=== PATIENT | female | born 1955 | race Caucasian/White ===

== ENCOUNTER 2023-03-20 12:36 | Outpatient (OUT) | payer MEDICARE, BC, SELFPAY ==
[2023-03-20 13:43] LABS: Calcium 9.1 mg/dL (8.5-10.1); Phosphorus 4.3 mg/dL (2.6-4.7)
== END 2023-03-20 12:37 | disposition home or self-care (01) ==
LOC: LAB 12:36
PROVIDERS: Visit Provider Internal Medicine Rheumatology
DX: M81.0 Age-related osteoporosis without current pathological fracture (principal); Z79.899 Other long term (current) drug therapy
CPT/HCPCS: 36415; 82310; 84100

== ENCOUNTER 2023-11-14 11:05 | Outpatient (OUT) | payer MEDICARE, BC, SELFPAY ==
--- NOTE | 2023-11-14 | XR_ITS ---
The [address] [address] Patient Name: JOHN CAMPBELL MRN: [id number] date: 1955 Sex: F Assigned Patient Location: Current Patient Location: Accession/Order Number: [id number] Exam Date: 11/14/2023 11:10 Report Date: 11/15/2023 07:43 At the request of: SARTHAK GRIFFIN Procedure: XR foot LT min 3V PROCEDURE: XR foot LT min 3V COMPARISON: None. HISTORY: LEFT FOOT PAIN FINDINGS: BONES:No acute fracture or dislocation. Severe degenerative change first metatarsal-phalangeal joint with dtwz-nc-jego articulation and marked bony remodeling and marginal osteophyte formation. Mild enthesopathic spurring of the calcaneus at the Achilles and plantar insertions SOFT TISSUES:Negative. No visible soft tissue swelling. EFFUSION:None visible. OTHER: Negative. XR/XR foot LT min 3V IMPRESSION: Severe first metatarsal-phalangeal joint osteoarthritis Electronically authenticated by: APPLE RICHTER Date: 11/15/2023 07:43
== END 2023-11-14 11:06 | disposition home or self-care (01) ==
LOC: EC 11:06
PROVIDERS: Visit Provider Physician Assistant
DX: M79.672 Pain in left foot (principal); M19.072 Primary osteoarthritis, left ankle and foot
CPT/HCPCS: 73630

== ENCOUNTER 2024-06-04 14:51 | Outpatient (RCR) | payer MEDICARE, BC, SELFPAY | END 2024-06-26 08:18 | disposition home or self-care (01) | LOC: PT 14:51 | PROVIDERS: PCP Family Medicine; Visit Provider Family Medicine | DX: M54.16 Radiculopathy, lumbar region (principal) | CPT/HCPCS: 97110; 97112; 97162 ==

== ENCOUNTER 2024-12-21 08:50 | Outpatient (RCR) | payer MEDICARE, BC, SELFPAY | END 2024-12-29 08:58 | disposition home or self-care (01) | LOC: PT 08:50 | PROVIDERS: PCP Family Medicine; Visit Provider Family Medicine | DX: H81.13 Benign paroxysmal vertigo, bilateral (principal) | CPT/HCPCS: 95992; 97140; 97162 ==

== ENCOUNTER 2025-03-23 08:15 | Outpatient (OUT) | payer MEDICARE, BC, SELFPAY ==
--- OUTSIDE RECORDS SUMMARY | 2025-03-23 08:18 | XMS_ITS | Clinical Summary ---
Author Organization [facility] Address [address] [place] [address] Care Team Providers Care Uniformer Name Role Phone Lynn Luther MD Primary Care Provider [phone] Jacky Saleh DO Unavailable [phone] Allergies Active AllergyReactionsCriticalityNoted JywoCypkpcajLaeqoyAmlyTkn20/04/2023 TrsaexPybphtu21/25/2023Povidone PrglyyInwwmkh18/25/2023ovidone-IodineHives 05/11/20186748OkrrulfutnbiIbxmhey80/25/5591ClovNmtgy43/09/2018 Medications MedicationSigDispense QuantityRefillsLast FilledStart DateEnd DateStatus Lecithin 1200 MG capsule Take 1 capsule by mouth 1 (one) time each day at the same time.Active atorvastatin (Lipitor) 10 MG tablet Take 10 mg by mouth in the morning.Active cholecalciferol (Vitamin D-3) 125 MCG (5000 UT) capsule Take 5,000 Units by mouth in the morning.Active denosumab (Prolia) 60 MG/ML solution prefilled syringe Inject 60 mg under the skin 1 (one) time.Active Premarin 0.625 MG/GM cream INSERT 1/2 GRAM VAGINALLY TWICE A WEEK03/15/2022ctive OneTouch Ultra test strip USE TO TEST ONCE DAILY E11.65009/14/2022ctive Lancets (OneTouch Delica Plus Nrhznk04H) misc USE WITH ONE TOUCH LANCET DEVICE DAILY09/18/2022ctive Ascorbic Acid (Vitamin C) 500 MG capsule as directed Nbqhwx2111/14/2023ctive Calcium Citrate-Vitamin D 315-5 MG-MCG tablet 1 (one) time each day at the same time11/14/2023ctive celecoxib (CeleBREX) 200 MG capsule 1 capsule with food Orally prn for 30 days11/14/2023ctive Multiple Vitamin (Multi Vitamin) tablet 1 (one) time each day at the same time11/14/2023ctive omega-3 (Fish Oil) 1000 MG capsule 1 capsule every 8 (eight) hours11/14/2023ctive Active Problems ProblemNoted DateDiagnosed OafgHsisrgyfsic36/29/2024ontracture, left ankle 11/30/2023iabetes mellitus type II, cvjywajqqp24/29/2024OE (dyspnea on exertion)11/30/20235921Fgsjsp79/29/2024Epicondylitis, onbbkem7411/30/2023Epigastric pain11/30/20236198Nymxmezau01/29/5871Gvjznri20/29/2024 Overview (11/30/2023): foot Otitis media11/30/2023rimary localized osteoarthrosis of ankle and foot 11/30/20236719Durucscp74/29/2024Sinus jkuuzvzpnby66/29/2024Type 2 diabetes mellitus with smkgtnjgywyqd88/29/1756Mmgvasxtqlaq19/29/2024ge related osteoporosis 11/25/2022trophy of wggwkn5011/25/2022Fibrocystic breast mfjgoms8211/25/2022 Multiple thyroid trvrhla1311/25/2022Urge incontinence of urine11/25/2022 Resolved Problems ProblemNoted DateDiagnosed DateResolved DateNontoxic single thyroid nodule ostmenopausal gnvxatfi02 Encounters DateTypeDepartmentCare QdwhQqwrvllocsx18/09/2025Results Follow-Up [facility] [address] [place] [address] Tiarra Cook, DEXA bone densityfrom Last 3 Months Family History Medical HistoryRelationNameCommentsBreast cancerFather's Loiitsk5CrnhyvcxSeux StatusCommentsFather's Opzgeio2Rzyja Social History Tobacco UseTypesPacks/DayYears UsedDateSmoking Tobacco: NeverSmokeless Tobacco: Never Tobacco Cessation:Counseling Given: Not Answered Alcohol UseStandard Drinks/WeekCommentsNever0 (1 standard drink = 0.6 oz pure alcohol)caffeine intake : chocolateCommentsUnknownSex and Gender InformationValueDate RecordedSex Assigned at IkrtjKqdvee04/19/2023 12:16 PM EDT Legal JsiYhwviw36/15/2023 7:19 PM EDTGender NlqemebqMgzuhg39/19/2023 12:16 PM EDTSexual OrientationChoose not to nkoeoubc20/19/2023 12:16 PM EDT Last Filed Vital Signs Vital SignReadingTime TakenCommentsBlood Brsukoyu072/6404/08/2024 9:08 AM EST Pulse--Temperature--Respiratory Rate--Oxygen Saturation--Inhaled Oxygen Concentration--Thpjnc57.5 kg (140 lb)04/08/2024 9:08 AM CSCJcghrc833.8 cm (5' 4.5 )12/03/2023 8:31 AM EDTBody Mass Index23.6607 8:31 AM EDT Plan of Treatment DateTypeDepartmentCare Team (Latest Contact Info)Cgdryejvnmg99/20/2025 9:45 AM ESTOffice Visit [facility] [address] [place] [phone] Tiarra Cook DO [address] [place] [address] Health MaintenanceDue DateLast DoneCommentsCT Exyoexbntekm1955Colonoscopy 5Colorectal Cancer Dyiiwjcsc1955FIT-DNA1955FIT1955 FOBT04/24/19554804Ukomfgyacsqzo1955Pneumococcal Vaccine: 65+ Years (1 of 1 - PCV)2005Influenza Vaccine (#1)510/01/2024, 03/08/2023, 03/21/2022, Additional history udfexxJpzdbqwzm29/27/337438, 01/24/2023, 03/15/2022, Additional history exists Procedures Procedure NamePriorityDate/TimeAssociated DiagnosisCommentsDEXA BONE DENSITY Oznzafs0002/08/2025 1:12 PM EDT Screening for osteoporosis Postmenopausal status, age-related BI MAMMOGRAM SCREENING TOMOSYNTHESIS RLKHIFBRKClbyiuk71/27/2025 10:04 AM EDT Encounter for screening mammogram for breast cancer from Last 3 Months Results * DEXA bone density (02/08/2025 1:12 PM EDT)Anatomical RegionLateralityModality BodyRadiographic Imaging Narrative Authorizing ProviderResult TypeResult StatusTiarra Cook DOI DXA PROCEDURESFinal Result * Bilateral screening mammogram with tomosynthesis (01/27/2025 10:04 AM EDT) Anatomical RegionLateralityModalityBreastBilateralMammographySpecimen (Source) Anatomical Location / LateralityCollection Method / VolumeCollection Time Received Time01/27/2025 10:04 AM EDT Impressions 01/27/2025 10:07 AM EDT NO MAMMOGRAPHIC EVIDENCE OF MALIGNANCY. ? ROUTINE FOLLOW-UP IS RECOMMENDED IN ONE YEAR. ? RESULT CODE: 1 ? Negative ? DENSITY CODE: 2 (approximately 25-50% glandular) There are scattered areas of fibroglandular density. ? FOLLOW UP: 1YR ? The false-negative rate of mammography is approximately 10-percent. ? Management of a palpable abnormality must be based on clinical grounds. ? Patient was entered into a reminder system with a target due date for the next mammogram. ? Impression dictated by: Liam Osorio Jr., D.O. ??01/27/2025 10:05 AM ? Dictation Location: [facility] ? Dictated By: ?Liam Osorio Jr, DO ? 01/27/25 1004 ? Signed By: <Electronically signed by Liam Osorio Jr, DO in OV> ?01/27/25 1005 Narrative 01/27/2025 10:07 AM T [facility] ?[address] ?[place] [address] ?? [phone] ? Mammography Report ? Signed ? Patient: GladisLoraine A ?MR#: [id number] ?? 6 ? : 1955 ?Acct:[id number] ? Age/Sex: 69 / F ?Adm Date: // ? Loc: [place] ?Room: ?Type: REG CLI ?? Attending Dr: Tiarra Cook DO ? Ordering Provider: Tiarra Cook, DO ? Date of Service: // ? Procedure(s): MM screening mammo BI w/CAD ?? Accession Number(s): ([id number]) MM/MM screening mammo BI w/CAD: screening ? Copies to: Tiarra Cook, DO ?? Lynn Luther MD ? CLINICAL DATA: ??Screening for malignancy. ? SCREENING MAMMOGRAM - FULL FIELD DIGITAL WITH TOMOSYNTHESIS AND CAD ? COMPARISON:Mammograms dating back to 2021 ? Tomosynthesis craniocaudal and mediolateral oblique views of both breasts were obtained using low- dose digital technique. ?? This examination was reviewed with the aid of CAD. ? FINDINGS: ? The breast tissue is composed of scattered fibroglandular densities. ??There are no dominant masses, typically malignant calcifications or architectural distortion. ??There has been no significant interval change. ? MM/MM screening mammo BI w/CAD ?? Procedure Note Liam Osorio Jr., DO - 01/27/2025 [facility] [place] [address] Mammography Report Signed Patient: Loraine Griffith AMR#: [id number] 6 : 5Acct:[id number] Age/Sex: 69 / FAdm Date: 01/27/25 Loc: [place] Room:Type: [facility] Attending Dr: Tiarra Cook DO Ordering Provider: Tiarra Cook DO Date of Service: 01/27/25 Procedure(s): MM screening mammo BI w/CAD Accession Number(s): ([id number]) MM/MM screening mammo BI w/CAD:screening Copies to: DO Lynn Loja MD CLINICAL DATA: Screening for malignancy. SCREENING MAMMOGRAM - FULL FIELD DIGITAL WITH TOMOSYNTHESIS AND CAD COMPARISON:Mammograms dating back to 2021 Tomosynthesis craniocaudal and mediolateral oblique views of both breastswere obtained using low- dose digital technique. This examination was reviewed with the aid ofCAD. FINDINGS: The breast tissue is composed of scattered fibroglandular densities.There are no dominant masses, typically malignant calcifications or architectural distortion. There hasbeen no significant interval change. MM/MM screening mammo BI w/CAD IMPRESSION: NO MAMMOGRAPHIC EVIDENCE OF MALIGNANCY. ROUTINE FOLLOW-UP IS RECOMMENDED IN ONE YEAR. RESULT CODE: 1 Negative DENSITY CODE: 2 (approximately 25-50% glandular) There are scattered areasof fibroglandular density. FOLLOW UP: 1YR The false-negative rate of mammography is approximately 10-percent. Management of a palpable abnormality must be based on clinical grounds. Patient was entered into a reminder system with a target due date for thenext mammogram. Impression dictated by: Liam Osorio Jr., D.OHyacinth 01/27/2025 10:05 AM Dictation Location: [facility] Dictated By: Liam Osorio Jr, DO 01/27/25 1004 Signed By: <Electronically signed by Liam Osorio Jr, DO inOV> 01/27/25 1005 Authorizing ProviderResult TypeResult StatusTiarra Cook DOI BI PROCEDURESFinal Result from Last 3 Months Insurance * Guarantor: Loraine Griffith AAccount TypeRelation to PatientDate of BirthPhone Billing AddressPersonal/FmpouvBlrl1955 [address] [address] Care Teams Team MemberRelationshipSpecialtyStart DateEnd Lynn Luther MD PCP - GeneralFamily Medicine12/03/23 Jacky Saleh DO [address] [place] [address] Otolaryngology12/03/23
--- OUTSIDE RECORDS SUMMARY | 2025-03-23 08:18 | XMS_ITS | Patient Health Record ---
Author Organization [facility] [place] Address [address] [place] [address] Care Team Providers Care Production Welding Supervisor Name Role Phone None, Unknown or Primary Care Provider Unavailab le Allergies Allergen (clinical drug ingredient) Drug/Non Drug Allergy documented on EMR Reaction Allergy Type Onset Date Status povidone-iodine Betadine Unknown Drug Allergy ActiveniacinNiacinUnknownDrug AllergyActiveproparacaineProparacaineUnknownDrug AllergyActive Reason For Referral No Information Medications Medication SIG (Take, Route, Frequency, Duration) Notes Start Date End Date Status Vitamin C 500 MG as directed Orally 11/14/2023ctiveVitamin D 50 MCG (1999 UT)1 tablet Orally Once a day11/14/2023 ActiveCalcium Citrate-Vitamin D 315-5 MG-MCG1 tablet Orally Once a day11/14/2023 ActiveCelecoxib 200 MG1 capsule with food Orally prn; Duration: 30 days 11/14/2023Not-TakingFish Oil 1000 MG1 capsule Orally Three times a day11/14/2023 ActiveMultivitamin -1 tablet Orally Once a day11/14/2023ctiveAtorvastatin Calcium 10 MG1 tablet Orally Once a day11/14/2023ctive Social History Tobacco Use: Social History Observation Description Date Details (start date - stop date) Never Smoker NA - NA Tobacco Control (Standard) Question Answer Notes Tobacco use: Nonsmoker Problems Problem Type SNOMED Code ICD Code Onset Dates Problem Status W/U Status Risk Notes Problem Contracture of joint of left ankle (disorder) (177585862170442) Contracture, left ankle (M24.572) ActiveconfirmedProblemLocalized, primary osteoarthritis of the ankle and/or foot (625481893)Arthritis of ankle, right, degenerative (M19.071)Activeconfirmed ProblemLocalized, primary osteoarthritis of the ankle and/or foot (263725023) Arthritis of foot, left, degenerative (M19.072)Activeconfirmed Plan Of Treatment No Information Insurance Providers Payer Name Payer Address Payer Phone Subscriber Number Group Number Insured Name Patient Relationship to Insured Coverage Start Date Coverage End Date [place] [address] [place] [address] [id number] Tasha Griffithelf - patient is the insuredANTHEM MEDICARE SUPPLEMENTPO [address] [place] [id number], [employer] - patient is the insured Medical (General) History Medical History History ICD Code Plantar fascia syndrome M72.2 hypercholesterolemia Arthritis of foot, left, cvluxixirfgyL19.072Arthritis of ankle, right, bhdzxocwtffrN43.071left medial epicondylitisneuroma right footdiabetesasthma osteoporosisSurgical History Surgery Date(Month/Year) breast biopsy 2008 tonsillectomy and adenoidectomy
--- OUTSIDE RECORDS SUMMARY | 2025-03-23 08:18 | XMS_ITS | Clinical Summary ---
Author Organization [facility] Address [address] [place] [address] Phone Care Team Providers Care Service Or Work Dispatcher Name Role Phone Evelyn Cannon MD Primary Care Provider Social History Tobacco UseTypesPacks/DayYears UsedDateSmoking Tobacco: Never Assessed CommentsUnknownSex and Gender InformationValueDate RecordedSex Assigned at Not on fileLegal SnqPfpqyj07/25/2022 3:04 PM ESTGender IdentityNot on fileSexual OrientationNot on file Last Filed Vital Signs Vital SignReadingTime TakenCommentsBlood Vdpwgusi913/7801 3:05 PM EST Zimys4714 3:04 PM ESTTemperature--Respiratory Rate--Oxygen Saturation-- Inhaled Oxygen Concentration--Mejmuh07 kg (139 lb)06/06/2022 3:04 PM ESTHeight 163.8 cm (5' 4.5 )06/06/2022 3:04 PM ESTBody Mass Index23.49006/06/2022 3:04 PM EST Plan of Treatment Health MaintenanceDue DateLast DoneCommentsCT Sspgekuwgqvu1955Colonoscopy 5Colorectal Cancer Hppcjqynh1955FIT-DNA (Cologuard)1955FIT 1955Lipid Panel04/24/19556780Snpqkskmcrhbt1955early Adult Physical 1955MMR Vaccines (1 of 1 - Standard series)1956Hepatitis C Screening 1973DTaP/Tdap/Td Vaccines (1 - Tdap)04/24/19778606Vvdtwzxyb12/22/1995 Pneumococcal Vaccine (1 of 1 - PCV)2005Zoster Vaccines (1 of 2)2005 Bone Density Scan2020Influenza Vaccine (#1)5COVID-19 Vaccine (1 - 2024- season)2025RSV High Risk: (Elderly (60+) or Population) (1 - 1-dose 75+ series)2030HIB VaccinesAged OutNo longer eligible based on patient's age to complete this topicHPV VaccinesAged OutNo longer eligible based on patient's age to complete this topicHepatitis A VaccinesAged OutNo longer eligible based on patient's age to complete this topicHepatitis B VaccinesAged OutNo longer eligible based on patient's age to complete this topicIPV Vaccines Aged OutNo longer eligible based on patient's age to complete this topic Meningococcal VaccineAged OutNo longer eligible based on patient's age to complete this topicRotavirus VaccinesAged OutNo longer eligible based on patient's age to complete this topic Care Teams Team MemberRelationshipSpecialtyStart DateEnd Date Evelyn Cannon MD [address] [place] [address] PCP - General06/06/22
--- OUTSIDE RECORDS SUMMARY | 2025-03-23 08:20 | XMS_ITS | CCD ---
Author Organization [facility] Care Team Providers Care Vice President Industrial Relations Name Role Phone Natalie Kinneya Unavailable MD Ruth Cannon Primary Care Provider [phone] Self, Referral Attending Provider Unavailable DO Tiarra Cook Referring Provider PABLO HUBBARD Admitting Unavailable PABLO HUBBARD Attending Unavailable DAVIS, DR RUTH Mesa Primary Care Unavailable DAVID, DR JOHNY Stokes Consulting Unavailable PABLO HUBBARD Consulting Unavailable DAVIS, DR RUTH Mesa Admitting Unavailable DAVIS, DR RUTH Mesa Attending Unavailable DAVIS, DR RUTH Mesa Primary Care Unavailable DAVIS, DR RUTH Mesa Consulting Unavailable MD Ruth Cannon Primary Care Provider MD Kendell German Attending Provider Mapus, JAVASCRIPT DEVELOPER Tondra K Attending Provider [phone] MD Ruth Cannon Attending Provider Ruth Cannon Unavailable Unavailable Unavailable MD Ruth Cannon Primary Care Provider [phone] MD Kendell German Attending Provider [place], JAVASCRIPT DEVELOPER Tondra K Referring Provider [phone] Iraj Edmondson Primary Care Physician [phone] MD Ruth Cannon Primary Care Provider DO Tiarra Cook Attending Provider Map, JAVASCRIPT DEVELOPER Tondra K Attending Provider MD Dmitry German Referring Provider Lynn Luther Unavailable MD Lynn Luther Primary Care Provider Obermeyer, ASSOCIATE CIVIL ENGINEER-C Miracle Wellington Attending Provider DANITA Kinney Referring Provider MD Lynn Luther Primary Care Provider Self, Referral Attending Provider Unavailable DO Tiarra Cook Referring Provider Obermeyer, ASSOCIATE CIVIL ENGINEER-C Miracle Wellington Attending Provider JACKY SALEH Attending Unavailable RUTH CANNON Referring Unavailable TIARRA COOK Attending Unavailable Lynn Luther MD Primary Care Provider [phone] Jacky Saleh DO Unavailable Lynn Luther MD Primary Care Provider Self, Referral Attending Provider Unavailable Tiarra Cook DO Referring Provider Obermeyer ASSOCIATE CIVIL ENGINEER-CMiracle Attending Provider Lynn Luther MD Primary Care Provider Lynn Luther MD Attending Provider Dario Moore DO Referring Provider Lynn Luther MD Primary Care Provider Obermeyer ASSOCIATE CIVIL ENGINEER-C, Miracle Wellington Other Provider MapAriel singh APRN Attending Provider [phone] Wendie Craig DO Attending Provider Lynn Luther MD Attending Provider [phone] Lynn Luther MD Primary Care Provider Nan Rodriguez APRN Attending Provider Wendie Craig DO Other Provider [phone] Selin Patel Attending Provider Unavailab Lynn Anderson MD Attending Provider Leland Boss Attending Unavailable Lynn Luther MD Primary Care Provider [place]us JAVASCRIPT DEVELOPER, Tondra K Attending Provider Lynn Luther MD Primary Care Provider Wendie Craig DO Attending Provider Lynn Luther MD Primary Care Provider Lynn Luther MD Attending Provider [place] JAVASCRIPT DEVELOPERAriel Londono Attending Provider RinTiarra shea DO Attending Provider [phone] Lynn Luther E Primary Care Unavailable Obermeyer, Miracle L Admitting Unavailable Obermeyer, Miracle L Attending Unavailable Luther, Lynn E Primary Care Unavailable Luther, Lynn E Attending Unavailable Luther, Lynn E Admitting Unavailable Luther, Lynn E Attending Unavailable Luther, Lynn E Admitting Unavailable Dario Moore Referring Unavailable Luther, Lynn E Primary Care Unavailable Mapus, Tondra K Admitting Unavailable [place], Tondra K Attending Unavailable Luther, Lynn E Primary Care Unavailable Obermeyer, Miracle L Consulting Unavailable Luther, Lynn E Attending Unavailable Luther, Lynn E Admitting Unavailable Luther, Lynn E Primary Care Unavailable Luther, Lynn E Attending Unavailable Luther, Lynn E Admitting Unavailable Luther, Lynn E Primary Care Unavailable Mapus, Tondra K Attending Unavailable Luther, Lynn E Primary Care Unavailable Mapus, Tondra K Admitting Unavailable RinTiarra shea Attending Unavailable Luther, Lynn E Primary Care Unavailable RinTiarra shea Admitting Unavailable Ly Wendie L Admitting Unavailable LyWendie Attending Unavailable Luther, Lynn E Primary Care Unavailable Allergies Allergy ClassificationReported Allergen(s)Allergy TypeDate of OnsetReaction(s) Facility (20 sources)IodineDrug Wmckzie93-61-6242innhQgiliixfiSelect [facility] (20 sources)Niacin; Translations: [Niacin TABS]Drug Eoogkxx87-37-5443 Hypertensive disorder, systemic arterial (disorder)[facility] (20 sources)Povidone-IodineDrug Lwynhve61-02-7035lvskHnteifqqdSelect Medical Specialty Hospital [facility] [place] (17 sources)propacaine eye dropPropensity to adverse mxrwnowdv65-15-0228hrpyif turns [facility] (20 sources)Povidone-Iodine; Translations: [Povidone-Iodine]Drug Allergy 94-99-9674Tuxnbrtf of skin (disorder), [facility]ivesMer[facility] (12 sources)ProcaineDrug Wbjeuvp41-76-8812Ezz EyeMercy Health Clerm[facility] Hospital (20 sources)soapPropensity to adverse vbssuivjl96-82-6904FubmwVolxckrsr [facility] (1 source)Povidone-Iodine; Translations: [Betadine OINT]Drug AllergyRain[facility] 250 DO Work Phone: (2 sources)Povidone-Iodine; Translations: [Betadine]Drug AllergyOhio[facility] (6 sources)proparacaine; Translations: [Proparacaine HCl SOLN]Drug Allergy 54-82-4566Xkc eye (finding), [facility] (3 sources)NiacinDrug Xuuiygm35-87-1506QsqjyovGRJL Healthcare (3 sources)Povidone-IodineDrug Crnutzo48-44-4536QkgnuvmWHBD Healthcare (12 sources)proparacaineDrug Anoaxxb32-20-4208fua eyesMercy Health Cl[facility] Hospital (1 source)proparacaine; Translations: [proparacaine ophthalmic]Drug Allergy [facility] Medications Current Medications MedicationDrug Class(es)DatesSig (Normalized)Sig (Original)amoxicillin 500 mg oral capsule (1 source)Penicillin-class AntibacterialStart: 65-12-2697musl 1 capsule by mouth every twelve hoursamoxicillin 500 mg Cap 500 mg = 1 cap(s), Oral, q12hr, # 20 cap(s), Refills(s) 0, Pharmacy: [facility]/pharmacy #[id number], 162, cm, 01/09/23 14:37:00 EDT, Height/Length Dosing, 62.5, kg, 01/09/23 14:37:00 EDT, Weight Dosing Start Date: 01/09/23 Status: Orderedascorbic acid 500 mg oral capsule (20 sources)Vitamin CStart: 03-71-9376Tajexmrl Acid (Vitamin C) 500 MG capsule as directed Orally 11/14/2023 ActiveStart: 24-53-0743mfxm 1 tablet by mouth once dailyAscorbic Acid (Vitamin C) (Vitamin C) 500 mg Tablet Active 500 MG PO Daily May 11, 2018 1:00am Complies with drug therapycalcium citrate 1500 mg / cholecalciferol 200 unt oral tablet (20 sources)Vitamin DStart: 45-44-1016Hetpgsg Citrate-Vitamin D 315-5 MG-MCG tablet 1 (one) time each day at the same time 11/14/2023 ActiveStart: 05-11-2018 take 1 tablet by mouth twice dailyCalcium Citrate-Vitamin D3 (Citracal + D Maximum) 315-250 mg-unit Tablet Active 1 TAB PO Twice daily May 11, 2018 1:00am Complies with drug therapycelecoxib 200 mg oral capsule (3 sources)Nonsteroidal Anti-inflammatory DrugStart: 27-99-4955qjaf 1 capsule by mouth at mealtime as neededcelecoxib (CeleBREX) 200 MG capsule 1 capsule with food Orally prn for 30 days 11/14/2023 Activecholecalciferol 0.025 mg oral capsule (20 sources)Vitamin DStart: 69-73-3078rhfe 1 capsule by mouth once daily Cholecalciferol (Vitamin D3) (Vitamin D3) 25 mcg (1,000 unit) capsule Active 2000 UNIT PO Daily 2023 9:29am Complies with drug therapyStart: 10-17-2023 End: 26-48-5253cnpe 1 tablet by mouth once dailycholecalciferol (vitamin D3) (Super Daily D3) Discontinued 1 TAB PO Daily October 16, 2023 11:00pm October 17, 2023 8:29amStart: 10-17-2023 End: 72-20-1813foiy 1 tablet by mouth once dailycholecalciferol (vitamin D3) (Super Daily D3) Discontinued 1 TAB PO Daily October 17, 2023 12:00am October 17, 2023 9:29amStart: 05-11-2018 End: 45-27-3847fuhb 1325-0745 [IU] by mouth once dailyCholecalciferol (Vitamin D3) (Vitamin D3) 1,000 unit Capsule Discontinued 1000 - 2000 UNIT PO Daily May 11, 2018 1:00am October 17, 2023 9:30amtake 1 capsule by mouth in the morningcholecalciferol (Vitamin D-3) 125 MCG (5000 UT) capsule Take 5,000 Units by mouth in the morning. Activetake 1 tablet by mouth twice dailyVitamin D3 50 MCG (2000 UT) Oral Tablet 1 tablet twice a day Quantity: 0 Refills: 0 Ordered: 06-Jun-2022 DO ActiveCitracal Plus (10 sources)take 1 tablet by mouth twice dailyCitracal Plus 1 Tablet Orally bid ActiveCoQ-10 100 MG (3 sources)take 1 capsule by mouth once dailyCoQ-10 100 MG 1 capsule with a meal Orally Once a day Active1 ml denosumab 60 mg/ml prefilled syringe (20 sources)RANK Ligand InhibitorStart: 34-42-6606Bskwzhjpx (Prolia) 60 mg/mL syringe Active 60 MG SUBCUT EVERY 6 MONTHS October 17, 2023 12:00am Complies with drug therapyinject 60 mg by subcutaneous injection oncedenosumab (Prolia) 60 MG/ML solution prefilled syringe Inject 60 mg under the skin 1 (one) time. Act iveProlia 60 MG/ML as directed Subcutaneous q 6 months Activedocosahexaenoic acid 120 mg / eicosapentaenoic acid 180 mg oral capsule (4 sources)Start: 33-25-0601khjv 1 capsule by mouth every eight hoursomega-3 (Fish Oil) 1000 MG capsule 1 capsule every 8 (eight) hours 11/14/2023 ActiveFish Oil 1000 MG Oral Capsule 1 TABLET TWICE ADAY Quantity: 180 Refills: 3 Ordered: 06-Jun-2022 DO Activeestrogens, conjugated (prison) 0.625 mg/ml vaginal cream (3 sources)EstrogenStart: 61-82-0751Mgibepvq 0.625 MG/GM cream INSERT 1/2 GRAM VAGINALLY TWICE A WEEK 03/15/2022 ActiveFish Oils (10 sources)Fish Oil 1000mg QD ActiveFlax Seed Oil 1000 MG (10 sources)Flax Seed Oil 1000 MG Orally RhcaqeHvhv-Gdynv-Se8-Oeb-Khc-Nwuz-St (Glucosamine Chondroitin Plus) 351-603-55-54 mg Capsule (20 sources)Start: 11-50-7035xlus 1 tablet by mouth once dailyStart: 05-12-2018 take 1 tablet by mouth once uoaoeSmve-Ibufm-Rp4-Hpa-Wlg-Kqcg-St (Glucosamine Chondroitin Plus) 047-767-40-54 mg Capsule Active 1 TABPO Daily May 12, 2018 1:00am Complies with drug therapyStart: 69-08-5680ivsk 1 tablet by mouth once bgztmYpdj-Gjceg-Lu5-Ogp-Qmw-Mval-St (Glucosamine Chondroitin Plus) 607-393-93-54 mg Capsule Active 1 TABPO Daily May 12, 2018 12:00amStart: 90-90-1166kcnj 1 tablet by mouth once gxmbvVvzn-Mqtjj-Li1-Upr-Skg-Ohmk-St (Glucosamine Chondroitin Plus) 600-921-76-54 mg Capsule Active 1 TABPO Daily May 12, 2018 1:00amGlucosamine Chondroitin Complx (10 sources)Glucosamine Chondroitin Complx Orally Activelecithin 1200 mg oral capsule (20 sources)Start: 05-12-2018 End: 20-30-8925jvun 1 capsule by mouth once dailyLecithin 1,200 mg capsule Active 1200 MG PO Daily October 17, 2023 9:29am Complies with drug therapylinseed oil 1000 mg oral capsule (18 sources)Start: 36-20-6039qiav 1 capsule by mouth once dailyFlaxseed Oil 1,000 mg capsule Active 1000 MG PO Daily October 17, 2023 12:00am administer with a mealComplies with drug therapyFlax Seed Oil 1000 MG Oral Capsule TAKE DIRECTED. Quantity: 0 Refills: 0 Ordered: 06-Jun-2022 DO ActiveMultiple Vitamin (Multi Vitamin) tablet (3 sources)Start: 72-87-0354Zuhkashh Vitamin (Multi Vitamin) tablet 1 (one) time each day at the same time 11/14/2023 ActiveMultivitamin preparation (19 sources)Start: 33-17-6447tszm 1 tablet by mouth once dailyMultivitamin Active 1 TAB PO Daily May 11, 2018 12:00amStart: 28-32-3516abtj 1 tablet by mouth once dailyMultivitamin Active 1 TAB PO Daily May 11, 2018 1:00am Multivitamin Orally ActiveMultivitamin Tablet (15 sources)Start: 49-20-8368kaen 1 tablet by mouth once dailyStart: 05-11-2018 take 1 tablet by mouth once dailyMultivitamin Tablet Active 1 TAB PO Daily May 11, 2018 1:00am Complies with drug therapyStart: 97-37-8925eyof 1 tablet by mouth once dailyMultivitamin Tablet Active 1 TAB PO Daily May 11, 2018 1:00amStart: 52-23-7774mzwq 1 tablet by mouth once dailyMultivitamin Tablet Active 1 TAB PO Daily May 11, 2018 12:00amOmega 5-Lld-Aou-Fish Oil (Fish Oil) 1,000 mg (120 mg-180 mg) Capsule (20 sources)Start: 97-63-1979mrfp 1 capsule by mouth once dailyStart: 05-11-2018 take 1 capsule by mouth once dailyOmega 6-Foj-Yzl-Fish Oil (Fish Oil) 1,000 mg (120 mg-180 mg) Capsule Active 1000 MG PO Daily May 11, 2018 1:00am Complies with drug therapyStart: 82-95-8048qvnz 1 capsule by mouth once daily [place] 8-Zgc-Pzb-Fish Oil (Fish Oil) 1,000 mg (120 mg-180 mg) Capsule Active 1000 MG PO Daily May 11, 2018 12:00amStart: 57-69-2018vbhw 1 capsule by mouth once dailyOmega 1-Dkg-Jjh-Fish Oil (Fish Oil) 1,000 mg (120 mg-180 mg) Capsule Active 1000 MG PO Daily May 11, 2018 1:00amOne Touch Ultra Mini Glucometer 1 meter (8 sources)Start: 74-92-0558Rhl Touch Ultra Mini Glucometer 1 meter Use to test blood sugar E11,9 as directed Jun, ActiveStart: 95-71-5967znzmiut lecithin 1200 mg oral capsule (4 sources)take 1 capsule by mouth once dailyLecithin 1200 MG capsule Take 1 capsule by mouth 1 (one) time each day at the same time. ActiveSuper D3 Complex (10 sources)take 1000 mg by mouth once dailySuper D3 Complex 1000mg Orally daily Activeubidecarenone 200 mg oral capsule (20 sources)Start: 72-79-1907Ddpucbow Q10 (Co Q-10) 200 mg Capsule Active 100 MG PO Daily May 11, 2018 1:00am Complies with drug therapytake 1 capsule by mouth every twenty-four hoursCoQ-10 100 MG 1 capsule with a meal Orally Once a day ActivevalACYclovir 1000 mg oral tablet (1 source)Herpesvirus Nucleoside Analog DNA Polymerase Inhibitor, Herpes Simplex Virus Nucleoside Analog DNA Polymerase Inhibitor, Herpes Zoster Virus Nucleoside Analog DNA Polymerase InhibitorStart: 12-27-2024 End: 99-68-3952pwjy 1 tablet by mouth every eight hoursvalacyclovir 1 g Tab 1 gm = 1 tab(s), Oral, q8hr, X 7 day(s), # 21 tab(s), Refills(s) 0, Pharmacy: [facility]/pharmacy #[id number], 163, cm, 12/27/24 13:23:00 EDT, Height/Length Dosing, 66, kg, 12/27/24 13:23:00 EDT, Weight Dosing Start Date: 12/27/24 Stop Date: 01/03/25 Status: Ordered Quantity: 21.0 Unit: tab(s)Repeat number: 1 Indications: Zoster without complications;Vitamin B Complex (20 sources)Start: 53-21-1410segg 1 tablet by mouth once dailyStart: 10-17-2023 take 1 tablet by mouth once dailyvitamin B complex Active 1 TAB PO Daily October 17, 2023 12:00am Complies with drug therapyStart: 85-94-8670bmym 1 tablet by mouth once dailyvitamin B complex Active 1 TAB PO Daily October 16, 2023 11:00pm Start: 43-69-3323zbnm 1 tablet by mouth once dailyvitamin B complex Active 1 TAB PO Daily October 17, 2023 12:00amVitamin B Complex Orally Activevitamin b12 2.5 mg sublingual tablet (20 sources)Vitamin H15Vyzve: 20-97-3069Kckpljgrtaniup (Vitamin B-12) (Vitamin B-12) 2,500 mcg Tablet, Sublingual Active 1000 MG SUBLINGUALDaily May 12, 2018 1:00am Complies with drug therapyVitamin C 500 MG (10 sources)Vitamin C 500 MG Orally Active Completed/Discontinued Medications MedicationDrug Class(es)DatesSig (Normalized)Sig (Original)atorvastatin 10 mg oral tablet (20 sources)HMG-CoA Reductase InhibitorStart: 10-17-2023 End: 92-09-3292vkkr 1 tablet by mouth five times weeklyAtorvastatin 10 mg tablet Discontinued 10 MG PO 5 TIMES PER WEEK October 17, 2023 9:28am April 23, 2024 10:52amStart: 07-25-2023 End: 33-20-6676emgz 1 tablet by mouth once dailyAtorvastatin 10 mg tablet Discontinued 0 .ROUTE .COMPLEX July 25, 2023 8:38am October 17, 2023 9:30am TAKE 1 TABLET BY MOUTH EVERY DAYStart: 01-09-2023 End: 39-43-0854qyhu 1 tablet by mouth once dailyAtorvastatin 10 mg tablet Discontinued 10 MG PO Daily April 23, 2024 10:53am October 29715683:55am Start: 05-11-2018 End: 51-02-6279yker 1 tablet by mouth three times weeklyAtorvastatin (Lipitor) 10 mg Tablet Discontinued 10 MG PO 3 Times a week May 11, 2018 1:00am F ebruary 2023 8:38amtake 1 tablet by mouth every six hoursAtorvastatin Calcium 10 mg 1 tablet Orally qid for 90 days Activetake 1 tablet by mouth four times weeklyAtorvastatin Calcium 10 mg 1 tablet Orally 4 TIMES A WEEK Active Calcium Citrate (1 source)Citracal TABS 1 tablet twice a day Quantity: 0 Refills: 0 Ordered: 06-Jun-2022 DO ActiveCo Q10 TABS (1 source)Co Q10 TABS TAKE DIRECTED. Quantity: 0 Refills: 0 Ordered: 06-Jun-2022 DO ActiveGlucosamine Chondroitin Triple TABS (1 source)Glucosamine Chondroitin Triple TABS TAKE 1 TABLET DAILY DIRECTED. Quantity: 0 Refills: 0 Ordered: 06-Jun-2022 DO ActiveMultiple Vitamins TABS (1 source)Multiple Vitamins TABS TAKE 1 TABLET DAILY. Quantity: 0 Refills: 0 Ordered: 06-Jun-2022 DO Activeomeprazole 40 mg delayed release oral capsule (20 sources)Proton Pump InhibitorStart: 09-28-2024 End: 25-63-6515rxqr 1 capsule by mouth once dailyOmeprazole 40 mg capsule,delayed release(DR/EC) Discontinued 40 MG PO Daily September 28, 2024 12:00am January 20, 2025 9:37amStart: 05-19-2018 End: 20-46-5218jftj 1 capsule by mouth once dailyOmeprazole 20 mg capsule,delayed release(DR/EC) Discontinued 20 MG PO Daily May 19, 2018 1:00am October 17, 2023 9:30amStart: 05-13-2018 End: 03-76-9214gniq 1 tablet by mouth once dailyOmeprazole 20 mg Tablet,Delayed Release (Dr/Ec) Discontinued 20 MG PO Daily May 13, 2018 1:00am October 17, 2023 9:30amsAXagliptin 5 mg oral tablet (20 sources)Dipeptidyl Peptidase 4 InhibitorStart: 05-11-2018 End: 93-84-0914ednv 1 tablet by mouth once dailySaxagliptin (Onglyza) 5 mg Tablet Discontinued 5 MG PO Daily May 11, 2018 1:00am October 17, 2023 9:30amtake 1 tablet by mouth once dailyOnglyza 5mg 5mg 1 Tablet po daily Not-Takingtake 1 tablet by mouth once dailyOnglyza 5mg 5mg 1 Tablet po daily Active Problems Active Problems Problem ClassificationProblemDateDocumented DateEpisodic/ChronicAbdominal pain (20 sources)Epigastric pain; Translations: [Epigastric pain]Onset: 11-30-2023 97-83-0293MhwsqzqtXmimdrgd foot deformities (20 sources)Bunion; Translations: [Bunion of left foot]Episodic Administrative/social admission (20 sources)Dietary management surveillance; Translations: [Dietary counseling and surveillance]Onset: 10-11-2021 Resolved: 37-53-2134JopzyaqrGufpwxxi reactions (5 sources)Eczema; Translations: [Dermatitis, unspecified]Onset: 11-30-2023 00-08-9277DexwefroIcqesuv dysrhythmias (16 sources)Multiple premature ventricular complexes; Translations: [Ventricular premature depolarization]Onset: 430728-79-3932EamocrgBygkmgs dysrhythmias (11 sources)Palpitations; Translations: [Tachycardia, unspecified]Onset: 02-19-5140VqydkfvdOlwwjmmlwn associated with dizziness or vertigo (16 sources)Dizziness and giddiness; Translations: [Dizziness]Onset: 05-12-2022 69-96-0850CahwbdydDummgwqsbe and other anemia (15 sources)Anemia; Translations: [Anemia, unspecified]37-06-0083Kffhhnpr Deficiency and other anemia (3 sources)Anemia, unspecified; Translations: [Anemia, unspecified]10-22-2024 EpisodicDiabetes mellitus with complications (20 sources)Hyperglycemia due to type 2 diabetes mellitus; Translations: [Type 2 diabetes mellitus with hyperglycemia]Onset: 10-11-2021 Resolved: 38-52-5036OnfpcfqVdsortsb mellitus without complication (20 sources)Type 2 diabetes mellitus; Translations: [Type 2 diabetes mellitus without complications]Onset: 06-05-2021 Resolved: 93-54-6094LyryfimSsrzrprh of mouth; excluding dental (18 sources)Glossopyrosis ; Translations: [Glossodynia]15-21-9453Atmtiqae Disorders of lipid metabolism (20 sources)Hyperlipidemia; Translations: [Hyperlipidemia, unspecified]Onset: 10-11-2021 Resolved: 19-54-0602CeiszfuRjmbkyvwre disorders (20 sources)Gastroesophageal reflux disease; Translations: [Gastro-esophageal reflux disease without esophagitis]06-00-9226NjspqdwNsxpokaws hypertension (14 sources)Essential hypertension; Translations: [Essential (primary) hypertension]Onset: 10-11-2021 Resolved: 78-99-7262XxzbogyTgwvoonjw and duodenitis (10 sources)Atrophic gastritis; Translations: [Unspecified chronic gastritis without bleeding]ChronicGastritis and duodenitis (5 sources)Gastritis; Translations: [Gastritis, unspecified, without bleeding] Onset: 055802-33-7924XmajyreuRcewwjbwyciou symptoms and ill-defined conditions (3 sources)Urge incontinence of urine; Translations: [Urge incontinence]Onset: 955796-44-2538ZqbmbedImihqazbnk disorders (10 sources)Menopausal flushing; Translations: [Menopausal and female climacteric states]Onset: 11-25-2022 Resolved: 94-61-5396NlaitbsFoqajjbnedng breast conditions (3 sources)Fibrocystic disease of breast; Translations: [Diffuse cystic mastopathy of unspecified breast]Onset: 441256-81-0808FoztfqnMvbayrptfzi chest pain (17 sources)Chest pain; Translations: [Chest pain, unspecified]Onset: 06-05-2024 74-82-8498CrizcnluDylbwcighpg deficiencies (15 sources)Vitamin D deficiency; Translations: [Vitamin D deficiency, unspecified]Onset: 08-09-2021 Resolved: 55-22-8272LkiqewxRtxixmqdexyxnr (3 sources)Localized, primary osteoarthritis of the ankle and/or foot; Translations: [Primary osteoarthritis, unspecified ankle and foot]Onset: 554283-65-3184DdohboyVrchyaqdcjhp (8 sources)Osteoporosis; Translations: [Senile osteoporosis]Onset: 11-25-2022 47-82-6492VbhtfwyKupyi acquired deformities (3 sources)Contracture of joint of left ankle; Translations: [Contracture, left ankle]Onset: 951721-37-6809QlgaasgFyjnq aftercare (10 sources)Long-term current use of insulin; Translations: [nursing home (current) use of insulin]EpisodicOther and unspecified benign neoplasm (5 sources)Neuroma; Translations: [Benign neoplasm of peripheral nerves and autonomic nervous system, unspecified]Onset: 111337-00-9044NpekmpdvXlvinuy on above:footOther circulatory disease (13 sources)Elevated blood-pressure reading without diagnosis of hypertension; Translations: [Elevated blood-pressure reading, without diagnosis of hypertension]89-04-8281FzqrqudnYjihg connective tissue disease (5 sources)Lateral epicondylitis; Translations: [Lateral epicondylitis, unspecified elbow]Onset: 497578-90-0508XlxrbtudBrwbf lower respiratory disease (20 sources)Dyspnea on exertion; Translations: [Shortness of breath]Onset: 150033-73-6590NappxtcyFnkpi non-traumatic joint disorders (5 sources)Arthropathy; Translations: [Arthropathy, unspecified]Onset: 594614-60-6707IcoawgoLneix screening for suspected conditions (not mental disorders or infectious disease) (9 sources)Electrocardiogram abnormal; Translations: [Nonspecific abnormal electrocardiogram [ECG] [EKG]]Onset: 471450-98-4342QnbtyrsqRlrzf upper respiratory infections (10 sources)Sinusitis; Translations: [Chronic sinusitis, unspecified]Chronic Otitis media and related conditions (20 sources)Otitis media; Translations: [Otitis media, unspecified, right ear] Onset: 05-89-7964GkuzaotmFrisrbib codes; unclassified (4 sources)Body mass index (BMI) 22.0-22.9, adultOnset: 10-11-2021 Resolved: 03-04-5816UnagxoexXqtelchd codes; unclassified (20 sources)Body mass index 20-24 - normal; Translations: [Body Mass Index between 19-24, adult]81-27-8893DnwyoaltGqggekzk codes; unclassified (2 sources)Postmenopausal state; Translations: [Asymptomatic menopausal state] 88-32-4586VmwwrmlqTncgflqc codes; unclassified (3 sources)Body mass index (BMI) 24.0-24.9, adult; Translations: [Body Mass Index between 19-24, adult]91-44-4055EmpwitzlPqiniiye codes; unclassified (1 source)Asymptomatic menopausal state; Translations: [Asymptomatic menopausal state]Onset: 52-55-5434BteeipxvAuprtoredww; intervertebral disc disorders; other back problems (20 sources)Sciatica; Translations: [Sciatica, unspecified side]Onset: 477964-06-8293KqdtuhvtAqplofx disorders (6 sources)Multinodular goiter; Translations: [Nontoxic multinodular goiter] Onset: 11-25-2022 Resolved: 305175-43-2196DxwtbhvBokuu infection (9 sources)Zoster without complications; Translations: [Herpes zoster]Onset: 10-65-6754Jnpvwjqb Past or Other Problems Problem ClassificationProblemDateDocumented DateEpisodic/ChronicNutritional deficiencies (4 sources)Deficiency of other specified B group vitamins; Translations: [Deficiency of other specified B group vitamins]Onset: 33-64-1815IwyxmkeqFrivp connective tissue disease (4 sources)Pain in right foot; Translations: [PAIN IN RIGHT FOOT]Onset: 67-98-9834IbqhzfddGbfbt connective tissue disease (1 source)Pain in left foot; Translations: [PAIN IN LEFT FOOT]Onset: 10-02-2021 EpisodicOther lower respiratory disease (2 sources)Other forms of dyspnea; Translations: [Other respiratory abnormalities]Onset: [id number] (1 source)Never smoked tobacco; Translations: [Never a smoker] Results Test NameValueInterpretationReference RangeFacilityMM screening mammo BI w/CADon 01-58-4520LP screening mammo BI w/CADMER[facility] [address] [place] [address] Mammography Report Signed Patient: Loraine Griffith MR#: [id number] 6 : 1955 Acct:[id number] Age/Sex: 69 / F Adm Date: 01/27/25 Loc: [place] Room: Type: [facility] Attending Dr: Tiarra Cook DO Ordering Provider: Tiarra Cook DO Date of Service: 01/27/25 Procedure(s): MM screening mammo BI w/CAD Accession Number(s): ([id number]) MM/MM screening mammo BI w/CAD: screening Copies to: DO Lynn Loja MD CLINICAL DATA: Screening for malignancy. SCREENING MAMMOGRAM - FULL FIELD DIGITAL WITH TOMOSYNTHESIS AND CAD COMPARISON:Mammograms dating back to 2021 Tomosynthesis craniocaudal and mediolateral oblique views of both breasts were obtained using low- dose digital technique. This examination was reviewed with the aid of CAD. FINDINGS: The breast tissue is composed of scattered fibroglandular densities. There are no dominant masses, typically malignant calcifications or architectural distortion. There has been no significant interval change. MM/MM screening mammo BI w/CAD IMPRESSION: NO MAMMOGRAPHIC EVIDENCE OF MALIGNANCY. ROUTINE FOLLOW-UP IS RECOMMENDED IN ONE YEAR. RESULT CODE: 1 Negative DENSITY CODE: 2 (approximately 25-50% glandular) There are scattered areas of fibroglandular density. FOLLOW UP: 1YR The false-negative rate of mammography is approximately 10-percent. Management of a palpable abnormality must be based on clinical grounds. Patient was entered into a reminder system with a target due date for the next mammogram. Impression dictated by: Liam Osorio Jr., D.O. 01/27/2025 10:05 AM Dictation Location: DW01 Dictated By: Liam Osorio Jr, DO 01/27/25 1004 Signed By: 01/27/[address] [place] [address] Physician [facility] HospitalMammography reportOrdered By: Liam Osorio on 20-98-4956Sjczsvwpsw imaging [facility] [address] [place] [address] Mammography Report Signed Patient: Loraine Griffith MR#: [id number] : 1955 Acct:[id number] Age/Sex: 69 / F Adm Date: 5 Loc: [place] Room: Type: [facility] Attending Dr: Tiarra Cook DO Ordering Provider: Tiarra Cook DO Date of Service: 01/27/25 Procedure(s): MM screening mammo BI w/CAD Accession Number(s): ([id number]) MM/MM screening mammo BI w/CAD: screening Copies to: DO Lynn Loja MD~ CLINICAL DATA: Screening for malignancy. SCREENING MAMMOGRAM - FULL FIELD DIGITAL WITH TOMOSYNTHESIS AND CAD COMPARISON:Mammograms dating back to 2021 Tomosynthesis craniocaudal and mediolateral oblique views of both breasts were obtained using low-dose digital technique. This examination was reviewed with the aid of CAD. FINDINGS: The breast tissue is composed of scattered fibroglandular densities. There are no dominant masses, typically malignant calcifications or architectural distortion. There has been no significant interval change. MM/MM screening mammo BI w/CAD IMPRESSION: NO MAMMOGRAPHIC EVIDENCE OF MALIGNANCY. ROUTINE FOLLOW-UP IS RECOMMENDED IN ONE YEAR. RESULT CODE: 1 Negative DENSITY CODE: 2 (approximately 25-50% glandular) There are scattered areas of fibroglandular density. FOLLOW UP: 1YR The false-negative rate of mammography is approximately 10-percent. Management of a palpable abnormality must be based on clinical grounds. Patient was entered into a reminder system with a target due date for the next mammogram. Impression dictated by: Liam Osorio Jr., D.OHyacinth 01/27/2025 10:05 AM Dictation Location: [facility] Dictated By: Liam Osorio Jr, DO 01/27/25 1004 Signed By: 01/27/25 1005 [facility] HospitalFructosamineon 87-23-1500Hgdcltsvidsy560 umol/L Normal0-285[facility] Physician GroupComment on above:Result Comment: Published reference interval for apparently healthy subjects between age 20 and 60 is 205 - 285 umol/L and in a poorly controlled diabetic population is 228 - 563 umol/L with a mean of 396 umol/L. Performed at: [facility] [address] [place], [place] [id number] Quilting Machine Helper: Simon Copeland PhD, Phone: [phone] PERFORMED BY: [facility] [place] [address] PATHOLOGIST ISOTOPE TECHNOLOGIST TERRY FERRER M.D.Performed By: #### FRUC #### [facility] ,Fructosamine [Moles/volume] in Serum or PlasmaOrdered By: Ariel Kinney on 98-57-0401Ukbejwhvirkm [Moles/Vol]224 umol/L0-285[facility] HospitalComment on above:Published reference interval for apparently healthysubjects between age 20 and 60 is 205 - 285 umol/L and in apoorly controlled diabetic population is 228 - 563 umol/Lwith a mean of 396 umol/L.Performed at: [facility] [address] [id number] Director: Simon Copeland PhD, Phone: [phone] Medicine Office/Clinic Noteon 24-43-5176Sipdya Medicine Office/Clinic NoteFami Medicine Office/Clinic Note Chief Complaint shingles HPI Staff 69 year old female complaints of possibly shingles. right side of back. itching Onset: noticed it yesterday around 3-4 pm History of Present Illness I have reviewed and verified the staff HPI to be accurate for this encounter. Portions of this record have been created with voice recognition software. Occasional wrong-word or???gurpx-u-oifi??? substitutions may have occurred due to the inherent limitations of voice recognition software. 69 yo female presents today with cc of rash. Pt is concerned for shingles. Patient states she noticed this rash yesterday on the right side of her back states that it is itchy she states she notices around 3 to 4 PM after getting out of the shower. 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 Is concern for shingles with the way it looks. States she just noticed this yesterday did not have any sensitivity and no burning itching or sensitivity to the skin and prior. She states that yesterday after getting of the shower she was drying off her back and thought that something felt a little bit itchy. Patient states that she then went to scratch her back and felt something like a bump. States she had her take a look at it and at that time it only appeared to be 2 small bumps. States that they went to dinner with friends last evening and when she got home she looked at it again and was concerned for shingles as they had 2 small spots of areas on redness that appeared to be small bumps that are raised. She states they are itchy not painful states she had been working out in the garden but denies any other rashes or lesions no new changes in soaps lotions or detergents. No recent medication changes. She has no other concerns at this time. States she did have the shingles vaccine in 2022. Review of Systems PHQ Score Initial Depression Screen Score: 0 SCORE ROS negative unless otherwise stated in HPI. Physical Exam Vitals & Measurements T: 36.8 ???C(Oral) HR: 95(Peripheral) BP: 130/84 SpO2: 97% HT: 64 in HT: 163 cm WT: 145.505 lb WT: 66 kg BMI: 24.84 General:Well developed, well nourished, in no acute distress pleasant elderly female, no acute distress Eyes:not assessed Ears:not assessed Nose:not addressed Mouth:not assessed Neck:not assessed Lungs:Lung sounds are clear bilaterally. No wheezing, rhonchi, or crackles on exam. Cardio:S1, S2, regular rhythm. No murmurs, gallops, or rubs. Abdomen:not assessed Musculoskeletal:not assessed Extremity:not assessed Neurologic:not assessed Skin: At the patient's right mid back just underneath the bra line there is 2 small areas 1 which appears to be a cluster of 3 small erythematous bumps and just to the left or adjacent to that is another area 2 small raised erythematous bumps. Patient states this is itching and it is not painful not super sensitive these do not appear to be blistering or vesicular at this time. No hives or urticarial type rash no rash which spreads around to the abdomen at this time. Possibly early shingles versus a contact. Mental Status:Alert and oriented x3. Normal mood and affect Assessment/Plan I spoke with patient in regards to her concern she has 2 small areas on the right mid back region which are erythematous raised bump like lesions these do not appear to be blistering or vesicular however discussed that it could possibly be early shingles however she is not having the typical pain burning she does have itching. I discussed that we can treat her and cover her for shingles with Valtrex 1 g 3 times daily x 7 days duration with close follow-up with PCP to further evaluate the rash. Patient is understanding and agreement will monitor very closely if the rash spreads she would let us know or come back for reevaluation. Patient agrees and understands plan. 1. Shingles (B02.9: Zoster without complications) See above. Exam is consistent with shingles. Discussed viral nature and typical duration. Will treat with antiviral- valcyclovir. Finish course. Discussed keep blisters covered/avoid very young or unvaccinated individuals as fluid from blisters can cause chicken pox in that population. May use PRN tylenol/ibuprofen, otc topicals with lidocaine or similar (such as aloe with lidocaine) for pain. Follow up with PCP if not improving over next 7-10 days or if continuing nerve pain after rash resolves. Patient verbalized understanding of tx plan. Ordered: valacyclovir, 1 gm = 1 tab(s), Oral, q8hr, X 7 day(s), # 21 tab(s), Refills(s) 0, Pharmacy: [facility]/pharmacy #[id number], 163, cm, 12/27/24 13:23:00 EDT, Height/Length Dosing, 66, kg, 12/27/24 13:23:00 EDT, Weight Dosing Follow-up With When Contact Information Delvis GOODMAN, Iraj Ashby, [facility], [facility] [address] [place] [address]- Additional Instructions: Patient Education Shingles, Tuia-vh-Nqrj Problem List/Past Medical History Ongoing Arthropathy Diabetes mellitus type II, controlled COREY (dyspnea on (more content not included)...[facility] Comment on above:Result Comment: Electronically Signed By: Gera MERCADO, Leland M.\.br\Date and Time Signed: 12/27/2512:45 EDTX-ray reportOrdered By: Kingsley Coker on 68-13-4248Gnjmw reportFIRSALEM REGIONAL [facility] Main [address] [address] XRay Report Signed Patient: Loraine Griffith MR#: [id number] : 1955 Acct:[id number] Age/Sex: 69 / F ADM Date: 5 Loc: XDS Room: Type: REG CLI Attending Dr: Lynn Luther MD Copies to: Lynn Luther MD~ Ordering Provider: Lynn Luther MD Date of Service: 12/03/24 XR/XR cervical spine 5V*: VERTIGO 5 views of thecervical spine HISTORY: Chronic back pain COMPARISON: 12/16/2019 POSTOPERATIVE CHANGES: None BONY ALIGNMENT: Straightening HYPERMOBILITY::No bending imaging. LISTHESIS:None FRACTURE: None DISC DEGENERATION: Mild multilevel disc space narrowing. FACETS: Multilevel facet degeneration mild progression compared to prior FORAMEN: Mild C5-6 and C6-7 bilateral bony neural foraminal narrowing DENS: Intact CRANIOCERVICAL JUNCTION: Unremarkable SOFT TISSUES: Unremarkable XR/XR cervical spine 5V* IMPRESSION: Mild to moderate degenerative change with mild progression. Impression dictated by: Kingsley Coker M.D. 12/03/2024 4:34 PM Dictation Location: [place] [address] Transcribed By: [facility] 12/03/24 1634 Dictated By: Kingsley Coker DO 12/03/24 1633 Signed By: 12/03/24 1634 [facility] HospitalXR cervical spine 5V*on 42-93-9222GE cervical spine 5V*[facility] Main [address] [address] XRay Report Signed Patient: Loraine Griffith MR#: [id number] 6 : 1955 Acct:[id number] Age/Sex: 69 / F ADM Date: 12/03/24 [facility]: Type[facility] CLI Attending Dr: Lynn Luther MD Copies to: Lynn Luther MD Ordering Provider: Lynn Luther MD Date of Service: 12/03/24 XR/XR cervical spine 5V*: VERTIGO 5 views of thecervical spine HISTORY: Chronic back pain COMPARISON: 12/16/2019 POSTOPERATIVE CHANGES: None BONY ALIGNMENT: Straightening HYPERMOBILITY::No bending imaging. LISTHESIS:None FRACTURE: None DISC DEGENERATION: Mild multilevel disc space narrowing. FACETS: Multilevel facet degeneration mild progression compared to prior FORAMEN: Mild C5-6 and C6-7 bilateral bony neural foraminal narrowing DENS: Intact CRANIOCERVICAL JUNCTION: Unremarkable SOFT TISSUES: Unremarkable XR/XR cervical spine 5V* IMPRESSION: Mild to moderate degenerative change with mild progression. Impression dictated by: Kingsley Coker M.D. 12/03/2024 4:34 PM Dictation Location: [facility] SYSTEMFl[facility] Transcribed By: [facility] 12/03/24 1634 Dictated By: Kingsley Coker DO 12/03/24 1633 Signed By: 12/03/24 1634NoFirst[facility] Phys[facility] NnhblTzF3o HPLC (Bld) [Mass fraction] on 16-35-2853DqY4z (Bld) [Mass fraction]5.4 %[facility] HospitalNo Panel Informationon 94-22-0521Icmdntr Bwcegqw453SslmvnjfyMercy Health Clermont HospitalFerritin [Mass/volume] in Serum or PlasmaOrdered By: Lynn Luther on 34-79-8203Umyewtnn [Mass/Vol]Ferritin [Mass/volume] in Serum or Xarrpw18.0-306.8 [facility] HospitalFerritin [Mass/Vol]80.0 ng/oWHnzdtg37.0-306.8 [facility] HospitalComment on above:Order Comment: NONFASTING.JKW Performed By: #### DALE, FOL, FE #### [facility] [address] [place] [address] #### ZINC,PL #### [facility] ,Folateon 98-98-7692Texagc>49.6Normal>5.9[facility] Physician [facility]S HospitalComment on above:Order Comment: FASTING.JKWResult Comment: Folate reference range: >5.9 ng/ml The WHO technical consultation on folate and vitamin b12 deficiencies has determined that folate concentrations less than 4 ng/ml are considered deficient. PERFORMED BY: [place] [address] PATHOLOGIST ISOTOPE TECHNOLOGIST JOHN DAMIAN M.D.Performed By: #### JASMINA, MG #### [address] StreetFolate [Mass/volume] in Serum or PlasmaOrdered By: Lynn Luther on 84-69-4419Qbrmrs [Mass/Vol]Folate [Mass/volume] in Serum or Plasma>5.9 [facility] HospitalComment on above:Folate reference range: >5.9 ng/mlThe WHO technical consultation on folate and vitamin f16ijfnkyenlqex has determined that folate concentrations lessthan 4 ng/ml are considered deficient. Folate [Mass/Vol]ng/mL>5.9[facility] HospitalComment on above: Folate reference range: >5.9 ng/mlThe WHO technical consultation on folate and vitamin w21ugyrpwssjfpu has determined that folate concentrations lessthan 4 ng/ml are considered deficient.Iron [Mass/volume] in Serum or PlasmaOrdered By: Lynn Luther on 30-82-8616Abcc [Mass/Vol]Iron [Mass/volume] in Serum or Plasma 50-212Mer[facility] HospitalIron [Mass/Vol]104 ug/dCYncpwp38-817 [facility] HospitalComment on above:Order Comment: NONFASTING.JKW Performed By: #### DALE, FOL, FE #### [facility] [address] [place] [address] #### ZINC,PL #### [facility] ,Plasma zinc measurementOrdered By: Lynn Luther on 06-49-1456Vzxd [Mass/Vol] Plasma zinc cugypldllqx74-345MvvyjulajMercy Health Clermont HospitalComment on above: This test was developed and its performance characteristicsdetermined by [facility]. It has not been cleared orapproved by the Food and Drug Administration. Detection Limit = 5Performed at: - [address] [place], [place] [id number] Director: Minh Garnica MD, Phone: [phone] [Mass/Vol]82 ug/hV83-744TuqcrojhzMercy Health Clermont HospitalComment on above:This test was developed and its performance characteristicsdetermined by [employer]. It has not been cleared orapproved by the Food and Drug Administration. Detection Limit = 5Performed at: [address] [id number] Director: Minh Garnica MD, Phone: [phone], Plasmaon 65-16-0288Vbny, Fnxojb41 ug/yUGumpvg92-484Wcw [facility] Physician GroupComment on above:Order Comment: FASTING.JKWResult Comment: This test was developed and its performance characteristics determined by [employer]. It has not been cleared or approved by the Food and Drug Administration. Detection Limit = 5 Performed at: [address] [id number] Quilting Machine Helper: Minh Garnica MD, Phone: [phone] PERFORMED BY: [place] [address] PATHOLOGIST ISOTOPE TECHNOLOGIST TERRY FERRER M.D.Performed By: #### MG JASMINA #### [place] [address] USACapillary blood glucose measurement by glucometer (mass/volume)Ordered By: Wendie Craig on 46-98-2521Akiklii [Mass/Vol]92 mg/dL [facility]rium Medical CenterComment on above:Random Glucose Reference Range is dependent on time and content of last meal. Glucose of more than 200 mg/dL in a nonstressed, ambulatory subject supports the diagnosis of Diabetes Mellitus.Result Comment: Random Glucose Reference Range is dependent on time and content of last meal. Glucose of more than 200 mg/dL in a nonstressed, ambulatory subject supports the diagnosis of Diabetes Mellitus.Performed By: #### JASMINA, MG #### [facility] [address] [place] [address] USAGlucose Glucometer (BldC) [Mass/Vol]Ordered By: Wendie Craig on 72-74-7125Rspdspv [Mass/Vol]Capillary blood glucose measurement by glucometer (mass/volume)[facility] HospitalComment on above:Random Glucose Reference Range is dependent on time and content of last meal. Glucose of more than 200 mg/dL in a nonstressed, ambulatory subject supports the diagnosis of Diabetes Mellitus.Glucose Poct Glucometerson 02-74-6922Icgsktv3 Glu2: Cleaned [facility] Physician GroupComment on above:Result Comment: PERFORMED BY: [place] [address] PATHOLOGIST ISOTOPE TECHNOLOGIST JOHN DAMIAN M.D.Performed By: #### PHOS, MG #### [facility] [address] [place] [address] USANo Panel InformationOrdered By: Wendie Craig on 09-28-2024 Miscellaneous Pathology TestSee [facility] SouthComment on above:See report. Scanned copy available in EMR.Bedside Glucose CommentGlu2: cleaned [facility] Health CenterPathology Request for Lab Corpon 03-89-3457Drmuxyurf Request for Lab CorpGood [facility]aritan [facility] Physician Group Comment on above:Order Comment: FASTING.JKWResult Comment: See report. Scanned copy available in EMR. PERFORMED BY: [place] [address] PATHOLOGIST ISOTOPE TECHNOLOGIST JOHN DAMIAN M.D.Performed By: #### CMP #### [facility] [address] [place], [place] [address] USAAlanine aminotransferase [Enzymatic activity/volume] in Serum or PlasmaOrdered By: Ariel Kinney on 83-87-1077ZGA [Catalytic activity/Vol]Alanine aminotransferase [Enzymatic activity/volume] in Serum or PlasmaMercy Health Clermont HospitalALT [Catalytic activity/Vol]22 U/L NormalMercy Health Clermont HospitalComment on above:Order Comment: FASTING.JKWPerformed By: #### CMP #### [facility] [address] [place], [place] [address] USAAlbumin [Mass/volume] in Serum or Plasma by Bromocresol green (BCG) dye binding methoOrdered By: Nataliea Sravanus on 14-65-3120Raavyzd BCG dye [Mass/Vol]Albumin [Mass/volume] in Serum or Plasma by Bromocresol green (BCG) dye binding metho3.5-5.7FOhioHealth Mansfield HospitalAlbumin BCG dye [Mass/Vol]4.8 g/dL3.5-5.7FOhioHealth Mansfield HospitalAlkaline phosphatase [Enzymatic activity/volume] in Serum or PlasmaOrdered By: Tondra Sravanus on 53-38-5526BRE [Catalytic activity/Vol]Alkaline phosphatase [Enzymatic activity/volume] in Serum or Qxbsei02-204YwdekelbcMercy Health Clermont HospitalALP [Catalytic activity/Vol]64 U/CSouztp46-432Tvnviizyq[address] Comment on above:Order Comment: FASTING.JKWResult Comment: PERFORMED BY: [place] [address] PATHOLOGIST ISOTOPE TECHNOLOGIST JOHN DAMIAN M.D.Performed By: #### CMP #### [facility] [address] [place] [address] USAAspartate aminotransferase [Enzymatic activity/volume] in Serum or PlasmaOrdered By: Ariel Kinney on 93-05-9593EJZ [Catalytic activity/Vol]Aspartate aminotransferase [Enzymatic activity/volume] in Serum or Pxiyfi24-20Fjckdbyiz[address] [place], [place] [address]AST [Catalytic activity/Vol]23 U/L Crysct01-13Meownagnx[address] [place], [place] [address]Comment on above:Order Comment: FASTING.JKWPerformed By: #### CMP #### [facility] [address] [place] [address] USABasophils Auto (Bld) [#/Vol]Ordered By: Ariel Hinsonus on 40-16-7442Ijxsrhiib (Bld) [#/Vol]Automated basophil count0.0-0.2FOhioHealth Mansfield HospitalBasophils [#/volume] in Blood by Automated countOrdered By: Tondra Mapus on 56-89-5803Lfwjgpshg (Bld) [#/Vol]0.1 10*3/uLNormal0.0-0.2 [facility] HospitalComment on above:Result Comment: PERFORMED BY: [place] [address] PATHOLOGIST ISOTOPE TECHNOLOGIST JOHN DAMIAN M.D.Performed By: #### JASMINA MG #### [place] [address] USABasophils/100 WBC Auto (Bld)Ordered By: Tondra Mapus on 99-43-1704Lhftcogre/100 WBC (Bld)Automated basophil %.[facility] HospitalBasophils/100 leukocytes in Blood by Automated countOrdered By: Tondra Mapus on 07-88-3625Wsfnbnkiy/100 WBC (Bld)1.1 %Normal.[facility] HospitalComment on above:Performed By: #### JASMINA MG #### [place] [address] USABilirubin.total [Mass/volume] in Serum or PlasmaOrdered By: Tondra Mapus on 65-68-4357Ouioiapeo [Mass/Vol]Bilirubin.total [Mass/volume] in Serum or Plasma0.3-1.0[facility] HospitalBilirubin [Mass/Vol] 0.5 mg/dLNormal0.3-1.0[facility] HospitalComment on above:Order Comment: FASTING.JKWPerformed By: #### CMP #### [place] [address] USACalcium [Mass/volume] in Serum or PlasmaOrdered By: Tondra Mapus on 39-10-7764Bxopbxa [Mass/Vol]Calcium [Mass/volume] in Serum or Plasma 8.6-10.3FOhioHealth Mansfield HospitalCalcium [Mass/Vol]9.8 mg/dLNormal 8.6-10.3FOhioHealth Mansfield HospitalComment on above:Order Comment: FASTING.JKWPerformed By: #### CMP #### [place] [address] USACarbon dioxide, total [Moles/volume] in Serum or Plasma Ordered By: Tondra Mapus on 76-81-8711JP8 [Moles/Vol]Carbon dioxide, total [Moles/volume] in Serum or Sdxjgz59.0-31.0[facility] HospitalCO2 [Moles/Vol]30.7 mmol/CCfamtk83.0-31.0[facility] HospitalComment on above:Order Comment: FASTING.JKWPerformed By: #### CMP #### [facility] [address] [place] [address] USAChloride [Moles/volume] in Serum or PlasmaOrdered By: Tondra Mapus on 33-10-4309Ztzzgqcs [Moles/Vol]Chloride [Moles/volume] in Serum or Znvitm07-658NjkhthoygMercy Health Clermont HospitalChloride [Moles/Vol]100 mmol/L Icxbhj08-701Pmwuocxzy48 Ramsey StreetComment on above:Order Comment: FASTING.JKWPerformed By: #### CMP #### [facility] [address] [place] [address] USACholesterol [Mass/volume] in Serum or PlasmaOrdered By: Tondra Mapus on 42-00-4074Ttitvqjtiyx [Mass/Vol]Cholesterol [Mass/volume] in Serum or Chhfxy981-688GytljolowMercy Health Clermont HospitalComment on above:Chol less than 200 mg/dl low riskChol 201-239 mg/dl borderline riskChol 240 mg/dl and greater high riskCholesterol [Mass/Vol]195 mg/qESfovbx543-059UrcrdnnrqMercy Health Clermont HospitalComment on above:Chol less than 200 mg/dl low riskChol 201-239 mg/dl borderline riskChol 240 mg/dl and greater high riskOrder Comment: FASTING.JKWResult Comment: Chol less than 200 mg/dl low risk Chol 201-239 mg/dl borderline risk Chol 240 mg/dl and greater high riskPerformed By: #### PHOS, MG #### [facility] [address] [place] [address] USACholesterol in HDL [Mass/volume] in Serum or PlasmaOrdered By: Tondra Mapus on 95-57-0687Lhmpimpiwhz in HDL [Mass/Vol]Serum or plasma high density lipoprotein (HDL) cholesterol aaqizqsyvfx79-36FznnefnfkMercy Health Clermont HospitalComment on above:HDL CHOL ATP-III CLASSIFICATION Cardiovascular RiskHDL > or equal to 60 mg/dL LOWHDL < 40 mg/dL HIGHCholesterol in HDL [Mass/Vol]69 mg/sVLwjcya81-20MjllcbkppMercy Health Clermont HospitalComment on above: HDL CHOL ATP-III CLASSIFICATION Cardiovascular RiskHDL > or equal to 60 mg/dL LOWHDL < 40 mg/dL HIGHOrder Comment: FASTING.JKWResult Comment: HDL CHOL ATP-III CLASSIFICATION Cardiovascular Risk HDL > or equal to 60 mg/dL LOW HDL < 40 mg/dL HIGHPerformed By: #### PHOS, MG #### [facility] [address] [place] [address] USACholesterol in LDL Calc [Mass/Vol]Ordered By: Ariel Kinney on 61-51-6196Betnrjspzok in LDL [Mass/Vol]Cholesterol in LDL [Mass/volume] in Serum or Plasma by calculationCamden Clark Medical Center0-[facility] Clermont HospitalComment on above:LDL ATP III CLASSIFICATIONLDL less than 100 mg/dL OptimalLDL 100-129 mg/dL Near or above gzcmhenNDB035-859 mg/dL Borderline highLDL 160-189 mg/dL HighLDL greater than 189 mg/dL Very highCholesterol in LDL [Mass/Vol]104 mg/dL High0-100Mer[facility] Clermont HospitalComment on above:LDL ATP III CLASSIFICATIONLDL less than 100 mg/dL OptimalLDL 100-129 mg/dL Near or above aipdsslUHA081-372 mg/dL Borderline highLDL 160-189 mg/dL HighLDL greater than 189 mg/dL Very highCholesterol in VLDL Calc [Mass/Vol]Ordered By: Ariel Kinney on 94-13-6246Lpgdzxdpvxx in VLDL [Mass/Vol]Cholesterol in VLDL [Mass/volume] in Serum or Plasma by calculationMercy Health Clermont HospitalCholesterol in VLDL [Mass/Vol]22 mg/dLMercy Health Clermont HospitalComplete Blood Count Auto Diffon 13-24-1687Mfcv Corpuscular HGB Conc33.8 g/mIJbfyhz08.0-35.0[facility] Hospital Physician GroupComment on above:Performed By: #### PHOS, MG #### [facility] [address] [place] [address] USANRBC%0.1 /100{WBC}Normal0-0.5[facility] Comment on above:Performed By: #### JASMINA, MG #### [place] [address] USAComprehensive Metabolic Panelon 89-44-2734Hjplmgn [Mass/Vol]4.8 g/dLNormal3.5-5.7The [facility] Hospital Physician GroupComment on above: Order Comment: FASTING.JKWPerformed By: #### CMP #### [place] [address] USAGFR/1.73 sq M.predicted MDRD (S/P/Bld) [Vol rate/Area] mL/min/{1.73_m2}NormalThe Psychiatric Hospital Physician GroupComment on above:Order Comment: FASTING.JKWPerformed By: #### CMP #### [place] [address] USACreatinine [Mass/volume] in Serum or PlasmaOrdered By: Tondra Mapus on 94-69-3083Ryvmqpxlqx [Mass/Vol]Creatinine [Mass/volume] in Serum or Plasma0.60-1.20[facility]erm[facility] HospitalCreatinine [Mass/Vol]0.76 mg/dLNormal0.60-1.20[facility]erm[facility] HospitalComment on above:Order Comment: FASTING.JKWPerformed By: #### CMP #### [place] [address] USACreatinine [Mass/volume] in UrineOrdered By: Tondra Mapus on 73-52-6122Tpsjsntufe (U) [Mass/Vol]Creatinine [Mass/volume] in UrineMercy Health Clermont HospitalComment on above:No reference range established Creatinine (U) [Mass/Vol]98.00 mg/dLMercy Health Clermont HospitalComment on above:No reference range establishedEosinophils Auto (Bld) [#/Vol]Ordered By: Tondra Mapus on 12-66-5745Loxtjqaygey (Bld) [#/Vol]Automated eosinophil count 0.0-0.45[facility] Clermont HospitalEosinophils [#/volume] in Blood by Automated countOrdered By: Tondra Mapus on 39-18-4238Xhuckqkzacb (Bld) [#/Vol] 0.3 10*3/uLNormal0.0-0.45[facility] Clermont HospitalComment on above: Performed By: #### PHOS, MG #### [facility] [address] [place] [address] USAEosinophils/100 WBC Auto (Bld)Ordered By: Tondra Mapus on 89-51-8909Pnqsiaujfyt/100 WBC (Bld)Automated eosinophil %.[facility] Clerm[facility] HospitalEosinophils/100 leukocytes in Blood by Automated countOrdered By: Tondra Mapus on 79-64-1696Mhsfegksluy/100 WBC (Bld)4.4 %Normal.[facility] Clermont HospitalComment on above:Performed By: #### PHOS, MG #### [facility] [address] [place] [id number] USAErythrocyte distribution width Auto (RBC) [Ratio]Ordered By: Tondra Mapus on 61-94-9909Odbeopnmfsj distribution width (RBC) [Ratio] Erythrocyte distribution width [Ratio] by Automated count11.9-15.3FOhioHealth Mansfield HospitalErythrocyte distribution width [Ratio] by Automated count Ordered By: Tondra Mapus on 31-67-2551Shymjlahjko distribution width (RBC) [Ratio]13.6 %Zdslpo24.9-15.3FOhioHealth Mansfield HospitalComment on above: Performed By: #### PHOS, MG #### [facility] [address] [place], [place] [id number] USAErythrocytes [#/volume] in Blood by Automated countOrdered By: Tondra Mapus on 62-78-9148RYO (Bld) [#/Vol]4.68 10*6/uLNormal3.60-5.00 [facility]ermont HospitalComment on above:Performed By: #### PHOS, MG #### [facility] [address] [place], [place] [id number] USAGlobulin Calc (S) [Mass/Vol]Ordered By: Ariel Kinney on 30-03-9205Adomxmcd (S) [Mass/Vol]Serum globulin measurement by calculation (mass/volume)[facility] HospitalGlucose [Mass/volume] in Serum or PlasmaOrdered By: Ariel Kinney on 38-00-4022Rldzuyp [Mass/Vol]Glucose [Mass/volume] in Serum or Hnghkw64-716BdbwbyfniMercy Health Clermont HospitalComment on above:ADA recommended reference rangeRandom Glucose Reference Range is dependent on time and content of last meal. Glucose of more than 200 mg/dL in a nonstressed, ambulatory subject supports the diagnosisof Diabetes Mellitus. Glucose [Mass/Vol]90 mg/yBAoxtcv53-149LfsxljaajMercy Health Clermont HospitalComment on above:ADA recommended reference rangeRandom Glucose Reference Range is dependent on time and content of last meal. Glucose of more than 200 mg/dL in a nonstressed, ambulatory subject supports the diagnosisof Diabetes Mellitus.Order Comment: FASTING.JKWResult Comment: Random Glucose Reference Range is dependent on time and content of last meal. Glucose of more than 200 mg/dL in a nonstressed, ambulatory subject supports the diagnosis of Diabetes Mellitus. ADA recommended reference rangePerformed By: #### CMP #### [facility] [address] [place] [address] USAHematocrit Auto (Bld) [Volume fraction]Ordered By: Ariel Kinney on 72-30-8458Vlthytzhbe (Bld) [Volume fraction]Hematocrit [Volume Fraction] of Blood by Automated count34.0-46.4FOhioHealth Mansfield Hospital Hematocrit [Volume Fraction] of Blood by Automated countOrdered By: Ariel Kinney on 44-64-4005Qucjhthyye (Bld) [Volume fraction]42.8 %Xtbndv36.0-46.4FOhioHealth Mansfield HospitalComment on above:Performed By: #### PHOS, MG #### [facility] [address] [place] [address] USAHemoglobin [Mass/volume] in BloodOrdered By: Ariel Kinney on 24-70-2028Xalyradflq (Bld) [Mass/Vol]Hemoglobin [Mass/volume] in Blood 11.8-15.4FOhioHealth Mansfield HospitalHemoglobin (Bld) [Mass/Vol]14.4 g/dL Hbbylz62.8-15.4FOhioHealth Mansfield HospitalComment on above:Performed By: #### PHOS, MG #### [facility] [address] [place] [address] USALeukocytes [#/volume] corrected for nucleated erythrocytes in Blood by Automated counOrdered By: Tondra Mapus on 81-22-3739IPJ corrected for nucl RBC Auto (Bld) [#/Vol]Leukocytes [#/volume] corrected for nucleated erythrocytes in Blood by Automated coun3.8-11.6FOhioHealth Mansfield Hospital WBC corrected for nucl RBC Auto (Bld) [#/Vol]6.0 10*3/uL3.8-11.6FOhioHealth Mansfield HospitalLeukocytes [#/volume] in Blood by Automated countOrdered By: Tondra Mapus on 39-44-7748GIG (Bld) [#/Vol]6.0 10*3/uLNormal3.8-11.6 [facility]erm[facility] HospitalComment on above:Performed By: #### PHOS, MG #### [facility] [address] [place] [id number] USALipid Panelon 41-30-8317WYL Cholesterol,Alluglywnh512 mg/dLHigh0-100The [facility] Hospital Physician GroupComment on above:Order Comment: FASTING.JKWResult Comment: LDL ATP III CLASSIFICATION LDL less than 100 mg/dL Optimal LDL 100-129 mg/dL Near or above optimal LDL 130-159 mg/dL Borderline high LDL 160-189 mg/dL High LDL greater than 189 mg/dL Very highPerformed By: #### PHOS, MG #### [facility] [address] [place] [id number] USATriglyceride w/Irjgoe283 mg/dLNormal0-149The [facility] Hospital Physician GroupComment on above:Order Comment: FASTING.JKWResult Comment: TRIG ATP III CLASSIFICATION TRIG less than 150 mg/dL Normal TRIG 150-199 mg/dL Borderline high TRIG 200-500 mg/dL High TRIG greater than 500 mg/dL Very high Standard traceable to the [place] for Disease Conrtrol and Prevention (CDC) test method.Performed By: #### PHOS, MG #### [facility] [address] [place] [id number] USAVLDL JWSBTIMQXAQ31 mg/dLNoFirstHealth Moore Regional Hospital - Hoke Physician GroupComment on above:Order Comment: FASTING.JKWPerformed By: #### PHOS, MG #### [facility] [address] [place] [id number] USALymphocytes Auto (Bld) [#/Vol]Ordered By: Tondra Mapus on 28-12-4921Udgnduoplib (Bld) [#/Vol]Lymphocytes [#/volume] in Blood by Automated count1.00-4.8Mer[facility] Clermont HospitalLymphocytes [#/volume] in Blood by Automated countOrdered By: Tondra Mapus on 45-72-3171Scpfkfdwdhp (Bld) [#/Vol] 1.8 10*3/uLNormal1.00-4.8[facility]erm[facility] HospitalComment on above: Performed By: #### PHOS, MG #### [facility] [address] [place] [id number] USALymphocytes/100 WBC Auto (Bld)Ordered By: Tondra Mapus on 35-01-5739Qcadmyhsnhd/100 WBC (Bld)Lymphocytes/100 leukocytes in Blood by Automated count.[facility] Clermont HospitalLymphocytes/100 leukocytes in Blood by Automated countOrdered By: Tondra Mapus on 44-02-0529Osnvlbwfihl/100 WBC (Bld)30.3 %Normal.[facility]erm[facility] HospitalComment on above: Performed By: #### PHOS, MG #### [facility] [address] [place] [id number] [facility] Auto (RBC) [Entitic mass]Ordered By: Tondra Mapus on 78-58-6428ZVE (RBC) [Entitic mass]MCH [Entitic mass] by Automated count24.7-34.3 [facility] [Entitic mass] by Automated countOrdered By: Tondra Mapus on 70-62-2509TAO (RBC) [Entitic mass]30.8 ncSgjraq50.7-34.3 [facility] HospitalComment on above:Performed By: #### PHOAgustina MG #### [facility] [address] [place] [id number] [facility] CITYHC Auto (RBC) [Mass/Vol]Ordered By: Tondra Mapus on 95-09-5539SXSZ (RBC) [Mass/Vol]MCHC [Mass/volume] by Automated count32.0-35.[address] [facility] CenterHC (RBC) [Mass/Vol]33.8 g/dL32.0-35.[address] [facility] Medical CenterV Auto (RBC) [Entitic vol]Ordered By: Tondra Mapus on 12-48-8977OSD (RBC) [Entitic vol]MCV [Entitic volume] by Automated vevjj73-575RzynxyrfwMercy Health St. Rita's Medical CenterV [Entitic volume] by Automated countOrdered By: Migueldra Mapus on 96-75-1926GLT (RBC) [Entitic vol]91.3 fLNormal 80-100Mer[facility] Clermont HospitalComment on above:Performed By: #### PHOAgustina, MG #### [place] [address] USAMagnesium [Mass/volume] in Serum or PlasmaOrdered By: Miracle Marie on 82-47-5336Kvbyjamnx [Mass/Vol]Magnesium [Mass/volume] in Serum or Plasma1.9-2.7FOhioHealth Mansfield HospitalMagnesium [Mass/Vol]2.1 mg/dL Normal1.9-2.7FOhioHealth Mansfield HospitalComment on above:Order Comment: FASTING.JKWResult Comment: PERFORMED BY: [place] [address] PATHOLOGIST ISOTOPE TECHNOLOGIST JOHN DAMIAN M.D.Performed By: #### PHOAgustina, MG #### [place] [address] USAMicroAlb Creat Ratio,Uon 16-62-4136Eqnhqlgilj, Urine (Random)98.00 mg/dLNoFirstHealth Moore Regional Hospital - Hoke Physician GroupComment on above:Result Comment: No reference range establishedPerformed By: #### PHOAgustina MG #### [place] [address] USAMicroalbumin/Creatinine Ratio13.3 mg/gNormal0.0-30.0The [facility] Hospital Physician GroupComment on above:Result Comment: 30-300 mg/g indicates an increased risk for diabetic nephropathy. Greater than 300 mg/g is consistent with clinical nephropathy. (Am. J. Kidney Disease 1995, 25:107) PERFORMED BY: [place] [address] PATHOLOGIST ISOTOPE TECHNOLOGIST JOHN DAMIAN M.D.Performed By: #### PHOAgustina MG #### [place] [address] USAMicroalbumin [Mass/volume] in UrineOrdered By: Tondra Mapus on 94-18-7319Xbnhphj DL <= 20 mg/L (U) [Mass/Vol]Microalbumin [Mass/volume] in Urine0.0-1.8Mer[facility] Clermont HospitalAlbumin DL <= 20 mg/L (U) [Mass/Vol]1.3 mg/dLNormal0.0-1.8[facility] Comment on above:Performed By: #### PHOS, MG #### [place] [address] USAMonocytes Auto (Bld) [#/Vol]Ordered By: Tondra Mapus on 02-61-1132Busedveke (Bld) [#/Vol]Automated blood monocyte count0.0-0.8Mer[facility] Clermont HospitalMonocytes [#/volume] in Blood by Automated countOrdered By: Tondra Mapus on 76-04-7743Idlnndtwt (Bld) [#/Vol]0.5 10*3/uLNormal0.0-0.8 [facility] HospitalComment on above:Performed By: #### PHOS, MG #### [place] [address] USAMonocytes/100 WBC Auto (Bld)Ordered By: Tondra Mapus on 18-41-0038Ynaszkdxm/100 WBC (Bld)Automated monocyte %.[facility] Clerm[facility] HospitalMonocytes/100 leukocytes in Blood by Automated countOrdered By: Tondra Mapus on 95-71-7442Uenbaghwj/100 WBC (Bld)9.0 %Normal.[facility]erm[facility] HospitalComment on above:Performed By: #### PHOS, MG #### [facility] [address] [place] [address] USANeutrophils Auto (Bld) [#/Vol]Ordered By: Tondra Mapus on 29-36-9811Setowtsrszs (Bld) [#/Vol]Neutrophils [#/volume] in Blood by Automated count1.8-7.7FOhioHealth Mansfield HospitalNeutrophils [#/volume] in Blood by Automated countOrdered By: Tondra Mapus on 05-91-0508Yoofbtxphhd (Bld) [#/Vol] 3.3 10*3/uLNormal1.8-7.7FOhioHealth Mansfield HospitalComment on above: Performed By: #### PHOS, MG #### [facility] [address] [place] [address] USANeutrophils/100 WBC Auto (Bld)Ordered By: Tondra Mapus on 98-23-5353Elkunvxwtip/100 WBC (Bld)Automated neutrophil %.[facility] HospitalNeutrophils/100 leukocytes in Blood by Automated countOrdered By: Tondra Mapus on 50-96-4659Daucuqirivb/100 WBC (Bld)55.2 %Normal.[facility] Clerm[facility] HospitalComment on above:Performed By: #### PHOS, MG #### [facility] [address] [place] [id number] USANo Panel InformationOrdered By: Tondra Mapus on 09-22-2024 Estimated GFR (CKD-EPI)> 60.0 mL/MinMercy Health Clermont HospitalPharmacy Creatinine Clearance (ChemN/[facility] Memorial HospitalNucleated erythrocytes [Presence] in Blood by Automated countOrdered By: Tondra Mapus on 33-14-0796Lcpztonpl RBC Auto Ql (Bld)Nucleated erythrocytes [Presence] in Blood by Automated count0-0.5FOhioHealth Mansfield HospitalNucleated RBC Auto Ql (Bld)0.1 /100{WBC}0-0.5FOhioHealth Mansfield HospitalPhosphate [Mass/volume] in Serum or PlasmaOrdered By: Miracle Marie on 16-56-1427Yosftudnt [Mass/Vol] Phosphate [Mass/volume] in Serum or Plasma2.5-4.5FOhioHealth Mansfield HospitalPhosphate [Mass/Vol]3.9 mg/dLNormal2.5-4.5FOhioHealth Mansfield HospitalComment on above:Order Comment: FASTING.JKWPerformed By: #### JASMINA MG #### [facility] [address] [place] [address] USAPlatelet mean volume Auto (Bld) [Entitic vol]Ordered By: Tondra Mapus on 38-34-9804Nieavenh mean volume (Bld) [Entitic vol]Platelet mean volume [Entitic volume] in Blood by Automated count6.3-10.7FOhioHealth Mansfield HospitalPlatelet mean volume [Entitic volume] in Blood by Automated count Ordered By: Tondra Mapus on 96-21-9189Oahcxlpy mean volume (Bld) [Entitic vol] 8.0 fLNormal6.3-10.7FOhioHealth Mansfield HospitalComment on above:Performed By: #### JASMINA MG #### [facility] [address] [place] [address] USAPlatelets Auto (Bld) [#/Vol]Ordered By: Tondra Mapus on 23-30-5532Jxbugrknq (Bld) [#/Vol]Platelets [#/volume] in Blood by Automated vibwf066-044MexmjmfhmMercy Health Clermont HospitalPlatelets [#/volume] in Blood by Automated countOrdered By: Tondra Mapus on 12-24-7847Rxvoxiooj (Bld) [#/Vol]293 10*3/tCDpsdgn749-623TshabdanhMercy Health Clermont HospitalComment on above:Performed By: #### PHOAgustina, MG #### [facility] [address] [place] [address] USAPotassium [Moles/volume] in Serum or PlasmaOrdered By: Ariel Kinney on 65-49-2878Grmjikknx [Moles/Vol]Potassium [Moles/volume] in Serum or Plasma3.5-5.1FOhioHealth Mansfield HospitalPotassium [Moles/Vol]3.8 mmol/LNormal3.5-5.1FOhioHealth Mansfield HospitalComment on above:Order Comment: FASTING.JKWPerformed By: #### CMP #### [facility] [address] [place] [address] USAProtein [Mass/volume] in Serum or PlasmaOrdered By: Ariel Kinney on 88-03-8077Mpfybqu [Mass/Vol]Protein [Mass/volume] in Serum or Plasma 6.4-8.9[facility] Clermont HospitalProtein [Mass/Vol]7.7 g/dLNormal6.4-8.9 [facility]erm[facility] HospitalComment on above:Order Comment: FASTING.JKW Performed By: #### CMP #### [facility] [address] [place] [phone] USARBC Auto (Bld) [#/Vol]Ordered By: Ariel Kinney on 85-81-8829RIW (Bld) [#/Vol]Erythrocytes [#/volume] in Blood by Automated count 3.60-5.00Lutheran Hospitalerum globulin measurement by calculation (mass/volume)Ordered By: Ariel Kinney on 25-40-3196Csrikiiu (S) [Mass/Vol]2.9 g/dLNormalMercy Health Clermont HospitalComment on above:Order Comment: FASTING.JKWPerformed By: #### CMP #### [facility] [address] [place] [address] USASerum or plasma albumin/globulin mass ratioOrdered By: Ariel Kinney on 22-83-7502Fwtiirw/Globulin [Mass ratio]Serum or plasma albumin/globulin mass ratioMercy Health Clermont HospitalAlbumin/Globulin [Mass ratio]1.7 {ratio}NormalMercy Health Clermont HospitalComment on above: Order Comment: FASTING.JKWPerformed By: #### CMP #### [facility] [address] [place] [address] USASerum or plasma anion gap determinationOrdered By: Ariel Kinney on 21-71-0013Xgwvj gap [Moles/Vol]Serum or plasma anion gap determination 6.0-15.0[facility] Clermont HospitalAnion gap [Moles/Vol]11.1 mmol/LNormal 6.0-15.0[facility]erm[facility] HospitalComment on above:Order Comment: FASTING.JKWPerformed By: #### CMP #### [facility] [address] [place] [id number] USASerum or plasma total cholesterol/high density lipoprotein (HDL) cholesterol mass ratOrdered By: Tondra Kinney on 09-22-2024 Cholesterol.total/Cholesterol in HDL [Mass ratio]Serum or plasma total cholesterol/high density lipoprotein (HDL) cholesterol mass rat<5.0[facility] Clerm[facility] HospitalCholesterol.total/Cholesterol in HDL [Mass ratio]2.8 {ratio}Normal<5.0[facility] Clermont HospitalComment on above:Order Comment: FASTING.JKWPerformed By: #### PHOS, MG #### [facility] [address] [place] [address] USASodium [Moles/volume] in Serum or PlasmaOrdered By: Nataliea Gregoria on 83-42-1385Nzqiio [Moles/Vol]Sodium [Moles/volume] in Serum or Plasma 136-145Lutheran Hospitalodium [Moles/Vol]138 mmol/LNormal 136-145Mer[facility] Clermont HospitalComment on above:Order Comment: FASTING.JKWPerformed By: #### CMP #### [facility] [address] [place] [id number] USAThyroid Stim Hormone w/Rflxon 92-81-0653Bzctihx Stim Hormone w/Rflx2.04 u[iU]/mLNormal0.45-5.33[facility] Hospital Physician GroupComment on above:Order Comment: FASTING.JKWResult Comment: PERFORMED BY: [place] [address] PATHOLOGIST ISOTOPE TECHNOLOGIST JOHN DAMIAN M.D.Performed By: #### PHOS, MG #### [facility] [address] [place] [address] USAThyrotropin [Units/volume] in Serum or PlasmaOrdered By: Nataliea Gregoria on 91-52-8054KSZ QnThyrotropin [Units/volume] in Serum or Plasma 0.45-5.33[facility] Clermont HospitalTSH Qn2.04 m[IU]/L0.45-5.33[facility] Clermont HospitalTriglyceride [Mass/volume] in Serum or PlasmaOrdered By: Tondra Map on 60-02-3899Tigcdebjdxmj [Mass/Vol]Triglyceride [Mass/volume] in Serum or Plasma0Mer[facility] Clermont HospitalComment on above:TRIG ATP III CLASSIFICATIONTRIG less than 150 mg/dL NormalTRIG 150-199 mg/dL Borderline highTRIG 200-500 mg/dL High TRIG greater than 500 mg/dL Very highStandard traceable to the Center for Disease Conrtrol and Prevention (CDC) test method. Triglyceride [Mass/Vol]111 mg/dL0Mer[facility] Clermont HospitalComment on above:TRIG ATP III CLASSIFICATIONTRIG less than 150 mg/dL NormalTRIG 150-199 mg/dL Borderline highTRIG 200-500 mg/dL High TRIG greater than 500 mg/dL Very highStandard traceable to the Center for Disease Conrtrol and Prevention (CDC) test method.Urea nitrogen [Mass/volume] in Serum or PlasmaOrdered By: Ariel Kinney on 51-07-3323Gezs nitrogen [Mass/Vol]Urea nitrogen [Mass/volume] in Serum or Plasma12-25Mer[facility] Clermont HospitalUrea nitrogen [Mass/Vol]18 mg/dL Normal12-25Mer[facility] Clermont HospitalComment on above:Order Comment: FASTING.JKWPerformed By: #### CMP #### [facility] [address] [place] [phone] USAUrine microalbumin/creatinine mass ratioOrdered By: Migueldra Gregoria on 95-73-5584Xsweqgs/Creatinine DL <= 20 mg/L (U) [Mass ratio]Urine microalbumin/creatinine mass ratio0.0-30.0[facility] Comment on above:30-300 mg/g indicates an increased risk for diabetic nephropathy. Greater than 300 mg/g is consistent with clinical nephropathy. (Am. J. Kidney Disease 1995, 25:107)Albumin/Creatinine DL <= 20 mg/L (U) [Mass ratio] 13.3 mg/g0.0-30.0[facility]ermont HospitalComment on above:30-300 mg/g indicates an increased risk for diabetic nephropathy. Greater than 300 mg/g is consistent with clinical nephropathy. (Am. J. Kidney Disease 1995, 25:107) Vitamin B12 ser/plasOrdered By: Ariel Kinney on 20-17-0234Hhkziehsl (Vitamin B12) [Mass/Vol]Vitamin B12 ser/fgrt015-302Uvb[address] [place] [address] Cobalamin (Vitamin B12) [Mass/Vol]655 pg/tVKqaspe939-804Wpktpbxwd[address] [place], [place] [address]Comment on above:Order Comment: FASTING.JKWPerformed By: #### PHOS, MG #### [facility] [address] [place] [address] USAVitamin D 25 Hydroxy Totalon 78-37-3385Qvptqpc D 25 Hydroxy Total66.2 ng/lMDaqyuy17-342Hwi [facility] Hospital Physician GroupComment on above:Result Comment: VITAMIN D STATUS 25(OH)VITAMIN D RANGE (ng/mL) Deficient <20 Insufficient 20 to <30 Sufficient 30 to 100 Reference: Oh MF,Leyda NC, James YUNG, et al. Evaluation,treatment, and prevention of vitamin D deficiency; an Endocrine Society clinical practice guideline. JCEM. 2010; 96(7):1911-30. PERFORMED BY: [facility] [address] [place] [address] PATHOLOGIST ISOTOPE TECHNOLOGIST JOHN DAMIAN M.D.Performed By: #### CMP #### [facility] [address] [place] [address] USAVitamin D+Metabolites [Mass/volume] in Serum or Plasma Ordered By: Ariel Kinney on 35-47-1633Nzxvtpc D+Metabolites [Mass/Vol]Vitamin D+Metabolites [Mass/volume] in Serum or Iszpji69-819AbgvvvrwaMercy Health Clermont HospitalComment on above:VITAMIN D STATUS 25(OH)VITAMIN D RANGE (ng/mL) Deficient <20 Insufficient 20 to <76Lsszkhgkqb31 to 100Reference: Leyda Sánchez, James YUNG, et al. Evaluation,treatment, and prevention of vitamin D deficiency; an Endocrine Society clinical practice guideline. JCEM. 2010; 96 (7):1911-.Vitamin D+Metabolites [Mass/Vol]66.2 ng/rZ33-569KsgrkhiwyMercy Health Clermont HospitalComment on above:VITAMIN D STATUS 25(OH)VITAMIN D RANGE (ng/mL) Deficient <20 Insufficient 20 to <74Wynimvvtgy16 to 100Reference: Leyda Sánchez, James YUNG, et al. Evaluation,treatment, and prevention of vitamin D deficiency; an Endocrine Society clinical practice guideline. JCEM. 2010; 96(7):1911-.WBC Auto (Bld) [#/Vol]Ordered By: Ariel Kinney on 69-73-3081UKE (Bld) [#/Vol]Leukocytes [#/volume] in Blood by Automated count 3.8-11.[address] [place], [place] [address]NM juan perf SPECT rest stron 06-05-2024 NM juan perf SPECT rest [facility] [place] [address] Nuclear Medicine Report Signed Patient: Loraine Griffith MR#: [id number] 6 : 1955 Acct:[id number] Age/Sex: 69 / F ADM Date: 06/05/24 Loc: [place] Room: Type: [facility] Attending Dr: Lynn Luther MD Copies to: MD Lynn De La Paz MD Ordering Provider: Lynn Luther MD Date of Service: 06/05/24 NM/LA juan perf SPECT rest str: R06.09, I49.3, R07.9 NUCLEAR MYOCARDIAL PERFUSION DATE OF PROCEDURE: 06/05/2024 PROCEDURE: The patient received a stress dose of Lexiscan and was then injected with 18.6 millicuries of Technetium 99M Sestamibi. For rest images the patient was injected with 6.6 millicuries of Technetium 99M Sestamibi. FINDINGS: The raw cine images were reviewed. The post stress and rest perfusion images were reviewed as well as the computer quantification.? There was uniform uptake of the radiotracer with no perfusion defects identified.? On the gated portion of the study, there was uniform thickening with an overall ejection fraction calculated at 61%.? TID score was within normal limits. CONCLUSION: 1. Gated spect Sestamibi study is within normal limits. 2. Left ventricular function was preserved. Impression dictated by: Rachael Perrin M.D.06/05/2024 5:38 PM Dictation Location: [place] [address] Transcribed By: [facility] 06/05/24 173 Dictated By: Rachael Perrin MD 06/05/24 173 Signed By: 06/05/24 1738[facility] Physician GroupNo Panel InformationOrdered By: Rachael Perrin on 25-53-0563EEXPCKNXYSELECT [facility] [place] [address] Cardiac Stress Test Signed Patient: Loraine Griffith MR#: [id number] : 1955 Date of Service:0 06/05/24 Age/Sex: 69 / F ADM Date: 5 Loc: [place] Room: Type: [facility] Attending Dr: Lynn Luther MD Copies to: MD Lynn De La Paz MD~ INDICATION FOR STUDY/DIAGNOSIS: Dyspnea PROCEDURE: After informed consent was obtained, the patient exercised 7 minutes and 4 seconds on a Alban protocol to their maximum tolerated exercise capacity. The peak heart rate achieved was 168 bpm which was 105% of the age predicted maximum. The test was stopped due to dyspnea. The patient did not develop chest pain during or following the exercise test. The peak blood pressure was 160/70 mmHg. The estimated peak oxygen consumption was 8.6 METs. The overall assessment of the patient's functional capacity is normal. The baseline ECG revealed normal sinus rhythm. During exercise and recovery there were no ST-T changes suggestive of ischemia. There were no dysrhythmias noted during the test. Mckeon Treadmill Score was +7. CONCLUSION: 1. Negative ECG exercise stress test. 2. No chest pain. 3. Hemodynamic response was appropriate. 4. No dysrhythmias. 5. Functional capacity was normal. 6. Mckeon Treadmill Score was +7. 7. Myocardial perfusion imaging report to follow under separate cover. Transcribed By: karson 06/05/241704 Dictated By: Rachael Perrin MD 06/05/241704 Signed By: 06/05/241706 [facility] Work Phone: XR lumbar spine 2-3V*on 79-09-4589VM lumbar spine 2-3V*[facility] [place] [address] [place] [address] XRay Report Signed Patient: Loraine Griffith MR#: [id number] : 1955 Acct:[id number] Age/Sex: 69 / F ADM Date: 05/20/24 [facility]: Type: [facility] Attending Dr: Lynn Luther MD Copies to: Lynn Luther MD Ordering Provider: Lynn Luther MD Date of Service: 05/20/24 XR/XR lumbar spine 2-3V*: M54.16 - Radiculopathy, lumbar region LUMBAR SPINE - 2 views CLINICAL HISTORY: Left medial thigh pain. COMPARISON: None FINDINGS: Vertebral body heights appear maintained. No significant disc height loss is noted. Scattered endplate and facet joint degenerative changes. SI joints demonstrate degenerative change. XR/XR lumbar spine 2-3V* IMPRESSION: ENDPLATE AND FACET JOINT DEGENERATIVE CHANGES WITHOUT SIGNIFICANT DISC HEIGHT LOSS. Impression dictated by: Liam Osorio Jr., D.O.05/20/2024 3:09 PM Dictation Location: [place] [address] Transcribed By: [facility] 05/20/24 1509 Dictated By: Liam Osorio Jr, DO 05/20/24 1508 Signed By: 05/20/24 1509NoFirstHealth [facility] BaxivGxR0y HPLC (Bld) [Mass fraction] on 55-19-5897BbN3h (Bld) [Mass fraction]Hemoglobin A1c/Hemoglobin.total in Blood by [facility] OhioNo Panel Informationon 16-68-3021Trqhfnv Ildllpi41ObulxeteuMercy Health Clermont HospitalCalcium [Mass/volume] in Serum or PlasmaOrdered By: Dmitry Monserrat on 47-76-4407Uvfaivx [Mass/Vol]9.4 mg/dLNormal 8.6-10.3FOhioHealth Mansfield HospitalComment on above:Performed By: #### CMP #### [facility] [address] [place] [address] USACalcium [Mass/Vol]Calcium [Mass/volume] in Serum or Plasma 8.6-10.3FOhioHealth Mansfield HospitalCreatinineon 13-69-4035OSI/1.73 sq M.predicted MDRD (S/P/Bld) [Vol rate/Area]mL/min/{1.73_m2}NormalThe Psychiatric Hospital Physician GroupComment on above:Performed By: #### PHOS, MG #### [facility] [address] [place] [address] USACreatinine [Mass/volume] in Serum or PlasmaOrdered By: Dmitry German on 31-52-5642Fqhekpmyfr [Mass/Vol]0.76 mg/dLNormal0.60-1.20 [facility]ermont HospitalComment on above:Performed By: #### PHOS, MG #### [facility] [address] [place] [address] USACreatinine [Mass/Vol]Creatinine [Mass/volume] in Serum or Plasma0.60-1.20[facility] HospitalMagnesium [Mass/volume] in Serum or PlasmaOrdered By: Dmitry German on 15-57-3505Uihtmyenm [Mass/Vol]2.1 mg/dL Normal1.9-2.7FOhioHealth Mansfield HospitalComment on above:Result Comment: PERFORMED BY: [place] [address] PATHOLOGIST ISOTOPE TECHNOLOGIST JR FLORES M.D.Performed By: #### CMP #### [facility] [address] [place], [place] [id number] USAMagnesium [Mass/Vol]Magnesium [Mass/volume] in Serum or Plasma1.9-2.7FOhioHealth Mansfield HospitalNo Panel InformationOrdered By: Dmitry German on 45-14-2155Coxmkzfqv GFR (CKD-EPI)> 60.0 mL/MinMercy Health Clermont HospitalPharmacy Creatinine Clearance (ChemN/AFOhioHealth Mansfield HospitalPhosphate [Mass/volume] in Serum or PlasmaOrdered By: Dmitry German on 78-84-1946Fhazmxqjh [Mass/Vol]3.7 mg/dLNormal2.5-4.5FOhioHealth Mansfield HospitalComment on above:Performed By: #### CMP #### [facility] [address] [place] [address] USAPhosphate [Mass/Vol]Phosphate [Mass/volume] in Serum or Plasma2.5-4.5FOhioHealth Mansfield HospitalUrea nitrogen [Mass/volume] in Serum or PlasmaOrdered By: Dmitry German on 59-32-8104Nffe nitrogen [Mass/Vol] 16 mg/dLNormal12-25Mer[facility] Clermont HospitalComment on above:Performed By: #### PHOS, MG #### [facility] [address] [place] [id number] USAUrea nitrogen [Mass/Vol]Urea nitrogen [Mass/volume] in Serum or Plasma12-25Mer[facility]ermont HospitalAlanine aminotransferase [Enzymatic activity/volume] in Serum or PlasmaOrdered By: Ariel Kinney on 37-47-4332VEM [Catalytic activity/Vol]24 U/L7-[facility] HospitalAlbumin [Mass/volume] in Serum or Plasma by Bromocresol green (BCG) dye binding methoOrdered By: Ariel Kinney on 24-89-1649Duyhoew BCG dye [Mass/Vol]4.6 g/dL3.5-5.7FOhioHealth Mansfield HospitalAlkaline phosphatase [Enzymatic activity/volume] in Serum or PlasmaOrdered By: Tondra Sravanus on 97-62-6799VVY [Catalytic activity/Vol]55 U/D58-205VethgypjqMercy Health Clermont HospitalAspartate aminotransferase [Enzymatic activity/volume] in Serum or PlasmaOrdered By: Tondra Mapus on 78-87-2831RGE [Catalytic activity/Vol]25 U/R89-46HupcfdsgjMercy Health Clermont HospitalBasophils Auto (Bld) [#/Vol]Ordered By: Ariel Kinney on 11-86-1834Skjnuylak (Bld) [#/Vol]0.0 10*3/uL0.0-0.2FOhioHealth Mansfield HospitalBasophils/100 WBC Auto (Bld)Ordered By: Ariel Kinney on 09-23-2023 Basophils/100 WBC (Bld)0.8 %.[facility] HospitalBilirubin.total [Mass/volume] in Serum or PlasmaOrdered By: Ariel Kinney on 83-63-5212Cugcoclwr [Mass/Vol]0.4 mg/dL0.3-1.0Mer[facility] HospitalCalcium [Mass/volume] in Serum or PlasmaOrdered By: Ariel Kinney on 15-20-4858Behygac [Mass/Vol]9.6 mg/dL8.6-10.3FOhioHealth Mansfield HospitalCarbon dioxide, total [Moles/volume] in Serum or PlasmaOrdered By: Ariel Kinney on 24-58-0514BK7 [Moles/Vol]28.4 mmol/L21.0-31.0Mer[facility] HospitalChloride [Moles/volume] in Serum or PlasmaOrdered By: Ariel Kinney on 32-96-2643Emrjstjj [Moles/Vol]103 mmol/H35-429BjuutwdqiMercy Health Clermont HospitalCholesterol [Mass/volume] in Serum or PlasmaOrdered By: Ariel Kinney on 09-23-2023 Cholesterol [Mass/Vol]185 mg/mS958-913JpadakmahMercy Health Clermont HospitalComment on above:Chol less than 200 mg/dl low riskChol 201-239 mg/dl borderline riskChol 240 mg/dl and greater high riskCholesterol in LDL Calc [Mass/Vol]Ordered By: Ariel Kinney on 13-62-2242Cjldltuxlps in LDL [Mass/Vol]96 mg/dL0-100Mer[facility] Clermont HospitalComment on above:LDL ATP III CLASSIFICATIONLDL less than 100 mg/dL OptimalLDL 100-129 mg/dL Near or above jthrzeqQNR003-814 mg/dL Borderline highLDL 160-189 mg/dL HighLDL greater than 189 mg/dL Very high Cholesterol in VLDL Calc [Mass/Vol]Ordered By: Ariel Kinney on 09-23-2023 Cholesterol in VLDL [Mass/Vol]18 mg/dLMercy Health Clermont Hospital Creatinine [Mass/volume] in Serum or PlasmaOrdered By: Ariel Kinney on 84-53-9945Gbqbcnwrrv [Mass/Vol]0.75 mg/dL0.60-1.20[facility] HospitalCreatinine [Mass/volume] in UrineOrdered By: Ariel Kinney on 09-23-2023 Creatinine (U) [Mass/Vol]86.0 mg/dLMercy Health Clermont HospitalComment on above:No reference range establishedEosinophils Auto (Bld) [#/Vol]Ordered By: Ariel Kinney on 12-17-7472Lzazfwcgdhy (Bld) [#/Vol]0.2 10*3/uL0.0-0.45Mer[facility]ont HospitalEosinophils/100 WBC Auto (Bld)Ordered By: Ariel Kinney on 17-87-1388Duuvanhuyxu/100 WBC (Bld)3.4 %.[facility] Erythrocyte distribution width Auto (RBC) [Ratio]Ordered By: Ariel Kinney on 28-81-7180Gpaggbuyruh distribution width (RBC) [Ratio]13.4 %11.9-15.3FOhioHealth Mansfield HospitalGlobulin Calc (S) [Mass/Vol]Ordered By: Ariel Kinney on 91-37-8201Uthdlxik (S) [Mass/Vol]2.6 g/dLMercy Health Clermont Hospital Glucose [Mass/volume] in Serum or PlasmaOrdered By: Ariel Kinney on 09-23-2023 Glucose [Mass/Vol]85 mg/kU86-649TsznlniliMercy Health Clermont HospitalComment on above:ADA recommended reference rangeRandom Glucose Reference Range is dependent on time and content of last meal. Glucose of more than 200 mg/dL in a nonstressed, ambulatory subject supports the diagnosisof Diabetes Mellitus. Hematocrit Auto (Bld) [Volume fraction]Ordered By: Ariel Kinney on 09-23-2023 Hematocrit (Bld) [Volume fraction]41.7 %34.0-46.4FOhioHealth Mansfield HospitalHemoglobin [Mass/volume] in BloodOrdered By: Ariel Kinney on 09-23-2023 Hemoglobin (Bld) [Mass/Vol]13.9 g/dL11.8-15.4FOhioHealth Mansfield Hospital Leukocytes [#/volume] corrected for nucleated erythrocytes in Blood by Automated counOrdered By: Ariel Kinney on 56-95-6767MMF corrected for nucl RBC Auto (Bld) [#/Vol]5.6 10*3/uL3.8-11.6FOhioHealth Mansfield HospitalLymphocytes Auto (Bld) [#/Vol]Ordered By: Ariel Hinsonus on 34-01-6123Ujnxnptrzxr (Bld) [#/Vol]2.4 10*3/uL1.00-4.8[facility] HospitalLymphocytes/100 WBC Auto (Bld) Ordered By: Ariel Hinsonus on 70-82-3978Xzvjlrbaefi/100 WBC (Bld)42.7 %.[facility] HospitalMCH Auto (RBC) [Entitic mass]Ordered By: Ariel Kinney on 58-70-3317AUT (RBC) [Entitic mass]30.5 pg24.7-34.3FOhioHealth Mansfield HospitalMCHC Auto (RBC) [Mass/Vol]Ordered By: Ariel Hinsonus on 95-94-1030SOSI (RBC) [Mass/Vol]33.4 g/dL32.0-35.0Mer[facility] HospitalMCV Auto (RBC) [Entitic vol]Ordered By: Nataliea Gregoria on 38-14-8362KPH (RBC) [Entitic vol]91.2 oB35-025LxdfslggtMercy Health Clermont HospitalMicroalbumin [Mass/volume] in Urine Ordered By: Ariel Kinney on 12-17-1561Kgznrqh DL <= 20 mg/L (U) [Mass/Vol]mg/dL 0.0-1.8[facility] HospitalMonocytes Auto (Bld) [#/Vol]Ordered By: Migueldra Sravanus on 85-36-5292Olsotdzir (Bld) [#/Vol]0.4 10*3/uL0.0-0.8[facility] HospitalMonocytes/100 WBC Auto (Bld)Ordered By: Tona Mapus on 19-41-2273Pwelixsoj/100 WBC (Bld)7.5 %.[facility] Neutrophils Auto (Bld) [#/Vol]Ordered By: Tondra Mapus on 48-42-6237Tlddcpizhzi (Bld) [#/Vol]2.5 10*3/uL1.8-7.7FOhioHealth Mansfield HospitalNeutrophils/100 WBC Auto (Bld)Ordered By: Tondra Mapus on 14-60-1233Csvaxlnakzk/100 WBC (Bld) 45.6 %.[facility] HospitalNo Panel InformationOrdered By: Ariel Kinney on 24-18-3182Lqpcdufhi GFR (CKD-EPI)> 60.0 mL/MinMercy Health Clermont HospitalPharmacy Creatinine Clearance (ChemN/[facility]ome[facility] Memorial HospitalNucleated erythrocytes [Presence] in Blood by Automated countOrdered By: Ariel Kinney on 45-22-5805Knredmfqo RBC Auto Ql (Bld)0.2 /100{WBC}0-0.5FOhioHealth Mansfield HospitalPlatelet mean volume Auto (Bld) [Entitic vol]Ordered By: Tona Mapus on 07-36-8736Nxddcpov mean volume (Bld) [Entitic vol]8.1 fL6.3-10.7 [facility] HospitalPlatelets Auto (Bld) [#/Vol]Ordered By: Tondra Mapus on 96-34-5507Vfeufovbx (Bld) [#/Vol]269 10*3/jY565-060DildklnurMercy Health Clermont HospitalPotassium [Moles/volume] in Serum or PlasmaOrdered By: Tondra Mapus on 50-94-0378Nfttrlywu [Moles/Vol]4.1 mmol/L3.5-5.1FOhioHealth Mansfield HospitalProtein [Mass/volume] in Serum or PlasmaOrdered By: Tondra Mapus on 44-50-8031Inlaqja [Mass/Vol]7.2 g/dL6.4-8.9[facility] RBC Auto (Bld) [#/Vol]Ordered By: Tondra Mapus on 65-08-3351WDQ (Bld) [#/Vol] 4.58 10*6/uL3.60-5.00Lutheran Hospitalerum or plasma albumin/globulin mass ratioOrdered By: Ariel Kinney on 09-23-2023 Albumin/Globulin [Mass ratio]1.8 {ratio}Lutheran Hospitalerum or plasma anion gap determinationOrdered By: Ariel Kinney on 30-70-9239Nnqgt gap [Moles/Vol]12.7 mmol/L6.0-15.0Lutheran Hospitalerum or plasma high density lipoprotein (HDL) cholesterol measurementOrdered By: Ariel Kinney on 69-12-0445Jigowjhvbwq in HDL [Mass/Vol]71 mg/sA86-09XlepkykyaMercy Health Clermont HospitalComment on above:HDL CHOL ATP-III CLASSIFICATION Cardiovascular RiskHDL > or equal to 60 mg/dL LOWHDL < 40 mg/dL HIGHSerum or plasma total cholesterol/high density lipoprotein (HDL) cholesterol mass ratOrdered By: Ariel Kinney on 40-95-5344Uhweceozogb.total/Cholesterol in HDL [Mass ratio]2.6 {ratio}<5.0Lutheran Hospitalodium [Moles/volume] in Serum or PlasmaOrdered By: Ariel Kinney on 68-51-3430Pnwzfk [Moles/Vol]140 mmol/U857-652 [facility] HospitalThyrotropin [Units/volume] in Serum or Plasma Ordered By: Ariel Kinney on 38-47-9456SQR Qn2.69 m[IU]/L0.45-5.33[facility] HospitalTriglyceride [Mass/volume] in Serum or PlasmaOrdered By: Ariel Kinney on 08-60-7676Chzjshnpmtle [Mass/Vol]90 mg/dL0-149Mer[facility] HospitalComment on above:TRIG ATP III CLASSIFICATIONTRIG less than 150 mg/dL NormalTRIG 150-199 mg/dL Borderline highTRIG 200-500 mg/dL High TRIG greater than 500 mg/dL Very highStandard traceable to the Center for Disease Co nrtrol and Prevention (CDC) test method.Urea nitrogen [Mass/volume] in Serum or PlasmaOrdered By: Ariel Kinney on 74-66-1424Xmdz nitrogen [Mass/Vol]23 mg/dL7-25 [facility] HospitalUrine microalbumin/creatinine mass ratioOrdered By: Ariel Kinney on 65-72-1405Jrxevrn/Creatinine DL <= 20 mg/L (U) [Mass ratio] TNUniversity Hospitals Geauga Medical CenterComment on above:Test not performedVitamin B12 ser/plasOrdered By: Ariel Kinney on 97-42-4735Erldnoefg (Vitamin B12) [Mass/Vol]549 pg/uY268-772TbygilfubMercy Health Clermont HospitalVitamin D+Metabolites [Mass/volume] in Serum or PlasmaOrdered By: Ariel Kinney on 47-86-5562Ihsiwcg D+Metabolites [Mass/Vol]72.1 ng/xR63-166SugzybsbmMercy Health Clermont HospitalComment on above:VITAMIN D STATUS 25(OH)VITAMIN D RANGE (ng/mL) Deficient <20 Insufficient 20 to <80Ovyvmrjsnu08 to 100Reference: Oh MF,Leyda SALTER, James YUNG, et al. Evaluation,treatment, and prevention of vitamin D deficiency; an Endocrine Society clinical practice guideline. JCEM. 2010; 96 (7):1911-30.WBC Auto (Bld) [#/Vol]Ordered By: Ariel Kinney on 79-48-5162IEO (Bld) [#/Vol]5.6 10*3/uL3.8-11.6FOhioHealth Mansfield HospitalA1C HEMOGLOBIN on 78-83-3254JkG4o (Bld) [Mass fraction]5.4 %[employer] Other Glucose - FINGER STICKon 90-55-6556Ftbzfjl [Mass/Vol] 82 mg/dLNortIS Decisions Other HbA1c (Bld) [Mass fraction]on 31-64-0290C0S HEMOGLOBIN [employer] Other Calcium [Mass/volume] in Serum or PlasmaOrdered By: Dmitry German on 85-81-6315Lzzecpe [Mass/Vol]8.8 mg/dL8.6-10.3FOhioHealth Mansfield HospitalCholesterol [Mass/volume] in Serum or PlasmaOrdered By: Ariel Kinney on 59-98-4509Jwaxkvgupaa [Mass/Vol]178 mg/vT592-402UrshseutsMercy Health Clermont HospitalComment on above:Chol less than 200 mg/dl low riskChol 201-239 mg/dl borderline riskChol 240 mg/dl and greater high riskCholesterol in LDL Calc [Mass/Vol]Ordered By: Ariel Kinney on 27-83-6070Jekbfkeaukv in LDL [Mass/Vol]89 mg/dL0-100[facility] HospitalComment on above:LDL ATP III CLASSIFICATIONLDL less than 100 mg/dL OptimalLDL 100-129 mg/dL Near or above vdbdiaqZCX491-056 mg/dL Borderline highLDL 160-189 mg/dL HighLDL greater than 189 mg/dL Very highCholesterol in VLDL Calc [Mass/Vol]Ordered By: Ariel Kinney on 75-21-6664Annrphhwuar in VLDL [Mass/Vol]29 mg/dLMercy Health Clermont HospitalCreatinine [Mass/volume] in Serum or PlasmaOrdered By: Dmitry German on 00-09-4392Csgpouyifx [Mass/Vol]0.69 mg/dL0.60-1.20[facility] HospitalMagnesium [Mass/volume] in Serum or PlasmaOrdered By: Dmitry German on 90-09-9439Wsblmathw [Mass/Vol]2.0 mg/dL1.9-2.7FOhioHealth Mansfield HospitalNo Panel InformationOrdered By: Dmitry German on 03-18-2023 Estimated GFR (CKD-EPI)> 60.0 mL/MinMercy Health Clermont HospitalPharmacy Creatinine Clearance (ChemN/AFOhioHealth Mansfield HospitalPhosphate [Mass/volume] in Serum or PlasmaOrdered By: Dmitry German on 03-18-2023 Phosphate [Mass/Vol]2.9 mg/dL3.7-7.2FSelect Medical Specialty Hospital - Youngstownerum or plasma high density lipoprotein (HDL) cholesterol measurementOrdered By: Ariel Kinney on 68-07-3438Rdndkauqgjr in HDL [Mass/Vol]60 mg/rD51-51IssefmkgiMercy Health Clermont HospitalComment on above:HDL CHOL ATP-III CLASSIFICATION Cardiovascular RiskHDL > or equal to 60 mg/dL LOWHDL < 40 mg/dL HIGHSerum or plasma total cholesterol/high density lipoprotein (HDL) cholesterol mass ratOrdered By: Ariel Kinney on 98-35-8688Hubeacttzfm.total/Cholesterol in HDL [Mass ratio]3.0 {ratio}<5.0Mer[facility] HospitalTriglyceride [Mass/volume] in Serum or PlasmaOrdered By: Ariel Kinney on 74-83-8226Ogebexvzsulq [Mass/Vol]145 mg/dL 0-149[facility] HospitalComment on above:TRIG ATP III CLASSIFICATIONTRIG less than 150 mg/dL NormalTRIG 150-199 mg/dL Borderline highTRIG 200-500 mg/dL High TRIG greater than 500 mg/dL Very highStandard traceable to the Center for Disease Conrtrol and Prevention (CDC) test method. Urea nitrogen [Mass/volume] in Serum or PlasmaOrdered By: Dmitry German on 68-03-4841Mfna nitrogen [Mass/Vol]11 mg/dL12-25[facility] A1C HEMOGLOBINon 88-88-2338GaL0l (Bld) [Mass fraction]5.3 %REGISTRAT-MAPI [facility] Other Glucose - FINGER STICKon 55-95-3253Iwsuxyo [Mass/Vol] 102 mg/dLNoBeats Music [facility] Other HbA1c (Bld) [Mass fraction]on 72-38-2494E2P HEMOGLOBIN [employer] Other Alanine aminotransferase [Enzymatic activity/volume] in Serum or PlasmaOrdered By: Ariel Kinney on 21-37-5701TNY [Catalytic activity/Vol]19 U/L7-52[facility] HospitalAlbumin [Mass/volume] in Serum or Plasma by Bromocresol green (BCG) dye binding methoOrdered By: Ariel Kinney on 52-01-7987Dzmmxrl BCG dye [Mass/Vol]4.3 g/dL3.5-5.7FOhioHealth Mansfield HospitalAlkaline phosphatase [Enzymatic activity/volume] in Serum or PlasmaOrdered By: Ariel Kinney on 53-68-1206YOS [Catalytic activity/Vol]56 U/L 34-104Mer[facility] Clermont HospitalAspartate aminotransferase [Enzymatic activity/volume] in Serum or PlasmaOrdered By: Tondra Mapus on 27-18-3806TAJ [Catalytic activity/Vol]22 U/A49-00GbhewprqqMercy Health Clermont HospitalBasophils Auto (Bld) [#/Vol]Ordered By: Tondra Mapus on 41-36-4181Xlyodrits (Bld) [#/Vol] 0.0 10*3/uL0.0-0.2FOhioHealth Mansfield HospitalBasophils/100 WBC Auto (Bld) Ordered By: Tondra Mapus on 21-98-8968Aeuaiytaj/100 WBC (Bld)0.8 %.[facility] HospitalBilirubin.total [Mass/volume] in Serum or PlasmaOrdered By: Nataliea Mapus on 36-91-4214Usugggmjj [Mass/Vol]0.6 mg/dL0.3-1.0[facility] HospitalCalcium [Mass/volume] in Serum or PlasmaOrdered By: Tondra Mapus on 65-65-9558Mrkvzof [Mass/Vol]9.4 mg/dL8.6-10.3FOhioHealth Mansfield HospitalCarbon dioxide, total [Moles/volume] in Serum or PlasmaOrdered By: Tondra Mapus on 80-24-8699OZ2 [Moles/Vol]29.6 mmol/L21.0-31.0[facility] HospitalChloride [Moles/volume] in Serum or PlasmaOrdered By: Tondra Mapus on 08-56-0188Chckwigf [Moles/Vol]103 mmol/W45-464GziehioswMercy Health Clermont HospitalCholesterol [Mass/volume] in Serum or PlasmaOrdered By: Tondra Mapus on 10-04-7329Czondmtyeaa [Mass/Vol]215 mg/hP612-376JayhfvqxvMercy Health Clermont HospitalComment on above:Chol less than 200 mg/dl low riskChol 201-239 mg/dl borderline riskChol 240 mg/dl and greater high riskCholesterol in LDL Calc [Mass/Vol]Ordered By: Tondra Mapus on 43-77-5704Xyjduzzcgxh in LDL [Mass/Vol] 122 mg/dL0-100Mer[facility]ermont HospitalComment on above:LDL ATP III CLASSIFICATIONLDL less than 100 mg/dL OptimalLDL 100-129 mg/dL Near or above qhrvlhnZXM523-111 mg/dL Borderline highLDL 160-189 mg/dL HighLDL greater than 189 mg/dL Very highCholesterol in VLDL Calc [Mass/Vol]Ordered By: Ariel Kinney on 76-28-1529Scqkjofivbe in VLDL [Mass/Vol]18 mg/dLMercy Health Clermont HospitalCreatinine [Mass/volume] in Serum or PlasmaOrdered By: Ariel Kinney on 22-50-8850Euvmgxjlzy [Mass/Vol]0.78 mg/dL0.60-1.20[facility] HospitalCreatinine [Mass/volume] in UrineOrdered By: Ariel Kinney on 09-11-2022 Creatinine (U) [Mass/Vol]96.0 mg/dLMercy Health Clermont HospitalComment on above:No reference range establishedEosinophils Auto (Bld) [#/Vol]Ordered By: Ariel Kinney on 36-69-8948Zucznqfuggw (Bld) [#/Vol]0.2 10*3/uL0.0-0.45Mer[facility] HospitalEosinophils/100 WBC Auto (Bld)Ordered By: Ariel Kinney on 73-23-5211Mipyllcazie/100 WBC (Bld)4.5 %.[facility] Erythrocyte distribution width Auto (RBC) [Ratio]Ordered By: Ariel Kinney on 25-95-5387Rnmcjvjgele distribution width (RBC) [Ratio]13.6 %11.9-15.3FOhioHealth Mansfield HospitalGlobulin Calc (S) [Mass/Vol]Ordered By: Ariel Kinney on 96-92-1849Onktmfga (S) [Mass/Vol]2.8 g/dLMercy Health Clermont Hospital Glucose [Mass/volume] in Serum or PlasmaOrdered By: Ariel Kinney on 09-11-2022 Glucose [Mass/Vol]86 mg/gO74-053AsmpfwfkzMercy Health Clermont HospitalComment on above:ADA recommended reference rangeRandom Glucose Reference Range is dependent on time and content of last meal. Glucose of more than 200 mg/dL in a nonstressed, ambulatory subject supports the diagnosisof Diabetes Mellitus. Hematocrit Auto (Bld) [Volume fraction]Ordered By: Ariel Kinney on 09-11-2022 Hematocrit (Bld) [Volume fraction]40.6 %34.0-46.4FOhioHealth Mansfield HospitalHemoglobin [Mass/volume] in BloodOrdered By: Ariel Kinney on 09-11-2022 Hemoglobin (Bld) [Mass/Vol]13.5 g/dL11.8-15.4FOhioHealth Mansfield Hospital Leukocytes [#/volume] corrected for nucleated erythrocytes in Blood by Automated counOrdered By: Ariel Kinney on 00-86-3453GGB corrected for nucl RBC Auto (Bld) [#/Vol]5.5 10*3/uL3.8-11.6FOhioHealth Mansfield HospitalLymphocytes Auto (Bld) [#/Vol]Ordered By: Ariel Kinney on 62-08-1663Ynghrqaeukd (Bld) [#/Vol]1.8 10*3/uL1.00-4.8Mer[facility] Clermont HospitalLymphocytes/100 WBC Auto (Bld) Ordered By: Ariel Kinney on 31-18-4288Lauvnxnjgqb/100 WBC (Bld)32.7 %.[facility] Auto (RBC) [Entitic mass]Ordered By: Ariel Kinney on 51-77-1804AJL (RBC) [Entitic mass]30.1 pg24.7-34.3FOhioHealth Mansfield HospitalMCHC Auto (RBC) [Mass/Vol]Ordered By: Ariel Kinney on 09-47-2558NDQB (RBC) [Mass/Vol]33.2 g/dL32.0-35.0Mer[facility] HospitalMCV Auto (RBC) [Entitic vol]Ordered By: Ariel Kinney on 19-96-3992MHU (RBC) [Entitic vol]90.9 qX85-528UxahjdbffMercy Health Clermont HospitalMagnesium [Mass/volume] in Serum or PlasmaOrdered By: Dmitry German on 03-00-6981Lbhxxjmny [Mass/Vol]2.0 mg/dL 1.9-2.7FOhioHealth Mansfield HospitalMicroalbumin [Mass/volume] in Urine Ordered By: Ariel Kinney on 52-23-1276Dieokyr DL <= 20 mg/L (U) [Mass/Vol]0.9 mg/dL0.0-1.8[facility] HospitalMonocytes Auto (Bld) [#/Vol]Ordered By: Ariel Kinney on [id number] (Bld) [#/Vol]0.5 10*3/uL0.0-0.8 [facility] HospitalMonocytes/100 WBC Auto (Bld)Ordered By: Ariel Kinney on 78-15-5448Sdioohduo/100 WBC (Bld)10.0 %.[facility] HospitalNeutrophils Auto (Bld) [#/Vol]Ordered By: Ariel Kinney on 09-11-2022 Neutrophils (Bld) [#/Vol]2.8 10*3/uL1.8-7.7FOhioHealth Mansfield Hospital Neutrophils/100 WBC Auto (Bld)Ordered By: Ariel Kinney on 09-11-2022 Neutrophils/100 WBC (Bld)52.0 %.[facility] [facility] HospitalNo Panel InformationOrdered By: Ariel Kinney on 52-93-9233Bahenkvlc GFR (CKD-EPI)> 60.0 mL/MinMercy Health Clermont HospitalPharmacy Creatinine Clearance (ChemN/A [facility] HospitalNucleated erythrocytes [Presence] in Blood by Automated countOrdered By: Ariel Kinney on 88-47-0216Rhfmzucpt RBC Auto Ql (Bld) 0.2 /100{WBC}0-0.5FOhioHealth Mansfield HospitalPhosphate [Mass/volume] in Serum or PlasmaOrdered By: Dmitry German on 58-49-5350Wecnzrmnn [Mass/Vol]4.1 mg/dL3.7-7.2FOhioHealth Mansfield HospitalPlatelet mean volume Auto (Bld) [Entitic vol]Ordered By: Ariel Kinney on 30-87-1235Shfihler mean volume (Bld) [Entitic vol]7.3 fL6.3-10.7FOhioHealth Mansfield HospitalPlatelets Auto (Bld) [#/Vol]Ordered By: Ariel Kinney on 93-61-6823Mszaiavxe (Bld) [#/Vol]252 10*3/uL 150-450[facility] HospitalPotassium [Moles/volume] in Serum or PlasmaOrdered By: Ariel Kinney on 49-52-6081Aqigpjbka [Moles/Vol]4.0 mmol/L 3.5-5.1FOhioHealth Mansfield HospitalProtein [Mass/volume] in Serum or Plasma Ordered By: Ariel Kinney on 16-53-4190Ylbzzng [Mass/Vol]7.1 g/dL6.4-8.9[facility] HospitalRBC Auto (Bld) [#/Vol]Ordered By: Ariel Kinney on 00-42-9802XMF (Bld) [#/Vol]4.47 10*6/uL3.60-5.00[facility] Hospitalerum or plasma albumin/globulin mass ratioOrdered By: Ariel Kinney on 89-21-5824Sdjpfwc/Globulin [Mass ratio]1.5 {ratio}[facility]uther[facility] Hospitalerum or plasma anion gap determinationOrdered By: Ariel Kinney on 46-25-2367Ilfcj gap [Moles/Vol]11.4 mmol/L6.0-15.0Lutheran Hospitalerum or plasma high density lipoprotein (HDL) cholesterol measurement Ordered By: Ariel Kinney on 11-20-9660Aomypsojvvg in HDL [Mass/Vol]74 mg/dL35-85 [facility] HospitalComment on above:HDL CHOL ATP-III CLASSIFICATION Cardiovascular RiskHDL > or equal to 60 mg/dL LOWHDL < 40 mg/dL HIGHSerum or plasma total cholesterol/high density lipoprotein (HDL) cholesterol mass ratOrdered By: Ariel Kinney on 49-25-9763Unqmtpojapp.total/Cholesterol in HDL [Mass ratio]2.9 {ratio}<5.0[facility] Hospitalodium [Moles/volume] in Serum or PlasmaOrdered By: Ariel Kinney on 44-73-9128Ksnjtd [Moles/Vol]140 mmol/M613-754PrpnsiesqMercy Health Clermont HospitalThyrotropin [Units/volume] in Serum or PlasmaOrdered By: Ariel Kinney on 25-48-7153ZCM Qn 2.05 m[IU]/L0.45-5.33[facility] HospitalTriglyceride [Mass/volume] in Serum or PlasmaOrdered By: Ariel Kinney on 43-98-1777Mvohxcjlshhe [Mass/Vol] 94 mg/dL0-149[facility] HospitalComment on above:TRIG ATP III CLASSIFICATIONTRIG less than 150 mg/dL NormalTRIG 150-199 mg/dL Borderline highTRIG 200-500 mg/dL High TRIG greater than 500 mg/dL Very highStandard traceable to the Center for Disease Conrtrol and Prevention (CDC) test method. Urea nitrogen [Mass/volume] in Serum or PlasmaOrdered By: Ariel Kinney on 27-30-7696Cxye nitrogen [Mass/Vol]17 mg/dL7-25[facility] Urine microalbumin/creatinine mass ratioOrdered By: Ariel Kinney on 09-11-2022 Albumin/Creatinine DL <= 20 mg/L (U) [Mass ratio]9.0 mg/g0.0-30.0[facility] HospitalComment on above:30-300 mg/g indicates an increased risk for diabetic nephropathy. Greater than 300 mg/g is consistent with clinical nephropathy. (Am. J. Kidney Disease 1995, 25:107)Vitamin B12 ser/plasOrdered By: Ariel Kinney on 17-75-1352Qjkgcssgb (Vitamin B12) [Mass/Vol]562 pg/pQ724-703 [facility] HospitalVitamin D+Metabolites [Mass/volume] in Serum or PlasmaOrdered By: Ariel Kinney on 89-50-1156Kedcmhc D+Metabolites [Mass/Vol] 58.0 ng/dH64-572GdydisexrMercy Health Clermont HospitalComment on above:VITAMIN D STATUS 25(OH)VITAMIN D RANGE (ng/mL) Deficient <20 Insufficient 20 to <07Zirwrrgbgm69 to 100Reference: Oh MF,Leyda NC, James YUNG, et al. Evaluation,treatment, and prevention of vitamin D deficiency; an Endocrine Society clinical practice guideline. JCEM. 2010; 96(7):1911-30.WBC Auto (Bld) [#/Vol]Ordered By: Ariel Kinney on 20-95-7305YGS (Bld) [#/Vol]5.5 10*3/uL 3.8-11.6FOhioHealth Mansfield HospitalTobacco Screening.on 42-18-3637Ewuwg depression screening assessmentNoMP-[facility] [employer] 250 DO Work Phone: Fall risk assessmenta) No falls within the last year MP-[facility] [employer] 250 DO Work Phone: Tobacco use status CPHSb) NoMP-[facility] [employer] 250 DO Work Phone: A1C HEMOGLOBINon 23-00-3189LvS5j (Bld) [Mass fraction] 5.3 %[employer] Other Glucose - FINGER STICKon 29-44-6817Ihrvzjs [Mass/Vol] 102 mg/dLNortIS [employer]isions Other HbA1c (Bld) [Mass fraction]on 74-24-5321D4S HEMOGLOBIN [employer] Other Creatinine and Glomerular filtration rate.predicted panel (S/P/Bld)Ordered By: Dmitry German on 46-89-1102Vyblszfadh [Mass/Vol]0.65 mg/dL0.44-1.03[facility] HospitalEstimated glomerular filtration rate (GFR) non- AmericanOrdered By: Dmitry German on 24-66-5407PJZ/1.73 sq M.predicted among non-blacks MDRD (S/P/Bld) [Vol rate/Area]> 60 mL/Min [facility] HospitalLaboratory - Chemistry and Chemistry - challengeOrdered By: Dmitry German on 27-82-9995Dvsxjbdpg [Mass/Vol]2.1 mg/dL 1.6-2.6FOhioHealth Mansfield HospitalNo Panel InformationOrdered By: Dmitry German on 87-40-8877Bvyrnoxam GFR ()> 60 mL/MinMercy Health Clermont HospitalComment on above:GFR estimated reference range: According to KDOQI guidelines, <60 ml/min/1.73m2 is sufficient todiagnose a patient with chronic kidney disease.Pharmacy Creatinine Clearance (ChemN/[facility] HospitalPhosphate [Mass/volume] in Serum or PlasmaOrdered By: Dmitry German on 13-81-8523Gnmdcawxt [Mass/Vol]3.9 mg/dL2.5-4.6FSelect Medical Specialty Hospital - Youngstownerum or plasma calcium measurement (mass/volume)Ordered By: Dmitry German on 35-07-9152Ikhgbms [Mass/Vol]9.7 mg/dL8.2-10.2FSelect Medical Specialty Hospital - Youngstownerum or plasma urea nitrogen measurement (mass/volume) Ordered By: Dmitry German on 38-71-8485Gmas nitrogen [Mass/Vol]13 mg/dL9-23 [facility] HospitalA1C HEMOGLOBINon 24-38-1483TlS7x (Bld) [Mass fraction]5.6 %REGISTRAT-MAPI [facility] [employer] Other Glucose - FINGER STICKon 13-46-9943Mprfwqo [Mass/Vol] 86 mg/dLNort [facility] Other HbA1c (Bld) [Mass fraction]on 40-21-1228F4R HEMOGLOBIN REGISTRAT-MAPI [facility] [employer] Other XR FOOT SHAVONNE MIN 3 VIEWSon 73-38-2754JA FOOT SHAVONNE MIN 3 VIEWSEXAMINATION: XR FOOT SHAVONNE MIN 3 VIEWS HISTORY: Pain in both feet ; chronic right heel pain, chronic left lung and COMPARISON: XR foot right 09/06/2020 FINDINGS: RIGHT FINDINGS: BONES: Marked degenerative changes of the first metatarsophalangeal joint. Small calcaneal plantar spur. SOFT TISSUES: No visible soft tissue swelling. OTHER: Negative. LEFT FINDINGS: BONES: Marked degenerative changes of the first metatarsophalangeal joint. Small calcaneal plantar spur. SOFT TISSUES: No visible soft tissue swelling. OTHER: Negative. IMPRESSION: RIGHT CONCLUSION: Marked degenerative changes of the first metatarsophalangeal joint favoring osteoarthritis. LEFT CONCLUSION: Marked degenerative changes of the first metatarsophalangeal joint favoring osteoarthritis. Electronically authenticated by: JOHNY HERNANDEZ Date: 2021-09-28 15:43[facility] Vital Signs Date TimeVital SignValuePerforming OpvhfvwvwUmvjrwqt31-78-1854 08:58-0400Body .56 cmLynn Luther MD Work Phone: 1(356)[address]09-04-2025 08:58-0400 Body mass index (BMI) [Ratio]24.5 kg/m3VsyfdgLynn Luther MD Work Phone: 1(543)[address] [place], [place] 1400509-04-2025 08:58-0400 Body pcvfwy60.7 kgLynn Luther MD Work Phone: 1(546)[address] [place], [place] 1400509-04-2025 08:58-0400 Diastolic blood mxiwcgps88 mm[Hg]Lynn Luther MD Work Phone: 1(590)[address] [place], [place] 1400509-04-2025 08:58-0400 Heart rate68 /Aparna Luther MD Work Phone: 1(928)[address] [place], [place] 1400509-04-2025 08:58-0400 Respiratory rate18 /Aparna Luther MD Work Phone: 1(795)[address] [place], [place] 1400509-04-2025 08:58-0400 SaO2% (BldA) [Mass fraction]96 %Lynn Luther MD Work Phone: 1(900)[address] [place], [place] 1400509-04-2025 08:58-0400 Systolic blood ommdfufh713 mm[Hg]Lynn Luther MD Work Phone: 1(748)[address] [place], [place] 1400508-20-2025 09:36-0400 Body .56 cmLynn Luther MD Work Phone: 1(004)[address] [place], [place] 1400508-20-2025 09:36-0400 Body mass index (BMI) [Ratio]24.5 kg/o6HniuhsLynn Luther MD Work Phone: 1(149)[address] [place], [place] 1400508-20-2025 09:36-0400 Body gguzod84.86 kgLynn Luther MD Work Phone: 1(497)[address]07-29-2025 14:45-0400 Body sfcgcy701.56 cmLynn Luther MD Work Phone: 1(528)[address]07-29-2025 14:45-0400 Body mass index (BMI) [Ratio]25.4 kg/q6XomvcsLynn Luther MD Work Phone: 1(282)[address]07-29-2025 14:45-0400 Body wjvhep33.13 kgLynn Luther MD Work Phone: 1(487)[address]07-29-2025 14:45-0400 Diastolic blood lizndvzk79 mm[Hg]Lynn Luther MD Work Phone: 1(944)[address]07-29-2025 14:45-0400 Heart rate82 /minLynn Luther MD Work Phone: 1(337)[address]07-29-2025 14:45-0400 Systolic blood mm[Hg]Lynn Luther MD Work Phone: 1(608)[address]07-02-2025 10:00-0400 Body .56 cmLynn Luther MD Work Phone: 1(407)[address]07-02-2025 10:00-0400 Body mass index (BMI) [Ratio]24.9 kg/j5VnricpLynn Luther MD Work Phone: 1(839)502-[address] [place], [place] 9612907-02-2025 10:00-0400 Body .82 kgLynn Luther MD Work Phone: 1(436)[address]07-02-2025 10:00-0400 Diastolic blood lqfvohhg03 mm[Hg]Lynn Luther MD Work Phone: 1(012)[address]07-02-2025 10:00-0400 Heart rate85 /Aparna Luther MD Work Phone: 1(933)244-14[facility]07-02-2025 10:00-0400 SaO2% (BldA) [Mass fraction]96 %Lynn Luther MD Work Phone: 1(419)[address]07-02-2025 10:00-0400 Systolic blood xtkzvjuj714 mm[Hg]Lynn Luther MD Work Phone: 1(069)[address]05-29-2025 09:06-0400 Body oqlhtg574.56 cmLynn Luther MD Work Phone: 1(084)[address] [place], [place] 1400505-29-2025 09:06-0400 Body mass index (BMI) [Ratio]24.8 kg/h0VjpsnhLynn Luther MD Work Phone: 1(072)74579 [address]05-29-2025 09:06-0400 Body fuiqyq96.7 kgLynn Luther MD Work Phone: 1(189)[address] [place], [place] 1400505-29-2025 09:06-0400 Diastolic blood tsnwbiiu38 mm[Hg]Lynn Luther MD Work Phone: 1(660)[address] [place], [place] 1400505-29-2025 09:06-0400 Heart rate75 /Aparna Luther MD Work Phone: 1(187)[address] [place], [place] 1400505-29-2025 09:06-0400 Respiratory rate18 /Aparna Luther MD Work Phone: 1(207)[address] [place], [place] 1400505-29-2025 09:06-0400 SaO2% (BldA) [Mass fraction]98 %Lynn Luther MD Work Phone: 1(310)[address] [place], [place] 1400505-29-2025 09:06-0400 Systolic blood xrbjyrmp499 mm[Hg]Lynn Luther MD Work Phone: 1(884)[address] [place], [place] 1400505-22-2025 08:58-0400 Body hmsnav017.56 cmLynn Luther MD Work Phone: 1(828)[address] [place], [place] 1400505-22-2025 08:58-0400 Body mass index (BMI) [Ratio]24.7 kg/b6JkvmleLynn Luther MD Work Phone: 1(044)[address] [place], [place] 1400505-22-2025 08:58-0400 Body easdih76.48 kgLynn Luther MD Work Phone: 1(575)341-[address] [place], [place] 9612905-22-2025 08:58-0400 Diastolic blood nvahviqp43 mm[Hg]Lynn Luther MD Work Phone: 1(964)[address]05-22-2025 08:58-0400 Heart rate84 /Aparna Luther MD Work Phone: 1(451)[address] [place], [place] 1400505-22-2025 08:58-0400 Systolic blood acfvayop174 mm[Hg]Lynn Luther MD Work Phone: 1(049)[address]04-28-2025 09:45-0400 Diastolic blood tmovimxv89 mm[Hg]Lynn Luther MD Work Phone: 1(216)[address]04-28-2025 09:45-0400 Heart rate85 /Aparna Luther MD Work Phone: 1(376)[address] [place], [place] 1400504-28-2025 09:45-0400 Respiratory rate16 /Aparna Luther MD Work Phone: 1(699)[address] [place], [place] 1400504-28-2025 09:45-0400 SaO2% (BldA) [Mass fraction]99 %Lynn Luther MD Work Phone: 1(560)[address] [place], [place] 1400504-28-2025 09:45-0400 Systolic blood dkmnnuxk155 mm[Hg]Lynn Luther MD Work Phone: 1(094)[address] [place], [place] 1400504-28-2025 08:14-0400 Body .56 cmLynn Luther MD Work Phone: 1(004)[address] [place], [place] 1400504-28-2025 08:14-0400 Body xbahgq96.77 kgLynn Luther MD Work Phone: 1(856)[address] [place], [place] 1400504-15-2025 13:03-0400 Body mvkebv598.56 cmMercy Health [facility] Hospital04-15-2025 13:03-0400Body mass index (BMI) [Ratio]24.9 kg/h2FuvhsovbjMercy Health Clermont Hospital04-15-2025 13:03-0400Body nhwrdeqpmxs62.9 [degF][facility]04-15-2025 13:03-0400Body .94 kgMercy Health [facility] Hospital04-15-2025 13:03-0400Diastolic blood aacbwtwp42 mm[Hg][facility] 09-15-2024 13:03-0400Heart rate88 /minMercy Health Cl[facility] Hospital 09-15-2024 13:03-6106AtR1% (BldA) [Mass fraction]96 %[facility]04-15-2025 13:03-0400Systolic blood yqirixrc402 mm[Hg][facility]12-05-2024 08:22-0500Body vofpiu586.56 cmLynn Luther MD Work Phone: 1(651)[address]12-05-2024 08:22-0500 Body mass index (BMI) [Ratio]24 kg/g4WjyawxLynn Luther MD Work Phone: 1(047)739-[address] [place], [place] 9612912-05-2024 08:22-0500 Body vdriyt54.5 kgLynn Luther MD Work Phone: 1(230)[address]12-05-2024 08:22-0500 Diastolic blood mm[Hg]Lynn Luther MD Work Phone: 1(252)[address]12-05-2024 08:22-0500 Heart rate70 /Aparna Luther MD Work Phone: 1(646)986-[address] [place], [place] 9612912-05-2024 08:22-0500 Systolic blood uofaolae202 mm[Hg]Lynn Luther MD Work Phone: 1(911)306-[address] [place], [place] 9612911-21-2024 09:17-0500 Body ncwcyt412.56 cmLynn Luther MD Work Phone: 1(021)[address]11-21-2024 09:17-0500 Body mass index (BMI) [Ratio]24 kg/l1QlwursLynn Luther MD Work Phone: 1([phone]11-21-2024 09:17-0500 Body ymcuhg10.67 kgLynn Luther MD Work Phone: [facility]11-21-2024 09:17-0500 Diastolic blood hvzqlsuj21 mm[Hg]Lynn Luther MD Work Phone: [facility]11-21-2024 09:17-0500 Heart rate73 /Aparna Luther MD Work Phone: [phone]([phone]11-21-2024 09:17-0500 Respiratory rate18 /Aparna Lutehr MD Work Phone: [facility]11-21-2024 09:17-0500 SaO2% (BldA) [Mass fraction]98 %Lynn Luther MD Work Phone: [facility]11-21-2024 09:17-0500 Systolic blood mm[Hg]Lynn Luther MD Work Phone: [phone]11-06-2024 09:08-0500 Body mass index (BMI) [Ratio]23.66 kg/d9Ieeeszau Rinkes DO Work Phone: [facility]Thzinmujuz14-59-7371 09:08-0500Body uzcuks12.5 kg Tiarra Rinkes DO Work Phone: [facility] LouisClwyhfikzb91-50-0731 09:08-0500Diastolic blood eoutbbtz46 mm[Hg]Tiarra Rinkes DO Work Phone: [facility] LouisIubvvhddyi20-90-6250 09:08-0500Systolic blood mm[Hg]Tiarra Rinkes DO Work Phone: [facility] LouisMshnzmemmc05-93-4662 09:00-0500Body xwhyvm732.56 cmLynn Luther Other [facility]12-04-2023 09:00-0500 Body mass index (BMI) [Ratio]23.51 kg/j6DsrqyvLynn Luther Other [place] [facility] Other 972601-90-8478 09:00-0500Body wmpekd59.14 kgLynn Luther Other [facility]12-04-2023 09:00-0500 Diastolic blood shbytpfk50 mm[Hg]Lynn Luther Other [facility]12-04-2023 09:00-0500 Systolic blood hulamihu638 mm[Hg]Lynn Luther Other [facility]11-09-2023 09:15-0500 Body .56 cmTondra Mapus Other [employer] Other 11-09-2023 09:15-0500Body mass index (BMI) [Ratio] 23.38 kg/b1Uslccn [employer] Other [employer] Other 11-09-2023 09:15-0500Body yoglpu72.78 kgTondra Mapus Other [employer] Other 11-09-2023 09:15-0500Diastolic blood yneakfcm32 mm[Hg] Tondra Mapus Other [employer] Other 11-09-2023 09:15-0500Respiratory rate18 /minTondra Mapus Other [employer] Other 11-09-2023 09:15-0399UkD5% (BldA) [Mass fraction]98 % Tondra Mapus Other [employer] Other 11-09-2023 09:15-0500Systolic blood lacgyxfh262 mm[Hg] Tondra Mapus Other [employer] Other 08-09-2023 14:33-0400Blood Pressure LocationAleksandar Spasic [phone]-YdnadOhiohealth [facility] Oyhr25-52-5637 14:33-0400Body oezjimjgmac22.52 [degF]Geovanni Spasic [phone]-YsjiyOhiohealth Nelsonville [facility] Center [facility]ven[facility] Vajc09-97-7053 14:33-0400Diastolic blood tfchafjw71 mm[Hg]Geovanni Spasic [phone]-VtnziOhiohealth Nelsonville [facility] Ekpj63-99-7446 14:33-0400Heart rate76 /minAlewarrenr Spasic [phone]-SjzttOhiohealth Nelsonville [facility] Center [facility] Yuii05-15-6526 14:33-7072FuT4% (BldA) [Mass fraction]97 %Geovanni SpasiHelixbind [phone]-SombvOhiohealth Nelsonville [facility] Center [facility]venient Vzud30-22-8081 14:33-0400Systolic blood ktulciro543 mm[Hg]Geovanni SpasiHelixbind [phone]-HgcvfOhiohealth Nelsonville [facility] Center [facility] Lpvc78-96-1043 10:15-0400Body wbgukr381.56 cmTondra Sravanus Other [facility] Other 05-10-2023 10:15-0400Body mass index (BMI) [Ratio] 22.95 kg/w0Xxnsbe Sravanus Other [employer] Other 05-10-2023 10:15-0400Body wajrgn23.65 kgTondra Mapus Other [employer] Other 05-10-2023 10:15-0400Diastolic blood prfrlegu72 mm[Hg] Tondra Mapus Other [employer] Other 05-10-2023 10:15-0400Respiratory rate18 /minTondra Mapus Other [place] [facility] Other 05-10-2023 10:15-6392VaE6% (BldA) [Mass fraction]98 % Ariel Kinney Other [facility] Other 05-10-2023 10:15-0400Systolic blood twhybkgs883 mm[Hg] Ariel Kinney Other [facility] Other 01-04-2023 15:05-0500Diastolic blood csltzerr31 mm[Hg] Ruth Moshe Cannon Work Phone: 1(100) [phone]-Qtskw [place] [employer] DO Work Phone: 1(174) 502-155001-04-2023 15:05-0500Systolic blood mm[Hg] Ruth Mesa Davis Work Phone: 1(874) [phone]-Zomsf [place] [employer] DO Work Phone: 1(710)[phone]-9007 15:04-0500Body ituvtf723.83 cmKim Moshe Cannon Work Phone: 1(256) [phone]-Uymgp [place] [employer] 250 DO Work Phone: 1(776) 586-943601-04-2023 15:04-0500Body mass index (BMI) [Ratio] 23.49 kg/m2Ruth Cannon Work Phone: 1(929) [phone]-Powlh [place] [employer] 250 DO Work Phone: 1(496) 368-716701-04-2023 15:04-0500Body surface area Derived from formula1.69 m2Kirhonda Cannon Work Phone: 1(297) [phone]-Pfpiw [place] [employer] 250 DO Work Phone: 1(592) 268-361101-04-2023 15:04-0500Body akyuvw25.05 kgKim Moshe Cannon Work Phone: 1(873) [phone]-Kejgn [place] [employer] 250 DO Work Phone: 1(829) [phone] 15:04-0500Diastolic blood xfnjbiah47 mm[Hg] Ruth Mesa Cannon Work Phone: [phone]-Dczjx [place] [facility] 250 DO Work Phone: 1(228) 278-649701-04-2023 15:04-0500Heart rate76 /minKirhonda Huight Work Phone: [phone]-Wkwvv [place] [facility] 250 DO Work Phone: 1(863) 839-726301-04-2023 15:04-0500Systolic blood xfacyrxb666 mm[Hg] Ruth Cannon Work Phone: [phone]-Hvuvp [place] [facility] 250 DO Work Phone: 1(694) 276-629512-15-2022 14:07-537396 1Kjerry Huight Work Phone: [phone]-Kievh [place] [facility] 250 DO Work Phone: Comment on above:[id number] 08:45-0500Body jipqet508.56 cmTondra Gregoria Other [employer] Other 11-09-2022 08:45-0500Body mass index (BMI) [Ratio] 22.66 kg/a2Jkxmfa Sravanus Other [employer] Other 11-09-2022 08:45-0500Body rohqzx90.88 kgTondra Mapus Other [employer] Other 11-09-2022 08:45-0500Diastolic blood lmacziky35 mm[Hg] Tondra Sravanus Other [employer] Other 11-09-2022 08:45-0500Respiratory rate16 /minTondra Mapus Other [employer] Other 11-09-2022 08:45-9521PqT0% (BldA) [Mass fraction]99 % Tondra Mapus Other [employer] Other 11-09-2022 08:45-0500Systolic blood yimtxbhe243 mm[Hg] Tondra Mapus Other [employer] Other 05-11-2022 08:45-0400Body sspsna497.56 cmTondra Mapus Other [employer] Other 05-11-2022 08:45-0400Body mass index (BMI) [Ratio] 22.48 kg/t1Gxuqro [employer] Other [employer] Other 05-11-2022 08:45-0400Body .42 kgTondra Mapus Other [employer] Other 05-11-2022 08:45-0400Diastolic blood ksvzfwek63 mm[Hg] Tondra Mapus Other [employer] Other 05-11-2022 08:45-0400Respiratory rate16 /minTondra Mapus Other [employer] Other 05-11-2022 08:45-2634MaF6% (BldA) [Mass fraction]100 % Tondra Mapus Other [employer] Other 05-11-2022 08:45-0400Systolic blood kbohhxjr102 mm[Hg] Tondra Mapus Other [employer] Other 01-03-2019 14:00-0500Body tolqkq821.56 cmMD Ruth Cannon Work Phone: [facility]01-03-2019 13:00-0500 Body .12 kgMD Ruth Cannon Work Phone: [facility] Encounters Encounter DateEncounter TypeCare ProviderFacilityStart: 02-04-2025 End: 07-84-4257enwegcstayHrqyqw E Braun MD Work Phone: [facility] Work Phone: Start: 02-04-2025 End: 14-02-6335Jezoofh encounter procedureAriel Kinney [employer] ARCHITECT-C-[facility] Work Phone: Start: 01-27-2025 End: 88-93-1971Zmrtcet encounter procedureTiarra Cook [facility] Work Phone: Start: 01-27-2025 End: 46-59-4893lhqxumidurNwxebi E Braun MD Work Phone: [facility] Work Phone: Start: 01-20-2025 End: 45-09-6916mbtcjxkrqbZpyeuq E Braun MD Work Phone: [facility] Work Phone: Start: 01-20-2025 End: 91-13-5348Oelhdqk encounter procedureCatherine Eliz [facility] Work Phone: Start: 01-05-2025 End: 13-39-7149Nittcnp encounter procedureAriel LORAP-C-[facility] Work Phone: Start: 01-05-2025 End: 45-36-2584axznpywkrgPkyqig E Braun MD Work Phone: [facility] Work Phone: Start: 12-29-2024 End: 40-45-4825uehoocekwtFlpajr E Braun MD Work Phone: [facility] Work Phone: Start: 12-29-2024 End: 89-18-8355Qffmtvm encounter procedureLynn Luther MD-[facility] Work Phone: Start: 12-27-2024 End: 75-92-0339eteihtsihhIwbgk M. DempseyFacility:CC [place]walkStart: 12-27-2024 End: 26-91-4100Awgcsbb encounter procedureLeland Boss [phone]-PcyrsOhiohealth [facility] Start: 12-03-2024 End: 31-34-6205Geornok encounter procedureLynn Luther MD-[facility] CtrStart: 12-03-2024 End: 02-93-0014hjmcospkxdZfbkpy E Braun MD Work Phone: [facility] Work Phone: Start: 12-02-2024 End: 69-03-2993imekfbfaqoCkpxos E Braun MD Work Phone: [facility] Work Phone: Start: 12-02-2024 End: [id number] encounter procedureLynn Luther MD-[facility] Work Phone: Start: 10-29-2024 End: [id number] E Braun MD Work Phone: [facility] Work Phone: Start: 10-29-2024 End: [id number] encounter procedureLynn Luther MD Work Phone: [facility] Work Phone: Start: 10-22-2024 End: [id number] encounter procedureLynn Luther MD Work Phone: [facility]: 10-22-2024 End: [id number] E Braun MD Work Phone: [facility] Work Phone: Start: 10-22-2024 End: [id number] E Braun MD Work Phone: [facility] Work Phone: Start: 10-22-2024 End: 78-52-1071Lsolhzp encounter procedureLynn Luther MD Work Phone: [facility] Work Phone: Start: [id number]-patient / Non-visitLynn Luther MD Work Phone: [facility] Work Phone: Start: [id number]-patient / Non-visitLynn Luther MD Work Phone: [facility] Work Phone: Start: 09-28-2024 End: [id number] to same day surgery centerLynn Luther MD Work Phone: [facility] Work Phone: Start: 09-28-2024 End: 53-93-1363lhjtckenswCxwwyb E Braun MD Work Phone: [facility] Work Phone: Start: 09-22-2024 End: 87-44-0795Myvaidk encounter procedureLynn Luther MD Work Phone: [facility]: 09-22-2024 End: 10-06-9286idwbuapfphSevlly E Braun MD Work Phone: [facility] Work Phone: Start: 09-15-2024 End: 38-58-4375tdxndnrqdfTkslqkidzWhite Hospital Work Phone: Start: 09-15-2024 End: 01-65-1129Iuzxxjb encounter procedurePsychiatric Hospital Phys[facility] Work Phone: Start: 08-12-7547Fha-patient / Non-visitLynn Luther MD Work Phone: [facility] Work Phone: Start: 06-05-2024 End: 34-23-0747Yeasndg encounter procedureLynn Luther MD Work Phone: [facility] Work Phone: Start: 06-05-2024 End: 04-49-1112lwcytotjvwRxktzt E Braun MD Work Phone: [facility] Work Phone: Start: 05-20-2024 End: 38-87-7845Nhtzcmt encounter procedureLynn Luther MD Work Phone: [facility] CtrStart: 05-20-2024 End: 90-72-6131lkkgppwyiiSnswtf E BraunFacility:[facility] Hospitaltart: 05-07-2024 End: 81-17-4999Vghkxdb encounter procedureLynn Luther MD Work Phone: [facility] Work Phone: Start: 29-84-7507Zhv-patient / Non-visitLynn Luther MD Work Phone: [facility] Work Phone: Start: 04-23-2024 End: 41-53-2667kohiibklpoGrbzmq E Braun MD Work Phone: [facility] Work Phone: Start: 04-23-2024 End: 32-96-3019Rhgeuao encounter procedureLynn Luther MD Work Phone: [facility] Work Phone: Start: 04-08-2024 End: 89-67-9655Tkufxu flowsheetKathleen E Rinkes DO Work Phone: [facility] OBStart: 04-08-2024 End: 27-17-1954Cccgqv flowsheetKathleen E Rinkes DO Work Phone: [facility] OBStart: 04-08-2024 End: 92-99-7389Gqrkrd outpatient visit 25 minutesKathleen E Rinkes DO Work Phone: [facility] OBComment on above:Vaginal atrophy; Encounter for screening mammogram for breast cancer; Screening for osteoporosis; Postmenopausal status, age-related; Screening for malignant neoplasm of cervixStart: 04-08-2024 End: 41-32-4405bjuerjqbqpRLPUSQUU E RINKESNot AvailableStart: 03-19-2024 End: 94-29-8496Oizdsjq encounter procedureMD Lynn Luther Work Phone: [facility]-Lab [address] Work Phone: Start: 03-19-2024 End: 77-24-0747ofzbfwmuqpFB Marcia E Braun Work Phone: [facility] Work Phone: Start: 01-27-2024 End: 05-66-9966cyztrpmidxNX Marcia E Braun Work Phone: [facility] Work Phone: Start: 01-27-2024 End: 59-84-7339Mlhltwe encounter procedureMD Lynn Luther Work Phone: [facility] Work Phone: Start: 12-03-2023 End: 74-44-8025iotrrqurjgUPKLCCPC W MURCEKNot AvailableStart: 09-23-2023 End: 84-10-6153izbaacabppUI Marcia E Braun Work Phone: [facility] Work Phone: Start: 09-23-2023 End: 33-76-2843Jzqdsrf encounter procedure Lynn Ashkan Work Phone: [facility] [place] Work Phone: Start: 05-06-2023 End: 16-59-0493ozqhgrsyigAhetuy Ashkan Other [facility] Other Start: 34-12-7321Zytfxyo encounter procedureLynn Aly [facility] ClinicStart: 05-06-2023 End: 52-28-3321Jplcoui encounter procedurePsychiatric Hospital Physician Group-[facility] Work Phone: Start: 04-11-2023(DM) DiabetesTondra MapusPsychiatric Hospital Coordinated Care ClinicStart: 04-11-2023 End: 76-32-4596krvdnbejgiVefcxx Mapus Other [facility] Other Start: 03-18-2023 End: 67-04-0967wjjfvuohixSP Kim E Knight Work Phone: [facility] Work Phone: Start: 03-18-2023 End: 05-22-9806Tsgfsvn encounter procedureMD Ruth Cannon Work Phone: [facility] [place] Work Phone: Start: 01-24-2023 End: 48-16-7776zbwexptbtlSB Kim E Knight Work Phone: [facility] Work Phone: Start: 01-24-2023 End: 15-05-3384Ogiawby encounter procedureMD Ruth Cannon Work Phone: [facility] Work Phone: Start: 01-09-2023 End: 44-11-9578Gksjjwg encounter procedureAlevadim Paul [phone]-MldnvOhio[facility] Start: 10-10-2022(DM) DiabetesTondra MapusPsychiatric Hospital Coordinated Care ClinicStart: 10-10-2022 End: 36-08-3350nwkpejzrycSyzkdz Mapus Other [place] [facility] Other Start: 84-06-3945Kfdclrqtt encounterTondra MapusFPG EndocrinologyStart: 09-11-2022 End: 54-13-1724xnsyixuvngAE Kim E Knight Work Phone: [place] [facility] Other Start: 09-11-2022 End: 72-10-0535Evcyqax encounter procedureMD Ruth Cannon Work Phone: [facility] [place] Work Phone: Start: 16-11-0605Gnjory consultation new/estab patient [address] Work Phone: [phone]-Dpmqg [facility] [facility] DO Work Phone: Start: 05-17-2022 End: 05-44-1734lxiprxkktiDA Kim E Knight Work Phone: [facility] Work Phone: Start: 05-17-2022 End: 42-29-7512Sfkeoje encounter procedureMD Ruth Cannon Work Phone: [facility]-Electrodiagnostics Start: 17-72-9883tjtlctrpmsKyudmseu:9090Start: 05-08-2022 End: 46-22-9550mnebhltbxpZF RUTH CANNONFacility:A1Xrdar: 04-11-2022(DM) DiabetesTondra MapusFirelands Coordinated Care ClinicStart: 04-11-2022 End: 33-06-6987lbytyyquaxNjicpl Map[facility] Other [employer] Other Start: 26-64-5036Cxilkgvdtm RecurringMD Ruth Cannon Work Phone: [facility] Start: 03-02-2022 End: 51-69-1384Ziuahie encounter procedureMD Ruth Cannon Work Phone: [facility] CampusStart: 01-22-2022 End: 85-96-4956Dpxssbo encounter procedureMD Ruth Cannon Work Phone: [facility] Start: 10-11-2021(DM) DiabetesTondra MapusFirelands Coordinated Care Clinic Start: 10-11-2021 End: 44-13-6754bthtlmihqjTupemk Mapus Other [employer] Other Start: 09-28-2021 End: 74-24-3451aycfgffwdlNTBIT D City Hospitalcility:X8Hxplv: 08-10-2021 End: 01-92-0435lqqgaqhaavWhwlhv Map[facility] Other [employer] [employer] Other Start: 67-56-8788Piruiupsx encounterTondra MapusFPG EndocrinologyStart: 08-09-2021 End: 80-69-2936ofuqwozghbQexnvy Map[employer] Other [employer] Other Start: 96-98-0480Vroeakzjc encounterTondra Mapus [facility] ClinicStart: 06-05-2021 End: 77-49-1175drbvvhmwkmRvujyk Mapus Other [employer] Other Start: 54-45-0603Jxeigepkq encounterBullhead Community Hospitaldra Kin[facility] ClinicStart: 04-17-2021 End: 29-50-7199tweymfpzqeYuhlow Mapus Other [facility] Other Start: 48-84-6272Bhzjttzau encounterFayette County Memorial HospitalCardiovascular stress test abnormalKim Moshe Cannon Work Phone: [phone]-Pdhdc [facility] DO Work Phone: Procedures DateProcedureProcedure DetailPerforming ClinicianStart: 64-99-5300Axjr energy X- ray absorptiometryLynn Luther MD Work Phone: Start: 73-80-9951Bqcryydep mammography of bilateral breastsMcem Luther MD Work Phone: Start: 07-06-5267N-ray of cervical spineLynn Luther MD Work Phone: Start: 42-38-3802NodymvwsumwtamfdkwkfhqnipeLqwqkb Braun MD Work Phone: Start: 63-79-7586Obtkuobpddmk myocardial perfusion stress studyLynn Luther MD Work Phone: Start: 84-19-1492K-ray of lumbar spine, two or three viewsLynn Luther MD Work Phone: Start: 44-24-5646Lhlltmlwf mammography of bilateral breastsMD Lynn Ashkan Work Phone: Start: 51-01-6667Whxc energy X-ray absorptiometry Ruth Cannon Work Phone: Start: 01-24-2023 End: 84-84-5140Cpesnwcie mammography of bilateral breastsMD Ruth Cannon Work Phone: Start: 03-26-1810TDU of headMD Ruth Cannon Work Phone: Start: 61-16-9581Bwzbbtoey mammography of bilateral breastsMD Ruth Cannon Work Phone: Start: 90-97-9868Pmwgr colonoscopyKim E Cannon Work Phone: BiopsyAleksandar Spasic Comment on above:left breastBiopsy of breastKim E Cannon Work Phone: ColonoscopyAleksandar Spasic Comment on above:2015Cyst (disorder)Geovanni Spasic Comment on above:renal 2020Esophagogastroduodenoscopy and closure of duodenal fistulaAleksandar Spasic Excision of lesion of skinKim E Davis Work Phone: Tonsillectomy and adenoidectomyKim E Cannon Work Phone: Tonsillectomy and adenoidectomyAleksandar Spasic Tooth extractionAleksandar Spasic Plan of Treatment DateCare ActivityDetailAuthorStart: 59-42-4132GwxhdtoxzMercy Health [facility] Start: 17-61-5085LbetljymlLutheran Hospitaltart: 04-08-2024 End: 22-74-9883Bzaszic encounter jebdbjxmb15/06/2024 9:30 AM EST Office Visit [facility] OB [address] [place] [id number] Tiarra Cook E, DO [address] [place] [address] Vaginal atrophy; Encounter for screening mammogram for breast cancer; Screening for osteoporosis; Postmenopausal status, age-relatedNOMS SWS OBComment on above:Vaginal atrophy; Encounter for screening mammogram for breast cancer; Screening for osteoporosis; Postmenopausal status, age-relatedStart: 33-46-1639Lqjkeyaae vaccination Influenza Vaccine (#1)[facility] HealthcareStart: 87-46-5553Vsitrypxz for malignant neoplasm of breastMammogramNOMS HealthcareStart: 04-90-1252Qwlvtgxxlwci Vaccine: 65+ Years (1 of 1 - PCV)Pneumococcal Vaccine: 65+ Years (1 of 1 - PCV)[facility] HealthcareStart: 13-09-2421Yzsbclddg for malignant neoplasm of colonNOMS HealthcareComprehensive metabolic 2000 panel - Serum or PlasmaMercy Health Clermont HospitalDBT Breast - bilateral screeningBilateral screening mammogram with tomosynthesis Imaging Routine Encounter for screening mammogram for breast cancer Ordered: 04/08/2024[facility] HealthcareComment on above:Ordered: 04/08/2024XA Skeletal system Views for bone densityDEXA bone density Imaging Routine Screening for osteoporosis Postmenopausal status, age-related Ordered: 04/08/2024[facility] HealthcareComment on above:Ordered: 04/08/2024atient Education [facility] Work Phone: SENDOUT TEST MISCELLANEOUS LABC[facility]PSENDOUT TEST MISCELLANEOUS [facility] Lab Routine Screening for malignant neoplasm of cervix Ordered: 04/08/2024[facility] Work Phone: comment on above:Ordered: 04/08/2024XR Cervical spine 5 [facility] HospitalZinc [Mass/volume] in Serum or Plasma [facility] Immunizations Immunization DateImmunizationNotesCare NnlcmmxrZbctwajh26-05-8074ajgenbcsj virus vaccine, unspecified formulationKathleen Rinkes DO Work Phone: [phone]-OphtvOhiohealth [facility] Epjz05-31-9962 influenza virus vaccine, unspecified formulationJamie Gera 120-9455Zpcflb-KyepnOhiohealth [facility] Scbi23-13-4240 zoster vaccine recombinantAleksandar Spasic [phone]-LnmfwOhiohealth [facility] Tdze56-44-0640 zoster vaccine recombinantAleksandar Spasic [phone]-IlvfrOhiohealth [facility] Pcqa23-69-7571 Pfizer COVID-19 Vac Bivalent 30 MCG/0.3ML Intramuscular SuspensionKim E Cannon Work Phone: [phone]-SemivOhiohealth [facility] Wjve29-97-1773 influenza virus vaccine, unspecified formulationAleksandar Spasic 322-2397Wjkgea-GvmynOhiohealth [facility]ville [facility] Sggn96-27-4865 influenza, seasonal, injectableKim E Cannon Work Phone: [phone]-RofgdSt. John'S Hospital 250 DO Work Phone: Comment on above:Series:10-89-7505Knvwluu High-Dose Quadrivalent 0.7 ML Intramuscular Suspension Prefilled SyringeKim E Cannon Work Phone: [phone]-ZiorxRainy Lake Medical Center 250 DO Work Phone: [phone] virus vaccine, unspecified formulationAleksandar Spasic 250-3159Pecobl-CexcmOhiohealth [facility]ville [facility] Fmdy59-75-3568 Comirnaty 30 MCG/0.3ML Intramuscular SuspensionKim E Cannon Work Phone: [phone]-KmpaySt. John'S Hospital 251 DO Work Phone: [phone]-DiU-4 mRNA (xejiaskgqqn-dbix-liingmo) vaccineAleksandar Spasic 351-5267Ooywjj-BobtlOhiohealth [facility] Dslv90-02-4206 Pfizer-BioNTech COVID-19 Vacc 30 MCG/0.3ML Intramuscular SuspensionKim E Cannon Work Phone: [phone]-MygubOhiohealth Nelsonville Health Center Convenient CareComment on above:Result Comment: 2023-01-09: HSL9438-12-7004Cdctvud High-Dose Quadrivalent 0.7 ML Intramuscular Suspension Prefilled SyringeKim E Cannon Work Phone: [phone]-NsuteSt. John'S Hospital 250 DO Work Phone: [phone]v virus vaccine, unspecified formulationAleksandar Spasic 483-1271Vgoqrp-IttixOhiohealth [facility] Csvj20-45-6225 COVID-19 Vaccine Pfizer - Documentation Purposes OnlyAriel Kinney Other [phone]-MbhfmOhiohealth Nelsonville [facility] Ljne40-65-6911 SARS-CoV-2 (COVID-19) mRNA BNT-162b2 Rachel Paul [phone]-DobguOhiohealth Nelsonville [facility] Center [facility] Care Payers DatePayer CategoryPayerPolicy [id number] Medical CenterBC [id number] 2020Medicare [id number] Medical Center [id number] [id number] [id number] [id number] [id number] [id number] [id number] 2.840.1.415285.3.57[id number] [id number] 2..840.1.646200.3.57[id number] [id number] Health Insurance [id number]-zzlGzja Pay [id number]-QKNQ [id number] Social History DateTypeDetailFacilityUnknown if ever smokedNomissouri rehabilitation center [facility] Other Start: 38-30-1933Xcd [facility]: 05-16-2018 End: 87-91-9313Qppeqcv smoking status NHISNever smoked tobacco (finding) [facility]: 82-19-9653Rgi Assigned At [facility]: 94-68-0337Zqnwtblc alcohol occasionally Consumes alcohol occasionally-[place] [address] DO Work Phone: Comment on above:chocolate daily . decaf tea occasional;Tobacco smoking statusNeOhioHealth Sout[facility] Medical Center [facility]ven[facility] CareStart: 38-59-0627Qaovjqj use and exposureSmokeless tobacco non-userNOMS HealthcareStart: 12-03-2023 End: 42-54-4982Mewohceeb beverage intakeLifetime non-drinker (finding)[facility] HealthcareStart: 09-96-1443Lewrefe Commentcaffeine intake : chocolateNOMS HealthcareStart: 42-29-5010Mascub identityIdentifies as female gender (finding) [facility] HealthcareStart: 93-16-3064Qprkye orientationChoose not to discloseNOMS HealthcareStart: 06-18-2019 End: 03-29-1421FdhHeweic (finding)[facility] Medical Equipment Procedure CodeEquipment CodeEquipment Original TextEquipment IdentifierDates Start: 39-49-9346Ytjxa Sugar Diagnostic (Onetouch Ultra Test) stripStart: 73-73-9482Itqku Sugar Diagnostic (Onetouch Ultra Test) stripStart: 07-25-2023 Lancets (Onetouch Delica Plus Lancet) 33 gauge miscStart: 41-44-9554Srtob Sugar Diagnostic (Onetouch Ultra Test) stripStart: 64-30-7151Ebzanmi (Onetouch Delica Plus Lancet) 33 gauge miscStart: 21-89-2173Infko Sugar Diagnostic (Onetouch Ultra Test) stripStart: 23-42-5175Qeobbzy (Onetouch Delica Plus Lancet) 33 gauge miscStart: 72-36-6135Wcnas Sugar Diagnostic (Onetouch Ultra Test) stripStart: 91-51-6501Nrxwmwb (Onetouch Delica Plus Lancet) 33 gauge miscStart: 10-17-2023 Blood Sugar Diagnostic (Onetouch Ultra Test) stripStart: 85-26-4477Skyuadu (Onetouch Delica Plus Lancet) 33 gauge miscStart: 15-13-9528Qqfxe Sugar Diagnostic (Onetouch Ultra Test) stripStart: 14-46-5304Juwdmjx (Onetouch Delica Plus Lancet) 33 gauge miscStart: 48-57-5851Xmrdn Sugar Diagnostic (Onetouch Ultra Test) stripStart: 50-32-1525Zdtrgyo (Onetouch Delica Plus Lancet) 33 gauge miscStart: 95-48-3046Ybrsu Sugar Diagnostic (Onetouch Ultra Test) stripStart: 54-05-6999Lwpbeab (Onetouch Delica Plus Lancet) 33 gauge miscStart: 10-17-2023 Blood Sugar Diagnostic (Onetouch Ultra Test) stripStart: 39-83-1501Ecmgmge (Onetouch Delica Plus Lancet) 33 gauge miscStart: 94-15-4208Rpakf Sugar Diagnostic (Onetouch Ultra Test) stripStart: 07-25-2023 End: 62-85-2382Foevg Sugar Diagnostic (Onetouch Ultra Test) stripStart: 10-29-2024 End: 85-14-2671Xmazabz (Onetouch Delica Plus Lancet) 33 gauge miscStart: 10-17-2023 End: 08-04-9197Eaycrch (Onetouch Delica Plus Lancet) 33 gauge miscStart: 10-29-2024 End: 56-82-5663Kctro Sugar Diagnostic (True Metrix Glucose Test Strip) strip Start: 40-96-8579Zqgietp (Trueplus Lancets) 28 gauge miscStart: 80-50-2002Cnzqs Sugar Diagnostic (Onetouch Ultra Test) stripStart: 07-25-2023 End: 64-78-7976Jomse Sugar Diagnostic (Onetouch Ultra Test) stripStart: 10-29-2024 End: 68-61-8461Fdhwmva (Onetouch Delica Plus Lancet) 33 gauge miscStart: 10-17-2023 End: 52-52-9094Qbxyjtz (Onetouch Delica Plus Lancet) 33 gauge miscStart: 10-29-2024 End: 20-93-4465Gurxn Sugar Diagnostic (True Metrix Glucose Test Strip) strip Start: 71-53-6712Qhizhha (Trueplus Lancets) 28 gauge miscStart: 84-92-8096Odhza Sugar Diagnostic (Onetouch Ultra Test) stripStart: 07-25-2023 End: 89-59-5617Gfnll Sugar Diagnostic (Onetouch Ultra Test) stripStart: 10-29-2024 End: 68-61-5256Pokzrpp (Onetouch Delica Plus Lancet) 33 gauge miscStart: 10-17-2023 End: 32-63-2799Qzytcbo (Onetouch Delica Plus Lancet) 33 gauge miscStart: 10-29-2024 End: 80-03-7983Bbuic Sugar Diagnostic (True Metrix Glucose Test Strip) strip Start: 91-63-7207Kvjdhki (Trueplus Lancets) 28 gauge miscStart: 96-71-9941Fpmka Sugar Diagnostic (Onetouch Ultra Test) stripStart: 07-25-2023 End: 56-06-2059Nyeox Sugar Diagnostic (Onetouch Ultra Test) stripStart: 10-29-2024 End: 53-34-1446Gkslano (Onetouch Delica Plus Lancet) 33 gauge miscStart: 10-17-2023 End: 95-53-9221Xgatxph (Onetouch Delica Plus Lancet) 33 gauge miscStart: 10-29-2024 End: 83-58-8475Ogynent (Trueplus Lancets) 28 gauge miscStart: 10-29-2024 End: 90-33-3839Aoefn Sugar Diagnostic (True Metrix Glucose Test Strip) strip Start: 84-11-5308Vbajuiq (Trueplus Lancets) 28 gauge miscStart: 89-89-6151Xioqx Sugar Diagnostic (Onetouch Ultra Test) stripStart: 07-25-2023 End: 25-12-2746Etlly Sugar Diagnostic (Onetouch Ultra Test) stripStart: 10-29-2024 End: 24-52-4796Ydzacyn (Onetouch Delica Plus Lancet) 33 gauge miscStart: 10-17-2023 End: 32-42-3308Scsfzqe (Onetouch Delica Plus Lancet) 33 gauge miscStart: 10-29-2024 End: 47-28-7158Imgbcpc (Trueplus Lancets) 28 gauge miscStart: 10-29-2024 End: 68-79-3107Ddmex Sugar Diagnostic (True Metrix Glucose Test Strip) strip Start: 46-23-2427Bqzrnhs (Trueplus Lancets) 28 gauge miscStart: 25-96-4267Zzwve Sugar Diagnostic (Onetouch Ultra Test) stripStart: 07-25-2023 End: 95-19-6374Wlzef Sugar Diagnostic (Onetouch Ultra Test) stripStart: 10-29-2024 End: 29-88-1661Pgjpgsw (Onetouch Delica Plus Lancet) 33 gauge miscStart: 10-17-2023 End: 23-44-7515Foeuhuv (Onetouch Delica Plus Lancet) 33 gauge miscStart: 10-29-2024 End: 81-23-2342Vrxvdeo (Trueplus Lancets) 28 gauge miscStart: 10-29-2024 End: 65-05-7906Cqogb Sugar Diagnostic (True Metrix Glucose Test Strip) strip Start: 91-47-5242Nldcvxp (Trueplus Lancets) 28 gauge miscStart: 87-54-2035Yvkbh Sugar Diagnostic (Onetouch Ultra Test) stripStart: 07-25-2023 End: 12-95-1826Thrgz Sugar Diagnostic (Onetouch Ultra Test) stripStart: 10-29-2024 End: 03-69-0616Nleepre (Onetouch Delica Plus Lancet) 33 gauge miscStart: 10-17-2023 End: 97-86-2474Rmshjvi (Onetouch Delica Plus Lancet) 33 gauge miscStart: 10-29-2024 End: 93-85-8099Eyxhbbc (Trueplus Lancets) 28 gauge miscStart: 10-29-2024 End: 44-50-4480Zkoxy Sugar Diagnostic (True Metrix Glucose Test Strip) strip Start: 10-61-7952Uwsrtfh (Trueplus Lancets) 28 gauge miscStart: 46-11-3032Zxuty Sugar Diagnostic (Onetouch Ultra Test) stripStart: 07-25-2023 End: 60-18-0889Uxuie Sugar Diagnostic (Onetouch Ultra Test) stripStart: 10-29-2024 End: 20-09-1399Rkthblv (Onetouch Delica Plus Lancet) 33 gauge miscStart: 10-17-2023 End: 66-46-6546Wdnetim (Onetouch Delica Plus Lancet) 33 gauge miscStart: 10-29-2024 End: 89-47-4647Bgquawd (Trueplus Lancets) 28 gauge miscStart: 10-29-2024 End: 12-10-2024 Goals DatePatient GoalDesired Activity/State Functional Status YjojQqmuvohaxvPqdvrzUmukcmsw70-34-3934Trgjfxohhp StatusN/AFisher-[facility] Clinical Notes 06-05-2021 to 12-27-2024 Note Date & XvamRzzfZudeubcq31-31-6285 Hospital Discharge instructions Patient Education 12/27/2024 13:45:00 Shingles, Mbre-qe-Yczp Shingles Shingles is an infection. It gives you a painful skin rash and blisters that have fluid in them. Shingles is caused by the same germ (virus) that causes chickenpox. Shingles only happens in people who: Have had chickenpox. Have been given a shot (vaccine) to protect against chickenpox. Shingles is rare in this group. What are the causes? This condition is caused by varicella-zoster virus. This is the same germ that causes chickenpox. After a person is exposed to the germ, the germ stays in the body but is not active (dormant). Shingles develops if the germ becomes active again (is reactivated). This can happen many years after the first exposure to the germ. It is not known what causes this germ to become active again. What increases the risk? People who have had chickenpox or received the chickenpox shot are at risk for shingles. This infection is more common in people who: Are older than 60 years of age. Have a weakened disease-fighting system (immune system), such as people with: ?HIV (human immunodeficiency virus). ?AIDS (acquired immunodeficiency syndrome). ?Cancer. Are taking medicines that weaken the immune system, such as organ transplant medicines. Have a lot of stress. What are the signs or symptoms? The first symptoms of shingles may be itching, tingling, or pain in an area on your skin. A rash will show on your skin a few days or weeks later. This is what usually happens: The rash is likely to be on one side of your body. The rash usually has a shape like a belt or a band. Over time, the rash turns into fluid-filled blisters. The blisters will break open and change into scabs. The scabs usually dry up in about 2 3 weeks. You may also have: A fever. Chills. A headache. A feeling like you may vomit (nausea). How is this treated? The rash may last for several weeks. There is not a specific cure for this condition. Your doctor may prescribe medicines. Medicines may: Help with pain. Help you get better sooner. Help to prevent long-term problems. Help with itching (antihistamines). If the area involved is on your face, you may need to see a specialist. This may be an eye doctor or an ear, nose, and throat (ENT) doctor. Follow these instructions at home: Medicines Take iiiq-ebn-fnsqser and prescription medicines only as told by your doctor. Put on an anti-itch cream or numbing cream where you have a rash, blisters, or scabs. Do this as told by your doctor. Helping with itching and discomfort Put cold, wet cloths (cold compresses) on the area of the rash or blisters as told by your doctor. Cool baths can help you feel better. Try adding baking soda or dry oatmeal to the water to lessen itching. Do not bathe in hot water. Use calamine lotion as told by your doctor. Blister and rash care Keep your rash covered with a loose bandage (dressing). Wear loose clothing that does not rub on your rash. Wash your hands with soap and water for at least 20 seconds before and after you change your bandage. If you cannot use soap and water, use hand dog barber. Change your bandage as told by your doctor. Keep your rash and blisters clean. To do this, wash the area with mild soap and cool water as told by your doctor. Check your rash every day for signs of infection. Check for: ?More redness, swelling, or pain. ?Fluid or blood. ?Warmth. ?Pus or a bad smell. Do not scratch your rash. Do not pick at your blisters. To help you to not scratch: ?Keep your fingernails clean and cut short. ?Wear gloves or mittens when you sleep, if scratching is a problem. General instructions Rest as told by your doctor. Wash your hands often with soap and water for at least 20 seconds. If you cannot use soap and water, use hand dog barber. Doing this lowers your chance of getting a skin infection. Your infection can cause chickenpox in people who have never had chickenpox or never got a chickenpox vaccine shot. If you have blisters that did not change into scabs yet, try not to touch other people or be around other people, especially: ?Babies. ? women. ?Children who have areas of red, itchy, or rough skin (eczema). ?Older people who have organ transplants. ?People who have a long-term (chronic) illness, like cancer or AIDS. Keep all follow-up visits. How is this prevented? A vaccine shot is the best way to prevent shingles and protect against shingles problems. If you have not had a vaccine shot, talk with your doctor about getting it. Where to find more information Centers for Disease Control and Prevention: www.cdc.gov Contact a doctor if: Your pain does not get better with medicine. Your pain does not get better after the rash heals. You have any of these signs of infection around the rash: ?More redness, swelling, or pain. ?Fluid or blood. ?Warmth. ?Pus or a bad smell. You have a fever. Get help right away if: The rash is on your face or nose. You have pain in your face or pain by your eye. You lose feeling on one side of your face. You have trouble seeing. You have ear pain, or you have ringing in your ear. You have a loss of taste. Your condition gets worse. Summary Shingles gives you a painful skin rash and blisters that have fluid in them. Shingles is caused by the same germ (virus) that causes chickenpox. Keep your rash covered with a loose bandage. Wear loose clothing that does not rub on your rash. If you have blisters that did not change into scabs yet, try not to touch other people or be aroundpeople. This information is not intended to replace advice given to you by your health care provider. Make sure you discuss any questions you have with your health care provider. Document Revised: 05/15/2021 Document Reviewed: 05/15/2021 [email or web address] Patient Education 2023 [employer]. Follow Up Care 12/27/2024 10:44:27 With:Delvis GOODMAN, Iraj Ashby [facility] Address: [address] [place] [place] [address]- When: Unknown [facility] 07-27-2025 NotePatient Education Infectious Disease Shingles Shingles is an infection. It gives you a painful skin rash and blisters that have fluid in them. Shingles is caused by the same germ (virus) that causes chickenpox. Shingles only happens in people who: ??? Have had chickenpox. ??? Have been given a shot (vaccine) to protect against chickenpox. Shingles is rare in this group. What are the causes? This condition is caused by varicella-zoster virus. This is the same germ that causes chickenpox. After a person is exposed to the germ, the germ stays in the body but is not active (dormant). Shingles develops if the germ becomes active again (is reactivated). This can happen many years after the first exposure to the germ. It is not known what causes this germ to become active again. What increases the risk? People who have had chickenpox or received the chickenpox shot are at risk for shingles. This infection is more common in people who: ??? Are older than 60 years of age. ??? Have a weakened disease-fighting system (immune system), such as people with: ? HIV (human immunodeficiency virus). ? AIDS (acquired immunodeficiency syndrome). ? Cancer. ??? Are taking medicines that weaken the immune system, such as organ transplant medicines. ??? Have a lot of stress. What are the signs or symptoms? The first symptoms of shingles may be itching, tingling, or pain in an area on your skin. A rash will show on your skin a few days or weeks later. This is what usually happens: ??? The rash is likely to be on one side of your body. ??? The rash usually has a shape like a belt or a band. Over time, the rash turns into fluid-filledblisters. ??? The blisters will break open and change into scabs. ??? The scabs usually dry up in about 2?3 weeks. You may also have: ??? A fever. ??? Chills. ??? A headache. ??? A feeling like you may vomit (nausea). How is this treated? The rash may last for several weeks. There is not a specific cure for this condition. Your doctor may prescribe medicines. Medicines may: ??? Help with pain. ??? Help you get better sooner. ??? Help to prevent long-term problems. ??? Help with itching (antihistamines). If the area involved is on your face, you may need to see a specialist. This may be an eye doctor or an ear, nose, and throat (ENT) doctor. Follow these instructions at home: Medicines ??? Take tdla-jyv-mrocbco and prescription medicines only as told by your doctor. ??? Put on an anti-itch cream or numbing cream where you have a rash, blisters, or scabs. Do this as told by your doctor. Helping with itching and discomfort ??? Put cold, wet cloths (cold compresses) on the area of the rash or blisters as told by your doctor. ??? Cool baths can help you feel better. Try adding baking soda or dry oatmeal to the water to lessen itching. Do not bathe in hot water. ??? Use calamine lotion as told by your doctor. Blister and rash care ??? Keep your rash covered with a loose bandage (dressing). ??? Wear loose clothing that does not rub on your rash. ??? Wash your hands with soap and water for at least 20 seconds before and after you change your bandage. If you cannot use soap and water, use hand dog barber. ??? Change your bandage as told by your doctor. ??? Keep your rash and blisters clean. To do this, wash the area with mild soap and cool water as told by your doctor. ??? Check your rash every day for signs of infection. Check for: ? More redness, swelling, or pain. ? Fluid or blood. ? Warmth. ? Pus or a bad smell. ??? Do not scratch your rash. Do not pick at your blisters. To help you to not scratch: ? Keep your fingernails clean and cut short. ? Wear gloves or mittens when you sleep, if scratching is a problem. General instructions ??? Rest as told by your doctor. ??? Wash your hands often with soap and water for at least 20 seconds. If you cannot use soap and water, use hand dog barber. Doing this lowers your chance of getting a skin infection. ??? Your infection can cause chickenpox in people who have never had chickenpox or never got a chickenpox vaccine shot. If you have blisters that did not change into scabs yet, try not to touch otherpeople or be around other people, especially: ? Babies. ? women. ? Children who have areas of red, itchy, or rough skin (eczema). ? Older people who have organ transplants. ? People who have a long-term (chronic) illness, like cancer or AIDS. ??? Keep all follow-up visits. How is this prevented? A vaccine shot is the best way to prevent shingles and protect against shingles problems. If you have not had a vaccine shot, talk with your doctor about getting it. Where to find more information ??? Centers for Disease Control and Prevention: www.cdc.gov Contact a doctor if: ??? Your pain does not get better with medicine. ??? Your pain does not (more content not included)...[facility] 12-02-2024 Evaluation note* Diagnosis Onset Date Resolution Status Admit Date Cervical radiculopathy acuteJuly 2024 9:56amVertigoacuteJuly 2024 9:56amHerpes zosteracute December 29, 2024 2:32pmGERD (gastroesophageal reflux disease)acuteAugust 2024 9:30am [facility] Work Phone: 1(143) 793-617007-02-2025 Evaluation note* Diagnosis Onset Date Resolution Status Admit Date Cervical radiculopathy acuteJuly 2024 9:56amVertigoacuteJuly 2024 9:56amHerpes zosteracute December 29, 2024 2:32pmGERD (gastroesophageal reflux disease)acuteAugust 2024 9:30amBlood pressure elevated without history of HTNacuteSeptember 2024 8:49amBMI 24.0-24.9, adultacuteSeptember 2024 8:49amDietary counseling and surveillanceacuteSeptember 2024 8:49amHyperlipidemia LDL goal <100 acuteSeptember 2024 8:49amType 2 diabetes mellitusacuteSeptember 2024 8:49am [facility] Work Phone: 1(326) 733-993105-22-2025 Evaluation note* Diagnosis Onset Date Resolution Status Admit Date Anemia acuteMay 2024 8:56amGERD (gastroesophageal reflux disease)acuteMay 2024 8:56amBurning tongue syndromeinactiveMay 2024 8:56amBlood pressure elevated without history of HTNacuteMay 2024 8:50amBMI 24.0-24.9, adult acuteMay 2024 8:50amDietary counseling and surveillanceacutey 2024 8:50amHyperlipidemia LDL goal <100acutey 2024 8:50amType 2 diabetes mellitusacuteMay 2024 8:50amCervical radiculopathyacuteJuly 2024 9:56amVertigoacuteJuly 2024 9:56am [facility] Work Phone: 1(277) 539-161905-22-2025 Evaluation note* Diagnosis Onset Date Resolution Status Admit Date Anemia acuteMay 2024 8:56amGERD (gastroesophageal reflux disease)acuteMay 2024 8:56amBurning tongue syndromeinactivey 2024 8:56amBlood pressure elevated without history of HTNacuteMay 2024 8:50amBMI 24.0-24.9, adult acuteMay 2024 8:50amDietary counseling and surveillanceacutey 2024 8:50amHyperlipidemia LDL goal <100acutey 2024 8:50amType 2 diabetes mellitusacuteMay 2024 8:50amCervical radiculopathyacuteJuly 2024 9:56amVertigoacuteJuly 2024 9:56amHerpes zosteracuteJuly 2024 2:32pm [facility] Work Phone: 1(933) 788-483104-28-[address] [address] Colonoscopy Procedure Report Signed Patient: Loraine Griffith MR#: [id number] : 1955 Acct:[id number] Age/Sex: 69 / F Adm Date: 5 Loc: Room: Type: [facility] Attending Dr: Wendie Craig DO Copies to: DO Lynn Xiong MD~ Colonoscopy Date/Provider 09/28/2024 Wendie Craig DO Narrative Procedure: Colonoscopy Indication: Screening for colon cancer last colonoscopy 10 years ago Pre-operative diagnosis: Screening for colon cancer. Post-operative diagnosis:small internal hemorrhoids, otherwise normal colon and TI Sedation: propofol per anesthesia dept O2 oximetry, hemodynamic monitoring was performed pre, during, and post procedure. Patient was identified, H&P completed, patient was given full explanation of the procedure as well as associatedrisks and written consent wasobtained prior to procedure. Patient expressed complete understanding of the procedure as well as alternatives to the procedure and to anesthesia and agreed to proceed with the procedure as indicated. Patient was immediately reassessed prior to IV sedation. Under IV sedation, patient was placed in the left lateral decubitus position. Digital rectal exam was performed and normal. Colonoscope was inserted and passed proximally to the cecum, which was identified by the ileocecal valve, appendiceal orifice and cecal floor. The terminal ileum was intubatedand examined. Colonoscope was slowly withdrawn with the findings as below. Rothsay bowel prep score was good. Findings: Terminal ileum: Normal Cecum: Normal. Ascending colon: Normal. Hepatic flexure: Normal. Transverse colon: Normal. Splenic flexure: Normal. Descending colon: Normal. Sigmoid colon: Normal. Rectum: Normal. Retroflexed views: Rectum did show small internal hemorrhoids. Biopsy taken: None Complications: None EBL: None Recommendations: -Repeat colonoscopy in 7-10 yrs -Fiber rich diet -Follow up with PCP Following a period of recovery, patient was seen and given full explanation of the procedure. Patient tolerated the procedure well and will be discharged in satisfactory, stable condition. Wendie Craig DO Documented By: Wendie Craig DO 09/28/24 0849 Signed By: 09/28/24 0914 [facility]04-28-2025 [place] [address] EGD Procedure Note Signed Patient: Loraine Griffith MR#: [id number] : 1955 Acct:[id number] Age/Sex: 69 / F Adm Date: 5 Loc: Room: Type: [facility] Attending Dr: Wendie Craig DO Copies to: DO Lynn Xiong MD~ Esophagogastroduodenoscopy Date/Provider Date: 09/28/2024 Wendie Craig DO Narrative Narrative: Procedure: EGD with biopsy Indication: Epigastric pain, GERD Pre-operative diagnosis: Epigastric pain, GERD Post-operative diagnosis: LA grade B esophagitis at the GE junction, small hiatal hernia, duodenitis, otherwise normal EGD Sedation: propofol per anesthesia dept O2 oximetry, hemodynamic monitoring was performed pre, during, and post procedure. Patient was identified, H&P completed, patient was given full explanation of the procedure as well as associatedrisks and written consent wasobtained prior to procedure. Patient expressed complete understanding of the procedure as well as alternatives to the procedure and to anesthesia and agreed to proceed with the procedure as indicated. Patient was immediately reassessed prior to IV sedation. Following IV sedation, patient was placed in the left lateral decubitus position. Bite block was inserted. Endoscope was passed through the mouth, into the esophagus. Endoscope was advanced into the stomach through the pyloricchannel and into the 2nd portion of duodenum by direct visualization. Endoscopewas withdrawn into the stomach and retroflexion was performed. The endoscope was straightened,the stomach was decompressed. Endoscope was withdrawn into the esophagus then completely removed with the findings as below. Findings: DUODENUM: There was moderate duodenitis in the bulb characterized by erythema and erosions. The descending portion appeared normal. Biopsies were obtained from the small bowel for histology and to rule out Celiac disease. STOMACH: Retroflexed views revealed a small hiatal hernia. The stomach was otherwise normal. Biopsies were obtained from the gastric antrum and body for histology and to rule out H. Pylori. ESOPHAGUS: GE junction (upper margin of gastric folds) was at 36 cm from incisors. There was LA grade B esophagitis at the GE junction status post biopsies obtained with standard forceps and sent to pathology. The esophagus was otherwise normal. Biopsy taken: Yes Complications: None EBL: Minimal Recommendations: -Follow up pathology -Resume normal diet -Lifestyle modifications for GERD -Started on PPI 40 mg daily x 3 months -Follow up in the office in 3 to 4-month -Repeat EGD as needed only -Follow up with PCP Following a period of recovery, patient was seen and given full explanation of the procedure. Patient tolerated the procedure well and will be discharged in satisfactory, stable condition. Wendie Craig DO Documented By: Wendie Craig DO 09/28/24 0848 Signed By: 09/28/24 0902 [facility]04-28-2025 [place] [address] Gastroenterology H&P Signed Patient: Loraine Griffith MR#: [id number] : 1955 Acct:[id number] Age/Sex: 69 / F Adm Date: 5 Loc: Room: Type: [facility] Attending Dr: Wendie Craig DO Copies to: DO Lynn Xiong MD~ Date of Service: 09/28/2024 HISTORY & PHYSICAL: Patient's history with special attention to the cardiovascular, pulmonary systems and the current problem was reviewed with the patient immediately prior to the procedure. Present medications and doses reviewed in the EMR. Allergies and pertinent laboratory tests were also re viewedat this time in the EMR. The physical examination, as below, was then performed. Indication, assessment and HPI: 69-year-old female who presents for EGD and colonoscopy for epigastric pain, GERD, screening for colon cancer. Last colonoscopy 10 years. Last EGD in 2018 with gastritis. Patient takes PPI as needed only. Denies significant NSAIDs. Family history of GI malignancy? No PHYSICAL EXAMINATION General appearance: cooperative, NAD Skin: No jaundice, no rash or lesions Head: NCAT Eyes: Anicteric Neck: Supple Lungs: Normal respiratory effort, no use of accessory muscles Abdomen: Soft, nondistended Neuro: No focal deficits, Ox3. REVIEW OF SYSTEMS Constitutional: Denies malaise, fevers Cardiovascular: Denies chest pain, palpitations Respiratory: Denies shortness of breath, wheezing Gastrointestinal: As per HPI Genitourinary: Denies dysuria, polyuria Musculoskeletal: Denies joint swelling, joint stiffness Neurological: Denies confusion, numbness, tingling Endocrine: Denies fatigue Written informed consent obtained from the patient. Risks (including but not limited to perforation, infection, bloating, bleeding, need for emergent surgeryand loss of life), benefits and alternatives explained and questions answered. The patient verbalized understanding. Based on history patient is an appropriate candidate for the procedure. Wendie Craig DO Present medication and doses reviewed in the EMR Documented By: Wendie Craig DO 09/28/24 0847 Signed By: 09/28/24 0848 [facility]04-15-2025 Evaluation note* Diagnosis Onset Date Resolution Status Admit Date Eustachian tube dysfunction acuteApril 2024 1:01pm [facility] Work Phone: 1(780) 587-615204-15-2025 Evaluation note* Diagnosis Onset Date Resolution Status Admit Date Eustachian tube dysfunction acuteApril 2024 1:01pmAnemiaacuteMay 2024 8:56amBurning tongue syndromeacuteMay 2024 8:56amGERD (gastroesophageal reflux disease)acuteMay 2024 8:56am [facility] Work Phone: 1(454) 191-793504-15-2025 Evaluation note* Diagnosis Onset Date Resolution Status Admit Date Eustachian tube dysfunction acuteApril 2024 1:01pmAnemiaacuteMay 2024 8:56amGERD (gastroesophageal reflux disease)acuteMay 2024 8:56amBurning tongue syndromeinactiveMay 2024 8:56amBMI 24.0-24.9, adultacuteMay 2024 8:50amDietary counseling and surveillanceacuteMay 2024 8:50am Hyperlipidemia LDL goal <100acuteMay 2024 8:50amType 2 diabetes mellitus acuteMay 2024 8:50am [facility] Work Phone: 1([phone]) 182-189104-15-2025 Evaluation note* Diagnosis Onset Date Resolution Status Admit Date Eustachian tube dysfunction acuteApril 2024 1:01pmAnemiaacuteMay 2024 8:56amGERD (gastroesophageal reflux disease)acuteMay 2024 8:56amBurning tongue syndromeinactiveMay 22nd, 2025 8:56amBlood pressure elevated without history of HTNacutey 2024 8:50amBMI 24.0-24.9, adultacuteMay 2024 8:50am Dietary counseling and surveillanceacuteOctober 29, 2024 8:50amHyperlipidemia LDL goal <100acutey 2024 8:50amType 2 diabetes mellitusacuteMay 2024 8:50amCervical radiculopathyacuteJuly 2024 9:56amVertigoacuteJuly 2024 9:56am [facility] Work Phone: 1([phone]) 241-628101-03-2025 Nuclear medicine Diagnostic study note [facility] [place] [address] [place] [address] Nuclear Medicine Report Signed Patient: Loraine Griffith MR#: [id number] : 1955 Acct:[id number] Age/Sex: 69 / F ADM Date: 5 Loc: [place] Room: Type: [facility] Attending Dr: Lynn Luther MD Copies to: MD Lynn De La Paz MD~ Ordering Provider: Lynn Luther MD Date of Service: 06/05/24 LA/LA juan perf SPECT rest & str: R06.09, I49.3, R07.9 NUCLEAR MYOCARDIAL PERFUSION DATE OF PROCEDURE: 06/05/2024 PROCEDURE: The patient received a stress dose of Lexiscan and was then injected with 18.6 millicuries of Technetium 99M Sestamibi. For rest images the patient was injected with 6.6 millicuries of Technetium 99M Sestamibi. FINDINGS: The raw cine images were reviewed. The post stress and rest perfusion images were reviewed as well as the computer quantification.? There was uniform uptake of the radiotracer with no perfusion defects identified.? On the gated portion of the study, there was uniform thickening with an overall ejection fraction calculated at 61%.? TID score was within normal limits. CONCLUSION: 1. Gated spect Sestamibi study is within normal limits. 2. Left ventricular function was preserved. Impression dictated by: Rachael Perrin M.D.06/05/2024 5:38 PM Dictation Location: [id number] Transcribed By: PETROS 06/05/241737 Dictated By: Rachael Perrin MD 06/05/241735 Signed By: 06/05/241737 [facility] Work Phone: 1(262) 853-147811-21-2024 Evaluation note* Diagnosis Onset Date Resolution Status Admit Date BMI 24.0-24.9, adult acuteApril 23, 2024 8:39amDietary counseling and surveillanceacuteApril 23, 2024 8:39amHyperlipidemia LDL goal <100acuteApril 23, 2024 8:39amType 2 diabetes mellitusacuteApril 23, 2024 8:39amDyspnea on exertionacute May 07, 2024 8:14amLeft-sided chest painacuteMay 07, 2024 8:14am Lumbar radicular painacuteDe2023 8:14amMedicare annual wellness visit, subsequentacuteMay 07, 2024 8:14amPVCs (premature ventricular contractions)acuteDe2023 8:14am [facility] Work Phone: 1([phone]) 673-828512-04-2023 Evaluation note* Encounter Date Diagnosis Assessment Notes Treatment Notes Treatment Clinical Notes May, Medicare annual wellness visit, subsequent (ICD-10 - Z00.00) Personalized health advice was given to the beneficiary including a written plan for screenings discussed and provided. Advanced care planning reviewed and/or information given as requested May,Hot flashes, menopausal (ICD-10 - N95.1)Suggested OTC Baseline as she was not interested in insomnia rx or supplements. She is also not interested in HRT. May,Type 2 diabetes mellitus with hyperglycemia, without long-term current use of insulin (ICD-10 - E11.65)Reviewed notes from Ariel Kinney - she is a regular patient at that [facility]. [employer] Other 11-09-2023 Evaluation note* Encounter Date Diagnosis Assessment Notes Treatment Notes Treatment Clinical Notes Apr, Type 2 diabetes cesar itus with hyperglycemia, without long-term current use of insulin (ICD-10 - E11.65) Diabetes (type 2) material was published 1. Controlled, a Type 2 diabetes with A1c of 5.4% 2. Blood glucose levels stable. Reviewed target glucose fasting am/meal to meal with target 80/130;2 hours after meal 140-180. Pt verbalizes understanding. 3. Patient is alert, oriented and receptive to making changes or counseling. Notes: Seen for an assessment of current glucose pattern, changes in treatment plan, with this timespent in counseling and coordination of care related to diabetes, risks, and benefits of treatment,medications, and side effects. TOPICS REVIEWED: 1. Time was spent reviewing: a. Basic concepts of diabetes, progressive beta cell , concepts of basal/bolus/corrective insulin requirements. b. Nutrition: Concepts of healthy diet, encouraged to decrease saturated fat in diet and increase non-starchy vegetables and fruits in diet. BMI: Pt. needs to select one small change to decrease caloric intake or increase physical activity to help decrease weight. c. Correct treatment of hypoglycemia, carry a glucose source at all times on your person, in vehicles, and at bedside. Can use glucose tablets/4, four ounces of pop or juice equal to 15 G of carbohydrate. Blood glucose should be 100 mg/dl or higher when driving. d. ADA glucose goals for age and medical complexity reviewed e. Patient questions addressed 2. Activity/exercise: Encouraged to start any form of physical activity. Start low level and increase slowly to a minimal goal of 150 minutes/week. Limit activity to what is allowed by other issues such as cardiac, pulmonary or orthopedic restrictions. 3. Standards of care: Reminded to have an annual dilated eye exam, A1C every 3-6 months, urine testing for microalbumin once/year, check feet daily and report any cuts or sores that do not appear to be healing. 4. Meter: Plan to check blood glucose: Please check blood glucose levels 1 time/day. Back to back meals reveal effectiveness of bolus dosing. 5. [facility] Contact office if any issues or concerns with patterns of hypoglycemia, hyperglycemia, or diabetes medication issues. 6. Prescriptions: [facility] - None at this time. 7. Prescriptions will not be filled unless you are compliant with follow up appointments or have a follow up appointment scheduled as ordered by your provider. Refills should be requested at the timeof your visit. Apr,Hyperlipidemia, unspecified hyperlipidemia type (ICD-10 - E78.5)High cholesterol material was published 03/2023 ldl 89 at target Apr,Hypertension, unspecified type (ICD-10 - I10)Managing high blood pressure material was published Apr,ietary counseling and surveillance (ICD-10 - Z71.3)Maintaining a healthful weight material was published see above Apr,MI 22.0-22.9, adult (ICD-10 - Z68.22) see above Apr,Vitamin D deficiency (ICD-10 - E55.9) 09/23 vit d 58 at target Apr,Vitamin B 12 deficiency (ICD-10 - E53.8) 09/23 vit b 12 562 at target [employer] Other 08-09-2023 Hospital Discharge instructions Patient Education 01/09/2023 15:01:29 Otitis Media, Adult Otitis Media, Adult Otitis media occurs when there is inflammation and fluid in the middle ear with signs and symptoms of an acute infection. The middle ear is a part of the ear that contains bones for hearing as well as air that helps send sounds to the brain. When infected fluid builds up in this space, it causes pressure and can lead to an ear infection. The eustachian tube connects the middle ear to the back of the nose (nasopharynx) and normally allows air into the middle ear. If the eustachian tube becomes blocked, fluid can build up and become infected. What are the causes? This condition is caused by a blockage in the eustachian tube. This can be caused by mucus or by swelling of the tube. Problems that can cause a blockage include: A cold or other upper respiratory infection. Allergies. An irritant, such as tobacco smoke. Enlarged adenoids. The adenoids are areas of soft tissue located high in the back of the throat, behind the nose and the roof of the mouth. They are part of the body's defense system (immune system). A mass in the nasopharynx. Damage to the ear caused by pressure changes (barotrauma). What increases the risk? You are more likely to develop this condition if you: Smoke or are exposed to tobacco smoke. Have an opening in the roof of your mouth (cleft palate). Have gastroesophageal reflux. Have an immune system disorder. What are the signs or symptoms? Symptoms of this condition include: Ear pain. Fever. Decreased hearing. Tiredness (lethargy). Fluid leaking from the ear, if the eardrum is ruptured or has burst. Ringing in the ear. How is this diagnosed? This condition is diagnosed with a physical exam. During the exam, your health care provider will use an instrument called an otoscope to look in your ear and check for redness, swelling, and fluid. He or she will also ask about your symptoms. Your health care provider may also order tests, such as: A pneumatic otoscopy. This is a test to check the movement of the eardrum. It is done by squeezing a small amount of air into the ear. A tympanogram. This is a test that shows how well the eardrum moves in response to air pressure in the ear canal. It provides a graph for your health care provider to review. How is this treated? This condition can go away on its own within 3 5 days. But if the condition is caused by a bacterial infection and does not go away on its own, or if it keeps coming back, your health care provider may: Prescribe antibiotic medicine to treat the infection. Prescribe or recommend medicines to control pain. Follow these instructions at home: Take uelw-kqh-dkvfmiw and prescription medicines only as told by your health care provider. If you were prescribed an antibiotic medicine, take it as told by your health care provider. Do notstop taking the antibiotic even if you start to feel better. Keep all follow-up visits. This is important. Contact a health care provider if: You have bleeding from your nose. There is a lump on your neck. You are not feeling better in 5 days. You feel worse instead of better. Get help right away if: You have severe pain that is not controlled with medicine. You have swelling, redness, or pain around your ear. You have stiffness in your neck. A part of your face is not moving (paralyzed). The bone behind your ear (mastoid bone) is tender when you touch it. You develop a severe headache. Summary Otitis media is redness, soreness, and swelling of the middle ear, usually resulting in pain and decreased hearing. This condition can go away on its own within 3 5 days. If the problem does not go away in 3 5 days, your health care provider may give you medicines to treat the infection. If you were prescribed an antibiotic medicine, take it as told by your health care provider. Follow all instructions that were given to you by your health care provider. This information is not intended to replace advice given to you by your health care provider. Make sure you discuss any questions you have with your health care provider. Document Revised: 08/28/2021 Document Reviewed: 08/28/2021 [email or web address] Patient Education 2022 [employer]. 01/09/2023 14:53:09 Otitis Media, Adult Otitis Media, Adult Otitis media occurs when there is inflammation and fluid in the middle ear with signs and symptoms of an acute infection. The middle ear is a part of the ear that contains bones for hearing as well as air that helps send sounds to the brain. When infected fluid builds up in this space, it causes pressure and can lead to an ear infection. The eustachian tube connects the middle ear to the back of the nose (nasopharynx) and normally allows air into the middle ear. If the eustachian tube becomes blocked, fluid can build up and become infected. What are the causes? This condition is caused by a blockage in the eustachian tube. This can be caused by mucus or by swelling of the tube. Problems that can cause a blockage include: A cold or other upper respiratory infection. Allergies. An irritant, such as tobacco smoke. Enlarged adenoids. The adenoids are areas of soft tissue located high in the back of the throat, behind the nose and the roof of the mouth. They are part of the body's defense system (immune system). A mass in the nasopharynx. Damage to the ear caused by pressure changes (barotrauma). What increases the risk? You are more likely to develop this condition if you: Smoke or are exposed to tobacco smoke. Have an opening in the roof of your mouth (cleft palate). Have gastroesophageal reflux. Have an immune system disorder. What are the signs or symptoms? Symptoms of this condition include: Ear pain. Fever. Decreased hearing. Tiredness (lethargy). Fluid leaking from the ear, if the eardrum is ruptured or has burst. Ringing in the ear. How is this diagnosed? This condition is diagnosed with a physical exam. During the exam, your health care provider will use an instrument called an otoscope to look in your ear and check for redness, swelling, and fluid. He or she will also ask about your symptoms. Your health care provider may also order tests, such as: A pneumatic otoscopy. This is a test to check the movement of the eardrum. It is done by squeezing a small amount of air into the ear. A tympanogram. This is a test that shows how well the eardrum moves in response to air pressure in the ear canal. It provides a graph for your health care provider to review. How is this treated? This condition can go away on its own within 3 5 days. But if the condition is caused by a bacterial infection and does not go away on its own, or if it keeps coming back, your health care provider may: Prescribe antibiotic medicine to treat the infection. Prescribe or recommend medicines to control pain. Follow these instructions at home: Take knno-sfi-fdpwbrx and prescription medicines only as told by your health care provider. If you were prescribed an antibiotic medicine, take it as told by your health care provider. Do notstop taking the antibiotic even if you start to feel better. Keep all follow-up visits. This is important. Contact a health care provider if: You have bleeding from your nose. There is a lump on your neck. You are not feeling better in 5 days. You feel worse instead of better. Get help right away if: You have severe pain that is not controlled with medicine. You have swelling, redness, or pain around your ear. You have stiffness in your neck. A part of your face is not moving (paralyzed). The bone behind your ear (mastoid bone) is tender when you touch it. You develop a severe headache. Summary Otitis media is redness, soreness, and swelling of the middle ear, usually resulting in pain and decreased hearing. This condition can go away on its own within 3 5 days. If the problem does not go away in 3 5 days, your health care provider may give you medicines to treat the infection. If you were prescribed an antibiotic medicine, take it as told by your health care provider. Follow all instructions that were given to you by your health care provider. This information is not intended to replace advice given to you by your health care provider. Make sure you discuss any questions you have with your health care provider. Document Revised: 08/28/2021 Document Reviewed: 08/28/2021 [email or web address] Patient Education 2022 [employer]. Follow Up Care 01/09/2023 14:17:17 With:Delvis GOODMAN, Iraj Ashby, [facility], [facility] Address:Unknown When: Unknown [facility] 05-10-2023 Evaluation note* Encounter Date Diagnosis Assessment Notes Treatment Notes Treatment Clinical Notes October, Type 2 diabetes cesar itus with hyperglycemia, without long-term current use of insulin (ICD-10 - E11.65) Diabetes (type 2) material was published 1. Controlled, a Type 2 diabetes with A1c of 5.3% 2. Blood glucose levels stable. Discussed with pt if she would like to trial stopping onglyze wouldrecommend testing glucose fasting am/meal to meal with target 80/130; 2 hours after meal 140-180. Pt verbalizes understanding. Declined wearing sample cgm had worn before with skin irritation. 3. Patient is alert, oriented and receptive to making changes or counseling. Notes: Seen for an assessment of current glucose pattern, changes in treatment plan, with this timespent in counseling and coordination of care related to diabetes, risks, and benefits of treatment,medications, and side effects. TOPICS REVIEWED: 1. Time was spent reviewing: a. Basic concepts of diabetes, progressive beta cell , concepts of basal/bolus/corrective insulin requirements. b. Nutrition: Concepts of healthy diet, encouraged to decrease saturated fat in diet and increase non-starchy vegetables and fruits in diet. BMI: Pt. needs to select one small change to decrease caloric intake or increase physical activity to help decrease weight. c. Correct treatment of hypoglycemia, carry a glucose source at all times on your person, in vehicles, and at bedside. Can use glucose tablets/4, four ounces of pop or juice equal to 15 G of carbohydrate. Blood glucose should be 100 mg/dl or higher when driving. d. ADA glucose goals for age and medical complexity reviewed e. Patient questions addressed 2. Activity/exercise: Encouraged to start any form of physical activity. Start low level and increase slowly to a minimal goal of 150 minutes/week. Limit activity to what is allowed by other issues such as cardiac, pulmonary or orthopedic restrictions. 3. Standards of care: Reminded to have an annual dilated eye exam, A1C every 3-6 months, urine testing for microalbumin once/year, check feet daily and report any cuts or sores that do not appear to be healing. 4. Meter: Plan to check blood glucose: Please check blood glucose levels 1 time/day. Back to back meals reveal effectiveness of bolus dosing. 5. [facility]. Contact office if any issues or concerns with patterns of hypoglycemia, hyperglycemia, or diabetes medication issues. 6. Prescriptions: [facility]: None at this time. 7. Prescriptions will not be filled unless you are compliant with follow up appointments or have a follow up appointment scheduled as ordered by your provider. Refills should be requested at the timeof your visit. October,Hyperlipidemia, unspecified hyperlipidemia type (ICD-10 - E78.5)High cholesterol material was published 09/2022 ldl 122 on statin recommend increasing to 5 times/weeek; recheck labs October,Hypertension, unspecified type (ICD-10 - I10)Managing high blood pressure material was published October,ietary counseling and surveillance (ICD-10 - Z71.3)Maintaining a healthful weight material was published see above October,MI 22.0-22.9, adult (ICD-10 - Z68.22) see above October,Vitamin D deficiency (ICD-10 - E55.9) 09/23 vit d 58 at target October,Vitamin B 12 deficiency (ICD-10 - E53.8) 09/23 vit b 12 562 at target [employer] Other 11-09-2022 Evaluation note* Encounter Date Diagnosis Assessment Notes Treatment Notes Treatment Clinical Notes Apr, Type 2 diabetes cesar itus with hyperglycemia, without long-term current use of insulin (ICD-10 - E11.65) Diabetes (type 2) material was published 1. Controlled, a Type 2 diabetes with A1c of 5.3% 2. Blood glucose levels stable. No changes. 3. Patient is alert, oriented and receptive to making changes or counseling. Notes: Seen for an assessment of current glucose pattern, changes in treatment plan, with this timespent in counseling and coordination of care related to diabetes, risks, and benefits of treatment,medications, and side effects. TOPICS REVIEWED: 1. Time was spent reviewing: a. Basic concepts of diabetes, progressive beta cell , concepts of basal/bolus/corrective insulin requirements. b. Nutrition: Concepts of healthy diet, encouraged to decrease saturated fat in diet and increase non-starchy vegetables and fruits in diet. BMI: Pt. needs to select one small change to decrease caloric intake or increase physical activity to help decrease weight. c. Correct treatment of hypoglycemia, carry a glucose source at all times on your person, in vehicles, and at bedside. Can use glucose tablets/4, four ounces of pop or juice equal to 15 G of carbohydrate. Blood glucose should be 100 mg/dl or higher when driving. d. ADA glucose goals for age and medical complexity reviewed e. Patient questions addressed 2. Activity/exercise: Encouraged to start any form of physical activity. Start low level and increase slowly to a minimal goal of 150 minutes/week. Limit activity to what is allowed by other issues such as cardiac, pulmonary or orthopedic restrictions. 3. Standards of care: Reminded to have an annual dilated eye exam, A1C every 3 months, urine testing for microalbumin once/year, check feet daily and report any cuts or sores that do not appear to behealing. 4. Meter: Plan to check blood glucose: Please check blood glucose levels 1 time/day. Back to back meals reveal effectiveness of bolus dosing. 5. [facility]. Contact office if any issues or concerns with patterns of hypoglycemia, hyperglycemia, or diabetes medication issues. 6. Prescriptions: Will call when needed. 7. Prescriptions will not be filled unless you are compliant with follow up appointments or have a follow up appointment scheduled as ordered by your provider. Refills should be requested at the timeof your visit. Apr,Hyperlipidemia, unspecified hyperlipidemia type (ICD-10 - E78.5)High cholesterol material was published 08/2021 ldl 110 on statin recommend increasing to 4 times/weeek Apr,Hypertension, unspecified type (ICD-10 - I10)Managing high blood pressure material was published Apr,ietary counseling and surveillance (ICD-10 - Z71.3)Maintaining a healthful weight material was published see above Apr,MI 22.0-22.9, adult (ICD-10 - Z68.22) see above Apr,Vitamin D deficiency (ICD-10 - E55.9) Apr,Vitamin B 12 deficiency (ICD-10 - E53.8) [facility] Other 05-11-2022 Evaluation note* Encounter Date Diagnosis Assessment Notes Treatment Notes Treatment Clinical Notes October, Type 2 diabetes cesar itus with hyperglycemia, without long-term current use of insulin (ICD-10 - E11.65) Diabetes (type 2) material was published 1. Controlled, a Type 2 diabetes with A1c of 5.6% 2. Blood glucose levels isolated incident of hypoglcycemia; however rechecked glucose right away and was 101. Pt with c/o night sweats has not checked glucose, reocmmend checking glucose if glucose <80 will recommend reducing onglyza from 5mg to 2.5mg once daily, she is to call and notify officeof above. If glucose wnl will recommend she f/u with pcp for further evaluation. She verbalizes understanding. 3. Patient is alert, oriented and receptive to making changes or counseling. Notes: Seen for an assessment of current glucose pattern, changes in treatment plan, with this timespent in counseling and coordination of care related to diabetes, risks, and benefits of treatment,medications, and side effects. TOPICS REVIEWED: 1. Time was spent reviewing: a. Basic concepts of diabetes, progressive beta cell , concepts of basal/bolus/corrective insulin requirements. b. Nutrition: Concepts of healthy diet, encouraged to decrease saturated fat in diet and increase non-starchy vegetables and fruits in diet. BMI: Pt. needs to select one small change to decrease caloric intake or increase physical activity to help decrease weight. c. Correct treatment of hypoglycemia, carry a glucose source at all times on your person, in vehicles, and at bedside. Can use glucose tablets/4, four ounces of pop or juice equal to 15 G of carbohydrate. Blood glucose should be 100 mg/dl or higher when driving. d. ADA glucose goals for age and medical complexity reviewed e. Patient questions addressed 2. Activity/exercise: Encouraged to start any form of physical activity. Start low level and increase slowly to a minimal goal of 150 minutes/week. Limit activity to what is allowed by other issues such as cardiac, pulmonary or orthopedic restrictions. 3. Standards of care: Reminded to have an annual dilated eye exam, A1C every 3 months, urine testing for microalbumin once/year, check feet daily and report any cuts or sores that do not appear to behealing. 4. Meter: Plan to check blood glucose: Please check blood glucose levels 1 time/day. Back to back meals reveal effectiveness of bolus dosing. 5. [facility] Contact office if any issues or concerns with patterns of hypoglycemia, hyperglycemia, or diabetes medication issues. 6. Prescriptions: Will call when needed. October,Hyperlipidemia, unspecified hyperlipidemia type (ICD-10 - E78.5)High cholesterol material was published 08/2021 ldl 110 on statin only tolerates 3 times/weeek October,Hypertension, unspecified type (ICD-10 - I10)Managing high blood pressure material was published October,ietary counseling and surveillance (ICD-10 - Z71.3)Maintaining a healthful weight material was published see above October,MI 22.0-22.9, adult (ICD-10 - Z68.22) see above [employer] Other 03-09-2022 Evaluation note* Encounter Date Diagnosis Assessment Notes Treatment Notes Treatment Clinical Notes Aug, Vitamin D deficiency (ICD-10 - E 55.9) [employer] Other 01-03-2022 Evaluation note* Encounter Date Diagnosis Assessment Notes Treatment Notes Treatment Clinical Notes Jun, Type 2 diabetes mellitus, contro lled (ICD-10 - E11.9) [employer] Other [place] complaint Narrative - Reported* 67-year-old female seen in cardiovascular consultation at the request primary care physician for shortness of breath with exertion, episodes of sinus tachycardia and dizziness. Stress imaging, echocardiography and Holter monitor are reviewed. * Patient is otherwise very active, has underlying mild diabetes mellitus under good control, he has no prior history of cardiovascular disease, interventions, stroke, thromboembolic or bleeding disorder. * Stress perfusion imaging dating back from 2019 and currently are both normal, echocardiogram is without valvular abnormalities other than mild mitral insufficiency and normal left ventricular function, Holter monitoring reviewed reveals episodes of sinus tachycardia with PACs but no arrhythmia. * Patient describes having recent laboratory work-up and describes normal electrolytes and normal thyroid function as well. She denies anemia or infection. * Today's ECG is completely normal without evidence of tachycardia * Impression/recommendations: Occasional sinus tachycardia, no need to institute therapy at this juncture, no evidence of arrhythmia or ischemia. Recommend conservative management for the time being. [facility] [address] DO Work Phone: Evaluation + Plan note No data available for this section [facility] Evaluation noteNo InformationN[facility] Other Evaluation noteNo assessment information available [facility] Work Phone: Evaluation note* Diagnosis Vaginal atrophy Postmenopausal atrophic vaginitis Encounter for screening mammogram for breast cancer Screening for osteoporosis Special screening for osteoporosis Postmenopausal status, age-related Screening for malignant neoplasm of cervix Screening for malignant neoplasm of the cervix documented in this encounter [facility] Diagnosis Onset Date Resolution Status Admit Date BMI 24.0-24.9, adult acuteNovember 2023 8:39amDietary counseling and surveillanceacuteNov2023 8:39amHyperlipidemia LDL goal <100acuteNov2023 8:39amType 2 diabetes mellitusacuteCritical [facility] Hospital2023 8:39am [facility] Work Phone: History and physical note Author Wendie Craig [facility] HospitalNote Date/TimeApril 2024 8:[place] [address] Gastroenterology H&P Signed Patient: Loraine Griffith MR#: [id number] : 1955 Acct:[id number] Age/Sex: 69 / F Adm Date: 5 Loc: Room: Type: [facility] Attending Dr: Wendie Craig DO Copies to: DO Lynn Xiong MD~ Date of Service: 09/28/2024 HISTORY & PHYSICAL: Patient's history with special attention to the cardiovascular, pulmonary systems and the current problem was reviewed with the patient immediately prior to the procedure. Present medications and doses reviewed in the EMR. Allergies and pertinent laboratory tests were also re viewedat this time in the EMR. The physical examination, as below, was then performed. Indication, assessment and HPI: 69-year-old female who presents for EGD and colonoscopy for epigastric pain, GERD, screening for colon cancer. Last colonoscopy 10 years. Last EGD in 2018 with gastritis. Patient takes PPI as needed only. Denies significant NSAIDs. Family history of GI malignancy? No PHYSICAL EXAMINATION General appearance: cooperative, NAD Skin: No jaundice, no rash or lesions Head: NCAT Eyes: Anicteric Neck: Supple Lungs: Normal respiratory effort, no use of accessory muscles Abdomen: Soft, nondistended Neuro: No focal deficits, Ox3. REVIEW OF SYSTEMS Constitutional: Denies malaise, fevers Cardiovascular: Denies chest pain, palpitations Respiratory: Denies shortness of breath, wheezing Gastrointestinal: As per HPI Genitourinary: Denies dysuria, polyuria Musculoskeletal: Denies joint swelling, joint stiffness Neurological: Denies confusion, numbness, tingling Endocrine: Denies fatigue Written informed consent obtained from the patient. Risks (including but not limited to perforation, infection, bloating, bleeding, need for emergent surgeryand loss of life), benefits and alternatives explained and questions answered. The patient verbalized understanding. Based on history patient is an appropriate candidate for the procedure. Wendie Craig DO Present medication and doses reviewed in the EMR Documented By: Wendie Craig DO 09/28/24 0847 Signed By: <Electronically signed by Wendie Craig DO> 09/28/24 0848 [facility] Work Phone: History general Narrative - ReportedNoH[facility] Other History general Narrative - Reported* Type Description Date Medical History osteoporosis Medical Historyseborrheic keratosisMedical HistoryDM IISurgical HistoryT & A Surgical HistorylLEFT BREAST BIOPSYSurgical Historywisdom teethSurgical History skin lesionsSurgical HistoryTOOTH [id number] HistoryCOLONOSCOPY [id number] HistorySEE ABOVE SURGERY [facility] Other History general Narrative - Reported* Type Description Date Medical History osteoporosis Medical Historyseborrheic keratosisMedical HistoryPre diabetesMedical History OsteoarthritisSurgical HistoryT & ASurgical HistorylLEFT BREAST BIOPSYSurgical Historywisdom teethSurgical Historyskin lesionsSurgical HistoryTOOTH IMPLANT Surgical [id number] HistoryBasal cell removal, foreheadHospitalization HistorySEE ABOVE SURGERY [employer] Other History of Present illness Narrative* Tiarra Cook DO - 04/08/2024 9:30 AM EST Images from the original note were not included. Tiarra Cook D.O. Obstetrics and Gynecology Patient: Loraine Griffith : 1955 (68 y.o.) Yearly Wellness Exam Date: 04/08/2024 Reason for Visit - Chief Complaint Patient presents with Gynecologic Exam Pt would like to discuss mammogram results and Possibly having MRI. Denies vaginal bleeding/spotting. Visit Vitals Wt 140 lb BMI 23.66 kg/m Smoking Status Never BSA 1.7 m Allergies Allergen Reactions Niacin Unknown Povidone Iodine Unknown Povidone-Iodine Hives Proparacaine Unknown Soap Hives Iodine Rash History of Present Illness, Associated Treatments and Results - OB History Para Term AB Living 2 2 2 0 0 2 SAB IAB Ectopic Multiple Live Births 0 0 0 0 0 # Outcome Date GA Lbr Marshal/2nd Weight Sex Type Anes PTL Lv 2 Term 1 Term Obstetric Comments Pap smear 03/15/22 wnl, Mammogram 01/24/23 wnl, DEXA 01/24/23 osteopenia Review of Systems - General: Chills denies. Allergy/Immunology: Rash Denies. ENT: Denies Difficulty swallowing. Endocrine: Denies Cold intolerance denies. Heat intolerance denied. Respiratory: Denies Chest pain denies. Shortness of breath denies. Breast: Denies Bloody nipple discharge denies. Breast lump denies. Cardiovascular: Denies Chest pain. Gastrointestinal: Abdominal pain denies. Blood in stool denies. Hematology: Easy bruising denies. Prolonged bleeding denies. Women Only: Breast lump denies. Vaginal bleeding between periods is denied. Vaginal discharge/itching denied. Genitourinary: Blood in urine denies. Painful urination denies. Incontinence denies. Skin: Hair changes. Neurologic: Seizures denied. Stroke denies. Psychiatric: Anxiety denies. Depressed mood denies. Medication Documentation Review Audit Reviewed by Hyacinth Kearns MA (Iv Therapy Nurse) on 04/08/24 at 0910 Medication Order Taking? Sig Documenting Provider Last Dose Status Ascorbic Acid (Vitamin C) 500 MG capsule [id number] as directed Orally Jacky Saleh DO Active atorvastatin (Lipitor) 10 MG tablet [id number] Take 10 mg by mouth in the morning. Slade ProviderMD Active Calcium Citrate-Vitamin D 315-5 MG-MCG tablet [id number] 1 (one) time each day at the same time Jacky Saleh DO Active celecoxib (CeleBREX) 200 MG capsule [id number] 1 capsule with food Orally prn for 30 days Jacky Saleh DO Active cholecalciferol (Vitamin D-3) 125 MCG (5000 UT) capsule [id number] Take 5,000 Units by mouth in the morning. Historical ProviderMD Active denosumab (Prolia) 60 MG/ML solution prefilled syringe [id number] Inject 60 mg under the skin 1 (one)time. Historical ProviderMD Active Lancets ([employer]Touch Delica Plus Kiafdk21H) misc [id number] USE WITH ONE TOUCH LANCET DEVICE DAILY Historical ProviderMD Active Lecithin 1200 MG capsule [id number] Take 1 capsule by mouth 1 (one) time each day at the same time. Historical ProviderMD Active Multiple Vitamin (Multi Vitamin) tablet [id number] 1 (one) time each day at the same time Jacky Saleh DO Active omega-3 (Fish Oil) 1000 MG capsule [id number] 1 capsule every 8 (eight) hours Jacky Saleh DO Active OneTouch Ultra test strip [id number] USE TO TEST ONCE DAILY E11.65 Historical ProviderMD Active Premarin 0.625 MG/GM cream [id number] INSERT 1/2 GRAM VAGINALLY TWICE A WEEK Historical ProviderMD Active Past Medical History: Diagnosis Date Age related osteoporosis (CMS/HCC) Diabetes (CMS/HCC) H/O left breast biopsy 2007 Hx of tonsillectomy Past Surgical History: Procedure Laterality Date COLONOSCOPY Family History Problem Relation Name Age of Onset Breast cancer Father's Sister x2 Physical Exam - General appearance, mentation, extraocular movements, facial strength and movement, hearing, upper and lower extremity strength and tone, sensation to gross testing, coordination, and gait are normalor at baseline unless noted below. General Examination: GENERAL APPEARANCE: alert oriented well developed, well nourished. HEAD: normocephalic atraumatic. EYES: sclera anicteric. EARS: no obvious hearing deficit. SKIN: warm and dry. HEART: regular rate and rhythm. LUNGS: clear to auscultation bilaterally. CHEST: axillary nodes grossly normal. BREASTS: no masses palpable bilaterally, normal nipples bilaterally. ABDOMEN: soft, nontender, nondistended, no masses palpable. BACK: no costovertebral angle tenderness, no obvious scoliosis/kyphosis. FEMALE GENITOURINARY: atrophic vaginal mucosa, cervix absent of lesions, nontender, flush with vaginal wall, uterus AV, mobile, ovaries nonpalpable and nontender. EXTREMITIES: no edema. NEUROLOGIC: alert and oriented. PSYCH: cooperative with exam. Diagnoses and all orders for this visit: Vaginal atrophy Encounter for screening mammogram for breast cancer - Bilateral screening mammogram with tomosynthesis Screening for osteoporosis - DEXA bone density Postmenopausal status, age-related - DEXA bone density Screening for malignant neoplasm of cervix - SENDOUT TEST MISCELLANEOUS [facility] Pap, pelvic and breast exam completed. Findings of today's exam discussed with the patient. Continue MSBE. Ca/Vit D recommendations reviewed with the patient. The patient is to contact the office with any changes to her gynecological condition. The patient is to return in 1 year or as needed Discussed mammogram results with patient. Normal with grade 2 density. No known family genetic mutation for breast cancer. 2 aunts on paternal side with breast cancer- diagnosed later in life. If patient desires breast MRI, she is to call for order. ICD-10-CM 1. Vaginal atrophy N95.2 2. Encounter for screening mammogram for breast cancer Z12.31 3. Screening for osteoporosis Z13.820 4. Postmenopausal status, age-related Z78.0 5. Screening for malignant neoplasm of cervix Z12.4 documented in this encounterNONE HealthcareProgress note No data available for this section [facility] Reason for referral (narrative)No reason for referral information availableC[facility] Work Phone: Chief Complaint and Reason for Visit Chief Complaint Screening Chief Complaint Osteoprosis E11.65 vertigo dizziness tachycardia palpitations sob Chief Complaint /E11.65 Chief Complaint screening z78.0 Chief Complaint screening z78.0 e11.65 osteo Chief Complaint Wellness Chief Complaint E11.65 E55.9 E78.5 E 53.8 Chief Complaint Screening m81.0 z79.899 Chief Complaint Admit Date Screening January 27, 2024 8: 23am m81.0 z79.899 March 19, 2024 1 1:05am 6 month / meter April 23, 2024 8:39am Reason for Visit Admit Date BMI 24.0-24.9, adult April 23, 2024 8:39am Dietary counseling and surveillance [facility]2023 8:39am Hyperlipidemia LDL goal <100 April 232023 8:39am Type 2 diabetes mellitus April 23, 2024 8:39am Chief Complaint Admit Date m81.0 z79.899 March 19, 2024 1 1:05am 6 month / meter April 23, 2024 8:39am CC Adult Risk Stratification May 8:36am MEDICARE WELLNESS May 07, 2024 8 :14am M54.16 May 20, 2024 9:36am R06.09 I49.3 R07.9 June 05, 2024 9: 03am R06.09 I49.3 R07.9 June 05, 2024 5: 05pm Reason for Visit Admit Date BMI 24.0-24.9, adult April 23, 2024 8:39am Dietary counseling and surveillance [facility]2023 8:39am Hyperlipidemia LDL goal <100 April 232023 8:39am Type 2 diabetes mellitus April 23, 2024 8:39am Dyspnea on exertion May 07, 2024 8 :14am Left-sided chest pain May 07, 2024 8:14am Lumbar radicular pain May 07, 2024 8:14am Medicare annual wellness visit, subseque nt May 07, 2024 8:14am PVCs (premature ventricular contractions ) May 07, 2024 8:14am Chief Complaint Admit Date R Ear Infection September 15, 2024 1:0 1pm Chief Complaint Admit Date R Ear Infection September 15, 2024 1:0 1pm e78.5 e11.9 e53.8 e55.9, M81.0, Z79.899, E55.9 September 22, 2024 7:12am Reason for Visit Admit Date Eustachian tube dysfunction September 15, 2024 1:01pm Chief Complaint Admit Date R Ear Infection September 15, 2024 1:0 1pm e78.5 e11.9 e53.8 e55.9, M81.0, Z79.899, E55.9 September 22, 2024 7:12am Screening, epigastric pain September 28 8:29am Screening, epigastric pain September 28 8:48am Chief Complaint Admit Date R Ear Infection September 15, 2024 1:0 1pm e78.5 e11.9 e53.8 e55.9, M81.0, Z79.899, E55.9 September 22, 2024 7:12am Screening, epigastric pain September 28 8:29am Screening, epigastric pain September 28 8:48am Amb Documentation October 02, 2024 10:18a m Burning Tongue October 22, 2024 8:56a m Reason for Visit Admit Date Eustachian tube dysfunction September 15, 2024 1:01pm Anemia October 22, 2024 8:56a m Burning tongue syndrome October 22, 2024 8 :56am GERD (gastroesophageal reflux disease) M ay 2024 8:56am Chief Complaint Admit Date R Ear Infection September 15, 2024 1:0 1pm e78.5 e11.9 e53.8 e55.9, M81.0, Z79.899, E55.9 September 22, 2024 7:12am Screening, epigastric pain September 28 8:29am Screening, epigastric pain September 28 8:48am Amb Documentation October 02, 2024 10:18a m Burning Tongue October 22, 2024 8:56a m K14.6, K21.9, D64.9 October 22, 2024 10:21 am Chief Complaint Admit Date R Ear Infection September 15, 2024 1:0 1pm e78.5 e11.9 e53.8 e55.9, M81.0, Z79.899, E55.9 September 22, 2024 7:12am Screening, epigastric pain September 28 8:29am Screening, epigastric pain September 28 8:48am Amb Documentation October 02, 2024 10:18a m Burning Tongue October 22, 2024 8:56a m K14.6, K21.9, D64.9 October 22, 2024 10:21 am 6 month-METER October 29, 2024 8:50a m Reason for Visit Admit Date Eustachian tube dysfunction September 15, 2024 1:01pm Anemia October 22, 2024 8:56a m GERD (gastroesophageal reflux disease) M ay 2024 8:56am Burning tongue syndrome October 22, 2024 8 :56am BMI 24.0-24.9, adult October 29, 2024 8:50 am Dietary counseling and surveillance October 29, 2024 8:50am Hyperlipidemia LDL goal <100 October 29 8:50am Type 2 diabetes mellitus October 29, 2024 8:50am Chief Complaint Admit Date R Ear Infection September 15, 2024 1:0 1pm e78.5 e11.9 e53.8 e55.9, M81.0, Z79.899, E55.9 September 22, 2024 7:12am Screening, epigastric pain September 28 8:29am Screening, epigastric pain September 28 8:48am Amb Documentation October 02, 2024 10:18a m Burning Tongue October 22, 2024 8:56a m K14.6, K21.9, D64.9 October 22, 2024 10:21 am 6 month-METER October 29, 2024 8:50a m dizzy spells December 02, 2024 9:56a m Reason for Visit Admit Date Eustachian tube dysfunction September 15, 2024 1:01pm Anemia October 22, 2024 8:56a m GERD (gastroesophageal reflux disease) M ay 2024 8:56am Burning tongue syndrome October 22, 2024 8 :56am Blood pressure elevated without history of HTN October 29, 2024 8:50am BMI 24.0-24.9, adult October 29, 2024 8:50 am Dietary counseling and surveillance October 29, 2024 8:50am Hyperlipidemia LDL goal <100 October 29 8:50am Type 2 diabetes mellitus October 29, 2024 8:50am Cervical radiculopathy December 02, 2024 9: 56am Vertigo December 02, 2024 9:56a m Chief Complaint Admit Date R Ear Infection September 15, 2024 1:0 1pm e78.5 e11.9 e53.8 e55.9, M81.0, Z79.899, E55.9 September 22, 2024 7:12am Screening, epigastric pain September 28 8:29am Screening, epigastric pain September 28 8:48am Amb Documentation October 02, 2024 10:18a m Burning Tongue October 22, 2024 8:56a m K14.6, K21.9, D64.9 October 22, 2024 10:21 am 6 month-METER October 29, 2024 8:50a m dizzy spells December 02, 2024 9:56a m R42, M54.12 December 03, 2024 1:32p m Chief Complaint Admit Date Amb Documentation October 02, 2024 10:18a m Burning Tongue October 22, 2024 8:56a m K14.6, K21.9, D64.9 October 22, 2024 10:21 am 6 month-METER October 29, 2024 8:50a m dizzy spells December 02, 2024 9:56a m R42, M54.12 December 03, 2024 1:32p m possible shingles December 29, 2024 2:32 pm Reason for Visit Admit Date Anemia October 22, 2024 8:56a m GERD (gastroesophageal reflux disease) M ay 2024 8:56am Burning tongue syndrome October 22, 2024 8 :56am Blood pressure elevated without history of HTN October 29, 2024 8:50am BMI 24.0-24.9, adult October 29, 2024 8:50 am Dietary counseling and surveillance October 29, 2024 8:50am Hyperlipidemia LDL goal <100 October 29, 2 025 8:50am Type 2 diabetes mellitus October 29, 2024 8:50am Cervical radiculopathy December 02, 2024 9: 56am Vertigo December 02, 2024 9:56a m Chief Complaint Admit Date Burning Tongue October 22, 2024 8:56a m K14.6, K21.9, D64.9 October 22, 2024 10:21 am 6 month-METER October 29, 2024 8:50a m dizzy spells December 02, 2024 9:56a m R42, M54.12 December 03, 2024 1:32p m possible shingles December 29, 2024 2:32 pm E11.9 January 05, 2025 5:4 4am Reason for Visit Admit Date Anemia October 22, 2024 8:56a m GERD (gastroesophageal reflux disease) M ay 2024 8:56am Burning tongue syndrome October 22, 2024 8 :56am Blood pressure elevated without history of HTN October 29, 2024 8:50am BMI 24.0-24.9, adult October 29, 2024 8:50 am Dietary counseling and surveillance October 29, 2024 8:50am Hyperlipidemia LDL goal <100 October 29, 2 025 8:50am Type 2 diabetes mellitus October 29, 2024 8:50am Cervical radiculopathy December 02, 2024 9: 56am Vertigo December 02, 2024 9:56a m Herpes zoster December 29, 2024 2:32 pm Chief Complaint Admit Date Burning Tongue October 22, 2024 8:56a m K14.6, K21.9, D64.9 October 22, 2024 10:21 am 6 month-METER October 29, 2024 8:50a m dizzy spells December 02, 2024 9:56a m R42, M54.12 December 03, 2024 1:32p m possible shingles December 29, 2024 2:32 pm E11.9 January 05, 2025 5:4 4am 3-4 month follow up January 20, 2025 9: 30am Chief Complaint Admit Date dizzy spells December 02, 2024 9:56a m R42, M54.12 December 03, 2024 1:32p m possible shingles December 29, 2024 2:32 pm E11.9 January 05, 2025 5:4 4am 3-4 month follow up January 20, 2025 9: 30am Z12.31 Z13.820 Z78.0 January 27, 2025 8 :07am Reason for Visit Admit Date Cervical radiculopathy December 02, 2024 9: 56am Vertigo December 02, 2024 9:56a m Herpes zoster December 29, 2024 2:32 pm GERD (gastroesophageal reflux disease) A ugust 2024 9:30am Chief Complaint Admit Date dizzy spells December 02, 2024 9:56a m R42, M54.12 December 03, 2024 1:32p m possible shingles December 29, 2024 2:32 pm E11.9 January 05, 2025 5:4 4am 3-4 month follow up January 20, 2025 9: 30am Z12.31 Z13.820 Z78.0 January 27, 2025 8 :07am 3 month/ meter February 04, 2025 8:49am Reason for Visit Admit Date Cervical radiculopathy December 02, 2024 9: 56am Vertigo December 02, 2024 9:56a m Herpes zoster December 29, 2024 2:32 pm GERD (gastroesophageal reflux disease) A ugust 2024 9:30am Blood pressure elevated without history of HTN February 04, 2025 8:49am BMI 24.0-24.9, adult February 04, 2025 8:49am Dietary counseling and surveillance Feb 8:49am Hyperlipidemia LDL goal <100 February 042024 8:49am Type 2 diabetes mellitus February 04, 2025 8:49am Advance Directives Advance Directive Response Recorded Date/ Time Advance Directives Yes February 1:22pm Advance Directive Response Recorded Date/ Time Advance Directives Yes February 12:22pm Summary Purpose Family History Unknown Family Member Name Dates Details Family history of myocardial infarction: Mother, Father(V17.3, Z82.49) Status:ActiveFamily history of hyperlipidemia: Brother(V18.19, Z83.438) Status:ActiveHypertension, benign: Brother Status:ActiveEctasia of artery: Father Status:Active Relationship Condition Age at Onset Recorded Date/T romaine family member Diabetes mellitus Unknown brotherMalignant neoplasmUnknownDiabetes mellitusUnknownHeart diseaseUnknown daughterStatus post appendectomyUnknownfatherDeceasedUnknownHypertensionUnknown grandparentDiabetes mellitusUnknownDeceasedUnknownNot SpecifiedHypertension Unknown Relationship Condition Age at Onset Recorded Date/T romaine aunt Diabetes mellitus Unknown brotherMalignant neoplasmUnknownDiabetes mellitusUnknownHeart diseaseUnknown daughterStatus post appendectomyUnknownfatherDeceasedUnknownHypertensionUnknown grandparentDiabetes mellitusUnknownDeceasedUnknownmotherHypertensionUnknown Relationship Condition Age at Onset Recorded Date/T romaine aunt Diabetes mellitus Unknown brotherDiabetes mellitusUnknownHeart diseaseUnknownMalignant neoplasmUnknown daughterStatus post appendectomyUnknownfatherHeart diseaseUnknownDeceasedUnknown HypertensionUnknowngrandparentDiabetes mellitusUnknownmotherHeart diseaseUnknown Additional Source Comments REASON FOR VISIT (unrecogniz ed section and content) ReasonCommentsGynecologic ExamPt would like to discuss mammogram results and Possibly having MRI. Denies vaginal bleeding/spotting. Care Teams (unrecognized sec tion and content) Team Status: Active Member Role Status Dates Lynn Luther MD Primary Care Provider Active Team Status: Inactive Member Role Status Dates Lynn Luther MD Primary Care Provider Active Start: October 22, 2024 End: October 22, 2024Lynn Luther MDAttending ProviderActiveStart: October 22, 2024 End: October 22, 2024 Team Status: Inactive Member Role Status Dates Lynn Luther MD Primary Care Provider Active Start: October 29, 2024 End: October 29, 2024Willian Lomas ProviderActiveStart: October 29, 2024 End: October 29, 2024 Team Status: Inactive Member Role Status Dates Lynn Luther MD Primary Care Provider Active Start: December 02, 2024 End: December 02, 2024Lynn Luther , MDAttending ProviderActiveStart: December 02, 2024 End: December 02, 2024 Team Status: Inactive Member Role Status Dates Lynn Luther MD Primary Care Provider Active Start: December 03, 2024 End: December 03, 2024Lynn Luther , MDAttending ProviderActiveStart: December 03, 2024 End: December 03, 2024 Team Status: Inactive Member Role Status Dates Lynn Luther MD Primary Care Provider Active Start: December 29, 2024 End: December 29, 2024Lynn Luther MDAttending ProviderActiveStart: December 29, 2024 End: December 29, 2024 Team Status: Inactive Member Role Status Dates Lynn Luther MD Primary Care Provider Active Start: January 05, 2025 End: January 05, 2025Tondra K Mapus , APRNAttending ProviderActiveStart: January 05, 2025 End: January 05, 2025 Team Status: Active Member Role Status Dates Lynn Luther MD Primary Care Provider Active Start: October 02, 2024 Selin Mckinley , RMAAttending ProviderActiveStart: October 02, 2024 Team Status: Active Member Role Status Dates Ruth Cannon MD Primary Care Provider Active Team Status: Inactive Member Role Status Lyndsay Cannon MD Primary Care Provider Active Simone Irving ProviderActiveTondra K Mapus , APRNReferring Provider Active Team Status: Inactive Member Role Status Dates Ruth Cannon MD Primary Care Provider Active Referral SelfAttending ProviderActiveKatsheryl Cook , OTTOeferring Provider Active Team Status: Active Member Role Status Dates Ruth Cannon MD Primary Care Provider Active Hudson Azevedo APRN ASSOCIATE CIVIL ENGINEER-CActiveTondra K Mapus , APRNAttending ProviderActive Team Status: Inactive Member Role Status Lyndsay Cannon MD Primary Care Provider, Attending Pro vider Active Team Status: Inactive Member Role Status Lyndsay Cannon MD Primary Care Provider Active Kendell German MDAttending ProviderActive Team Status: Inactive Member Role Status Lyndsay Cannon MD Primary Care Provider Active Tiarra Cook DOAttending ProviderActive Team Status: Inactive Member Role Status Dates Ruth Cannno MD Primary Care Provider Active Tondra Nicole Kinney , APRNAttending ProviderActiveMatthalle German , MDReferring ProviderActive Team Status: Inactive Member Role Status Dates Lynn Luther MD Attending Provider Active St art: May 06, 2023 End: May 06, 2023 Team Status: Inactive Member Role Status Dates Lynn Luther MD Primary Care Provider Active Start: September 23, 2023 End: September 23, 2023Jovitaly Marie ASSOCIATE CIVIL ENGINEER-CAttending ProviderActiveStart: September 23, 2023 End: September 23, 2023Tondra Nicole Kinney , APRNReferring ProviderActiveStart: September 23, 2023 End: September 23, 2023 Team Status: Inactive Member Role Status Dates Lynn Luther MD Primary Care Provider Active Start: January 27, 2024 End: January 26eferral SelfAttending ProviderActiveStart: January 27, 2024 End: January 27, 2024Kathlcintia Cook , DOReferring ProviderActiveStart: January 27, 2024 End: January 27, 2024 Team Status: Inactive Member Role Status Dates Lynn Luther MD Primary Care Provider Active Start: March 19, 2024 End: March 19, 2024Jovitaly Marie ASSOCIATE CIVIL ENGINEER-CAttending ProviderActiveStart: March 19, 2024 End: March 19, 2024Team MemberRelationshipSpecialtyStart DateEnd Date Lynn Luther MD [address] [place] [address] PCP - GeneralFamily Medicine12/03/23 Jacky Saleh DO [address] [place] [address] Otolaryngology12/03/23Team MemberRelationshipSpecialtyStart DateEnd Date Lynn Luther MD [address] [place] [id number] PCP - GeneralFaazly Medicine12/03/23 Jacky Saleh, [address] [place] [address] Otolaryngology12/03/23 Team Status: Inactive Member Role Status Dates Lynn Luther MD Primary Care Provider Active Start: April 23, 2024 End: April 23, 2024Willian Lomas ProviderActiveStart: April 23, 2024 End: April 23, 2024 Team Status: Active Member Role Status Dates Lynn Luther MD Primary Care Provide r, Attending Provider Active Start: May 05, 2024 Team Status: Inactive Member Role Status Dates Lynn Luther MD Primary Care Provide r, Attending Provider Active Start: May 07, 2024 End: May 07, 2024 Team Status: Inactive Member Role Status Dates Lynn Luther MD Primary Care Provide r, Attending Provider Active Start: May 20, 2024 End: May 20, 2024 Team Status: Inactive Member Role Status Dates Lynn Luther MD Primary Care Provide r, Attending Provider Active Start: June 05, 2024 End: June 05, 2024W nAna Payan ProviderActiveStart: June 05, 2024 End: June 05, 2024 Team Status: Active Member Role Status Dates Lynn Luther MD Primary Care Provide r, Other Provider Active Start: June 05, 2024 W Anna Payan ProviderActiveStart: June 05, 2024 Simone De La Paz ProviderActiveStart: June 05, 2024 Team Status: Inactive Member Role Status Dates Lynn Luther MD Primary Care Provider Active Start: September 15, 2024 End: September 15, 2024Nan Rodriguez APRN NP-CAttentiara ProviderActive Start: September 15, 2024 End: September 15, 2024 Team Status: Inactive Member Role Status Dates Lynn Luther MD Primary Care Provider Active Start: September 22, 2024 End: September 22, 2024Orestes Arellano ProviderActiveStart: September 22, 2024 End: September 22, 2024Tondra K Mapus , APRNAttending ProviderActiveStart: September 22, 2024 End: September 22, 2024 Team Status: Inactive Member Role Status Dates Lynn Luther MD Primary Care Provider Active Start: September 28, 2024 End: September 28atherine L Ly , DOAttending ProviderActiveStart: September 28, 2024 End: September 28, 2024 Team Status: Active Member Role Status Dates Lynn Luther MD Primary Care Provider Active Start: September 28, 2024 Wendie L Ly , DOAttending Provider, Other ProviderActiveStart: September 28, 2024 Team Status: Inactive Member Role Status Dates Lynn Luther MD Primary Care Provide r, Attending Provider Active Start: October 22, 2024 End: October 22, 2024 Team Status: Active Member Role Status Dates Lynn Luther MD Primary Care Provider Active Start: September 28, 2024 Wendie L Ly , DOAttending ProviderActiveStart: September 28, 2024 Wendie L Ly , DOOther ProviderActiveStart: September 28, 2024 Team Status: Inactive Member Role Status Dates Lynn Luther MD Primary Care Provider Active Start: January 20, 2025 End: January 20atherine L Ly , DOAttending ProviderActiveStart: January 20, 2025 End: January 20, 2025 Team Status: Inactive Member Role Status Dates Lynn Luther MD Primary Care Provider Active Start: January 27, 2025 End: January 27, 2025Kathlcintia Rinkes , DOAttending ProviderActiveStart: January 27, 2025 End: January 27, 2025 Team Status: Inactive Member Role Status Dates Lynn Luther MD Primary Care Provider Active Start: February 04, 2025 End: February 04, 2025Tondra K Mapus , APRNAttending ProviderActiveStart: February 04, 2025 End: February 04, 2025 Goals (unrecognized section and content) Goals may be documented in a n alternate section INFORMATION SOURCE (unrecogn ized section and content) DATE CREATED AUTHOR 05/12/2022 [facility] DATE CREATED AUTHOR AUTHOR'S ORGANIZ ATION 05/25/2022 [facility] DATE CREATED AUTHOR AUTHOR'S ORGANIZ ATION 04/09/2024 [facility] [place] DATE CREATED AUTHOR AUTHOR'S ORGANIZ ATION 12/28/2024 [facility] DATE CREATED AUTHOR AUTHOR'S ORGANIZ ATION 01/29/2025 [facility] FOR RECORDS PERTAINING TO PATIENTS WHO ARE OR HAVE BEEN ENROLLED IN A CHEMICAL DEPENDENCY/SUBSTANCEABUSE PROGRAM, SOME INFORMATION MAY BE OMITTED. This clinical summary was aggregated from multiple sources. Caution should be exercised in using it in the provision of clinical care. This summary normalizes information from multiple sources, and as a consequence, information in this document may materially change the coding, format and clinical context of patient data. In addition, data may be omitted in some cases. CLINICAL DECISIONS SHOULD BE BASED ON THE PRIMARY CLINICAL RECORDS. [employer] provides no warranty or guarantee of the accuracy or completeness of information in this document.
[2025-03-23 10:13] LABS: Blood Urea Nitrogen 18.0 mg/dL (7.0-18.0); Calcium 9.1 mg/dL (8.5-10.1); Estimated GFR (African America >60 (>=60 mL/min/1.73m^2); Estimated GFR (Non-African Ame >60 (>=60 mL/min/1.73m^2); Magnesium 2.1 mg/dL (1.8-2.4)
== END 2025-03-23 08:16 | disposition home or self-care (01) ==
PROVIDERS: PCP Family Medicine; Visit Provider Registered Nurse
DX: M81.0 Age-related osteoporosis without current pathological fracture (principal); Z79.899 Other long term (current) drug therapy
CPT/HCPCS: 36415; 82310; 82565; 83735; 84100; 84520

== ENCOUNTER 2025-03-26 11:00 | Outpatient (OUT) | payer MEDICARE, BC, SELFPAY ==
--- OUTSIDE RECORDS SUMMARY | 2025-03-26 11:05 | XMS_ITS | Clinical Summary ---
Author Organization [facility] Address [address] [place] [address] Care Team Providers Care Embroidery Machine Operator Name Role Phone Lynn Luther MD Primary Care Provider [phone] Jacky Saleh DO Unavailable [phone] Allergies Active AllergyReactionsCriticalityNoted LqygUdtgajrlGdyetqQjmaCeo80/04/2023 JvrwdxYlzvgep37/25/2023Povidone YmqtswFfdozuj65/25/2023ovidone-IodineHives 05/11/20185660VacblribevzoKzfqrnx25/25/6186IfelGgjgw37/09/2018 Medications MedicationSigDispense QuantityRefillsLast FilledStart DateEnd DateStatus Lecithin [...] ONCE DAILY E11.65009/14/2022ctive Lancets (OneTouch Delica Plus Mfmhek64Z) misc USE WITH ONE TOUCH LANCET DEVICE DAILY09/18/2022ctive Ascorbic Acid (Vitamin C) 500 MG capsule as directed Rvfivw5811/14/2023ctive Calcium Citrate-Vitamin D 315-5 MG-MCG tablet 1 (one) time each day at the same time11/14/2023ctive celecoxib (CeleBREX) 200 MG capsule 1 capsule with food Orally prn for 30 days11/14/2023ctive Multiple Vitamin (Multi Vitamin) tablet 1 (one) time each day at the same time11/14/2023ctive omega-3 (Fish Oil) 1000 MG capsule 1 capsule every 8 (eight) hours11/14/2023ctive Active Problems ProblemNoted DateDiagnosed GsssTnxixpmholm09/29/2024ontracture, left ankle 11/30/2023iabetes mellitus type II, kecwzcptip05/29/2024OE (dyspnea on exertion)11/30/20236338Uywvas26/29/2024Epicondylitis, xnnpqha8211/30/2023Epigastric pain11/30/20233792Sdfswakom71/29/1412Lseuacc40/29/2024 Overview (11/30/2023): foot Otitis media11/30/2023rimary localized osteoarthrosis of ankle and foot 11/30/20237713Ulcoebwl56/29/2024Sinus firjsmxmoyv15/29/2024Type 2 diabetes mellitus with pwqasfeqeoswf16/29/1656Yvcnkjckzaqb10/29/2024ge related osteoporosis 11/25/2022trophy of rcmukv3511/25/2022Fibrocystic breast fclaewc3311/25/2022 Multiple thyroid vvxnyqf2111/25/2022Urge incontinence of urine11/25/2022 Resolved Problems ProblemNoted DateDiagnosed DateResolved DateNontoxic single thyroid nodule ostmenopausal nysmpoee77 Encounters DateTypeDepartmentCare MyryTwpclkfuonq51/09/2025Results Follow-Up [facility] [address] [place] [address] Tiarra Cook, DEXA bone densityfrom Last 3 Months Family History Medical HistoryRelationNameCommentsBreast cancerFather's Vlbwnlm8WmbzqrgiFcrv StatusCommentsFather's Qlboaqi1Dgwbm Social History Tobacco UseTypesPacks/DayYears UsedDateSmoking Tobacco: NeverSmokeless Tobacco: Never Tobacco Cessation:Counseling Given: Not Answered Alcohol UseStandard Drinks/WeekCommentsNever0 (1 standard drink = 0.6 oz pure alcohol)caffeine intake : chocolateCommentsUnknownSex and Gender InformationValueDate RecordedSex Assigned at WrgzwEdgeht14/19/2023 12:16 PM EDT Legal FliVjuiic17/15/2023 7:19 PM EDTGender FwmjvhizOirdio60/19/2023 12:16 PM EDTSexual OrientationChoose not to vimoihih72/19/2023 12:16 PM EDT Last Filed Vital Signs Vital SignReadingTime TakenCommentsBlood Stbqgext908/6404/08/2024 9:08 AM EST Pulse--Temperature--Respiratory Rate--Oxygen Saturation--Inhaled Oxygen Concentration--Xnlwyi09.5 kg (140 lb)04/08/2024 9:08 AM QDGWibixe410.8 cm (5' 4.5 )12/03/2023 8:31 AM EDTBody Mass Index23.6607 8:31 AM EDT Plan of Treatment DateTypeDepartmentCare Team (Latest Contact Info)Veprsgamrko79/20/2025 9:45 AM ESTOffice Visit [facility] [address] [place] [phone] Tiarra Cook DO [address] [place] [address] Health MaintenanceDue DateLast DoneCommentsCT Xdfargyvjdwl1955Colonoscopy 5Colorectal Cancer Vzgndcmoz1955FIT-DNA1955FIT1955 FOBT1955Wohwrrldgeyia1955Pneumococcal Vaccine: 65+ Years (1 of 1 - PCV)2005Influenza Vaccine (#1)510/01/2024, 03/08/2023, 03/21/2022, Additional history mkqvghZqpruthmx24/27/948500, 01/24/2023, 03/15/2022, Additional history exists Procedures Procedure NamePriorityDate/TimeAssociated DiagnosisCommentsDEXA BONE DENSITY Sihmydw3702/08/2025 1:12 PM EDT Screening for osteoporosis Postmenopausal status, age-related BI MAMMOGRAM SCREENING TOMOSYNTHESIS NYMWEHCDHFshfxco52/27/2025 10:04 AM EDT Encounter for screening mammogram [...] D.O. ??01/27/2025 10:05 AM ? Dictation Location: [facility] ? Dictated By: ?Liam Osorio Jr, DO ? 01/27/25 1004 ? Signed By: <Electronically signed by Laim Osorio Jr, DO in [place]> ?01/27/25 1005 Narrative 01/27/2025 10:07 AM T [facility] ?[address] ?[place] [address] ?? [phone] ? Mammography Report ? Signed ? Patient: GladisLoraine A ?MR#: [id number] ?? 6 ? : 1955 ?Acct:[id number] ? Age/Sex: 69 / F ?Adm Date: // ? Loc: [place] ?Room: ?Type: REG CLI ?? Attending Dr: Tiarra Cook DO ? Ordering Provider: Tiarra Cook, DO ? Date of Service: // ? Procedure(s): MM screening mammo BI w/CAD ?? Accession Number(s): ([id number]) MM/MM screening mammo BI w/CAD: screening ? [...] Note Liam Osorio Jr., DO - 01/27/2025 [facility] [place] [address] Mammography Report Signed Patient: Loraine Griffith AMR#: [id number] 6 : 5Acct:[id number] Age/Sex: 69 / FAdm Date: 01/27/25 Loc: [place] Room:Type: [facility] Attending Dr: Tiarra Cook DO Ordering Provider: Tiarra Cook DO Date of Service: 01/27/25 Procedure(s): MM screening mammo BI w/CAD Accession Number(s): ([id number]) MM/MM screening mammo BI w/CAD:screening Copies to: [...] Jr., D.OHyacinth 01/27/2025 10:05 AM Dictation Location: [facility] Dictated By: Liam Osorio Jr, DO 01/27/25 1004 Signed By: <Electronically signed by Liam Osorio Jr, DO inOV> 01/27/25 1005 Authorizing ProviderResult TypeResult StatusTiarra Cook DOI BI PROCEDURESFinal Result from Last 3 Months Insurance * Guarantor: Loraine Griffith AAccount TypeRelation to PatientDate of BirthPhone Billing AddressPersonal/LqrnxqKndu1955 [address] [address] Care Teams Team MemberRelationshipSpecialtyStart DateEnd Lynn Luther MD PCP - GeneralFamily Medicine12/03/23 Jacky Saleh DO [address] [place] [address] Otolaryngology12/03/23
--- OUTSIDE RECORDS SUMMARY | 2025-03-26 11:05 | XMS_ITS | Clinical Summary ---
Author Organization [facility] Address [address] [place] [address] Phone Care Team Providers Care Auto Damage Adjuster Name Role Phone Evelyn Cannon MD Primary Care Provider [phone] Social History Tobacco UseTypesPacks/DayYears UsedDateSmoking Tobacco: Never Assessed CommentsUnknownSex and Gender InformationValueDate RecordedSex Assigned at Not on fileLegal RahScygll68/25/2022 3:04 PM ESTGender IdentityNot on fileSexual OrientationNot on file Last Filed Vital Signs Vital SignReadingTime TakenCommentsBlood Xpakwgym820/7801 3:05 PM EST Sfnyp8504 3:04 PM ESTTemperature--Respiratory Rate--Oxygen Saturation-- Inhaled Oxygen Concentration--Nkhqow41 kg (139 lb)06/06/2022 3:04 PM ESTHeight 163.8 cm (5' 4.5 )06/06/2022 3:04 PM ESTBody Mass Index23.49006/06/2022 3:04 PM EST Plan of Treatment Health MaintenanceDue DateLast DoneCommentsCT Eetwfqduahxk1955Colonoscopy 5Colorectal Cancer Rvtetnjmj1955FIT-DNA (Cologuard)1955FIT 1955Lipid Panel04/24/19550346Zdfrtslzlqmby1955early Adult Physical 1955MMR Vaccines (1 of 1 - Standard series)1956Hepatitis C Screening 1973DTaP/Tdap/Td Vaccines (1 - Tdap)04/24/19770699Hsjvjzcps99/22/1995 Pneumococcal Vaccine (1 of 1 - PCV)2005Zoster [...] Cannon MD [address] [place] [address] PCP - General06/06/22
--- OUTSIDE RECORDS SUMMARY | 2025-03-26 11:07 | XMS_ITS | CCD ---
Author Organization [facility] CliniSymn Care Team Providers Care Department [employer] Name Role Phone Natalie Kinneya Unavailable MD Ruth Cannon Primary Care Provider [phone] Self, Referral Attending Provider Unavailable DO Tiarra [...] Provider MD Kendell German Attending Provider [place], SENIOR RESERVOIR ENGINEER Tondra K Attending Provider MD Ruth Cannon Attending Provider Ruth Cannon Unavailable Unavailable Unavailable MD Ruth Cannon Primary Care Provider MD Kendell German Attending Provider [place], SENIOR RESERVOIR ENGINEER Tondra K Referring Provider Iraj Edmondson Primary Care Physician MD Ruth Cannon Primary Care Provider DO Tiarra Cook Attending Provider Map, SENIOR RESERVOIR ENGINEER Tondra K Attending Provider MD Dmitry German Referring Provider Lynn Luther Unavailable MD Lynn Luther Primary Care Provider Obermeyer, MACHINE ENGINEER-C Miracle Wellington Attending Provider DANITA Kinney Referring Provider MD Lynn Luther Primary Care Provider Self, Referral Attending Provider Unavailable DO Tiarra Cook Referring Provider Obermeyer, MACHINE ENGINEER-C Miracle Wellington Attending Provider JACKY SALEH Attending Unavailable RUTH CANNON Referring Unavailable TIARRA COOK Attending Unavailable Lynn Luther MD Primary Care Provider Jacky Saleh DO Unavailable Lynn Luther MD Primary Care Provider Self, Referral Attending Provider Unavailable Tiarra Cook DO Referring Provider Obermeyer MACHINE ENGINEER-CMiracle Attending Provider Lynn Luther MD Primary Care Provider Lynn Luther MD Attending Provider [phone] Dario Moore DO Referring Provider [phone] Lynn Luther MD Primary Care Provider Obermeyer MACHINE ENGINEER-C, Miracle Wellington Other Provider MapAriel singh APRN Attending Provider Wendie Craig DO Attending Provider [phone] Lynn Luther MD Attending Provider Lynn Luther MD Primary Care Provider Nan Rodriguez APRN Attending Provider Wendie Craig DO Other Provider Selin Patel Attending Provider Unavailab Lynn Anderson MD Attending Provider Leland Boss Attending Unavailable Lynn Luther MD Primary Care Provider [place] SENIOR RESERVOIR ENGINEER, Tondra K Attending Provider [phone] Lynn Luther MD Primary Care Provider Wendie Craig DO Attending Provider Lynn Luther MD Primary Care Provider Lynn Luther MD Attending Provider [place] SENIOR RESERVOIR ENGINEERAriel Londono Attending Provider RinTiarra shea DO Attending Provider Lynn Luther E Primary Care Unavailable Obermeyer, [...] Allergen(s)Allergy TypeDate of OnsetReaction(s) Facility (20 sources)IodineDrug Oqmvnin48-90-9020jxsiPxpsbcqsbAvita Health System (20 sources)Niacin; Translations: [Niacin TABS]Drug Pavvrpp08-80-4856 Hypertensive disorder, systemic arterial (disorder)[facility] (20 sources)Povidone-IodineDrug Ylrihpm45-99-8061xjslKxpdpourpAvita Health System (17 sources)propacaine eye dropPropensity to adverse iqvpzxhow56-19-5448npedsa turns [facility] (20 sources)Povidone-Iodine; Translations: [Povidone-Iodine]Drug Allergy 04-06-0736Jyakwani of skin (disorder), [facility] (12 sources)ProcaineDrug Qjzzfuh66-97-6807Ymo EyeSelect Medical [facility] (20 sources)soapPropensity to adverse flwqxepdv53-73-9331TsixcSslbflrfo [facility] (1 source)Povidone-Iodine; Translations: [Betadine OINT][facility]ergyA[facility] 250 DO Work Phone: (2 sources)Povidone-Iodine; Translations: [Betadine][facility] (6 sources)proparacaine; Translations: [Proparacaine HCl SOLN]Drug Allergy 03-91-9558Fdk eye (finding), [facility] (3 sources)NiacinDrug Gfmvihk89-92-4062SmrobzyKNMW Healthcare (3 sources)Povidone-IodineDrug Ftkauhh45-97-5259AawuummAHQE Healthcare (12 sources)proparacaineDrug Zhhnihc83-75-5145dpy eyesSelect Medical [facility] (1 source)proparacaine; Translations: [proparacaine ophthalmic]Drug Allergy [facility] Repository Medications Current Medications MedicationDrug Class(es)DatesSig (Normalized)Sig (Original)amoxicillin 500 mg oral capsule (1 source)Penicillin-class AntibacterialStart: 19-18-8731lzwk 1 capsule by mouth every twelve hoursamoxicillin 500 mg Cap 500 mg = 1 cap(s), Oral, q12hr, # 20 cap(s), Refills(s) 0, Pharmacy: [facility]/pharmacy #[id number], 162, cm, 01/09/23 14:37:00 EDT, Height/Length Dosing, 62.5, kg, 01/09/23 14:37:00 EDT, Weight Dosing Start Date: 01/09/23 Status: Orderedascorbic acid 500 mg oral capsule (20 sources)Vitamin CStart: 43-30-5785Ylsimlsn Acid (Vitamin C) 500 MG capsule as directed Orally 11/14/2023 ActiveStart: 21-03-3338lamq 1 tablet by mouth once dailyAscorbic Acid (Vitamin C) (Vitamin C) 500 mg Tablet Active 500 MG PO Daily May 11, 2018 1:00am Complies with drug therapycalcium citrate 1500 mg / cholecalciferol 200 unt oral tablet (20 sources)Vitamin DStart: 86-64-6044Hlaosbt Citrate-Vitamin D 315-5 MG-MCG tablet 1 (one) time each day at the same time 11/14/2023 ActiveStart: 05-11-2018 take 1 tablet by mouth twice dailyCalcium Citrate-Vitamin D3 (Citracal + D Maximum) 315-250 mg-unit Tablet Active 1 TAB PO Twice daily May 11, 2018 1:00am Complies with drug therapycelecoxib 200 mg oral capsule (3 sources)Nonsteroidal Anti-inflammatory DrugStart: 79-09-2427xkzy 1 capsule by mouth at mealtime as neededcelecoxib (CeleBREX) 200 MG capsule 1 capsule with food Orally prn for 30 days 11/14/2023 Activecholecalciferol 0.025 mg oral capsule (20 sources)Vitamin DStart: 93-90-1410ymex 1 capsule by mouth once daily Cholecalciferol (Vitamin D3) (Vitamin D3) 25 mcg (1,000 unit) capsule Active 2000 UNIT PO Daily 2023 9:29am Complies with drug therapyStart: 10-17-2023 End: 97-69-9695rkzu 1 tablet by mouth once dailycholecalciferol (vitamin D3) (Super Daily D3) Discontinued 1 TAB PO Daily October 16, 2023 11:00pm October 17, 2023 8:29amStart: 10-17-2023 End: 50-53-5183smej 1 tablet by mouth once dailycholecalciferol (vitamin D3) (Super Daily D3) Discontinued 1 TAB PO Daily October 17, 2023 12:00am October 17, 2023 9:29amStart: 05-11-2018 End: 97-47-8490cedm 8421-7379 [IU] by mouth once dailyCholecalciferol (Vitamin D3) [...] mg/ml prefilled syringe (20 sources)RANK Ligand InhibitorStart: 10-48-5260Rfbixsdau (Prolia) 60 mg/mL syringe Active 60 MG SUBCUT EVERY 6 MONTHS October 17, 2023 12:00am Complies with drug therapyinject 60 mg by subcutaneous injection oncedenosumab (Prolia) 60 MG/ML solution prefilled syringe Inject 60 mg under the skin 1 (one) time. Act iveProlia 60 MG/ML as directed Subcutaneous q 6 months Activedocosahexaenoic acid 120 mg / eicosapentaenoic acid 180 mg oral capsule (4 sources)Start: 66-94-0651vjzo 1 capsule by mouth every eight hoursomega-3 (Fish Oil) 1000 MG capsule 1 capsule every 8 (eight) hours 11/14/2023 ActiveFish Oil 1000 MG Oral Capsule 1 TABLET TWICE ADAY Quantity: 180 Refills: 3 Ordered: 06-Jun-2022 DO Activeestrogens, conjugated (skilled nursing) 0.625 mg/ml vaginal cream (3 sources)EstrogenStart: 64-30-6345Qirnoxip 0.625 MG/GM cream INSERT 1/2 GRAM VAGINALLY TWICE A WEEK 03/15/2022 ActiveFish Oils (10 sources)Fish Oil 1000mg QD ActiveFlax Seed Oil 1000 MG (10 sources)Flax Seed Oil 1000 MG Orally ZayjgaVpbp-Wamta-Eb2-Ryi-Xpc-Syqo-St (Glucosamine Chondroitin Plus) 385-198-99-54 mg Capsule (20 sources)Start: 60-09-5712xhkj 1 tablet by mouth once dailyStart: 05-12-2018 take 1 tablet by mouth once ydcufNubf-Ojgng-Kh4-Evs-Jlp-Znpf-St (Glucosamine Chondroitin Plus) 732-645-84-54 mg Capsule Active 1 TABPO Daily May 12, 2018 1:00am Complies with drug therapyStart: 22-13-0163mzbi 1 tablet by mouth once yihcoVnek-Nnpsc-Pa1-Hff-Ggl-Zfof-St (Glucosamine Chondroitin Plus) 248-530-17-54 mg Capsule Active 1 TABPO Daily May 12, 2018 12:00amStart: 08-72-8672cvoc 1 tablet by mouth once msiiyMahn-Mafgs-An7-Huw-Ltd-Kpov-St (Glucosamine Chondroitin Plus) 419-805-58-54 mg Capsule Active 1 TABPO Daily May 12, 2018 1:00amGlucosamine Chondroitin Complx (10 sources)Glucosamine Chondroitin Complx Orally Activelecithin 1200 mg oral capsule (20 sources)Start: 05-12-2018 End: 66-48-9957malv 1 capsule by mouth once dailyLecithin 1,200 mg capsule Active 1200 MG PO Daily October 17, 2023 9:29am Complies with drug therapylinseed oil 1000 mg oral capsule (18 sources)Start: 80-10-9601ibfi 1 capsule by mouth once dailyFlaxseed Oil 1,000 mg capsule Active 1000 MG PO Daily October 17, 2023 12:00am administer with a mealComplies with drug therapyFlax Seed Oil 1000 MG Oral Capsule TAKE DIRECTED. Quantity: 0 Refills: 0 Ordered: 06-Jun-2022 DO ActiveMultiple Vitamin (Multi Vitamin) tablet (3 sources)Start: 61-19-0062Nvvnqmkz Vitamin (Multi Vitamin) tablet 1 (one) time each day at the same time 11/14/2023 ActiveMultivitamin preparation (19 sources)Start: 04-44-0409krbs 1 tablet by mouth once dailyMultivitamin Active 1 TAB PO Daily May 11, 2018 12:00amStart: 29-33-4335ibtp 1 tablet by mouth once dailyMultivitamin Active 1 TAB PO Daily May 11, 2018 1:00am Multivitamin Orally ActiveMultivitamin Tablet (15 sources)Start: 39-42-4502ykmh 1 tablet by mouth once dailyStart: 05-11-2018 take 1 tablet by mouth once dailyMultivitamin Tablet Active 1 TAB PO Daily May 11, 2018 1:00am Complies with drug therapyStart: 11-40-4284iehx 1 tablet by mouth once dailyMultivitamin Tablet Active 1 TAB PO Daily May 11, 2018 1:00amStart: 48-77-1009qilf 1 tablet by mouth once dailyMultivitamin Tablet Active 1 TAB PO Daily May 11, 2018 12:00amOmega 6-Zit-Lil-Fish Oil (Fish Oil) 1,000 mg (120 mg-180 mg) Capsule (20 sources)Start: 12-58-8759xyxl 1 capsule by mouth once dailyStart: 05-11-2018 take 1 capsule by mouth once dailyOmega 9-Diq-Ndr-Fish Oil (Fish Oil) 1,000 mg (120 mg-180 mg) Capsule Active 1000 MG PO Daily May 11, 2018 1:00am Complies with drug therapyStart: 50-93-5570ahmy 1 capsule by mouth once daily Hoffman 6-Mzu-Ecz-Fish Oil (Fish Oil) 1,000 mg (120 mg-180 mg) Capsule Active 1000 MG PO Daily May 11, 2018 12:00amStart: 88-38-9039tvlp 1 capsule by mouth once dailyOmega 2-Atv-Veo-Fish Oil (Fish Oil) 1,000 mg (120 mg-180 mg) Capsule Active 1000 MG PO Daily May 11, 2018 1:00amOne Touch Ultra Mini Glucometer 1 meter (8 sources)Start: 07-30-5031Zmy Touch Ultra Mini Glucometer 1 meter Use to test blood sugar E11,9 as directed Jun, ActiveStart: 29-75-8382qyivvji lecithin 1200 mg oral capsule (4 sources)take 1 capsule by mouth once dailyLecithin 1200 MG capsule Take 1 capsule by mouth 1 (one) time each day at the same time. ActiveSuper D3 Complex (10 sources)take 1000 mg by mouth once dailySuper D3 Complex 1000mg Orally daily Activeubidecarenone 200 mg oral capsule (20 sources)Start: 58-44-9174Kvdthlbb Q10 (Co Q-10) 200 mg Capsule Active [...] Nucleoside Analog DNA Polymerase InhibitorStart: 12-27-2024 End: 20-15-3777ilwn 1 tablet by mouth every eight hoursvalacyclovir [...] Zoster without complications;Vitamin B Complex (20 sources)Start: 83-81-7282vqmu 1 tablet by mouth once dailyStart: 10-17-2023 take 1 tablet by mouth once dailyvitamin B complex Active 1 TAB PO Daily October 17, 2023 12:00am Complies with drug therapyStart: 58-87-6232typf 1 tablet by mouth once dailyvitamin B complex Active 1 TAB PO Daily October 16, 2023 11:00pm Start: 94-09-3227gddw 1 tablet by mouth once dailyvitamin B complex Active 1 TAB PO Daily October 17, 2023 12:00amVitamin B Complex Orally Activevitamin b12 2.5 mg sublingual tablet (20 sources)Vitamin U28Sidwv: 96-23-1699Jpcsdfrdrcuqcw (Vitamin B-12) (Vitamin B-12) 2,500 mcg Tablet, Sublingual Active 1000 MG SUBLINGUALDaily May 12, 2018 1:00am Complies with drug therapyVitamin C 500 MG (10 sources)Vitamin C 500 MG Orally Active Completed/Discontinued Medications MedicationDrug Class(es)DatesSig (Normalized)Sig (Original)atorvastatin 10 mg oral tablet (20 sources)HMG-CoA Reductase InhibitorStart: 10-17-2023 End: 84-36-3123moeg 1 tablet by mouth five times weeklyAtorvastatin 10 mg tablet Discontinued 10 MG PO 5 TIMES PER WEEK October 17, 2023 9:28am April 23, 2024 10:52amStart: 07-25-2023 End: 36-79-2759gveq 1 tablet by mouth once dailyAtorvastatin 10 mg tablet Discontinued 0 .ROUTE .COMPLEX July 25, 2023 8:38am October 17, 2023 9:30am TAKE 1 TABLET BY MOUTH EVERY DAYStart: 01-09-2023 End: 29-91-5004lfas 1 tablet by mouth once dailyAtorvastatin 10 mg tablet Discontinued 10 MG PO Daily April 23, 2024 10:53am October 29385943:55am Start: 05-11-2018 End: 60-58-3656ifob 1 tablet by mouth three times weeklyAtorvastatin [...] capsule (20 sources)Proton Pump InhibitorStart: 09-28-2024 End: 52-57-3662xyhy 1 capsule by mouth once dailyOmeprazole 40 mg capsule,delayed release(DR/EC) Discontinued 40 MG PO Daily September 28, 2024 12:00am January 20, 2025 9:37amStart: 05-19-2018 End: 13-61-5259evvd 1 capsule by mouth once dailyOmeprazole 20 mg capsule,delayed release(DR/EC) Discontinued 20 MG PO Daily May 19, 2018 1:00am October 17, 2023 9:30amStart: 05-13-2018 End: 67-02-9176vnih 1 tablet by mouth once dailyOmeprazole 20 mg Tablet,Delayed Release (Dr/Ec) Discontinued 20 MG PO Daily May 13, 2018 1:00am October 17, 2023 9:30amsAXagliptin 5 mg oral tablet (20 sources)Dipeptidyl Peptidase 4 InhibitorStart: 05-11-2018 End: 72-59-5976jqay 1 tablet by mouth once dailySaxagliptin (Onglyza) 5 mg Tablet Discontinued 5 MG PO Daily May 11, 2018 1:00am October 17, 2023 9:30amtake 1 tablet by mouth once dailyOnglyza 5mg 5mg 1 Tablet po daily Not-Takingtake 1 tablet by mouth once dailyOnglyza 5mg 5mg 1 Tablet po daily Active Problems Active Problems Problem ClassificationProblemDateDocumented DateEpisodic/ChronicAbdominal pain (20 sources)Epigastric pain; Translations: [Epigastric pain]Onset: 11-30-2023 40-53-6528BgckuxibVdwxkvyc foot deformities (20 sources)Bunion; Translations: [Bunion of left foot]Episodic Administrative/social admission (20 sources)Dietary management surveillance; Translations: [Dietary counseling and surveillance]Onset: 10-11-2021 Resolved: 97-58-5755VtrzipuaKzqeteyw reactions (5 sources)Eczema; Translations: [Dermatitis, unspecified]Onset: 11-30-2023 38-27-7819ErzztidaZddlnte dysrhythmias (16 sources)Multiple premature ventricular complexes; Translations: [Ventricular premature depolarization]Onset: 826208-70-2535BmafdaqFeswisg dysrhythmias (11 sources)Palpitations; Translations: [Tachycardia, unspecified]Onset: 62-44-7344TqtgcqhgWvuycghuvf associated with dizziness or vertigo (16 sources)Dizziness and giddiness; Translations: [Dizziness]Onset: 05-12-2022 37-42-5347SkinmpblJyastllmwu and other anemia (15 sources)Anemia; Translations: [Anemia, unspecified]17-22-3399Qxqutqrz Deficiency and other anemia (3 sources)Anemia, unspecified; Translations: [Anemia, unspecified]10-22-2024 EpisodicDiabetes mellitus with complications (20 sources)Hyperglycemia due to type 2 diabetes mellitus; Translations: [Type 2 diabetes mellitus with hyperglycemia]Onset: 10-11-2021 Resolved: 45-29-9354SklaszbEemurtho mellitus without complication (20 sources)Type 2 diabetes mellitus; Translations: [Type 2 diabetes mellitus without complications]Onset: 06-05-2021 Resolved: 97-02-9884XpbsxpcFyjoldgb of mouth; excluding dental (18 sources)Glossopyrosis ; Translations: [Glossodynia]08-29-7540Albuefiu Disorders of lipid metabolism (20 sources)Hyperlipidemia; Translations: [Hyperlipidemia, unspecified]Onset: 10-11-2021 Resolved: 74-36-5001RdtwjjcFappwszsut disorders (20 sources)Gastroesophageal reflux disease; Translations: [Gastro-esophageal reflux disease without esophagitis]71-84-3905OoiicuzWytlaucpf hypertension (14 sources)Essential hypertension; Translations: [Essential (primary) hypertension]Onset: 10-11-2021 Resolved: 44-40-8726WgtxyqbPhhpdewew and duodenitis (10 sources)Atrophic gastritis; Translations: [Unspecified chronic gastritis without bleeding]ChronicGastritis and duodenitis (5 sources)Gastritis; Translations: [Gastritis, unspecified, without bleeding] Onset: 398944-40-5196JejunchhKpnkxwfhjbyea symptoms and ill-defined conditions (3 sources)Urge incontinence of urine; Translations: [Urge incontinence]Onset: 363933-04-4994YcnhrghPaaypirjhw disorders (10 sources)Menopausal flushing; Translations: [Menopausal and female climacteric states]Onset: 11-25-2022 Resolved: 42-26-5792UjstqinWmmhyqyipeyq breast conditions (3 sources)Fibrocystic disease of breast; Translations: [Diffuse cystic mastopathy of unspecified breast]Onset: 229548-05-2791YjgelglLljklagfuwy chest pain (17 sources)Chest pain; Translations: [Chest pain, unspecified]Onset: 06-05-2024 58-99-8979HhkyksvqXuplqmymtbp deficiencies (15 sources)Vitamin D deficiency; Translations: [Vitamin D deficiency, unspecified]Onset: 08-09-2021 Resolved: 62-99-1007MphwzzuHzlcngktokzlmh (3 sources)Localized, primary osteoarthritis of the ankle and/or foot; Translations: [Primary osteoarthritis, unspecified ankle and foot]Onset: 637775-97-6083FovmpkpHnizibnufjvj (8 sources)Osteoporosis; Translations: [Senile osteoporosis]Onset: 11-25-2022 03-89-8522RpknynrXkylg acquired deformities (3 sources)Contracture of joint of left ankle; Translations: [Contracture, left ankle]Onset: 570579-34-0754ZokhkhjHtvri aftercare (10 sources)Long-term current use of insulin; Translations: [FCI (current) use of insulin]EpisodicOther and unspecified benign neoplasm (5 sources)Neuroma; Translations: [Benign neoplasm of peripheral nerves and autonomic nervous system, unspecified]Onset: 519947-97-7454BofqstclQxbyhiw on above:footOther circulatory disease (13 sources)Elevated blood-pressure reading without diagnosis of hypertension; Translations: [Elevated blood-pressure reading, without diagnosis of hypertension]38-00-6334QynpayvwXrbwx connective tissue disease (5 sources)Lateral epicondylitis; Translations: [Lateral epicondylitis, unspecified elbow]Onset: 487004-53-1891AblwpzfhBlwnu lower respiratory disease (20 sources)Dyspnea on exertion; Translations: [Shortness of breath]Onset: 693824-72-7882RoaklmrmFdsrl non-traumatic joint disorders (5 sources)Arthropathy; Translations: [Arthropathy, unspecified]Onset: 064011-69-6615PimumxxXmpya screening for suspected conditions (not mental disorders or infectious disease) (9 sources)Electrocardiogram abnormal; Translations: [Nonspecific abnormal electrocardiogram [ECG] [EKG]]Onset: 946333-85-1294PootilaqAnijj upper respiratory infections (10 sources)Sinusitis; Translations: [Chronic sinusitis, unspecified]Chronic Otitis media and related conditions (20 sources)Otitis media; Translations: [Otitis media, unspecified, right ear] Onset: 16-60-5383AfgreosrBtfvcbxo codes; unclassified (4 sources)Body mass index (BMI) 22.0-22.9, adultOnset: 10-11-2021 Resolved: 86-03-9154ZhcppdaeIzzbeajv codes; unclassified (20 sources)Body mass index 20-24 - normal; Translations: [Body Mass Index between 19-24, adult]99-46-3673LnlyyhkyIovexgiq codes; unclassified (2 sources)Postmenopausal state; Translations: [Asymptomatic menopausal state] 92-22-2350WhwuowgnTjrwhroi codes; unclassified (3 sources)Body mass index (BMI) 24.0-24.9, adult; Translations: [Body Mass Index between 19-24, adult]73-22-3097UgpsvledGexgqdpx codes; unclassified (1 source)Asymptomatic menopausal state; Translations: [Asymptomatic menopausal state]Onset: 08-17-1297FbwcziusGulhelixpdm; intervertebral disc disorders; other back problems (20 sources)Sciatica; Translations: [Sciatica, unspecified side]Onset: 929045-08-3489MzybjinrFccsema disorders (6 sources)Multinodular goiter; Translations: [Nontoxic multinodular goiter] Onset: 11-25-2022 Resolved: 150303-73-1513KqguhwlIsoap infection (9 sources)Zoster without complications; Translations: [Herpes zoster]Onset: 89-64-2313Xkyouxtk Past or Other Problems Problem ClassificationProblemDateDocumented DateEpisodic/ChronicNutritional deficiencies (4 sources)Deficiency of other specified B group vitamins; Translations: [Deficiency of other specified B group vitamins]Onset: 58-67-3335SyyzlfocLgmor connective tissue disease (4 sources)Pain in right foot; Translations: [PAIN IN RIGHT FOOT]Onset: 18-61-3516DiddgestNtqls connective tissue disease (1 source)Pain in left foot; Translations: [PAIN IN LEFT FOOT]Onset: 10-02-2021 EpisodicOther lower respiratory disease (2 sources)Other forms of dyspnea; Translations: [Other respiratory abnormalities]Onset: 287545-28-9256HctnyvanJlxynlcsxnwl (1 source)Never smoked tobacco; Translations: [Never a smoker] Results Test NameValueInterpretationReference RangeFacilityMM screening mammo BI w/CADon 60-24-2168VV screening mammo BI w/CADPRE[facility] [address] [place] [address] Mammography Report Signed Patient: Loraine Griffith MR#: [id number] : 1955 Acct:[id number] Age/Sex: 69 / F Adm Date: 01/27/25 Loc: [place] Room: Type: [facility] Attending Dr: Tiarra Cook DO Ordering Provider: Tiarra Cook DO Date of Service: 01/27/25 Procedure(s): MM screening mammo BI w/CAD Accession Number(s): ([id number]) MM/MM screening mammo BI w/CAD: screening Copies [...] Jr, DO 01/27/25 1004 Signed By: 01/27/[address] [place] [address] [facility]ician [facility] CenterMammography reportOrdered By: Liam Osorio on 13-11-4381Gfvpjhhkgn imaging [facility] [address] [place] [address] Mammography Report Signed Patient: Loraine Griffith MR#: [id number] : 1955 Acct:[id number] Age/Sex: 69 / F Adm Date: 5 Loc: [place] Room: Type: [facility] Attending Dr: Tiarra Cook DO Ordering Provider: Tiarra Cook DO Date of Service: 01/27/25 Procedure(s): MM screening mammo BI w/CAD Accession Number(s): ([id number]) MM/MM screening mammo BI w/CAD: screening Copies [...] Jr., D.OHyacinth 01/27/2025 10:05 AM Dictation Location: [facility] Dictated By: Liam Osorio Jr, DO 01/27/25 1004 Signed By: 01/27/25 1005 [facility] ShawFructosamineon 11-30-5721Fuattlqpfwmx825 umol/L Normal0-285The [facility] Physician GroupComment on above:Result Comment: Published reference interval for apparently healthy subjects between age 20 and 60 is 205 - 285 umol/L and in a poorly controlled diabetic population is 228 - 563 umol/L with a mean of 396 umol/L. Performed at: [facility] [employer] [facility] [address] [place], [place] [id number] Motorcycle Engine Assembler: Simon Copeland PhD, Phone: [phone] PERFORMED BY: [facility] [place] [address] PATHOLOGIST DIESEL ENGINE OPERATOR TERRY FERRER M.D.Performed By: #### FRUC #### [facility] ,Fructosamine [Moles/volume] in Serum or PlasmaOrdered By: Ariel Kinney on 02-56-1086Ukrgcslybdwl [Moles/Vol]224 umol/L0-285[facility] ShawComment on above:Published reference interval for apparently healthysubjects between age 20 and 60 is 205 - 285 umol/L and in apoorly controlled diabetic population is 228 - 563 umol/Lwith a mean of 396 umol/L.Performed at: [facility] [employer] [id number] Director: Simon Copeland PhD, Phone: [phone] Medicine Office/Clinic Noteon 53-88-3514Amptuo Medicine Office/Clinic NoteFami Medicine Office/Clinic Note Chief Complaint shingles HPI Staff 69 year old female complaints of possibly shingles. right side of back. itching Onset: noticed it yesterday around 3-4 pm History of Present Illness I have reviewed and verified the staff HPI to be accurate for this encounter. Portions of this record have been created with voice recognition software. Occasional wrong-word or???btewd-j-pddb??? substitutions may have occurred due to the [...] day(s), # 21 tab(s), Refills(s) 0, Pharmacy: [facility]/pharmacy #[id number], 163, cm, 12/27/24 13:23:00 EDT, Height/Length Dosing, 66, kg, 12/27/24 13:23:00 EDT, Weight Dosing Follow-up With When Contact Information Delvis GOODMAN, Iraj Ashby, [facility], [facility] [address] [place] [address]- Additional Instructions: Patient Education Shingles, Nadh-ae-Fmfq Problem List/Past Medical History Ongoing Arthropathy Diabetes mellitus type II, controlled COREY (dyspnea on (more content not included)...[facility] Comment on above:Result Comment: Electronically Signed By: Gera MERCADO, Leland M.\.br\Date and Time Signed: 12/27/2512:45 EDTX-ray reportOrdered By: Kingsley Coker on 41-13-5382Djarw reportFIRUC HEALTH Main [address] [address] XRay Report Signed Patient: Loraine Griffith MR#: [id number] : 1955 Acct:[id number] Age/Sex: 69 / F ADM Date: 5 [...] Coker M.D. 12/03/2024 4:34 PM Dictation Location: [place] [address] Transcribed By: [facility] 12/03/24 1634 Dictated By: Kingsley Coker DO 12/03/24 1633 Signed By: 12/03/24 1634 [facility] ShawXR cervical spine 5V*on 23-31-2065AI cervical spine 5V*[facility] Main [address] [address] XRay Report Signed Patient: Loraine Griffith MR#: [id number] : 1955 Acct:[id number] Age/Sex: 69 / F ADM Date: 12/03/24 [facility] Room: Type: [facility] CLI Attending Dr: Lynn Luther [...] Coker M.D. 12/03/2024 4:34 PM Dictation Location[facility] Transcribed By: [facility] 12/03/24 1634 Dictated By: Kingsley Coker DO 12/03/24 1633 Signed By: 12/03/24 1634[facility] ZfjooHeC1v HPLC (Bld) [Mass fraction] on 30-83-1967UiJ9k (Bld) [Mass fraction]5.4 %[facility] ShawNo Panel Informationon 43-73-9121Pmnypti Fibwywp670PzeiavsxhSelect Medical [facility] Clinic [facility] Hospital, Edwin ShawFerritin [Mass/volume] in Serum or PlasmaOrdered By: Lynn Luther on 71-88-6514Ysdsuuxq [Mass/Vol]Ferritin [Mass/volume] in Serum or Rmzjgj87.0-306.8 [facility], Edwin ShawFerritin [Mass/Vol]80.0 ng/xSXftszw34.0-306.8 [facility], [facility] ShawComment on above:Order Comment: NONFASTING.JKW Performed By: #### DALE, FOL, FE #### [facility] [address] [place] [address] #### ZINC,PL #### [facility] ,Folateon 61-14-7420Qfeukr>49.6Normal>5.9The [facility]aughters Medical CenterComment on above:Order Comment: FASTING.JKWResult Comment: Folate reference range: >5.9 ng/ml The WHO technical consultation on folate and vitamin b12 deficiencies has determined that folate concentrations less than 4 ng/ml are considered deficient. PERFORMED BY: [place] [address] PATHOLOGIST DIESEL ENGINE OPERATOR JOHN DAMIAN M.D.Performed By: #### JASMINA, MG #### [address] StreetFolate [Mass/volume] in Serum or PlasmaOrdered By: Lynn Luther on 86-70-8982Qnogkh [Mass/Vol]Folate [Mass/volume] in Serum or Plasma>5.9 [facility], [facility] ShawComment on above:Folate reference range: >5.9 ng/mlThe WHO technical consultation on folate and vitamin i45qjuxjbkczryf has determined that folate concentrations lessthan 4 ng/ml are considered deficient. Folate [Mass/Vol]ng/mL>5.9[facility] ShawComment on above: Folate reference range: >5.9 ng/mlThe WHO technical consultation on folate and vitamin l36iuxznenlhdtv has determined that folate concentrations lessthan 4 ng/ml are considered deficient.Iron [Mass/volume] in Serum or PlasmaOrdered By: Lynn Luther on 06-00-9697Lxbu [Mass/Vol]Iron [Mass/volume] in Serum or Plasma 50-212[facility] ShawIron [Mass/Vol]104 ug/qMMmjfhw07-969 [facility], [facility] ShawComment on above:Order Comment: NONFASTING.JKW Performed By: #### DALE, FOL, FE #### [facility] [address] [place] [address] #### ZINC,PL #### [facility] ,Plasma zinc measurementOrdered By: Lynn Luther on 22-51-3611Vxny [Mass/Vol] Plasma zinc wtonharkish42-583MxrseehfbSelect Medical [facility] Clinic Rehabilitation Hospital, Edwin ShawComment on above: This test was developed and its performance characteristicsdetermined by [facility]. It has not been cleared orapproved by the Food and Drug Administration. Detection Limit = 5Performed at: - [address] [place], [place] [id number] Director: Minh Garnica MD, Phone: [phone] [Mass/Vol]82 ug/lW79-158CiqhekoobSelect Medical [facility] Clinic Rehabilitation Hospital, Edwin ShawComment on above:This test was developed and its performance characteristicsdetermined by [employer]. It has not been cleared orapproved by the Food and Drug Administration. Detection Limit = 5Performed at: [address] [id number] Director: Minh Garnica MD, Phone: [phone], Plasmaon 70-74-0649Pwzd, Jtawlb00 ug/jKQvqcfh44-161Xlq [facility] Physician GroupComment on above:Order Comment: FASTING.JKWResult Comment: This test was developed and its performance characteristics determined by [employer]. It has not been cleared or approved by the Food and Drug Administration. Detection Limit = 5 Performed at: [address] [id number] Motorcycle Engine Assembler: Minh Garnica MD, Phone: [phone] PERFORMED BY: [place] [address] PATHOLOGIST DIESEL ENGINE OPERATOR TERRY FERRER M.D.Performed By: #### MG JASMINA #### [place] [address] USACapillary blood glucose measurement by glucometer (mass/volume)Ordered By: Wendie Craig on 34-43-9635Ngziwub [Mass/Vol]92 mg/dL [facility] HospitalComment on above:Random Glucose Reference Range is [...] Diabetes Mellitus.Performed By: #### JASMINA, MG #### [facility] [address] [place] [address] USAGlucose Glucometer (BldC) [Mass/Vol]Ordered By: Wendie Craig on 54-04-1980Jvwlmql [Mass/Vol]Capillary blood glucose measurement by glucometer (mass/volume)[facility] ShawComment on above:Random Glucose Reference Range is dependent on time and content of last meal. Glucose of more than 200 mg/dL in a nonstressed, ambulatory subject supports the diagnosis of Diabetes Mellitus.Glucose Poct Glucometerson 13-81-0194Zbvnuzh8 Glu2: Cleaned [facility] Physician GroupComment on above:Result Comment: PERFORMED BY: [place] [address] PATHOLOGIST DIESEL ENGINE OPERATOR JOHN DAMIAN M.D.Performed By: #### PHOS, MG #### [facility] [address] [place] [address] USANo Panel InformationOrdered By: Wendie Craig on 09-28-2024 Miscellaneous Pathology TestSee Parkview Health Bryan HospitalComment on above:See report. Scanned copy available in EMR.Bedside Glucose CommentGlu2: cleaned Protestant HospitalPathology Request for Lab Corpon 89-49-6955Pvqrsprvx Request for Lab CorpB[facility] Comment on above:Order Comment: FASTING.JKWResult Comment: See report. Scanned copy available in EMR. PERFORMED BY: [place] [address] PATHOLOGIST DIESEL ENGINE OPERATOR JOHN DAMIAN M.D.Performed By: #### CMP #### [facility] [address] [place], [place] [address] USAAlanine aminotransferase [Enzymatic activity/volume] in Serum or PlasmaOrdered By: Ariel Kinney on 81-98-3793ZIQ [Catalytic activity/Vol]Alanine aminotransferase [Enzymatic activity/volume] in Serum or PlasmaSelect Medical [facility] Clinic [facility] Hospital, Edwin ShawALT [Catalytic activity/Vol]22 U/L NormalSelect Medical [facility] Clinic Rehabilitation Hospital, Edwin ShawComment on above:Order Comment: FASTING.JKWPerformed By: #### CMP #### [facility] [address] [place], [place] [address] USAAlbumin [Mass/volume] in Serum or Plasma by Bromocresol green (BCG) dye binding methoOrdered By: Nataliea Sravanus on 68-22-9812Hgoywwl BCG dye [Mass/Vol]Albumin [Mass/volume] in Serum or Plasma by Bromocresol green (BCG) dye binding metho3.5-5.7FPaulding County HospitalAlbumin BCG dye [Mass/Vol]4.8 g/dL3.5-5.7FPaulding County HospitalAlkaline phosphatase [Enzymatic activity/volume] in Serum or PlasmaOrdered By: Tondra Sravanus on 70-99-2864JUF [Catalytic activity/Vol]Alkaline phosphatase [Enzymatic activity/volume] in Serum or Ouaggw19-085FdqonxkcaSelect Medical [facility] Rehabilitation Hospital, Edwin ShawALP [Catalytic activity/Vol]64 U/HNpcuus36-652Mmfacmxt[address] Comment on above:Order Comment: FASTING.JKWResult Comment: PERFORMED BY: [place] [address] PATHOLOGIST DIESEL ENGINE OPERATOR JOHN DAMIAN M.D.Performed By: #### CMP #### [facility] [address] [place] [address] USAAspartate aminotransferase [Enzymatic activity/volume] in Serum or PlasmaOrdered By: Ariel Kinney on 51-56-7309FRH [Catalytic activity/Vol]Aspartate aminotransferase [Enzymatic activity/volume] in Serum or Qanria56-16Axmujtigo[address] [place], [place] [address]AST [Catalytic activity/Vol]23 U/L Bsnqxc16-83Agybxonqy[address] [place], [place] [address]Comment on above:Order Comment: FASTING.JKWPerformed By: #### CMP #### [facility] [address] [place] [address] USABasophils Auto (Bld) [#/Vol]Ordered By: Ariel Hinsonus on 18-54-6192Aieifshwd (Bld) [#/Vol]Automated basophil count0.0-0.2FPaulding County HospitalBasophils [#/volume] in Blood by Automated countOrdered By: Tondra Mapus on 79-75-3395Ybzgfktqq (Bld) [#/Vol]0.1 10*3/uLNormal0.0-0.2 [facility] ShawComment on above:Result Comment: PERFORMED BY: [place] [address] PATHOLOGIST DIESEL ENGINE OPERATOR JOHN DAMIAN M.D.Performed By: #### JASMINA MG #### [place] [id number] USABasophils/100 WBC Auto (Bld)Ordered By: Tondra Mapus on 09-64-3095Eijcdgcvj/100 WBC (Bld)Automated basophil %.[facility] ShawBasophils/100 leukocytes in Blood by Automated countOrdered By: Tondra Mapus on 69-29-9917Wnrsvnyqw/100 WBC (Bld)1.1 %Normal.[facility], [facility] ShawComment on above:Performed By: #### JASMINA MG #### [place] [address] USABilirubin.total [Mass/volume] in Serum or PlasmaOrdered By: Tondra Mapus on 99-11-9515Gevjppymh [Mass/Vol]Bilirubin.total [Mass/volume] in Serum or Plasma0.3-1.0[facility], Edwin ShawBilirubin [Mass/Vol] 0.5 mg/dLNormal0.3-1.0[facility] ShawComment on above:Order Comment: FASTING.JKWPerformed By: #### CMP #### [place] [id number] USACalcium [Mass/volume] in Serum or PlasmaOrdered By: Tondra Mapus on 35-93-5200Ngqosqa [Mass/Vol]Calcium [Mass/volume] in Serum or Plasma 8.6-10.3FPaulding County HospitalCalcium [Mass/Vol]9.8 mg/dLNormal 8.6-10.3FPaulding County HospitalComment on above:Order Comment: FASTING.JKWPerformed By: #### CMP #### [place] [id number] USACarbon dioxide, total [Moles/volume] in Serum or Plasma Ordered By: Tondra Mapus on 45-01-9798GZ2 [Moles/Vol]Carbon dioxide, total [Moles/volume] in Serum or Jvpevs96.0-31.0[facility], Edwin ShawCO2 [Moles/Vol]30.7 mmol/NQynxzb59.0-31.0[facility] ShawComment on above:Order Comment: FASTING.JKWPerformed By: #### CMP #### [facility] [address] [place] [address] USAChloride [Moles/volume] in Serum or PlasmaOrdered By: Tondra Mapus on 70-40-6151Etnxoqas [Moles/Vol]Chloride [Moles/volume] in Serum or Awsqqk81-291MyydjwomkSelect Medical Cleveland Clinic Rehabilitation Hospital, Edwin ShawChloride [Moles/Vol]100 mmol/L Ievoxp04-554Khmluufeh50 Taylor StreetComment on above:Order Comment: FASTING.JKWPerformed By: #### CMP #### [facility] [address] [place] [address] USACholesterol [Mass/volume] in Serum or PlasmaOrdered By: Tondra Mapus on 65-09-2476Lyemmifgzfh [Mass/Vol]Cholesterol [Mass/volume] in Serum or Nhwadd869-842VlschzwicSelect Medical Cleveland Clinic Rehabilitation Hospital, Edwin ShawComment on above:Chol less than 200 mg/dl low riskChol 201-239 mg/dl borderline riskChol 240 mg/dl and greater high riskCholesterol [Mass/Vol]195 mg/mYZmuexd808-451HyyhrezufSelect Medical [facility] Clinic Rehabilitation Hospital, Edwin ShawComment on above:Chol less than 200 mg/dl low riskChol 201-239 mg/dl borderline riskChol 240 mg/dl and greater high riskOrder Comment: FASTING.JKWResult Comment: Chol less than 200 mg/dl low risk Chol 201-239 mg/dl borderline risk Chol 240 mg/dl and greater high riskPerformed By: #### PHOS, MG #### [facility] [address] [place] [address] USACholesterol in HDL [Mass/volume] in Serum or PlasmaOrdered By: Tondra Mapus on 37-06-7383Pdlgoyogqjn in HDL [Mass/Vol]Serum or plasma high density lipoprotein (HDL) cholesterol lqguodwlkpv96-30KwxlgffcsSelect Medical [facility] Clinic Rehabilitation Hospital, Edwin ShawComment on above:HDL CHOL ATP-III CLASSIFICATION Cardiovascular RiskHDL > or equal to 60 mg/dL LOWHDL < 40 mg/dL HIGHCholesterol in HDL [Mass/Vol]69 mg/qZFewuhu86-55RfgxoixjlSelect Medical [facility] Hospital, Edwin ShawComment on above: HDL CHOL ATP-III CLASSIFICATION Cardiovascular RiskHDL > or equal to 60 mg/dL LOWHDL < 40 mg/dL HIGHOrder Comment: FASTING.JKWResult Comment: HDL CHOL ATP-III CLASSIFICATION Cardiovascular Risk HDL > or equal to 60 mg/dL LOW HDL < 40 mg/dL HIGHPerformed By: #### PHOS, MG #### [facility] [address] [place] [address] USACholesterol in LDL Calc [Mass/Vol]Ordered By: Ariel Kinney on 11-03-3449Wnwmnldlwlj in LDL [Mass/Vol]Cholesterol in LDL [Mass/volume] in Serum or Plasma by calculationSt. Joseph'S Hospital0-[facility], Edwin ShawComment on above:LDL ATP III CLASSIFICATIONLDL less than 100 mg/dL OptimalLDL 100-129 mg/dL Near or above qnbexusMUU330-484 mg/dL Borderline highLDL 160-189 mg/dL HighLDL greater than 189 mg/dL Very highCholesterol in LDL [Mass/Vol]104 mg/dL High0-100[facility], [facility] ShawComment on above:LDL ATP III CLASSIFICATIONLDL less than 100 mg/dL OptimalLDL 100-129 mg/dL Near or above lzjfpalXBB094-598 mg/dL Borderline highLDL 160-189 mg/dL HighLDL greater than 189 mg/dL Very highCholesterol in VLDL Calc [Mass/Vol]Ordered By: Ariel Kinney on 23-25-7578Icnngqseehc in VLDL [Mass/Vol]Cholesterol in VLDL [Mass/volume] in Serum or Plasma by calculationSelect Medical [facility] Clinic Rehabilitation Hospital, Edwin ShawCholesterol in VLDL [Mass/Vol]22 mg/dLSelect [facility], Edwin ShawComplete Blood Count Auto Diffon 01-72-2297Xbzg Corpuscular HGB Conc33.8 g/lOKxlidv30.0-35.0The [facility] Physician GroupComment on above:Performed By: #### PHOS, MG #### [facility] [address] [place] [address] USANRBC%0.1 /100{WBC}Normal0-0.5The [facility] Comment on above:Performed By: #### JASMINA, MG #### [place] [address] USAComprehensive Metabolic Panelon 09-41-5019Ztlagry [Mass/Vol]4.8 g/dLNormal3.5-5.7The [facility] Physician GroupComment on above: Order Comment: FASTING.JKWPerformed By: #### CMP #### [place] [address] USAGFR/1.73 sq M.predicted MDRD (S/P/Bld) [Vol rate/Area] mL/min/{1.73_m2}NormalThe [facility]son Physician GroupComment on above:Order Comment: FASTING.JKWPerformed By: #### CMP #### [place] [address] USACreatinine [Mass/volume] in Serum or PlasmaOrdered By: Tondra Mapus on 66-42-8169Awkflbepua [Mass/Vol]Creatinine [Mass/volume] in Serum or Plasma0.60-1.20[facility] ShawCreatinine [Mass/Vol]0.76 mg/dLNormal0.60-1.20[facility] ShawComment on above:Order Comment: FASTING.JKWPerformed By: #### CMP #### [place] [address] USACreatinine [Mass/volume] in UrineOrdered By: Tondra Mapus on 23-58-0347Yqyishuuoi (U) [Mass/Vol]Creatinine [Mass/volume] in UrineSelect Medical Cleveland Clinic Rehabilitation Hospital, Edwin ShawComment on above:No reference range established Creatinine (U) [Mass/Vol]98.00 mg/dLSelect Medical Cleveland Clinic Rehabilitation Hospital, Edwin ShawComment on above:No reference range establishedEosinophils Auto (Bld) [#/Vol]Ordered By: Tondra Mapus on 23-58-8567Ueexwhbhbdf (Bld) [#/Vol]Automated eosinophil count 0.0-0.45[facility], [facility] ShawEosinophils [#/volume] in Blood by Automated countOrdered By: Tondra Mapus on 95-73-6373Zhfohubqliv (Bld) [#/Vol] 0.3 10*3/uLNormal0.0-0.45[facility], [facility] ShawComment on above: Performed By: #### PHOS, MG #### [facility] [address] [place] [address] USAEosinophils/100 WBC Auto (Bld)Ordered By: Tondra Mapus on 30-50-7395Eognrokvvgb/100 WBC (Bld)Automated eosinophil %.[facility], Edwin ShawEosinophils/100 leukocytes in Blood by Automated countOrdered By: Tondra Mapus on 07-99-3140Mccuostvfpu/100 WBC (Bld)4.4 %Normal.[facility], [facility] ShawComment on above:Performed By: #### PHOS, MG #### [facility] [address] [place] [address] USAErythrocyte distribution width Auto (RBC) [Ratio]Ordered By: Tondra Mapus on 17-59-7936Wfdadqwrhdi distribution width (RBC) [Ratio] Erythrocyte distribution width [Ratio] by Automated count11.9-15.3FPaulding County HospitalErythrocyte distribution width [Ratio] by Automated count Ordered By: Tondra Mapus on 99-27-3151Ezndxlyyqoo distribution width (RBC) [Ratio]13.6 %Bjouoa13.9-15.3FPaulding County HospitalComment on above: Performed By: #### PHOS, MG #### [facility] [address] [place], [place] [address] USAErythrocytes [#/volume] in Blood by Automated countOrdered By: Tondra Mapus on 10-32-9205YNW (Bld) [#/Vol]4.68 10*6/uLNormal3.60-5.00 [facility], Edwin ShawComment on above:Performed By: #### PHOS, MG #### [facility] [address] [place], [place] [address] USAGlobulin Calc (S) [Mass/Vol]Ordered By: Ariel Kinney on 41-64-8536Roeucora (S) [Mass/Vol]Serum globulin measurement by calculation (mass/volume)[facility], [facility] ShawGlucose [Mass/volume] in Serum or PlasmaOrdered By: Ariel Kinney on 77-41-4120Kscafqo [Mass/Vol]Glucose [Mass/volume] in Serum or Elutwn79-720KmgbbtjswSelect Medical Cleveland Clinic Rehabilitation Hospital, Edwin ShawComment on above:ADA recommended reference rangeRandom Glucose Reference Range is dependent on time and content of last meal. Glucose of more than 200 mg/dL in a nonstressed, ambulatory subject supports the diagnosisof Diabetes Mellitus. Glucose [Mass/Vol]90 mg/lOWhojtc72-760AfjnlbwraSelect Medical Cleveland Clinic Rehabilitation Hospital, Edwin ShawComment on above:ADA recommended reference rangeRandom Glucose Reference [...] recommended reference rangePerformed By: #### CMP #### [facility] [address] [place] [address] USAHematocrit Auto (Bld) [Volume fraction]Ordered By: Ariel Kinney on 57-22-3769Dmfbccmbeh (Bld) [Volume fraction]Hematocrit [Volume Fraction] of Blood by Automated count34.0-46.4FPaulding County Hospital Hematocrit [Volume Fraction] of Blood by Automated countOrdered By: Ariel Kinney on 51-43-1624Jyzjezooeo (Bld) [Volume fraction]42.8 %Bxyqbo93.0-46.4FPaulding County HospitalComment on above:Performed By: #### PHOS, MG #### [facility] [address] [place] [address] USAHemoglobin [Mass/volume] in BloodOrdered By: Ariel Kinney on 81-08-4036Penadcrmek (Bld) [Mass/Vol]Hemoglobin [Mass/volume] in Blood 11.8-15.4FPaulding County HospitalHemoglobin (Bld) [Mass/Vol]14.4 g/dL Mjylkl94.8-15.4FPaulding County HospitalComment on above:Performed By: #### PHOS, MG #### [facility] [address] [place] [address] USALeukocytes [#/volume] corrected for nucleated erythrocytes in Blood by Automated counOrdered By: Tondra Mapus on 25-47-4184UQJ corrected for nucl RBC Auto (Bld) [#/Vol]Leukocytes [#/volume] corrected for nucleated erythrocytes in Blood by Automated coun3.8-11.6FPaulding County Hospital WBC corrected for nucl RBC Auto (Bld) [#/Vol]6.0 10*3/uL3.8-11.6FPaulding County HospitalLeukocytes [#/volume] in Blood by Automated countOrdered By: Tondra Mapus on 00-44-7686XJK (Bld) [#/Vol]6.0 10*3/uLNormal3.8-11.6 [facility], [facility] ShawComment on above:Performed By: #### PHOS, MG #### [facility] [address] [place] [id number] USALipid Panelon 05-11-6540TFK Cholesterol,Viiuwbdwtf898 mg/dLHigh0-100The [facility] Physician GroupComment on above:Order Comment: FASTING.JKWResult Comment: LDL ATP III CLASSIFICATION LDL less than 100 mg/dL Optimal LDL 100-129 mg/dL Near or above optimal LDL 130-159 mg/dL Borderline high LDL 160-189 mg/dL High LDL greater than 189 mg/dL Very highPerformed By: #### PHOS, MG #### [facility] [address] [place] [address] USATriglyceride w/Codzed022 mg/dLNormal0-149The [facility] Physician GroupComment on above:Order Comment: FASTING.JKWResult Comment: TRIG ATP III CLASSIFICATION TRIG less than 150 mg/dL Normal TRIG 150-199 mg/dL Borderline high TRIG 200-500 mg/dL High TRIG greater than 500 mg/dL Very high Standard traceable to the [place] for Disease Conrtrol and Prevention (CDC) test method.Performed By: #### PHOS, MG #### [facility] [address] [place] [id number] USAVLDL TRKEUQLBRQO70 mg/dLNoCaroMont Health Physician GroupComment on above:Order Comment: FASTING.JKWPerformed By: #### PHOS, MG #### [facility] [address] [place] [address] USALymphocytes Auto (Bld) [#/Vol]Ordered By: Tondra Mapus on 77-98-4464Kykgzslttmr (Bld) [#/Vol]Lymphocytes [#/volume] in Blood by Automated count1.00-4.8[facility], Edwin ShawLymphocytes [#/volume] in Blood by Automated countOrdered By: Tondra Mapus on 97-55-0313Uzbfyudrbmp (Bld) [#/Vol] 1.8 10*3/uLNormal1.00-4.8[facility], [facility] ShawComment on above: Performed By: #### PHOS, MG #### [facility] [address] [place] [id number] USALymphocytes/100 WBC Auto (Bld)Ordered By: Tondra Mapus on 59-78-6015Wqrnwtaokbj/100 WBC (Bld)Lymphocytes/100 leukocytes in Blood by Automated count.[facility], Edwin ShawLymphocytes/100 leukocytes in Blood by Automated countOrdered By: Tondra Mapus on 82-28-2885Xzsliavwdum/100 WBC (Bld)30.3 %Normal.[facility], [facility] ShawComment on above: Performed By: #### PHOS, MG #### [facility] [address] [place] [id number] [facility] [place] (RBC) [Entitic mass]Ordered By: Tondra Mapus on 16-16-2852SBB (RBC) [Entitic mass]MCH [Entitic mass] by Automated count24.7-34.3 [facility] [Entitic mass] by Automated countOrdered By: Tondra Mapus on 68-73-2933KXF (RBC) [Entitic mass]30.8 zpYrchrj28.7-34.3 [facility], [facility] ShawComment on above:Performed By: #### PHOAgustina MG #### [facility] [address] [place] [id number] [facility] – BUFFALOHC Auto (RBC) [Mass/Vol]Ordered By: Tondra Mapus on 01-75-1674WIXQ (RBC) [Mass/Vol]MCHC [Mass/volume] by Automated count32.0-35.0 [facility] CenterHC (RBC) [Mass/Vol]33.8 g/dL32.0-35.0 [facility] CenterV Auto (RBC) [Entitic vol]Ordered By: Tondra Mapus on 68-70-1720SLP (RBC) [Entitic vol]MCV [Entitic volume] by Automated -489IcdigyigeSouthwest General Health CenterV [Entitic volume] by Automated countOrdered By: Migueldra Mapus on 44-44-7849APV (RBC) [Entitic vol]91.3 fLNormal 80-100[facility], [facility] ShawComment on above:Performed By: #### PHOAgustina, MG #### [place] [address] USAMagnesium [Mass/volume] in Serum or PlasmaOrdered By: Miracle Marie on 59-70-0215Asymrtjds [Mass/Vol]Magnesium [Mass/volume] in Serum or Plasma1.9-2.7FPaulding County HospitalMagnesium [Mass/Vol]2.1 mg/dL Normal1.9-2.7FPaulding County HospitalComment on above:Order Comment: FASTING.JKWResult Comment: PERFORMED BY: [place] [address] PATHOLOGIST DIESEL ENGINE OPERATOR JOHN DAMIAN M.D.Performed By: #### PHOAgustina, MG #### [place] [address] USAMicroAlb Creat Ratio,Uon 67-47-4253Iaakguxsph, Urine (Random)98.00 mg/dLNoCaroMont Health Physician GroupComment on above:Result Comment: No reference range establishedPerformed By: #### PHOAgustina MG #### [place] [address] USAMicroalbumin/Creatinine Ratio13.3 mg/gNormal0.0-30.0The [facility]son Physician GroupComment on above:Result Comment: 30-300 mg/g indicates an increased risk for diabetic nephropathy. Greater than 300 mg/g is consistent with clinical nephropathy. (Am. J. Kidney Disease 1995, 25:107) PERFORMED BY: [place] [address] PATHOLOGIST DIESEL ENGINE OPERATOR JOHN DAMIAN M.D.Performed By: #### PHOAgustina MG #### [place] [address] USAMicroalbumin [Mass/volume] in UrineOrdered By: Tondra Mapus on 37-04-9843Taccxio DL <= 20 mg/L (U) [Mass/Vol]Microalbumin [Mass/volume] in Urine0.0-1.8[facility] ShawAlbumin DL <= 20 mg/L (U) [Mass/Vol]1.3 mg/dLNormal0.0-1.8[facility] Comment on above:Performed By: #### PHOS, MG #### [place] [address] USAMonocytes Auto (Bld) [#/Vol]Ordered By: Tondra Mapus on 77-36-6190Xhfxebgcc (Bld) [#/Vol]Automated blood monocyte count0.0-0.8[facility], Edwin ShawMonocytes [#/volume] in Blood by Automated countOrdered By: Tondra Mapus on 92-96-0739Lgrnegzon (Bld) [#/Vol]0.5 10*3/uLNormal0.0-0.8 [facility], [facility] ShawComment on above:Performed By: #### PHOS, MG #### [place] [address] USAMonocytes/100 WBC Auto (Bld)Ordered By: Tondra Mapus on 70-67-4749Vmdveddot/100 WBC (Bld)Automated monocyte %.[facility] ShawMonocytes/100 leukocytes in Blood by Automated countOrdered By: Tondra Mapus on 69-46-1354Wjaphmyxq/100 WBC (Bld)9.0 %Normal.[facility], [facility] ShawComment on above:Performed By: #### PHOS, MG #### [facility] [address] [place] [address] USANeutrophils Auto (Bld) [#/Vol]Ordered By: Tondra Mapus on 32-84-8032Mscaexgsvsz (Bld) [#/Vol]Neutrophils [#/volume] in Blood by Automated count1.8-7.7FPaulding County HospitalNeutrophils [#/volume] in Blood by Automated countOrdered By: Tondra Mapus on 98-46-5850Sucbxqxqxfp (Bld) [#/Vol] 3.3 10*3/uLNormal1.8-7.7FPaulding County HospitalComment on above: Performed By: #### PHOS, MG #### [facility] [address] [place] [address] USANeutrophils/100 WBC Auto (Bld)Ordered By: Tondra Mapus on 97-33-2126Mbaoyscyfji/100 WBC (Bld)Automated neutrophil %.[facility] ShawNeutrophils/100 leukocytes in Blood by Automated countOrdered By: Tondra Mapus on 14-89-9084Ybzjvlusfeu/100 WBC (Bld)55.2 %Normal.[facility], [facility] ShawComment on above:Performed By: #### PHOS, MG #### [facility] [address] [place] [id number] USANo Panel InformationOrdered By: Tondra Mapus on 09-22-2024 Estimated GFR (CKD-EPI)> 60.0 mL/MinSelect Medical Cleveland Clinic Rehabilitation Hospital, Edwin ShawPharmacy Creatinine Clearance (ChemN/[facility] ColumbusNucleated erythrocytes [Presence] in Blood by Automated countOrdered By: Tondra Mapus on 57-73-2558Vbccxyqen RBC Auto Ql (Bld)Nucleated erythrocytes [Presence] in Blood by Automated count0-0.5FPaulding County HospitalNucleated RBC Auto Ql (Bld)0.1 /100{WBC}0-0.5FPaulding County HospitalPhosphate [Mass/volume] in Serum or PlasmaOrdered By: Miracle Marie on 31-17-4410Ttztkggfm [Mass/Vol] Phosphate [Mass/volume] in Serum or Plasma2.5-4.5FPaulding County HospitalPhosphate [Mass/Vol]3.9 mg/dLNormal2.5-4.5FPaulding County HospitalComment on above:Order Comment: FASTING.JKWPerformed By: #### JASMINA MG #### [facility] [address] [place] [address] USAPlatelet mean volume Auto (Bld) [Entitic vol]Ordered By: Tondra Mapus on 27-87-7468Jhtpzgxd mean volume (Bld) [Entitic vol]Platelet mean volume [Entitic volume] in Blood by Automated count6.3-10.7FPaulding County HospitalPlatelet mean volume [Entitic volume] in Blood by Automated count Ordered By: Tondra Mapus on 19-60-6602Saifkdok mean volume (Bld) [Entitic vol] 8.0 fLNormal6.3-10.7FPaulding County HospitalComment on above:Performed By: #### JAMSINA MG #### [facility] [address] [place] [address] USAPlatelets Auto (Bld) [#/Vol]Ordered By: Tondra Mapus on 70-91-5197Bnlqqrsml (Bld) [#/Vol]Platelets [#/volume] in Blood by Automated -125NyomdhqbpSelect Medical Cleveland Clinic Rehabilitation Hospital, Edwin ShawPlatelets [#/volume] in Blood by Automated countOrdered By: Tondra Mapus on 74-66-8866Kbqsibuvj (Bld) [#/Vol]293 10*3/rVShezzw638-723VjkjcosilSelect Medical Cleveland Clinic Rehabilitation Hospital, Edwin ShawComment on above:Performed By: #### PHOAgustina, MG #### [facility] [address] [place] [address] USAPotassium [Moles/volume] in Serum or PlasmaOrdered By: Ariel Kinney on 08-39-0418Fhwcdknhm [Moles/Vol]Potassium [Moles/volume] in Serum or Plasma3.5-5.1FPaulding County HospitalPotassium [Moles/Vol]3.8 mmol/LNormal3.5-5.1FPaulding County HospitalComment on above:Order Comment: FASTING.JKWPerformed By: #### CMP #### [facility] [address] [place] [address] USAProtein [Mass/volume] in Serum or PlasmaOrdered By: Ariel Kinney on 95-94-2865Cjfhuzc [Mass/Vol]Protein [Mass/volume] in Serum or Plasma 6.4-8.9[facility] ShawProtein [Mass/Vol]7.7 g/dLNormal6.4-8.9 [facility], [facility] ShawComment on above:Order Comment: FASTING.JKW Performed By: #### CMP #### [facility] [address] [place] [id number] USARBC Auto (Bld) [#/Vol]Ordered By: Ariel Kinney on 02-55-4556SAH (Bld) [#/Vol]Erythrocytes [#/volume] in Blood by Automated count 3.60-5.00[facility] John Medical Centererum globulin measurement by calculation (mass/volume)Ordered By: Ariel Kinney on 55-56-4654Mpubiphp (S) [Mass/Vol]2.9 g/dLNormalSelect Medical [facility] Clinic Rehabilitation Hospital, Edwin ShawComment on above:Order Comment: FASTING.JKWPerformed By: #### CMP #### [facility] [address] [place] [address] USASerum or plasma albumin/globulin mass ratioOrdered By: Ariel Kinney on 93-66-9172Zppxfvc/Globulin [Mass ratio]Serum or plasma albumin/globulin mass ratioSelect Medical Cleveland Clinic Rehabilitation Hospital, Edwin ShawAlbumin/Globulin [Mass ratio]1.7 {ratio}NormalSelect Medical [facility] Clinic Rehabilitation Hospital, Edwin ShawComment on above: Order Comment: FASTING.JKWPerformed By: #### CMP #### [facility] [address] [place] [address] USASerum or plasma anion gap determinationOrdered By: Ariel Kinney on 61-83-7749Yyast gap [Moles/Vol]Serum or plasma anion gap determination 6.0-15.0[facility] ShawAnion gap [Moles/Vol]11.1 mmol/LNormal 6.0-15.0[facility] ShawComment on above:Order Comment: FASTING.JKWPerformed By: #### CMP #### [facility] [address] [place] [id number] USASerum or plasma total cholesterol/high density lipoprotein (HDL) cholesterol mass ratOrdered By: Tondra Kinney on 09-22-2024 Cholesterol.total/Cholesterol in HDL [Mass ratio]Serum or plasma total cholesterol/high density lipoprotein (HDL) cholesterol mass rat<5.0[facility] ShawCholesterol.total/Cholesterol in HDL [Mass ratio]2.8 {ratio}Normal<5.0[facility], [facility] ShawComment on above:Order Comment: FASTING.JKWPerformed By: #### PHOS, MG #### [facility] [address] [place] [address] USASodium [Moles/volume] in Serum or PlasmaOrdered By: Nataliea Gregoria on 97-60-0516Hfvfqd [Moles/Vol]Sodium [Moles/volume] in Serum or Plasma 136-145[facility] St. John Medical Centerodium [Moles/Vol]138 mmol/LNormal 136-145[facility], [facility] ShawComment on above:Order Comment: FASTING.JKWPerformed By: #### CMP #### [facility] [address] [place] [id number] USAThyroid Stim Hormone w/Rflxon 46-04-4141Uxpyins Stim Hormone w/Rflx2.04 u[iU]/mLNormal0.45-5.33The [facility]son Physician GroupComment on above:Order Comment: FASTING.JKWResult Comment: PERFORMED BY: [place] [address] PATHOLOGIST DIESEL ENGINE OPERATOR JOHN DAMIAN M.D.Performed By: #### PHOS, MG #### [facility] [address] [place] [address] USAThyrotropin [Units/volume] in Serum or PlasmaOrdered By: Nataliea Gregoria on 10-59-9127SPL QnThyrotropin [Units/volume] in Serum or Plasma 0.45-5.33[facility], [facility] ShawTSH Qn2.04 m[IU]/L0.45-5.33[facility], [facility] ShawTriglyceride [Mass/volume] in Serum or PlasmaOrdered By: Tondra Map on 06-00-9980Lldrzsknzhiy [Mass/Vol]Triglyceride [Mass/volume] in Serum or Plasma0[facility], [facility] ShawComment on above:TRIG ATP III CLASSIFICATIONTRIG less than 150 mg/dL NormalTRIG 150-199 mg/dL Borderline highTRIG 200-500 mg/dL High TRIG greater than 500 mg/dL Very highStandard traceable to the Center for Disease Conrtrol and Prevention (CDC) test method. Triglyceride [Mass/Vol]111 mg/dL0[facility], [facility] ShawComment on above:TRIG ATP III CLASSIFICATIONTRIG less than 150 mg/dL NormalTRIG 150-199 mg/dL Borderline highTRIG 200-500 mg/dL High TRIG greater than 500 mg/dL Very highStandard traceable to the Center for Disease Conrtrol and Prevention (CDC) test method.Urea nitrogen [Mass/volume] in Serum or PlasmaOrdered By: Ariel Kinney on 68-38-7953Cyub nitrogen [Mass/Vol]Urea nitrogen [Mass/volume] in Serum or Plasma12-25[facility] ShawUrea nitrogen [Mass/Vol]18 mg/dL Normal12-25[facility] ShawComment on above:Order Comment: FASTING.JKWPerformed By: #### CMP #### [facility] [address] [place] [id number] USAUrine microalbumin/creatinine mass ratioOrdered By: Migueldra Gregoria on 31-64-9316Vlbkrdm/Creatinine DL <= 20 mg/L (U) [Mass ratio]Urine microalbumin/creatinine mass ratio0.0-30.0[facility] Comment on above:30-300 mg/g indicates an increased risk for diabetic nephropathy. Greater than 300 mg/g is consistent with clinical nephropathy. (Am. J. Kidney Disease 1995, 25:107)Albumin/Creatinine DL <= 20 mg/L (U) [Mass ratio] 13.3 mg/g0.0-30.0[facility], [facility] ShawComment on above:30-300 mg/g indicates an increased risk for diabetic nephropathy. Greater than 300 mg/g is consistent with clinical nephropathy. (Am. J. Kidney Disease 1995, 25:107) Vitamin B12 ser/plasOrdered By: Ariel Kinney on 82-07-7242Kpqivhmdx (Vitamin B12) [Mass/Vol]Vitamin B12 ser/eqjd013-402Wbasihfnf[address] [place] [address] Cobalamin (Vitamin B12) [Mass/Vol]655 pg/yVIvtrho124-405Dwbnwudeo[address] [place], [place] [address]Comment on above:Order Comment: FASTING.JKWPerformed By: #### PHOS, MG #### [facility] [address] [place] [address] USAVitamin D 25 Hydroxy Totalon 72-73-3828Oovmajc D 25 Hydroxy Total66.2 ng/dPAgailc72-376Zig [facility] Physician GroupComment on above:Result Comment: VITAMIN D STATUS 25(OH)VITAMIN D RANGE (ng/mL) Deficient <20 Insufficient 20 to <30 Sufficient 30 to 100 Reference: Oh MF,Leyda NC, James YUNG, et al. Evaluation,treatment, and prevention of vitamin D deficiency; an Endocrine Society clinical practice guideline. JCEM. 2010; 96(7):1911-30. PERFORMED BY: [facility] [address] [place] [address] PATHOLOGIST DIESEL ENGINE OPERATOR JOHN DAMIAN M.D.Performed By: #### CMP #### [facility] [address] [place] [address] USAVitamin D+Metabolites [Mass/volume] in Serum or Plasma Ordered By: Ariel Kinney on 67-64-8281Qiocqbe D+Metabolites [Mass/Vol]Vitamin D+Metabolites [Mass/volume] in Serum or Trbwcx58-890QouuaobnpSelect Medical Cleveland Clinic Rehabilitation Hospital, Edwin ShawComment on above:VITAMIN D STATUS 25(OH)VITAMIN D RANGE (ng/mL) Deficient <20 Insufficient 20 to <49Rqiqjxurkn51 to 100Reference: Leyda Sánchez, James YUNG, et al. Evaluation,treatment, and prevention of vitamin D deficiency; an Endocrine Society clinical practice guideline. JCEM. 2010; 96 (7):1911-.Vitamin D+Metabolites [Mass/Vol]66.2 ng/dO54-618NuxtfhwdcSelect Medical Cleveland Clinic Rehabilitation Hospital, Edwin ShawComment on above:VITAMIN D STATUS 25(OH)VITAMIN D RANGE (ng/mL) Deficient <20 Insufficient 20 to <45Fczkuticbg15 to 100Reference: Leyda Sánchez, James YUNG, et al. Evaluation,treatment, and prevention of vitamin D deficiency; an Endocrine Society clinical practice guideline. JCEM. 2010; 96(7):1911-.WBC Auto (Bld) [#/Vol]Ordered By: Ariel Kinney on 87-03-5448CZH (Bld) [#/Vol]Leukocytes [#/volume] in Blood by Automated count 3.8-11.[address] [place], [place] [address]NM juan perf SPECT rest stron 06-05-2024 NM juan perf SPECT rest [place] [address] Nuclear Medicine Report Signed Patient: Loraine Griffith MR#: [id number] 6 : 1955 Acct:[id number] Age/Sex: 69 / F ADM Date: 06/05/24 Loc: [place] Room: Type: [facility] Attending Dr: Lynn Luther MD Copies to: MD Lynn De La Paz MD Ordering Provider: Lynn Luther MD Date of Service: 06/05/24 [place] juan perf SPECT rest str: R06.09, I49.3, [...] Rachael Perrin M.D.06/05/2024 5:38 PM Dictation Location: [place] [address] Transcribed By: [facility] 06/05/24 173 Dictated By: Rachael Perrin MD 06/05/24 173 Signed By: 06/05/24 1738[facility] Physician GroupNo Panel InformationOrdered By: Rachael Perrin on 41-64-9833DMTUMEXOKMER[place] [address] Cardiac Stress Test Signed Patient: Loraine Griffith MR#: [id number] : 1955 Date of Service:0 06/05/24 Age/Sex: 69 / F ADM Date: 5 Loc: [place] Room: Type: [facility] Attending Dr: Lynn Luther MD Copies to: [...] Rachael Perrin MD 06/05/241704 Signed By: 06/05/241706 [facility] Work Phone: XR lumbar spine 2-3V*on 29-35-5011SJ lumbar spine 2-3V*[facility] [place] [address] [place] [address] XRay Report Signed Patient: Loraine Griffith MR#: [id number] 6 : 1955 Acct:[id number] Age/Sex: 69 / F ADM Date: 05/20/24 [facility] Type: [facility] Attending Dr: Lynn Luther MD Copies to: [...] Osorio Jr., D.O.05/20/2024 3:09 PM Dictation Location: [place] [address] Transcribed By: [facility] 05/20/24 1509 Dictated By: Liam Osorio Jr, DO 05/20/24 1508 Signed By: 05/20/24 1509NoCaroMont Health Physician CtzymNcF5h HPLC (Bld) [Mass fraction] on 16-90-2360KiZ2q (Bld) [Mass fraction]Hemoglobin A1c/Hemoglobin.total in Blood by [facility] HospitalNo Panel Informationon 28-29-0852Mtlwcam Ofuvixt86IrjkjhbbeSelect Medical [facility] Clinic Rehabilitation Hospital, Edwin ShawCalcium [Mass/volume] in Serum or PlasmaOrdered By: Dmitry Monserrat on 49-81-3969Srusums [Mass/Vol]9.4 mg/dLNormal 8.6-10.3FPaulding County HospitalComment on above:Performed By: #### CMP #### [facility] [address] [place] [address] USACalcium [Mass/Vol]Calcium [Mass/volume] in Serum or Plasma 8.6-10.3FPaulding County HospitalCreatinineon 86-02-4526MOV/1.73 sq M.predicted MDRD (S/P/Bld) [Vol rate/Area]mL/min/{1.73_m2}NormalThe [facility]son Physician GroupComment on above:Performed By: #### PHOS, MG #### [facility] [address] [place] [address] USACreatinine [Mass/volume] in Serum or PlasmaOrdered By: Dmitry German on 82-58-6186Wwuivajyja [Mass/Vol]0.76 mg/dLNormal0.60-1.20 [facility], [facility] ShawComment on above:Performed By: #### PHOS, MG #### [facility] [address] [place] [address] USACreatinine [Mass/Vol]Creatinine [Mass/volume] in Serum or Plasma0.60-1.20[facility], [facility] ShawMagnesium [Mass/volume] in Serum or PlasmaOrdered By: Dmitry German on 93-48-8585Qtgdtnppv [Mass/Vol]2.1 mg/dL Normal1.9-2.7FPaulding County HospitalComment on above:Result Comment: PERFORMED BY: [place] [address] PATHOLOGIST DIESEL ENGINE OPERATOR JR FLORES M.D.Performed By: #### CMP #### [facility] [address] [place], [place] [address] USAMagnesium [Mass/Vol]Magnesium [Mass/volume] in Serum or Plasma1.9-2.7FPaulding County HospitalNo Panel InformationOrdered By: Dmitry German on 66-14-2018Zmogkvamz GFR (CKD-EPI)> 60.0 mL/MinSelect Medical Cleveland Clinic Rehabilitation Hospital, Edwin ShawPharmacy Creatinine Clearance (ChemN/AFPaulding County HospitalPhosphate [Mass/volume] in Serum or PlasmaOrdered By: Dmitry German on 25-16-6938Thhpxmsle [Mass/Vol]3.7 mg/dLNormal2.5-4.5FPaulding County HospitalComment on above:Performed By: #### CMP #### [facility] [address] [place] [address] USAPhosphate [Mass/Vol]Phosphate [Mass/volume] in Serum or Plasma2.5-4.5FPaulding County HospitalUrea nitrogen [Mass/volume] in Serum or PlasmaOrdered By: Dmitry German on 57-89-5757Rjxm nitrogen [Mass/Vol] 16 mg/dLNormal12-25[facility], [facility] ShawComment on above:Performed By: #### PHOS, MG #### [facility] [address] [place] [id number] USAUrea nitrogen [Mass/Vol]Urea nitrogen [Mass/volume] in Serum or Plasma12-25[facility], Edwin ShawAlanine aminotransferase [Enzymatic activity/volume] in Serum or PlasmaOrdered By: Ariel Kinney on 94-91-8824AOE [Catalytic activity/Vol]24 U/L7-[facility], [facility] ShawAlbumin [Mass/volume] in Serum or Plasma by Bromocresol green (BCG) dye binding methoOrdered By: Ariel Kinney on 00-61-4661Bydbgox BCG dye [Mass/Vol]4.6 g/dL3.5-5.7FPaulding County HospitalAlkaline phosphatase [Enzymatic activity/volume] in Serum or PlasmaOrdered By: Tondra Sravanus on 26-47-4580SOK [Catalytic activity/Vol]55 U/R78-685VthmgcuroSelect Medical Cleveland Clinic Rehabilitation Hospital, Edwin ShawAspartate aminotransferase [Enzymatic activity/volume] in Serum or PlasmaOrdered By: Tondra Mapus on 40-83-3707ZUW [Catalytic activity/Vol]25 U/C17-23MocthdaygSelect Medical Cleveland Clinic Rehabilitation Hospital, Edwin ShawBasophils Auto (Bld) [#/Vol]Ordered By: Ariel Kinney on 84-68-8954Egvjltgde (Bld) [#/Vol]0.0 10*3/uL0.0-0.2FPaulding County HospitalBasophils/100 WBC Auto (Bld)Ordered By: Ariel Kinney on 09-23-2023 Basophils/100 WBC (Bld)0.8 %.[facility] Hospital, Edwin ShawBilirubin.total [Mass/volume] in Serum or PlasmaOrdered By: Ariel Kinney on 12-08-3484Ocajruyvn [Mass/Vol]0.4 mg/dL0.3-1.0[facility], [facility] ShawCalcium [Mass/volume] in Serum or PlasmaOrdered By: Ariel Kinney on 36-87-6441Pydspso [Mass/Vol]9.6 mg/dL8.6-10.3FPaulding County HospitalCarbon dioxide, total [Moles/volume] in Serum or PlasmaOrdered By: Ariel Kinney on 88-92-4078CA2 [Moles/Vol]28.4 mmol/L21.0-31.0[facility], Edwin ShawChloride [Moles/volume] in Serum or PlasmaOrdered By: Ariel Kinney on 50-18-5252Kzebuigy [Moles/Vol]103 mmol/G85-244NeiugymffSelect Medical Cleveland Clinic Rehabilitation Hospital, Edwin ShawCholesterol [Mass/volume] in Serum or PlasmaOrdered By: Ariel Kinney on 09-23-2023 Cholesterol [Mass/Vol]185 mg/yZ560-739OeyynburaSelect Medical Cleveland Clinic Rehabilitation Hospital, Edwin ShawComment on above:Chol less than 200 mg/dl low riskChol 201-239 mg/dl borderline riskChol 240 mg/dl and greater high riskCholesterol in LDL Calc [Mass/Vol]Ordered By: Airel Kinney on 98-55-9935Iksezrbamgh in LDL [Mass/Vol]96 mg/dL0-100[facility], Edwin ShawComment on above:LDL ATP III CLASSIFICATIONLDL less than 100 mg/dL OptimalLDL 100-129 mg/dL Near or above yiycglcATO750-159 mg/dL Borderline highLDL 160-189 mg/dL HighLDL greater than 189 mg/dL Very high Cholesterol in VLDL Calc [Mass/Vol]Ordered By: Ariel Kinney on 09-23-2023 Cholesterol in VLDL [Mass/Vol]18 mg/dLSelect Medical Cleveland Clinic Rehabilitation [facility], [facility] Shaw Creatinine [Mass/volume] in Serum or PlasmaOrdered By: Ariel Kinney on 17-98-9727Zqdsjykylz [Mass/Vol]0.75 mg/dL0.60-1.20[facility] ShawCreatinine [Mass/volume] in UrineOrdered By: Ariel Kinney on 09-23-2023 Creatinine (U) [Mass/Vol]86.0 mg/dLSelect Medical Cleveland Clinic Rehabilitation Hospital, Edwin ShawComment on above:No reference range establishedEosinophils Auto (Bld) [#/Vol]Ordered By: Ariel Kinney on 19-18-0564Udjthsihhug (Bld) [#/Vol]0.2 10*3/uL0.0-0.45[facility], Edwin ShawEosinophils/100 WBC Auto (Bld)Ordered By: Ariel Kinney on 12-91-6809Jgtcradwmmz/100 WBC (Bld)3.4 %.[facility] Erythrocyte distribution width Auto (RBC) [Ratio]Ordered By: Ariel Kinney on 18-99-4454Rjrjiygdoxr distribution width (RBC) [Ratio]13.4 %11.9-15.3FPaulding County HospitalGlobulin Calc (S) [Mass/Vol]Ordered By: Ariel Kinney on 98-73-9142Tnipqexi (S) [Mass/Vol]2.6 g/dLSelect Medical Cleveland Clinic Rehabilitation [facility], [facility] Shaw Glucose [Mass/volume] in Serum or PlasmaOrdered By: Ariel Kinney on 09-23-2023 Glucose [Mass/Vol]85 mg/uF91-018OblnudazwSelect Medical Cleveland Clinic Rehabilitation Hospital, Edwin ShawComment on above:ADA recommended reference rangeRandom Glucose Reference Range is dependent on time and content of last meal. Glucose of more than 200 mg/dL in a nonstressed, ambulatory subject supports the diagnosisof Diabetes Mellitus. Hematocrit Auto (Bld) [Volume fraction]Ordered By: Ariel Kinney on 09-23-2023 Hematocrit (Bld) [Volume fraction]41.7 %34.0-46.4FPaulding County HospitalHemoglobin [Mass/volume] in BloodOrdered By: Ariel Kinney on 09-23-2023 Hemoglobin (Bld) [Mass/Vol]13.9 g/dL11.8-15.4FPaulding County Hospital Leukocytes [#/volume] corrected for nucleated erythrocytes in Blood by Automated counOrdered By: Ariel Kinney on 33-60-9047KXD corrected for nucl RBC Auto (Bld) [#/Vol]5.6 10*3/uL3.8-11.6FPaulding County HospitalLymphocytes Auto (Bld) [#/Vol]Ordered By: Ariel Hinsonus on 08-79-9778Mutzbgpkghu (Bld) [#/Vol]2.4 10*3/uL1.00-4.8[facility], Edwin ShawLymphocytes/100 WBC Auto (Bld) Ordered By: Ariel Hinsonus on 65-04-4185Jmecteegwmh/100 WBC (Bld)42.7 %.[facility], Edwin ShawMCH Auto (RBC) [Entitic mass]Ordered By: Ariel Kinney on 66-95-3553RRK (RBC) [Entitic mass]30.5 pg24.7-34.3FPaulding County HospitalMCHC Auto (RBC) [Mass/Vol]Ordered By: Ariel Hinsonus on 19-32-5107VOHW (RBC) [Mass/Vol]33.4 g/dL32.0-35.0[facility] ShawMCV Auto (RBC) [Entitic vol]Ordered By: Nataliea Gregoria on 37-85-8909WWZ (RBC) [Entitic vol]91.2 mR76-034WnhzejzotSelect Medical Cleveland Clinic Rehabilitation Hospital, Edwin ShawMicroalbumin [Mass/volume] in Urine Ordered By: Ariel Kinney on 10-01-1651Bbskmuf DL <= 20 mg/L (U) [Mass/Vol]mg/dL 0.0-1.8[facility] ShawMonocytes Auto (Bld) [#/Vol]Ordered By: Migueldra Sravanus on 40-63-1043Rkiwcutgt (Bld) [#/Vol]0.4 10*3/uL0.0-0.8[facility] ShawMonocytes/100 WBC Auto (Bld)Ordered By: Tona Mapus on 74-97-3081Cbvspqoru/100 WBC (Bld)7.5 %.[facility] Neutrophils Auto (Bld) [#/Vol]Ordered By: Tondra Mapus on 77-41-6840Klmeqaijiqt (Bld) [#/Vol]2.5 10*3/uL1.8-7.7FPaulding County HospitalNeutrophils/100 WBC Auto (Bld)Ordered By: Tondra Mapus on 81-03-0969Enmpspunfnl/100 WBC (Bld) 45.6 %.[facility] ShawNo Panel InformationOrdered By: Ariel Kinney on 43-88-7410Victxjgzj GFR (CKD-EPI)> 60.0 mL/MinSelect Medical [facility] Clinic Rehabilitation Hospital, Edwin ShawPharmacy Creatinine Clearance (ChemN/[facility] ColumbusNucleated erythrocytes [Presence] in Blood by Automated countOrdered By: Ariel Kinney on 83-77-3390Cwrfpnprv RBC Auto Ql (Bld)0.2 /100{WBC}0-0.5FPaulding County HospitalPlatelet mean volume Auto (Bld) [Entitic vol]Ordered By: Tona Mapus on 13-74-3481Ugnprhin mean volume (Bld) [Entitic vol]8.1 fL6.3-10.7 [facility] ShawPlatelets Auto (Bld) [#/Vol]Ordered By: Tondra Mapus on 03-47-7054Mekdgxzui (Bld) [#/Vol]269 10*3/kE138-893DndzubdvhSelect Medical [facility] Hospital, Edwin ShawPotassium [Moles/volume] in Serum or PlasmaOrdered By: Tondra Mapus on 37-48-8915Cssnrsjhw [Moles/Vol]4.1 mmol/L3.5-5.1FPaulding County HospitalProtein [Mass/volume] in Serum or PlasmaOrdered By: Tondra Mapus on 26-70-1239Kdgiayh [Mass/Vol]7.2 g/dL6.4-8.9[facility] RBC Auto (Bld) [#/Vol]Ordered By: Tondra Mapus on 90-77-6578VJT (Bld) [#/Vol] 4.58 10*6/uL3.60-5.00[facility] Centererum or plasma albumin/globulin mass ratioOrdered By: Ariel Kinney on 09-23-2023 Albumin/Globulin [Mass ratio]1.8 {ratio}[facility] Centererum or plasma anion gap determinationOrdered By: Ariel Kinney on 57-44-1095Sjtkr gap [Moles/Vol]12.7 mmol/L6.0-15.0[facility] Centererum or plasma high density lipoprotein (HDL) cholesterol measurementOrdered By: Ariel Kinney on 01-58-9678Dcmzseuqvpz in HDL [Mass/Vol]71 mg/yB92-26QgvwaogtcSelect Medical [facility], Edwin ShawComment on above:HDL CHOL ATP-III CLASSIFICATION Cardiovascular RiskHDL > or equal to 60 mg/dL LOWHDL < 40 mg/dL HIGHSerum or plasma total cholesterol/high density lipoprotein (HDL) cholesterol mass ratOrdered By: Ariel Kinney on 16-12-2246Rwaiiahausj.total/Cholesterol in HDL [Mass ratio]2.6 {ratio}<5.0[facility] Medical Centerodium [Moles/volume] in Serum or PlasmaOrdered By: Ariel Kinney on 41-44-0801Knvpzr [Moles/Vol]140 mmol/F449-360 [facility] ShawThyrotropin [Units/volume] in Serum or Plasma Ordered By: Ariel Kinney on 92-78-8068MFB Qn2.69 m[IU]/L0.45-5.33[facility] ShawTriglyceride [Mass/volume] in Serum or PlasmaOrdered By: Ariel Kinney on 28-13-4245Fyhwrfkfiopo [Mass/Vol]90 mg/dL0-149[facility] ShawComment on above:TRIG ATP III CLASSIFICATIONTRIG less than 150 mg/dL NormalTRIG 150-199 mg/dL Borderline highTRIG 200-500 mg/dL High TRIG greater than 500 mg/dL Very highStandard traceable to the Center for Disease Co nrtrol and Prevention (CDC) test method.Urea nitrogen [Mass/volume] in Serum or PlasmaOrdered By: Ariel Kinney on 91-41-8736Lcll nitrogen [Mass/Vol]23 mg/dL7-25 [facility] ShawUrine microalbumin/creatinine mass ratioOrdered By: Ariel Kinney on 71-74-0955Rwgqzrh/Creatinine DL <= 20 mg/L (U) [Mass ratio] TNCrystal Clinic Orthopedic CenterComment on above:Test not performedVitamin B12 ser/plasOrdered By: Ariel Kinney on 94-31-5338Mdhhxisri (Vitamin B12) [Mass/Vol]549 pg/bV408-941SfhdgzkvzSelect Medical [facility] Clinic Rehabilitation Hospital, Edwin ShawVitamin D+Metabolites [Mass/volume] in Serum or PlasmaOrdered By: Ariel Kinney on 39-62-7297Wyxroxl D+Metabolites [Mass/Vol]72.1 ng/cI13-092QdcffxvyxSelect Medical [facility], [facility] ShawComment on above:VITAMIN D STATUS 25(OH)VITAMIN D RANGE (ng/mL) Deficient <20 Insufficient 20 to <75Aflshiwjvi04 to 100Reference: Oh MF,Leyda SALTER, James YUNG, et al. Evaluation,treatment, and prevention of vitamin D deficiency; an Endocrine Society clinical practice guideline. JCEM. 2010; 96 (7):1911-30.WBC Auto (Bld) [#/Vol]Ordered By: Ariel Kinney on 05-09-8220IPY (Bld) [#/Vol]5.6 10*3/uL3.8-11.6FPaulding County HospitalA1C HEMOGLOBIN on 20-84-0841LqX2j (Bld) [Mass fraction]5.4 %[employer] Other Glucose - FINGER STICKon 55-04-4241Wzddoph [Mass/Vol] 82 mg/dLNortCanvas Other HbA1c (Bld) [Mass fraction]on 44-64-5207Z6Y HEMOGLOBIN [employer] Other Calcium [Mass/volume] in Serum or PlasmaOrdered By: Dmitry German on 06-80-7744Zqbdysz [Mass/Vol]8.8 mg/dL8.6-10.3FPaulding County HospitalCholesterol [Mass/volume] in Serum or PlasmaOrdered By: Ariel Kinney on 93-81-0932Dqzbwojjkdp [Mass/Vol]178 mg/aT074-078GadcemszbSelect Medical [facility], Edwin ShawComment on above:Chol less than 200 mg/dl low riskChol 201-239 mg/dl borderline riskChol 240 mg/dl and greater high riskCholesterol in LDL Calc [Mass/Vol]Ordered By: Ariel Kinney on 22-93-2839Jsapzkjorhm in LDL [Mass/Vol]89 mg/dL0-100[facility] ShawComment on above:LDL ATP III CLASSIFICATIONLDL less than 100 mg/dL OptimalLDL 100-129 mg/dL Near or above sxzpopoJQB374-339 mg/dL Borderline highLDL 160-189 mg/dL HighLDL greater than 189 mg/dL Very highCholesterol in VLDL Calc [Mass/Vol]Ordered By: Ariel Kinney on 22-36-4494Rwuiomzgdlw in VLDL [Mass/Vol]29 mg/dLSelect [facility], [facility] ShawCreatinine [Mass/volume] in Serum or PlasmaOrdered By: Dmitry German on 82-59-5888Jbnahiwfqr [Mass/Vol]0.69 mg/dL0.60-1.20[facility] ShawMagnesium [Mass/volume] in Serum or PlasmaOrdered By: Dmitry German on 12-00-9617Epwtvpdlj [Mass/Vol]2.0 mg/dL1.9-2.7FPaulding County HospitalNo Panel InformationOrdered By: Dmitry German on 03-18-2023 Estimated GFR (CKD-EPI)> 60.0 mL/MinSelect Medical [facility], Edwin ShawPharmacy Creatinine Clearance (ChemN/AFPaulding County HospitalPhosphate [Mass/volume] in Serum or PlasmaOrdered By: Dmitry German on 03-18-2023 Phosphate [Mass/Vol]2.9 mg/dL3.7-7.2FUniversity Hospitals St. John Medical Centererum or plasma high density lipoprotein (HDL) cholesterol measurementOrdered By: Ariel Kinney on 62-11-1596Eccvstfehuh in HDL [Mass/Vol]60 mg/pW59-74JqxkgazoiSelect Medical [facility] Hospital, Edwin ShawComment on above:HDL CHOL ATP-III CLASSIFICATION Cardiovascular RiskHDL > or equal to 60 mg/dL LOWHDL < 40 mg/dL HIGHSerum or plasma total cholesterol/high density lipoprotein (HDL) cholesterol mass ratOrdered By: Ariel Kinney on 33-40-8565Puvrqeppxjv.total/Cholesterol in HDL [Mass ratio]3.0 {ratio}<5.0[facility], [facility] ShawTriglyceride [Mass/volume] in Serum or PlasmaOrdered By: Ariel Kinney on 63-22-8674Qeslvxiigaik [Mass/Vol]145 mg/dL 0-149[facility] ShawComment on above:TRIG ATP III CLASSIFICATIONTRIG less than 150 mg/dL NormalTRIG 150-199 mg/dL Borderline highTRIG 200-500 mg/dL High TRIG greater than 500 mg/dL Very highStandard traceable to the Center for Disease Conrtrol and Prevention (CDC) test method. Urea nitrogen [Mass/volume] in Serum or PlasmaOrdered By: Dmitry German on 98-85-4430Nwhn nitrogen [Mass/Vol]11 mg/dL12-25[facility] A1C HEMOGLOBINon 31-98-8934VaZ9j (Bld) [Mass fraction]5.3 %[facility] [employer] Other Glucose - FINGER STICKon 44-50-3564Wkbhjht [Mass/Vol] 102 mg/dLNoNWA Event Center [employer] Other HbA1c (Bld) [Mass fraction]on 31-33-2840O4M HEMOGLOBIN [employer] Other Alanine aminotransferase [Enzymatic activity/volume] in Serum or PlasmaOrdered By: Ariel Kinney on 49-10-3228RDK [Catalytic activity/Vol]19 U/L7-52[facility] ShawAlbumin [Mass/volume] in Serum or Plasma by Bromocresol green (BCG) dye binding methoOrdered By: Ariel Kinney on 58-35-7167Uqcdzyf BCG dye [Mass/Vol]4.3 g/dL3.5-5.7FPaulding County HospitalAlkaline phosphatase [Enzymatic activity/volume] in Serum or PlasmaOrdered By: Ariel Kinney on 56-05-4545IPT [Catalytic activity/Vol]56 U/L 34-104[facility] ShawAspartate aminotransferase [Enzymatic activity/volume] in Serum or PlasmaOrdered By: Tondra Mapus on 28-15-3057GCX [Catalytic activity/Vol]22 U/E87-96CzezahtjcSelect Medical [facility] Clinic Rehabilitation Hospital, Edwin ShawBasophils Auto (Bld) [#/Vol]Ordered By: Tondra Mapus on 94-93-8171Tgzbkimaw (Bld) [#/Vol] 0.0 10*3/uL0.0-0.2FPaulding County HospitalBasophils/100 WBC Auto (Bld) Ordered By: Tondra Mapus on 28-30-3973Dssvqdmmw/100 WBC (Bld)0.8 %.[facility] ShawBilirubin.total [Mass/volume] in Serum or PlasmaOrdered By: Nataliea Mapus on 58-15-4610Mvoczootf [Mass/Vol]0.6 mg/dL0.3-1.0[facility] ShawCalcium [Mass/volume] in Serum or PlasmaOrdered By: Tondra Mapus on 61-33-7781Vtdkbur [Mass/Vol]9.4 mg/dL8.6-10.3FPaulding County HospitalCarbon dioxide, total [Moles/volume] in Serum or PlasmaOrdered By: Tondra Mapus on 13-18-7144UK6 [Moles/Vol]29.6 mmol/L21.0-31.0[facility] ShawChloride [Moles/volume] in Serum or PlasmaOrdered By: Tondra Mapus on 76-06-6629Jvozauko [Moles/Vol]103 mmol/Y88-032ZimfjqqrzSelect Medical [facility] Clinic Rehabilitation Hospital, Edwin ShawCholesterol [Mass/volume] in Serum or PlasmaOrdered By: Tondra Mapus on 01-36-4155Yzchduqkiln [Mass/Vol]215 mg/hP482-644MxpmjzkykSelect Medical [facility] Hospital, [facility] ShawComment on above:Chol less than 200 mg/dl low riskChol 201-239 mg/dl borderline riskChol 240 mg/dl and greater high riskCholesterol in LDL Calc [Mass/Vol]Ordered By: Tondra Mapus on 60-24-0387Tbovtsvapeg in LDL [Mass/Vol] 122 mg/dL0-100[facility], [facility] ShawComment on above:LDL ATP III CLASSIFICATIONLDL less than 100 mg/dL OptimalLDL 100-129 mg/dL Near or above jhwcqhsIWK613-814 mg/dL Borderline highLDL 160-189 mg/dL HighLDL greater than 189 mg/dL Very highCholesterol in VLDL Calc [Mass/Vol]Ordered By: Ariel Kinney on 15-87-3018Jqcxdwvhabq in VLDL [Mass/Vol]18 mg/dLSelect Medical [facility] Clinic [facility] Hospital, Edwin ShawCreatinine [Mass/volume] in Serum or PlasmaOrdered By: Ariel Kinney on 87-98-2984Wrzxaxukjy [Mass/Vol]0.78 mg/dL0.60-1.20[facility] ShawCreatinine [Mass/volume] in UrineOrdered By: Ariel Kinney on 09-11-2022 Creatinine (U) [Mass/Vol]96.0 mg/dLSelect Medical Cleveland Clinic Rehabilitation Hospital, Edwin ShawComment on above:No reference range establishedEosinophils Auto (Bld) [#/Vol]Ordered By: Ariel Kinney on 73-32-6849Tkvrtphjejz (Bld) [#/Vol]0.2 10*3/uL0.0-0.45[facility] ShawEosinophils/100 WBC Auto (Bld)Ordered By: Ariel Kinney on 30-70-9490Venkhohvgqd/100 WBC (Bld)4.5 %.[facility] Erythrocyte distribution width Auto (RBC) [Ratio]Ordered By: Ariel Kinney on 68-91-6404Wqlklvynlrz distribution width (RBC) [Ratio]13.6 %11.9-15.3FPaulding County HospitalGlobulin Calc (S) [Mass/Vol]Ordered By: Ariel Kinney on 28-93-0286Vfogjbca (S) [Mass/Vol]2.8 g/dLSelect Medical [facility] Clinic [facility], [facility] Glucose [Mass/volume] in Serum or PlasmaOrdered By: Ariel Kinney on 09-11-2022 Glucose [Mass/Vol]86 mg/cI65-440JsblmjznjSelect Medical [facility] Clinic Rehabilitation Hospital, Edwin ShawComment on above:ADA recommended reference rangeRandom Glucose Reference Range is dependent on time and content of last meal. Glucose of more than 200 mg/dL in a nonstressed, ambulatory subject supports the diagnosisof Diabetes Mellitus. Hematocrit Auto (Bld) [Volume fraction]Ordered By: Ariel Kinney on 09-11-2022 Hematocrit (Bld) [Volume fraction]40.6 %34.0-46.4FPaulding County HospitalHemoglobin [Mass/volume] in BloodOrdered By: Ariel Kinney on 09-11-2022 Hemoglobin (Bld) [Mass/Vol]13.5 g/dL11.8-15.4FPaulding County Hospital Leukocytes [#/volume] corrected for nucleated erythrocytes in Blood by Automated counOrdered By: Ariel Kinney on 57-03-5510KLI corrected for nucl RBC Auto (Bld) [#/Vol]5.5 10*3/uL3.8-11.6FPaulding County HospitalLymphocytes Auto (Bld) [#/Vol]Ordered By: Ariel Kinney on 11-22-9627Earuzfmhbgo (Bld) [#/Vol]1.8 10*3/uL1.00-4.8[facility] ShawLymphocytes/100 WBC Auto (Bld) Ordered By: Ariel Kinney on 65-63-6636Zjrnbuhitag/100 WBC (Bld)32.7 %.[facility] Auto (RBC) [Entitic mass]Ordered By: Ariel Kinney on 64-09-1246WTY (RBC) [Entitic mass]30.1 pg24.7-34.3FPaulding County HospitalMCHC Auto (RBC) [Mass/Vol]Ordered By: Ariel Kinney on 10-18-6336DAUK (RBC) [Mass/Vol]33.2 g/dL32.0-35.0[facility] ShawMCV Auto (RBC) [Entitic vol]Ordered By: Ariel Kinney on 83-35-8324RWP (RBC) [Entitic vol]90.9 hJ78-019EemosxqypSelect Medical [facility] Clinic Rehabilitation Hospital, Edwin ShawMagnesium [Mass/volume] in Serum or PlasmaOrdered By: Dmitry German on 79-95-5016Qviydxipu [Mass/Vol]2.0 mg/dL 1.9-2.7FPaulding County HospitalMicroalbumin [Mass/volume] in Urine Ordered By: Ariel Kinney on 82-34-8364Souzfup DL <= 20 mg/L (U) [Mass/Vol]0.9 mg/dL0.0-1.8[facility] ShawMonocytes Auto (Bld) [#/Vol]Ordered By: Ariel Kinney on 87-89-1480Qcbcsxqwy (Bld) [#/Vol]0.5 10*3/uL0.0-0.8 [facility] ShawMonocytes/100 WBC Auto (Bld)Ordered By: Ariel Kinney on 86-67-1806Rckncarle/100 WBC (Bld)10.0 %.[facility], [facility] ShawNeutrophils Auto (Bld) [#/Vol]Ordered By: Ariel Kinney on 09-11-2022 Neutrophils (Bld) [#/Vol]2.8 10*3/uL1.8-7.7FPaulding County Hospital Neutrophils/100 WBC Auto (Bld)Ordered By: Ariel Kinney on 09-11-2022 Neutrophils/100 WBC (Bld)52.0 %.[facility] ShawNo Panel InformationOrdered By: Ariel Kinney on 93-90-2000Xcnwzgchb GFR (CKD-EPI)> 60.0 mL/MinSelect Medical [facility] Clinic Rehabilitation Hospital, Edwin ShawPharmacy Creatinine Clearance (ChemN/A [facility] ShawNucleated erythrocytes [Presence] in Blood by Automated countOrdered By: Ariel Kinney on 69-02-1576Eyvwohugn RBC Auto Ql (Bld) 0.2 /100{WBC}0-0.5FPaulding County HospitalPhosphate [Mass/volume] in Serum or PlasmaOrdered By: Dmitry German on 01-30-6974Ueotxdmtv [Mass/Vol]4.1 mg/dL3.7-7.2FPaulding County HospitalPlatelet mean volume Auto (Bld) [Entitic vol]Ordered By: Ariel Kinney on 03-43-4411Wvwkfifr mean volume (Bld) [Entitic vol]7.3 fL6.3-10.7FPaulding County HospitalPlatelets Auto (Bld) [#/Vol]Ordered By: Ariel Kinney on 98-29-2379Huubanxur (Bld) [#/Vol]252 10*3/uL 150-450[facility] ShawPotassium [Moles/volume] in Serum or PlasmaOrdered By: Ariel Kinney on 65-08-6037Zofcrdqiy [Moles/Vol]4.0 mmol/L 3.5-5.1FPaulding County HospitalProtein [Mass/volume] in Serum or Plasma Ordered By: Ariel Kinney on 86-82-7940Xpecdec [Mass/Vol]7.1 g/dL6.4-8.9[facility], [facility] ShawRBC Auto (Bld) [#/Vol]Ordered By: Ariel Kinney on 80-02-4907BQJ (Bld) [#/Vol]4.47 10*6/uL3.60-5.00[facility] Centererum or plasma albumin/globulin mass ratioOrdered By: Ariel Kinney on 64-19-2213Cspflpd/Globulin [Mass ratio]1.5 {ratio}[facility] Centererum or plasma anion gap determinationOrdered By: Ariel Kinney on 05-77-1357Apfma gap [Moles/Vol]11.4 mmol/L6.0-15.0[facility] Centererum or plasma high density lipoprotein (HDL) cholesterol measurement Ordered By: Ariel Kinney on 60-48-8865Fzrzehrzyvq in HDL [Mass/Vol]74 mg/dL35-85 [facility], [facility] ShawComment on above:HDL CHOL ATP-III CLASSIFICATION Cardiovascular RiskHDL > or equal to 60 mg/dL LOWHDL < 40 mg/dL HIGHSerum or plasma total cholesterol/high density lipoprotein (HDL) cholesterol mass ratOrdered By: Ariel Kinney on 78-36-1848Vukpltqkmhj.total/Cholesterol in HDL [Mass ratio]2.9 {ratio}<5.0[facility] Medical Centerodium [Moles/volume] in Serum or PlasmaOrdered By: Ariel Kinney on 32-46-6232Nglnmt [Moles/Vol]140 mmol/K630-590IruxesnreSelect Medical Cleveland Clinic Rehabilitation Hospital, Edwin ShawThyrotropin [Units/volume] in Serum or PlasmaOrdered By: Ariel Kinney on 22-38-0225SJO Qn 2.05 m[IU]/L0.45-5.33[facility], [facility] ShawTriglyceride [Mass/volume] in Serum or PlasmaOrdered By: Ariel Kinney on 59-16-8992Mgezhyqxqnjo [Mass/Vol] 94 mg/dL0-149[facility], [facility] ShawComment on above:TRIG ATP III CLASSIFICATIONTRIG less than 150 mg/dL NormalTRIG 150-199 mg/dL Borderline highTRIG 200-500 mg/dL High TRIG greater than 500 mg/dL Very highStandard traceable to the Center for Disease Conrtrol and Prevention (CDC) test method. Urea nitrogen [Mass/volume] in Serum or PlasmaOrdered By: Airel Kinney on 66-40-5908Gczp nitrogen [Mass/Vol]17 mg/dL7-25[facility] Urine microalbumin/creatinine mass ratioOrdered By: Ariel Kinney on 09-11-2022 Albumin/Creatinine DL <= 20 mg/L (U) [Mass ratio]9.0 mg/g0.0-30.0[facility], [facility] ShawComment on above:30-300 mg/g indicates an increased risk for diabetic nephropathy. Greater than 300 mg/g is consistent with clinical nephropathy. (Am. J. Kidney Disease 1995, 25:107)Vitamin B12 ser/plasOrdered By: Ariel Kinney on 45-86-0969Woxssaqsq (Vitamin B12) [Mass/Vol]562 pg/eH350-076 [facility], [facility] ShawVitamin D+Metabolites [Mass/volume] in Serum or PlasmaOrdered By: Ariel Kinney on 48-62-5891Fugmlto D+Metabolites [Mass/Vol] 58.0 ng/tA17-412BxsjdsqnkSelect Medical [facility] Clinic Rehabilitation Hospital, Edwin ShawComment on above:VITAMIN D STATUS 25(OH)VITAMIN D RANGE (ng/mL) Deficient <20 Insufficient 20 to <69Tcxjkddhue66 to 100Reference: Oh MF,Leyda NC, James YUNG, et al. Evaluation,treatment, and prevention of vitamin D deficiency; an Endocrine Society clinical practice guideline. JCEM. 2010; 96(7):1911-30.WBC Auto (Bld) [#/Vol]Ordered By: Ariel Kinney on 72-67-2909LJW (Bld) [#/Vol]5.5 10*3/uL 3.8-11.6FPaulding County HospitalTobacco Screening.on 61-73-0249Klduz depression screening assessmentNoMP-[facility] [employer] DO Work Phone: Fall risk assessmenta) No falls within the last year [facility] [employer] 250 DO Work Phone: Tobacco use status CPHSb) NoMP-[facility] [employer] 250 DO Work Phone: A1C HEMOGLOBINon 49-75-0222KeS1u (Bld) [Mass fraction] 5.3 %[employer] Other Glucose - FINGER STICKon 15-62-4767Hdyztht [Mass/Vol] 102 mg/dLNortCanvas Other HbA1c (Bld) [Mass fraction]on 42-87-7305A1A HEMOGLOBIN [employer] Other Creatinine and Glomerular filtration rate.predicted panel (S/P/Bld)Ordered By: Dmitry German on 75-41-6311Tcmtgrjxlz [Mass/Vol]0.65 mg/dL0.44-1.03[facility] ShawEstimated glomerular filtration rate (GFR) non- AmericanOrdered By: Dmitry German on 51-47-7471OSU/1.73 sq M.predicted among non-blacks MDRD (S/P/Bld) [Vol rate/Area]> 60 mL/Min [facility] ShawLaboratory - Chemistry and Chemistry - challengeOrdered By: Dmitry German on 23-81-5376Niuvmqdyy [Mass/Vol]2.1 mg/dL 1.6-2.6FPaulding County HospitalNo Panel InformationOrdered By: Dmitry German on 19-32-8759Uucuzhkwn GFR ()> 60 mL/MinSelect Medical [facility] Clinic Rehabilitation Hospital, Edwin ShawComment on above:GFR estimated reference range: According to KDOQI guidelines, <60 ml/min/1.73m2 is sufficient todiagnose a patient with chronic kidney disease.Pharmacy Creatinine Clearance (ChemN/[facility] ColumbusPhosphate [Mass/volume] in Serum or PlasmaOrdered By: Dmitry German on 01-46-2118Ewvisgcdc [Mass/Vol]3.9 mg/dL2.5-4.6FUniversity Hospitals St. John Medical Centererum or plasma calcium measurement (mass/volume)Ordered By: Dmitry German on 87-98-9444Klwvtjd [Mass/Vol]9.7 mg/dL8.2-10.2FUniversity Hospitals St. John Medical Centererum or plasma urea nitrogen measurement (mass/volume) Ordered By: Dmitry German on 54-70-3843Omsz nitrogen [Mass/Vol]13 mg/dL9-23 [facility], [facility] ShawA1C HEMOGLOBINon 68-24-6807UaG7x (Bld) [Mass fraction]5.6 %[facility] [employer] Other Glucose - FINGER STICKon 79-18-7019Ancvkle [Mass/Vol] 86 mg/dLNort [employer] Other HbA1c (Bld) [Mass fraction]on 99-49-9199Z0G HEMOGLOBIN [facility] [employer] Other XR FOOT SHAVONNE MIN 3 VIEWSon 50-16-2020VV FOOT SHAVONNE MIN 3 VIEWSEXAMINATION: XR FOOT [...] Electronically authenticated by: JOHNY HERNANDEZ Date: 2021-09-28 15:43[facility] Vital Signs Date TimeVital SignValuePerforming LfakxjgrqLdicpvla79-17-7447 08:58-0400Body xpklyk244.56 cmLynn Luther MD Work Phone: [phone]09-04-2025 08:58-0400 Body mass index (BMI) [Ratio]24.5 kg/q4SqizmiLynn Luther MD Work Phone: [phone] [place], [place] 1283509-04-2025 08:58-0400 Body jubybb82.7 kgLynn Luther MD Work Phone: [phone] [place], [place] 1283509-04-2025 08:58-0400 Diastolic blood tkqgdent39 mm[Hg]Lynn Luther MD Work Phone: [phone] [place], [place] 1283509-04-2025 08:58-0400 Heart rate68 /Aparna Luther MD Work Phone: [phone] [place], [place] 1283509-04-2025 08:58-0400 Respiratory rate18 /Aparna Luther MD Work Phone: [phone] [place], [place] 1283509-04-2025 08:58-0400 SaO2% (BldA) [Mass fraction]96 %Lynn Luther MD Work Phone: [phone] [place], [place] 1283509-04-2025 08:58-0400 Systolic blood tjrlyeaf901 mm[Hg]Lynn Luther MD Work Phone: [phone] [place], [place] 1283508-20-2025 09:36-0400 Body qcledr618.56 cmLynn Luther MD Work Phone: [phone] [place], [place] 1283508-20-2025 09:36-0400 Body mass index (BMI) [Ratio]24.5 kg/i8ZdiwhzLynn Luther MD Work Phone: [phone] [place], [place] 1283508-20-2025 09:36-0400 Body kacwkw90.86 kgLynn Luther MD Work Phone: [phone])[address]07-29-2025 14:45-0400 Body eilecj789.56 cmLynn Luther MD Work Phone: [phone]07-29-2025 14:45-0400 Body mass index (BMI) [Ratio]25.4 kg/z0DywizqLynn Luther MD Work Phone: [phone]07-29-2025 14:45-0400 Body iihdaj70.13 kgLynn Luther MD Work Phone: [phone]07-29-2025 14:45-0400 Diastolic blood mm[Hg]Lynn Luther MD Work Phone: [phone])[address]07-29-2025 14:45-0400 Heart rate82 /minLynn Luther MD Work Phone: [phone]07-29-2025 14:45-0400 Systolic blood vowhrobb926 mm[Hg]Lynn Luther MD Work Phone: [phone]07-02-2025 10:00-0400 Body towonu635.56 cmLynn Luther MD Work Phone: [phone]07-02-2025 10:00-0400 Body mass index (BMI) [Ratio]24.9 kg/w5IsusdqLynn Luther MD Work Phone: [phone] [place], [place] 9748907-02-2025 10:00-0400 Body hxtzuh87.82 kgLynn Luther MD Work Phone: [phone]07-02-2025 10:00-0400 Diastolic blood htcmikxa97 mm[Hg]Lynn Luther MD Work Phone: [phone]07-02-2025 10:00-0400 Heart rate85 /Aparna Luther MD Work Phone: [phone]07-02-2025 10:00-0400 SaO2% (BldA) [Mass fraction]96 %Lynn Luther MD Work Phone: [phone]07-02-2025 10:00-0400 Systolic blood ctjoeoiw309 mm[Hg]Lynn Luther MD Work Phone: 1(671)[address]05-29-2025 09:06-0400 Body obedsa095.56 cmLynn Luther MD Work Phone: 1(510)[address] [place], [place] 1283505-29-2025 09:06-0400 Body mass index (BMI) [Ratio]24.8 kg/s8ClgcuzLynn Luther MD Work Phone: 1(586)[address]05-29-2025 09:06-0400 Body ipatoc95.7 kgLynn Luther MD Work Phone: 1(057)[address] [place], [place] 1283505-29-2025 09:06-0400 Diastolic blood igifnguu76 mm[Hg]Lynn Luther MD Work Phone: 1(325)[address] [place], [place] 1283505-29-2025 09:06-0400 Heart rate75 /Aparna Luther MD Work Phone: 1(352)[address] [place], [place] 1283505-29-2025 09:06-0400 Respiratory rate18 /Aparna Luther MD Work Phone: 1(864)[address] [place], [place] 1283505-29-2025 09:06-0400 SaO2% (BldA) [Mass fraction]98 %Lynn Luther MD Work Phone: 1(877)[address] [place], [place] 1283505-29-2025 09:06-0400 Systolic blood mm[Hg]Lynn Luther MD Work Phone: 1(555)[address] [place], [place] 1283505-22-2025 08:58-0400 Body hxmuqw093.56 cmLynn Luther MD Work Phone: 1(244)[address] [place], [place] 1283505-22-2025 08:58-0400 Body mass index (BMI) [Ratio]24.7 kg/k5FqmcfjLynn Luther MD Work Phone: 1(351)[address] [place], [place] 1283505-22-2025 08:58-0400 Body .48 kgLynn Luther MD Work Phone: 1(640)153-[address] [place], [place] 9748905-22-2025 08:58-0400 Diastolic blood nirzingh49 mm[Hg]Lynn Luther MD Work Phone: 1(704)[address]05-22-2025 08:58-0400 Heart rate84 /Aparna Luther MD Work Phone: 1(552)[address] [place], [place] 1283505-22-2025 08:58-0400 Systolic blood aclrfbhb663 mm[Hg]Lynn Luther MD Work Phone: 1(242)[address]04-28-2025 09:45-0400 Diastolic blood xsqytbyl18 mm[Hg]Lynn Luther MD Work Phone: 1(649)[address]04-28-2025 09:45-0400 Heart rate85 /Aparna Luther MD Work Phone: 1(613)[address] [place], [place] 1283504-28-2025 09:45-0400 Respiratory rate16 /Aparna Luther MD Work Phone: 1(344)[address] [place], [place] 1283504-28-2025 09:45-0400 SaO2% (BldA) [Mass fraction]99 %Lynn Luther MD Work Phone: 1(974)[address] [place], [place] 1283504-28-2025 09:45-0400 Systolic blood mm[Hg]Lynn Luther MD Work Phone: 1(579)[address] [place], [place] 1283504-28-2025 08:14-0400 Body xrqitl970.56 cmLynn Luther MD Work Phone: 1(125)[address] [place], [place] 1283504-28-2025 08:14-0400 Body tzzxry20.77 kgLynn Luther MD Work Phone: 1(851)[address] [place], [place] 1283504-15-2025 13:03-0400 Body dqwaup221.56 cm[facility]15-20[facility] 13:03-0400Body mass index (BMI) [Ratio]24.9 kg/c1IgexiimhdSelect [facility]04-15-2025 13:03-0400Body xzxuuesfyoh72.9 [degF][facility]04-15-2025 13:03-0400Body zrnhpe71.94 kgSelect [facility]04-15-2025 13:03-0400Diastolic blood qutprxbz51 mm[Hg][facility] 09-15-2024 13:03-0400Heart rate88 /minSelect [facility] 09-15-2024 13:03-7957GmF3% (BldA) [Mass fraction]96 %[facility]04-15-2025 13:03-0400Systolic blood snuhjivs696 mm[Hg][facility]12-05-2024 08:22-0500Body kzywiv846.56 cmLynn Luther MD Work Phone: 1(637)[address]12-05-2024 08:22-0500 Body mass index (BMI) [Ratio]24 kg/y9FotkxqLynn Luther MD Work Phone: 1(770)003-[address] [place], [place] 9748912-05-2024 08:22-0500 Body .5 kgLynn Luther MD Work Phone: 1(472)[address]12-05-2024 08:22-0500 Diastolic blood dorkzttq71 mm[Hg]Lynn Luther MD Work Phone: 1(393)[address]12-05-2024 08:22-0500 Heart rate70 /Aparna Luther MD Work Phone: 1(341)862-[address] [place], [place] 9748912-05-2024 08:22-0500 Systolic blood vncsearh567 mm[Hg]Lynn Luther MD Work Phone: 1(145)326-[address] [place], [place] 9748911-21-2024 09:17-0500 Body ayyowo883.56 cmLynn Luther MD Work Phone: 1(122)[address]11-21-2024 09:17-0500 Body mass index (BMI) [Ratio]24 kg/m1QlmtqmLynn Luther MD Work Phone: [phone]11-21-2024 09:17-0500 Body qvotvd33.67 kgLynn Luther MD Work Phone: [facility]11-21-2024 09:17-0500 Diastolic blood lfupgreg55 mm[Hg]Lynn Luther MD Work Phone: [facility]11-21-2024 09:17-0500 Heart rate73 /Aparna Luther MD Work Phone: [phone]11-21-2024 09:17-0500 Respiratory rate18 /Aparna Luther MD Work Phone: [facility]11-21-2024 09:17-0500 SaO2% (BldA) [Mass fraction]98 %Lynn Luther MD Work Phone: [facility]11-21-2024 09:17-0500 Systolic blood kobzqjor918 mm[Hg]Lynn Luther MD Work Phone: [phone]11-06-2024 09:08-0500 Body mass index (BMI) [Ratio]23.66 kg/v6Tsxkjpyu Rinkes DO Work Phone: [facility]Khhap[facility]xjp34-65-2760 09:08-0500Body ixfaso27.5 kg Tiarra Rinkes DO Work Phone: [facility] CenterMzntxvgjcl90-11-8337 09:08-0500Diastolic blood mm[Hg]Tiarra Rinkes DO Work Phone: [facility] CenterCgqdenqjwj76-23-3102 09:08-0500Systolic blood hatrastp964 mm[Hg]Tiarra Rinkes DO Work Phone: [facility] CenterUqnpyqlsyc72-56-6453 09:00-0500Body sowmyd805.56 cmLynn Luther Other [facility]12-04-2023 09:00-0500 Body mass index (BMI) [Ratio]23.51 kg/f2QhkvypLynn Luther Other [employer] Other [id number] 09:00-0500Body mgcjuo41.14 kgLynn Luther Other [facility]12-04-2023 09:00-0500 Diastolic blood mm[Hg]Lynn Luther Other [facility]12-04-2023 09:00-0500 Systolic blood uxlkcflt525 mm[Hg]Lynn Luther Other [facility]11-09-2023 09:15-0500 Body rvmrut881.56 cmTondra Mapus Other [employer] Other 11-09-2023 09:15-0500Body mass index (BMI) [Ratio] 23.38 kg/u4Pkljac Mapus Other [employer] Other 11-09-2023 09:15-0500Body hgdadv63.78 kgTondra Mapus Other [employer] Other 11-09-2023 09:15-0500Diastolic blood mm[Hg] Tondra Mapus Other [employer] Other 11-09-2023 09:15-0500Respiratory rate18 /minTondra Mapus Other [employer] Other 11-09-2023 09:15-1832GvX1% (BldA) [Mass fraction]98 % Tondra Mapus Other [employer] Other 11-09-2023 09:15-0500Systolic blood sekcuxqb898 mm[Hg] Tondra Mapus Other [employer] Other 08-09-2023 14:33-0400Blood Pressure LocationAleksandar Spasic 373-3920Fnmdia-MhgngMain Campus [facility] Twln62-69-5424 14:33-0400Body geekkkmlhhr84.52 [degF]Geovanni Spasic 500-0117Vkzobi-CiojdMain Campus [facility] Lfig83-90-5968 14:33-0400Diastolic blood vhmirdvx59 mm[Hg]Geovanni Spasic 439-1168Sflurt-SwxhnMain [facility] Bnbx43-36-9364 14:33-0400Heart rate76 /minAlewarrenr Spasic 780-4976Jyalqv-RqgncMain Campus [facility] Sqef06-28-7965 14:33-5751FgJ0% (BldA) [Mass fraction]97 %Geovanni SpasiZinch 834-7964Lobsdf-FjpfqMain [facility] Qgeu41-64-3852 14:33-0400Systolic blood iveitfao292 mm[Hg]Geovanni SpasiZinch 436-5852Smevpg-UguqbMain Campus [facility] Gjbn15-29-1628 10:15-0400Body ykmoeq895.56 cmTondra Sravanus Other [employer] Other 05-10-2023 10:15-0400Body mass index (BMI) [Ratio] 22.95 kg/c7Ljsnod Sravanus Other [employer] Other 05-10-2023 10:15-0400Body uyjqcy51.65 kgTondra Mapus Other [employer] Other 05-10-2023 10:15-0400Diastolic blood mm[Hg] Tondra Mapus Other [employer] Other 05-10-2023 10:15-0400Respiratory rate18 /minTondra Mapus Other [employer] Other 05-10-2023 10:15-4150VuL3% (BldA) [Mass fraction]98 % Ariel Kinney Other [employer] Other 05-10-2023 10:15-0400Systolic blood aqdxolyb003 mm[Hg] Ariel Kinney Other [employer] Other 01-04-2023 15:05-0500Diastolic blood droiuyjn80 mm[Hg] Ruth Moshe Cannon Work Phone: 1(301) 506-4644679-4135GP-Byine [place] Limundo DO Work Phone: 1(433) 446-992501-04-2023 15:05-0500Systolic blood rjtnhraj259 mm[Hg] Ruth Mesa Davis Work Phone: 1(596) [phone]-Azgbu [place] Limundo DO Work Phone: 1(592)467-97863-341625-13497651-25-8918 15:04-0500Body lnpoaw854.83 cmKim Moshe Cannon Work Phone: 1(127) 348-1616816-2076ZE-Vopqa [place] [address] DO Work Phone: 1(936) 366-723701-04-2023 15:04-0500Body mass index (BMI) [Ratio] 23.49 kg/m2Ruth Cannon Work Phone: 1(807) 287-5480495-2291VQ-Vgfik [place] [address] DO Work Phone: 1(873) 374-339801-04-2023 15:04-0500Body surface area Derived from formula1.69 m2Kirhonda Cannon Work Phone: 1(604) 395-6181492-1738HQ-Jynee [place] [address] DO Work Phone: 1(324) 181-944601-04-2023 15:04-0500Body jmphbe36.05 kgKim Moshe Cannon Work Phone: 1(516) 237-1098196-7606VM-Rhabg [place] [address] DO Work Phone: 1(744) 832-704401-04-2023 15:04-0500Diastolic blood rakbgqfc23 mm[Hg] Ruth Mesa Cannon Work Phone: mp185-5563GX-Niazt [place] [facility] [address] DO Work Phone: 1(297) 390-318701-04-2023 15:04-0500Heart rate76 /minKirhonda Huight Work Phone: [phone]-Zepua [place] [facility] [address] DO Work Phone: 1(370) 896-944701-04-2023 15:04-0500Systolic blood eywffiyn534 mm[Hg] Ruth Cannon Work Phone: [phone]-Jrxhb [place] [facility] [address] DO Work Phone: 1(271) 550-742612-15-2022 14:07-084936 1Kjerry Huight Work Phone: [phone]-Fvzwv [place] [facility] DO Work Phone: Comment on above:AXOGIGHO9392-06-7245 08:45-0500Body jgxmcu946.56 cmTondra Gregoria Other [employer] Other 11-09-2022 08:45-0500Body mass index (BMI) [Ratio] 22.66 kg/m7Tejxjx Sravanus Other [employer] Other 11-09-2022 08:45-0500Body zpkfhi86.88 kgTondra Mapus Other [employer] Other 11-09-2022 08:45-0500Diastolic blood anlmphfb10 mm[Hg] Tondra Sravanus Other [employer] Other 11-09-2022 08:45-0500Respiratory rate16 /minTondra Mapus Other [employer] Other 11-09-2022 08:45-3417QvD3% (BldA) [Mass fraction]99 % Tondra Mapus Other [employer] Other 11-09-2022 08:45-0500Systolic blood vjqthzaf193 mm[Hg] Tondra Mapus Other [employer] Other 05-11-2022 08:45-0400Body ungodz696.56 cmTondra Mapus Other [employer] Other 05-11-2022 08:45-0400Body mass index (BMI) [Ratio] 22.48 kg/q5Hyhsfh Mapus Other [employer] Other 05-11-2022 08:45-0400Body kqokfv05.42 kgTondra Mapus Other [employer] Other 05-11-2022 08:45-0400Diastolic blood aihognkv68 mm[Hg] Tondra Mapus Other [employer] Other 05-11-2022 08:45-0400Respiratory rate16 /minTondra Mapus Other [employer] Other 05-11-2022 08:45-1229SqF8% (BldA) [Mass fraction]100 % Tondra Mapus Other [employer] Other 05-11-2022 08:45-0400Systolic blood dwhsukqx472 mm[Hg] Tondra Mapus Other [employer] Other 01-03-2019 14:00-0500Body iuumwu507.56 cmMD Ruth Cannon Work Phone: [facility]01-03-2019 13:00-0500 Body tixxfy55.12 kgMD Ruth Cannon Work Phone: [facility] Encounters Encounter DateEncounter TypeCare ProviderFacilityStart: 02-04-2025 End: 27-21-0970jtczuowfbvNdqqqi E Braun MD Work Phone: [facility] Work Phone: Start: 02-04-2025 End: 94-61-9406Mfavvym encounter procedureAriel Kinney SR. PAYROLL MANAGER-C-[facility] Work Phone: Start: 01-27-2025 End: 98-93-5048Zepxsui encounter procedureTiarra Cook [facility] Work Phone: Start: 01-27-2025 End: 47-00-6239oipuwsomgwCsecwh E Braun MD Work Phone: [facility] Work Phone: Start: 01-20-2025 End: 94-69-6301vgjkozyspbBxhkaw E Braun MD Work Phone: [facility] Work Phone: Start: 01-20-2025 End: 79-58-9910Afwzdtx encounter procedureCatherine Eliz [facility] Work Phone: Start: 01-05-2025 End: 54-20-1897Zhfgsad encounter procedureAriel LORAP-C-[facility] Work Phone: Start: 01-05-2025 End: 51-87-2356gxycpijsnrUudjgv E Braun MD Work Phone: [facility] Work Phone: Start: 12-29-2024 End: 03-47-5872gujknmdpcxTsyscd E Braun MD Work Phone: [facility] Work Phone: Start: 12-29-2024 End: 52-05-1770Qdpurts encounter procedureLynn Luther MD-[facility] Work Phone: Start: 12-27-2024 End: 76-45-0318ysmpsvutwhUymmh M. DempseyFacility:CC [place]walkStart: 12-27-2024 End: 79-31-2946Ixceobb encounter procedureLeland Boss [phone]-NlwjaMer[facility] Start: 12-03-2024 End: 12-22-5098Zwwnauy encounter procedureLynn Luther MD-X-Ray [facility] CtrStart: 12-03-2024 End: 00-73-0773zchkvqcfdwSinnvf E Braun MD Work Phone: [facility] Work Phone: Start: 12-02-2024 End: 97-48-8739onizaaljdoWzbqwg E Braun MD Work Phone: [facility] Work Phone: Start: 12-02-2024 End: 68-58-3445Ndctjip encounter procedureLynn Luther MD-[facility] Work Phone: Start: 10-29-2024 End: 92-51-4103mpjltmsmjiCbmaqd E Braun MD Work Phone: [facility] Work Phone: Start: 10-29-2024 End: 26-40-5019Vdgksvm encounter procedureLynn Luther MD Work Phone: [facility] Work Phone: Start: 10-22-2024 End: 54-42-6454Zrytezt encounter procedureLynn Luther MD Work Phone: [facility]: 10-22-2024 End: 29-28-6636nmnuralklpXndijx E Braun MD Work Phone: [facility] Work Phone: Start: 10-22-2024 End: 40-00-4223hiaofyumnmOocqoe E Braun MD Work Phone: [facility] Work Phone: Start: 10-22-2024 End: 75-18-0933Bsvkfot encounter procedureLynn Luther MD Work Phone: [facility] Work Phone: Start: 94-10-8812Qjo-patient / Non-visitLynn Luther MD Work Phone: [facility] Work Phone: Start: 86-87-8066Qho-patient / Non-visitLynn Luther MD Work Phone: [facility] Work Phone: Start: 09-28-2024 End: 23-49-7057Hyfyigwnz to same day surgery centerLynn Luther MD Work Phone: [facility] Work Phone: Start: 09-28-2024 End: 27-43-5276dtalodgacqAauqtn E Braun MD Work Phone: [facility] Work Phone: Start: 09-22-2024 End: 96-64-0236Ylkqelq encounter procedureLynn Luther MD Work Phone: [facility]: 09-22-2024 End: 60-71-6687abulwmcmhzKhopbs E Braun MD Work Phone: [facility] Work Phone: Start: 09-15-2024 End: 00-97-7195igknwexhdxYunnekjnjLicking Memorial Hospital Work Phone: Start: 09-15-2024 End: 39-65-2688Lozngzy encounter procedureAt[facility] Work Phone: Start: 92-39-6149Ymx-patient / Non-visitLynn Luther MD Work Phone: [facility] Work Phone: Start: 06-05-2024 End: 26-39-7741Whpekqm encounter procedureLynn Luther MD Work Phone: [facility] Work Phone: Start: 06-05-2024 End: 46-33-1082mmobgpqvdiUiszdm E Braun MD Work Phone: [facility] Work Phone: Start: 05-20-2024 End: 37-70-3011Wszikbn encounter procedureLynn Luther MD Work Phone: [facility]-X-Ray [facility] CtrStart: 05-20-2024 End: 82-50-2502nysjvyiapsCiooob E BraunFacility:[facility] Centertart: 05-07-2024 End: 08-60-2455Ocjevcv encounter procedureLynn Luther MD Work Phone: [facility] Work Phone: Start: 16-82-1917Siz-patient / Non-visitLynn Luther MD Work Phone: [facility] Work Phone: Start: 04-23-2024 End: 91-58-6503yvfqqozvqvKolqje E Braun MD Work Phone: [facility] Work Phone: Start: 04-23-2024 End: 22-74-3667Xywxgfe encounter procedureLynn Luther MD Work Phone: [facility] Work Phone: Start: 04-08-2024 End: 54-28-3250Cqlrjc flowsheetKathleen E Rinkes DO Work Phone: [facility] OBStart: 04-08-2024 End: 82-29-1658Zcdunl flowsheetKathleen E Rinkes DO Work Phone: [facility] OBStart: 04-08-2024 End: 61-60-3507Lefenm outpatient visit 25 minutesKathleen E Rinkes DO Work Phone: [facility] OBComment on above:Vaginal atrophy; Encounter for screening mammogram for breast cancer; Screening for osteoporosis; Postmenopausal status, age-related; Screening for malignant neoplasm of cervixStart: 04-08-2024 End: 05-64-3157opopudoxfmMPMEQXRC E RINKESNot AvailableStart: 03-19-2024 End: 12-25-1445Iqqbfug encounter procedureMD Lynn Luther Work Phone: [facility] [address] Work Phone: Start: 03-19-2024 End: 05-69-0461alxhznvszbAW Marcia E Braun Work Phone: [facility] Work Phone: Start: 01-27-2024 End: 06-28-2375gpkrojpsgjDJ Marcia E Braun Work Phone: [facility] Work Phone: Start: 01-27-2024 End: 73-00-9324Jainlew encounter procedureMD Lynn Luther Work Phone: [facility] Work Phone: Start: 12-03-2023 End: 54-82-0919nhgnesrznhUOEAXATV W MURCEKNot AvailableStart: 09-23-2023 End: 89-20-1979jrwdfvzkdaFM Marcia E Braun Work Phone: [facility] Work Phone: Start: 09-23-2023 End: 72-95-1644Kfizeld encounter procedure Lynn Ashkan Work Phone: [facility] [address] [place] Work Phone: Start: 05-06-2023 End: 75-86-6019xzemfptjcaOiubmk Ashkan Other [employer] Other Start: 50-55-2329Ssziber encounter procedureLynn Aly [facility] ClinicStart: 05-06-2023 End: 50-19-4879Rbljive encounter procedureAt[facility] Work Phone: Start: 04-11-2023(DM) DiabetesTondra MapusAtrium Health [facility]son Coordinated Care ClinicStart: 04-11-2023 End: 79-36-7895coxnzcaouvHfpxxx [employer] Other [employer] Other Start: 03-18-2023 End: 50-09-7030gzfhdhrrcoDF Kim E Knight Work Phone: [facility] Work Phone: Start: 03-18-2023 End: 80-32-4039Jvvubru encounter procedureMD Ruth Cannon Work Phone: [facility] [place] Work Phone: Start: 01-24-2023 End: 46-20-1622dauijiosfcNS Kim E Knight Work Phone: [facility] Work Phone: Start: 01-24-2023 End: 94-98-5093Gbchrym encounter procedureMD Ruth Cannon Work Phone: [facility] Work Phone: Start: 01-09-2023 End: 38-86-8505Crwqtek encounter procedureAlevadim Paul [phone]-XsjswMain [facility] Start: 10-10-2022(DM) DiabetesTondra MapusAtrium Health [facility]son Coordinated Care ClinicStart: 10-10-2022 End: 66-36-1310vkibaenvyuLdicoc Mapus Other [employer] Other Start: 79-32-7112Pkcnqfcfy encounterTondra MapusFPG EndocrinologyStart: 09-11-2022 End: 43-78-6710ovjkoxezobEH Kim E Knight Work Phone: [employer] Other Start: 09-11-2022 End: 99-42-8344Djshkzf encounter procedureMD Ruth Cannon Work Phone: [facility] [place] Work Phone: Start: 76-89-4238Dmsyvw consultation new/estab patient [address] Work Phone: [phone]-Nyeak [place] [facility] 250 DO Work Phone: Start: 05-17-2022 End: 92-32-3852mxuhdbeynxQF Kim E Knight Work Phone: [facility] Work Phone: Start: 05-17-2022 End: 03-72-2552Ipbfhrh encounter procedureMD Ruth Cannon Work Phone: [facility]-Electrodiagnostics Start: 38-70-5859umeietlmyeRgmadeik:9090Start: 05-08-2022 End: 16-53-3020gcramzichtVW RUTH CANNONFacility:I8Dvvmx: 04-11-2022(DM) DiabetesTondra MapusFirelands Coordinated Care ClinicStart: 04-11-2022 End: 14-99-9514fqljggwerwLpayks [employer] Other [employer] Other Start: 77-25-9253Rnotaameey RecurringMD Ruth Cannon Work Phone: [facility] Start: 03-02-2022 End: 23-84-3690Tggjswe encounter procedureMD Ruth Cannon Work Phone: [facility] CampusStart: 01-22-2022 End: 83-51-2417Efmcsqn encounter procedureMD Ruth Cannon Work Phone: [facility] Start: 10-11-2021(DM) DiabetesTondra MapusFirelands Coordinated Care Clinic Start: 10-11-2021 End: 88-47-2570gvyglnuhlbDpwqts [employer] Other [employer] Other Start: 09-28-2021 End: 18-41-6863fdahnsszntQFLYE D [facility] Hospitalcility:X0Vqysm: 08-10-2021 End: 02-95-2699hqgqtgsueeAvinjh [employer] Other [employer] Other Start: 40-45-1936Burmltqcq encounterTondra MapusFPG EndocrinologyStart: 08-09-2021 End: 58-25-4166irxsszirjiPcibnb [employer] Other [employer] Other Start: 86-56-0220Hhnayaeuk encounterTondra Mapus [facility] ClinicStart: 06-05-2021 End: 68-01-2665juriizuifpGumxrh [employer] Other [employer] Other Start: 06-90-5197Xzulzhpny encounterEncompass Health Valley Of The [facility] Rehabilitation Hospitaldra Kinney [facility] ClinicStart: 04-17-2021 End: 16-78-3650xqpveqfzqjIkvjyk [employer] Other [employer] Other Start: 75-71-6140Vufbvhtxl encounterZanesville City HospitalCardiovascular stress test abnormalKim Moshe Cannon Work Phone: [phone]-Vlynz [place] [facility] [address] DO Work Phone: Procedures DateProcedureProcedure DetailPerforming ClinicianStart: 99-33-2731Zgli energy X- ray absorptiometryLynn Luther MD Work Phone: Start: 78-81-3096Pdjjomnyf mammography of bilateral breastsMcem Luther MD Work Phone: Start: 78-15-0377P-ray of cervical spineLynn Luther MD Work Phone: Start: 76-68-6654OfmgiyyqziafxaphrvdytpqzdmHgslbj Braun MD Work Phone: Start: 46-54-9083Pmrkzawzytxi myocardial perfusion stress studyLynn Luther MD Work Phone: Start: 85-15-2458O-ray of lumbar spine, two or three viewsLynn Luther MD Work Phone: Start: 48-34-5818Bibdayvie mammography of bilateral breastsMD Lynn Ashkan Work Phone: Start: 29-51-9967Avau energy X-ray absorptiometry Ruth Cannon Work Phone: Start: 01-24-2023 End: 63-14-5692Kaubllblx mammography of bilateral breastsMD Ruth Cannon Work Phone: Start: 15-87-7260WQU of headMD Ruth Cannon Work Phone: Start: 31-07-3147Jmvmmvywq mammography of bilateral breastsMD Ruth Cannon Work Phone: Start: 38-52-8572Wdiva colonoscopyKim E Cannon Work Phone: BiopsyAleksandar Spasic Comment on above:left breastBiopsy of breastKim E Cannon Work Phone: ColonoscopyAleksandar Spasic Comment on above:2015Cyst (disorder)Geovanni Spasic Comment on above:renal 2020Esophagogastroduodenoscopy and closure of duodenal fistulaAleksandar Spasic Excision of lesion of skinKim E Davis Work Phone: Tonsillectomy and adenoidectomyKim E Cannon Work Phone: Tonsillectomy and adenoidectomyAleksandar Spasic Tooth extractionAleksandar Spasic Plan of Treatment DateCare ActivityDetailAuthorStart: 43-77-9263KdmzcoiawSelect [facility] Start: 44-87-2170PhvutmyysUniversity Hospitals St. John Medical Centertart: 04-08-2024 End: 05-26-5541Bqhioov encounter vfgdxgluh33/06/2024 9:30 AM EST Office Visit [facility] [address] [place] [id number] Tiarra Cook E, DO [address] [place] [address] Vaginal atrophy; Encounter for screening mammogram for breast cancer; Screening for osteoporosis; Postmenopausal status, age-relatedNOMS SWS OBComment on above:Vaginal atrophy; Encounter for screening mammogram for breast cancer; Screening for osteoporosis; Postmenopausal status, age-relatedStart: 51-06-7811Paousywee vaccination Influenza Vaccine (#1)[facility] HealthcareStart: 68-95-6231Hvluasrpf for malignant neoplasm of breastMammogramNOMS HealthcareStart: 24-90-6856Glwprlhxsoyb Vaccine: 65+ Years (1 of 1 - PCV)Pneumococcal Vaccine: 65+ Years (1 of 1 - PCV)[facility] HealthcareStart: 53-55-7425Qppnnglin for malignant neoplasm of colonNOMS HealthcareComprehensive metabolic 2000 panel - Serum or PlasmaSelect Medical [facility], Edwin ShawDBT Breast - bilateral screeningBilateral screening mammogram with tomosynthesis Imaging Routine Encounter for screening mammogram for breast cancer Ordered: 04/08/2024[facility] HealthcareComment on above:Ordered: 04/08/2024XA Skeletal system Views for bone densityDEXA bone density Imaging Routine Screening for osteoporosis Postmenopausal status, age-related Ordered: 04/08/2024[facility] HealthcareComment on above:Ordered: 04/08/2024atient Education [facility] Work Phone: SENDOUT TEST MISCELLANEOUS LABC[facility]PSENDOUT TEST MISCELLANEOUS [facility] Lab Routine Screening for malignant neoplasm of cervix Ordered: 04/08/2024[facility] Work Phone: comment on above:Ordered: 04/08/2024XR Cervical spine 5 [facility] in Serum or Plasma [facility] Immunizations Immunization DateImmunizationNotesCare RzgrkwebWvgvwzkg44-53-4212rrqyoairh virus vaccine, unspecified formulationKathleen Rinkes DO Work Phone: [phone]) [phone]-MdajkMain [facility] Etbw38-58-9391 influenza virus vaccine, unspecified formulationJamie Gera [phone]-IkhmkMain [facility] Yhce94-17-5008 zoster vaccine recombinantAleksandar Spasic [phone]-YuaogMain [facility] Enxl42-23-4792 zoster vaccine recombinantAleksandar Spasic [phone]-XdaqrMain [facility] Pjmr09-34-1294 Pfizer COVID-19 Vac Bivalent 30 MCG/0.3ML Intramuscular SuspensionKim E Cannon Work Phone: [phone]-WsczvMain [facility] Ftvy63-12-3799 influenza virus vaccine, unspecified formulationAleksandar Spasic 128-3100Fnjnvx-CeqezMain [facility] Qjxu91-07-3740 influenza, seasonal, injectableKim E Cannon Work Phone: [phone]-SmfknEssentia Health 250 DO Work Phone: Comment on above:Series:74-15-4119Ywiypxn High-Dose Quadrivalent 0.7 ML Intramuscular Suspension Prefilled SyringeKim E Cannon Work Phone: [phone]) [phone]-QhrwgAbbott [facility] 250 DO Work Phone: [phone]) [phone] virus vaccine, unspecified formulationAleksandar Spasic [phone]-EuxatMain [facility] Hfqu28-01-9913 Comirnaty 30 MCG/0.3ML Intramuscular SuspensionKim E Cannon Work Phone: [phone]-ZvsajEssentia Health 538 DO Work Phone: [phone]) [phone]-CjK-2 mRNA (gapamyawcut-orrt-ngeuydz) vaccineAleksandar Spasic 507-6923Ybgldp-QalyoMain Campus [facility] Yngc62-13-2291 Pfizer-BioNTech COVID-19 Vacc 30 MCG/0.3ML Intramuscular SuspensionKim E Cannon Work Phone: [phone]-DxtirMain Campus Medical Center [facility] CareComment on above:Result Comment: 2023-01-09: KBI1803-78-6098Mnibfbc High-Dose Quadrivalent 0.7 ML Intramuscular Suspension Prefilled SyringeKim E Cannon Work Phone: [phone]-TcsjjEssentia Health 250 DO Work Phone: [phone]a virus vaccine, unspecified formulationAleksandar Spasic [phone]-KrvonMain [facility] Joip56-30-6466 COVID-19 Vaccine Pfizer - Documentation Purposes OnlyAriel Kinney Other [phone]-OaqhcMain [facility] Cwsd31-14-9149 SARS-CoV-2 (COVID-19) mRNA BNT-162b2 Rachel Paul [phone]-XjvnwMain [facility] Care Payers DatePayer CategoryPayerPolicy [id number] St. Vincent Physicians Medical CenterBC [id number] 2020Medicare [id number] St. [facility] [id number] [id number] [id number] [id number] 2.840.1.470677.3.579.2.593 [id number] 2.840.1.237701.3.57[id number] 2.840.1.422837.3.57[id number] 2.840.1.677850.3.57[id number] 2..840.1.344604.3.57[id number] 2.16.840.1.390167.3.579.2.727Private Health Insurance [id number]-qsoRltu Pay [id number]-IZDG [id number] Social History DateTypeDetailFacilityUnknown if ever smokedNocox monett [employer] Other Start: 14-76-4059Wky [facility]: 05-16-2018 End: 88-52-4062Kdqrlcu smoking status NHISNever smoked tobacco (finding) [facility] Centertart: 13-51-3992Blb [facility] Daytontart: 33-48-9485Vbnbqzyl alcohol occasionally Consumes alcohol occasionally-[place] [address] DO Work Phone: Comment on above:chocolate daily . decaf tea occasional;Tobacco smoking statusNeMorrow County Hospital Convenient CareStart: 43-43-4963Zunrpzx use and exposureSmokeless tobacco non-userNOMS HealthcareStart: 12-03-2023 End: 75-11-6613Ujyxqskad beverage intakeLifetime non-drinker (finding)NOMS HealthcareStart: 67-42-6907Njmrvfo Commentcaffeine intake : chocolateNOMS HealthcareStart: 72-99-4142Driell identityIdentifies as female gender (finding) NOMS HealthcareStart: 26-79-0556Mujhec orientationChoose not to discloseNOMS HealthcareStart: 06-18-2019 End: 84-38-1387OxfFxoyma (finding)[facility] Medical Equipment Procedure CodeEquipment CodeEquipment Original TextEquipment IdentifierDates Start: 08-19-6417Bkmra Sugar Diagnostic (Onetouch Ultra Test) stripStart: 83-54-7563Wwxxc Sugar Diagnostic (Onetouch Ultra Test) stripStart: 07-25-2023 Lancets (Onetouch Delica Plus Lancet) 33 gauge miscStart: 97-93-4212Uvytf Sugar Diagnostic (Onetouch Ultra Test) stripStart: 78-12-2117Zgkcrop (Onetouch Delica Plus Lancet) 33 gauge miscStart: 43-78-4590Tzcqz Sugar Diagnostic (Onetouch Ultra Test) stripStart: 04-81-1639Mrrmxph (Onetouch Delica Plus Lancet) 33 gauge miscStart: 89-97-7303Wiyxr Sugar Diagnostic (Onetouch Ultra Test) stripStart: 08-17-4239Qevmbzv (Onetouch Delica Plus Lancet) 33 gauge miscStart: 10-17-2023 Blood Sugar Diagnostic (Onetouch Ultra Test) stripStart: 66-03-1673Lmwdywf (Onetouch Delica Plus Lancet) 33 gauge miscStart: 23-32-5185Adpgx Sugar Diagnostic (Onetouch Ultra Test) stripStart: 46-84-3494Txnlbad (Onetouch Delica Plus Lancet) 33 gauge miscStart: 94-90-6893Jpgtl Sugar Diagnostic (Onetouch Ultra Test) stripStart: 39-85-9127Roirsup (Onetouch Delica Plus Lancet) 33 gauge miscStart: 02-69-3848Rtwrb Sugar Diagnostic (Onetouch Ultra Test) stripStart: 55-19-6581Vtcmwch (Onetouch Delica Plus Lancet) 33 gauge miscStart: 10-17-2023 Blood Sugar Diagnostic (Onetouch Ultra Test) stripStart: 98-80-6167Mckycqz (Onetouch Delica Plus Lancet) 33 gauge miscStart: 51-59-1936Qomvl Sugar Diagnostic (Onetouch Ultra Test) stripStart: 07-25-2023 End: 74-13-4505Zoaee Sugar Diagnostic (Onetouch Ultra Test) stripStart: 10-29-2024 End: 77-91-0935Cqqswzo (Onetouch Delica Plus Lancet) 33 gauge miscStart: 10-17-2023 End: 39-57-8522Msijgsg (Onetouch Delica Plus Lancet) 33 gauge miscStart: 10-29-2024 End: 02-47-9013Rbylz Sugar Diagnostic (True Metrix Glucose Test Strip) strip Start: 07-52-6447Wconufv (Trueplus Lancets) 28 gauge miscStart: 81-35-4748Apsul Sugar Diagnostic (Onetouch Ultra Test) stripStart: 07-25-2023 End: 09-28-7873Knfve Sugar Diagnostic (Onetouch Ultra Test) stripStart: 10-29-2024 End: 10-20-2865Hnrzvit (Onetouch Delica Plus Lancet) 33 gauge miscStart: 10-17-2023 End: 30-74-7254Ogwfjpz (Onetouch Delica Plus Lancet) 33 gauge miscStart: 10-29-2024 End: 34-82-7171Daxwl Sugar Diagnostic (True Metrix Glucose Test Strip) strip Start: 10-58-2015Eocujbx (Trueplus Lancets) 28 gauge miscStart: 63-58-1848Ycskb Sugar Diagnostic (Onetouch Ultra Test) stripStart: 07-25-2023 End: 89-60-5094Vlfpg Sugar Diagnostic (Onetouch Ultra Test) stripStart: 10-29-2024 End: 09-29-7081Iceekak (Onetouch Delica Plus Lancet) 33 gauge miscStart: 10-17-2023 End: 00-83-8386Vidpscd (Onetouch Delica Plus Lancet) 33 gauge miscStart: 10-29-2024 End: 79-94-6283Jvpdr Sugar Diagnostic (True Metrix Glucose Test Strip) strip Start: 07-92-9546Twvbjpq (Trueplus Lancets) 28 gauge miscStart: 27-94-6609Hsagq Sugar Diagnostic (Onetouch Ultra Test) stripStart: 07-25-2023 End: 28-57-1480Dbfbi Sugar Diagnostic (Onetouch Ultra Test) stripStart: 10-29-2024 End: 62-61-4004Rkcifwf (Onetouch Delica Plus Lancet) 33 gauge miscStart: 10-17-2023 End: 02-77-7735Cdseiuj (Onetouch Delica Plus Lancet) 33 gauge miscStart: 10-29-2024 End: 40-95-4733Nzeshlu (Trueplus Lancets) 28 gauge miscStart: 10-29-2024 End: 68-20-4391Kaiuk Sugar Diagnostic (True Metrix Glucose Test Strip) strip Start: 63-32-9496Ihcgnla (Trueplus Lancets) 28 gauge miscStart: 23-56-0011Tbcgm Sugar Diagnostic (Onetouch Ultra Test) stripStart: 07-25-2023 End: 03-18-9517Dyrfo Sugar Diagnostic (Onetouch Ultra Test) stripStart: 10-29-2024 End: 59-06-7646Pgalpva (Onetouch Delica Plus Lancet) 33 gauge miscStart: 10-17-2023 End: 17-77-3107Gndbqbs (Onetouch Delica Plus Lancet) 33 gauge miscStart: 10-29-2024 End: 30-99-7301Fefwnhe (Trueplus Lancets) 28 gauge miscStart: 10-29-2024 End: 95-37-5540Vdpce Sugar Diagnostic (True Metrix Glucose Test Strip) strip Start: 65-35-9093Nzwicej (Trueplus Lancets) 28 gauge miscStart: 15-39-9839Zqubb Sugar Diagnostic (Onetouch Ultra Test) stripStart: 07-25-2023 End: 55-62-6254Huzij Sugar Diagnostic (Onetouch Ultra Test) stripStart: 10-29-2024 End: 26-21-3093Ijuasxd (Onetouch Delica Plus Lancet) 33 gauge miscStart: 10-17-2023 End: 37-92-8735Kjplgdd (Onetouch Delica Plus Lancet) 33 gauge miscStart: 10-29-2024 End: 09-64-6821Spxfamg (Trueplus Lancets) 28 gauge miscStart: 10-29-2024 End: 46-31-8112Thiti Sugar Diagnostic (True Metrix Glucose Test Strip) strip Start: 53-81-7574Czorlfj (Trueplus Lancets) 28 gauge miscStart: 62-41-8710Wrazt Sugar Diagnostic (Onetouch Ultra Test) stripStart: 07-25-2023 End: 51-10-0780Qlujs Sugar Diagnostic (Onetouch Ultra Test) stripStart: 10-29-2024 End: 98-50-4566Isvwraj (Onetouch Delica Plus Lancet) 33 gauge miscStart: 10-17-2023 End: 79-86-1865Qhzifko (Onetouch Delica Plus Lancet) 33 gauge miscStart: 10-29-2024 End: 82-94-2052Xgkftzl (Trueplus Lancets) 28 gauge miscStart: 10-29-2024 End: 71-26-3832Iykbh Sugar Diagnostic (True Metrix Glucose Test Strip) strip Start: 81-86-7784Wsibokc (Trueplus Lancets) 28 gauge miscStart: 61-54-6319Njifq Sugar Diagnostic (Onetouch Ultra Test) stripStart: 07-25-2023 End: 95-80-8680Nspmh Sugar Diagnostic (Onetouch Ultra Test) stripStart: 10-29-2024 End: 12-54-5296Bvztpzd (Onetouch Delica Plus Lancet) 33 gauge miscStart: 10-17-2023 End: 56-59-5850Jwlfnea (Onetouch Delica Plus Lancet) 33 gauge miscStart: 10-29-2024 End: 63-76-4200Izghkuu (Trueplus Lancets) 28 gauge miscStart: 10-29-2024 End: 12-10-2024 Goals DatePatient GoalDesired Activity/State Functional Status TyecWbysopabboIvsymcJrcqbwhw36-13-6314Zaiwzxuvfv StatusN/AFisher-[facility] 06-05-2021 to 12-27-2024 Note Date & HkbeBzsiReqkxeck28-82-3276 Hospital Discharge instructions Patient Education 12/27/2024 13:45:00 Shingles, Fzrn-ld-Wrtw Shingles Shingles is an infection. It gives [...] Follow these instructions at home: Medicines Take engu-sxw-spaxlyw and prescription medicines only as told by [...] cannot use soap and water, use hand cook chill technician. Change your bandage as told by your [...] cannot use soap and water, use hand cook chill technician. Doing this lowers your chance of getting [...] provider. Document Revised: 05/15/2021 Document Reviewed: 05/15/2021 [employer] Patient Education 2023 [employer]. Follow Up Care 12/27/2024 10:44:27 With:Delvis GOODMAN, Iraj Ashby [facility] Address: [address] [place] [place] [address]- When: Unknown [facility] 07-27-2025 NotePatient Education Infectious [...] these instructions at home: Medicines ??? Take tuko-edd-xwaunma and prescription medicines only as told by [...] cannot use soap and water, use hand cook chill technician. ??? Change your bandage as told by [...] cannot use soap and water, use hand cook chill technician. Doing this lowers your chance of getting [...] Your pain does not (more content not included)...[facility] 12-02-2024 Evaluation note* Diagnosis Onset Date Resolution Status Admit Date Cervical radiculopathy acuteJuly 2024 9:56amVertigoacuteJuly 2024 9:56amHerpes zosteracute December 29, 2024 2:32pmGERD (gastroesophageal reflux disease)acuteAugust 2024 9:30am [facility] Work Phone: 1(974) 746-254307-02-2025 Evaluation note* Diagnosis Onset Date Resolution Status Admit Date Cervical radiculopathy acuteJuly 2024 9:56amVertigoacuteJuly 2024 9:56amHerpes zosteracute December 29, 2024 2:32pmGERD (gastroesophageal reflux disease)acuteAugust 2024 9:30amBlood pressure elevated without history of HTNacuteSeptember 2024 8:49amBMI 24.0-24.9, adultacuteSeptember 2024 8:49amDietary counseling and surveillanceacuteSeptember 2024 8:49amHyperlipidemia LDL goal <100 acuteSeptember 2024 8:49amType 2 diabetes mellitusacuteSeptember 2024 8:49am [facility] Work Phone: 1(954) 812-130005-22-2025 Evaluation note* Diagnosis Onset Date Resolution Status Admit Date Anemia acuteMay 2024 8:56amGERD (gastroesophageal reflux disease)acuteMay 2024 8:56amBurning tongue syndromeinactiveMay 2024 8:56amBlood pressure elevated without history of HTNacuteMay 2024 8:50amBMI 24.0-24.9, adult acuteMay 2024 8:50amDietary counseling and surveillanceacutey 2024 8:50amHyperlipidemia LDL goal <100acutey 2024 8:50amType 2 diabetes mellitusacuteMay 2024 8:50amCervical radiculopathyacuteJuly 2024 9:56amVertigoacuteJuly 2024 9:56am [facility] Work Phone: 1(481) 648-698405-22-2025 Evaluation note* Diagnosis Onset Date Resolution Status Admit Date Anemia acuteMay 2024 8:56amGERD (gastroesophageal reflux disease)acuteMay 2024 8:56amBurning tongue syndromeinactivey 2024 8:56amBlood pressure elevated without history of HTNacuteMay 2024 8:50amBMI 24.0-24.9, adult acuteMay 2024 8:50amDietary counseling and surveillanceacutey 2024 8:50amHyperlipidemia LDL goal <100acutey 2024 8:50amType 2 diabetes mellitusacuteMay 2024 8:50amCervical radiculopathyacuteJuly 2024 9:56amVertigoacuteJuly 2024 9:56amHerpes zosteracuteJuly 2024 2:32pm [facility] Work Phone: 1(759) 891-112104-28-[address] [address] Colonoscopy Procedure Report Signed Patient: Loraine Griffith MR#: [id number] : 1955 Acct:[id number] Age/Sex: 69 / F Adm Date: 5 Loc: Room: Type: [facility] Attending Dr: Wendie Craig DO Copies to: [...] slowly withdrawn with the findings as below. Trail bowel prep score was good. Findings: Terminal [...] DO 09/28/24 0849 Signed By: 09/28/24 0914 [facility]04-28-2025 [place] [address] EGD Procedure Note Signed Patient: Loraine Griffith MR#: [id number] : 1955 Acct:[id number] Age/Sex: 69 / F Adm Date: 5 Loc: Room: Type: [facility] Attending Dr: Wendie Craig DO Copies to: [...] DO 09/28/24 0848 Signed By: 09/28/24 0902 [facility]04-28-2025 [place] [address] Gastroenterology H&P Signed Patient: Loraine Griffith MR#: [id number] : 1955 Acct:[id number] Age/Sex: 69 / F Adm Date: 5 Loc: Room: Type: [facility] Attending Dr: Wendie Craig DO Copies to: [...] DO 09/28/24 0847 Signed By: 09/28/24 0848 [facility]04-15-2025 Evaluation note* Diagnosis Onset Date Resolution Status Admit Date Eustachian tube dysfunction acuteApril 2024 1:01pm [facility] Work Phone: 1(791) 229-644604-15-2025 Evaluation note* Diagnosis Onset Date Resolution Status Admit Date Eustachian tube dysfunction acuteApril 2024 1:01pmAnemiaacuteMay 2024 8:56amBurning tongue syndromeacuteMay 2024 8:56amGERD (gastroesophageal reflux disease)acuteMay 2024 8:56am [facility] Work Phone: 1(151) 808-443904-15-2025 Evaluation note* Diagnosis Onset Date Resolution Status Admit Date Eustachian tube dysfunction acuteApril 2024 1:01pmAnemiaacuteMay 2024 8:56amGERD (gastroesophageal reflux disease)acuteMay 2024 8:56amBurning tongue syndromeinactiveMay 2024 8:56amBMI 24.0-24.9, adultacuteMay 2024 8:50amDietary counseling and surveillanceacuteMay 2024 8:50am Hyperlipidemia LDL goal <100acuteMay 2024 8:50amType 2 diabetes mellitus acuteMay 2024 8:50am [facility] Work Phone: 1(562) 781-661204-15-2025 Evaluation note* Diagnosis Onset Date Resolution Status Admit Date Eustachian tube dysfunction acuteApril 2024 1:01pmAnemiaacuteMay 2024 8:56amGERD (gastroesophageal reflux disease)acuteMay 2024 8:56amBurning tongue syndromeinactiveMay 22nd, 2025 8:56amBlood pressure elevated without history of HTNacutey 2024 8:50amBMI 24.0-24.9, adultacuteMay 2024 8:50am Dietary counseling and surveillanceacuteOctober 29, 2024 8:50amHyperlipidemia LDL goal <100acutey 2024 8:50amType 2 diabetes mellitusacuteMay 2024 8:50amCervical radiculopathyacuteJuly 2024 9:56amVertigoacuteJuly 2024 9:56am [facility] Work Phone: 1(443) 272-613101-03-2025 Nuclear medicine Diagnostic study note [facility] [place] [address] [place] [address] Nuclear Medicine Report Signed Patient: Loraine Griffith MR#: [id number] : 1955 Acct:[id number] Age/Sex: 69 / F ADM Date: 5 Loc: [place] Room: Type: [facility] Attending Dr: Lynn Luther MD Copies to: MD Lynn De La Paz MD~ Ordering Provider: Lynn Luther MD Date of Service: 06/05/24 [place] juan perf SPECT rest & str: R06.09, [...] Rachael Perrin MD 06/05/241735 Signed By: 06/05/241737 [facility] Work Phone: 1([phone]) 299-670211-21-2024 Evaluation note* Diagnosis Onset Date Resolution Status Admit Date BMI 24.0-24.9, adult acuteApril 23, 2024 8:39amDietary counseling and surveillanceacuteApril 23, 2024 8:39amHyperlipidemia LDL goal <100acuteApril 23, 2024 8:39amType 2 diabetes mellitusacuteApril 23, 2024 8:39amDyspnea on exertionacute May 07, 2024 8:14amLeft-sided chest painacuteMay 07, 2024 8:14am Lumbar radicular painacuteDe2023 8:14amMedicare annual wellness visit, subsequentacuteMay 07, 2024 8:14amPVCs (premature ventricular contractions)acuteDe2023 8:14am [facility] Work Phone: 1([phone]) 560-676712-04-2023 Evaluation note* Encounter Date Diagnosis Assessment Notes [...] she is a regular patient at that [facility]. [employer] Other 11-09-2023 Evaluation note* Encounter Date Diagnosis [...] or diabetes medication issues. 6. Prescriptions: [facility] - None at this time. 7. Prescriptions [...] 09/23 vit b 12 562 at target [employer] Other 08-09-2023 Hospital Discharge instructions Patient Education [...] pain. Follow these instructions at home: Take lemt-fze-pehmtml and prescription medicines only as told by [...] provider. Document Revised: 08/28/2021 Document Reviewed: 08/28/2021 [employer] Patient Education 2022 [employer]. 01/09/2023 14:53:09 Otitis Media, Adult Otitis [...] pain. Follow these instructions at home: Take khhe-zzj-csccqth and prescription medicines only as told by [...] provider. Document Revised: 08/28/2021 Document Reviewed: 08/28/2021 [employer] Patient Education 2022 [employer]. Follow Up Care 01/09/2023 14:17:17 With:Delvis GOODMAN, Iraj Ashby, [facility], [facility] Address:Unknown When: Unknown [facility] 05-10-2023 Evaluation note* Encounter [...] 09/23 vit b 12 562 at target [employer] Other 11-09-2022 Evaluation note* Encounter Date Diagnosis [...] Apr,Vitamin B 12 deficiency (ICD-10 - E53.8) [employer] Other 05-11-2022 Evaluation note* Encounter Date Diagnosis [...] 22.0-22.9, adult (ICD-10 - Z68.22) see above [employer] Other 03-09-2022 Evaluation note* Encounter Date Diagnosis Assessment Notes Treatment Notes Treatment Clinical Notes Aug, Vitamin D deficiency (ICD-10 - E 55.9) [employer] Other 01-03-2022 Evaluation note* Encounter Date Diagnosis Assessment Notes Treatment Notes Treatment Clinical Notes Jun, Type 2 diabetes mellitus, contro lled (ICD-10 - E11.9) [employer] Other Chibt complaint Narrative - Reported* 67-year-old female seen [...] Recommend conservative management for the time being. [facility] 250 DO Work Phone: Evaluation + Plan note No data available for this section [facility] Evaluation noteNo InformationNort [employer] Other Evaluation noteNo assessment information available [facility] Work Phone: Evaluation note* Diagnosis Vaginal atrophy [...] 8:39amHyperlipidemia LDL goal <100acuteNov2023 8:39amType 2 diabetes mellitusacuteHighsmith-[facility]2023 8:39am [facility] Work Phone: History and physical note Author Wendie Craig [facility] ShawNote Date/TimeApril 2024 8:[place] [address] Gastroenterology H&P Signed Patient: Loraine Griffith MR#: [id number] : 1955 Acct:[id number] Age/Sex: 69 / F Adm Date: 5 Loc: Room: Type: [facility] Attending Dr: Wendie Craig DO Copies to: [...] signed by Wendie Craig DO> 09/28/24 0848 [facility] Work Phone: History general Narrative - [facility]NoReg[facility] Other History general Narrative - Reported* Type Description Date Medical History osteoporosis Medical Historyseborrheic keratosisMedical HistoryDM IISurgical HistoryT & A Surgical HistorylLEFT BREAST BIOPSYSurgical Historywisdom teethSurgical History skin lesionsSurgical HistoryTOOTH [id number] HistoryCOLONOSCOPY 91352Yxtkmvwvrgpmxuo HistorySEE ABOVE SURGERY [facility] [employer] Other History general Narrative - Reported* Type Description Date Medical History osteoporosis Medical Historyseborrheic keratosisMedical HistoryPre diabetesMedical History OsteoarthritisSurgical HistoryT & ASurgical HistorylLEFT BREAST BIOPSYSurgical Historywisdom teethSurgical Historyskin lesionsSurgical HistoryTOOTH IMPLANT Surgical QptnxmqZXMGAXQFURK58-98782Ifgsaqwd HistoryBasal cell removal, foreheadHospitalization HistorySEE ABOVE SURGERY [employer] Other History of Present illness Narrative* Tiarra [...] Review Audit Reviewed by Hyacinth Kearns MA ([place]) on 04/08/24 at 0910 Medication Order Taking? Sig Documenting Provider Last Dose Status Ascorbic Acid (Vitamin C) 500 MG capsule [id number] as directed Orally Jacky Saleh DO Active atorvastatin (Lipitor) 10 MG tablet [id number] Take 10 mg by mouth in the morning. [place] ProviderMD Active Calcium Citrate-Vitamin D 315-5 MG-MCG tablet [id number] 1 (one) time each day at the same time Jacky Saleh DO Active celecoxib (CeleBREX) 200 MG capsule [id number] 1 capsule with food Orally prn for 30 days Jacky Saleh DO Active cholecalciferol (Vitamin D-3) 125 MCG (5000 UT) capsule [id number] Take 5,000 Units by mouth in the morning. Historical ProviderMD Active denosumab (Prolia) 60 MG/ML solution prefilled syringe [id number] Inject 60 mg under the skin 1 (one)time. Historical ProviderMD Active Lancets (FastHealthTouch Delica Plus Ozyvdg10Z) misc [id number] USE WITH ONE TOUCH LANCET DEVICE DAILY Historical ProviderMD Active Lecithin 1200 MG capsule [id number] Take 1 capsule by mouth 1 (one) time each day at the same time. Historical ProviderMD Active Multiple Vitamin (Multi Vitamin) tablet [id number] 1 (one) time each day at the same time Jacky Saleh DO Active omega-3 (Fish Oil) 1000 MG capsule [id number] 1 capsule every 8 (eight) hours Jacky Saleh DO Active OneTouch Ultra test strip [id number] USE TO TEST ONCE DAILY E11.65 Historical ProviderMD Active Premarin 0.625 MG/GM cream [id number] INSERT 1/2 GRAM VAGINALLY TWICE A WEEK [...] neoplasm of cervix Z12.4 documented in this encounterNONY HealthcareProgress note No data available for this section [facility] Reason for referral (narrative)No reason for referral information availableKindred Hospital [facility] Work Phone: Chief Complaint and Reason for [...] 23, 2024 8:39am Dietary counseling and surveillance [facility]2023 8:39am Hyperlipidemia LDL goal <100 April 232023 [...] 23, 2024 8:39am Dietary counseling and surveillance [facility]2023 8:39am Hyperlipidemia LDL goal <100 April 232023 [...] Primary Care Provider Active Hudson Azevedo APRN MACHINE ENGINEER-CActiveTondra K Mapus , APRNAttending ProviderActive Team [...] Ruth Cannon MD Primary Care Provider Active Tondra Nicole Kinney , APRNAttending ProviderActiveMatthalle German , MDReferring ProviderActive Team Status: Inactive Member Role Status Dates Lynn Luther MD Attending Provider Active St art: May 06, 2023 End: May 06, 2023 Team Status: Inactive Member Role Status Dates Lynn Luther MD Primary Care Provider Active Start: September 23, 2023 End: September 23, 2023Jovitaly Marie MACHINE ENGINEER-CAttending ProviderActiveStart: September 23, 2023 End: September [...] 19, 2024 End: March 19, 2024Jovitaly Marie MACHINE ENGINEER-CAttending ProviderActiveStart: March 19, 2024 End: March 19, 2024Team MemberRelationshipSpecialtyStart DateEnd Date Lynn Luther MD [address] [place] [address] PCP - GeneralFamily Medicine12/03/23 Jacky Saleh DO [address] [place] [address] Otolaryngology12/03/23Team MemberRelationshipSpecialtyStart DateEnd Date Lynn Luther MD [address] [place] [id number] PCP - GeneralFanely Medicine12/03/23 Jacky Saleh, [address] [place] [address] Otolaryngology12/03/23 Team Status: Inactive Member Role Status [...] June 05, 2024 End: June 05, 2024W Anna Payan ProviderActiveStart: June 05, 2024 End: June 05, 2024 Team Status: Active Member Role Status Dates Lynn Luther MD Primary Care Provide r, Other Provider Active Start: June 05, 2024 W Anna aPyan ProviderActiveStart: June 05, 2024 Simone De La [...] section and content) DATE CREATED AUTHOR 05/12/2022 [facility] DATE CREATED AUTHOR AUTHOR'S ORGANIZ ATION 05/25/2022 [facility] DATE CREATED AUTHOR AUTHOR'S ORGANIZ ATION 04/09/2024 [facility] DATE CREATED AUTHOR AUTHOR'S ORGANIZ ATION 12/28/2024 [facility] DATE CREATED AUTHOR AUTHOR'S ORGANIZ ATION 01/29/2025 [facility] FOR RECORDS PERTAINING TO PATIENTS [...] BE BASED ON THE PRIMARY CLINICAL RECORDS. [employer] provides no warranty or guarantee of the accuracy or completeness of information in this document.
--- NOTE | 2025-03-26 11:08 | XR_ITS ---
The [address] [address] Patient Name: JOHN CAMPBELL MRN: [id number] date: 1955 Sex: F Assigned Patient Location: [facility] Current Patient Location: [facility] Accession/Order Number: [id number] Exam Date: 03/26/2025 11:13 Report Date: 03/26/2025 11:44 At the request of: PABLO HUBBARD DPMalcolm Procedure: XR foot LT min 3V LEFT FOOT - 3 views CLINICAL DATA: Pain and swelling at the second metatarsal since injury one month ago. COMPARISON: 11/14/2023 Standing AP, lateral and oblique views were obtained. There is osteopenia. There is no acute fracture or dislocation. There is minor degenerative change at some of the interphalangeal joints of the toes. There is prominent degenerative change at the first metatarsal phalangeal joint which is similar to the comparison. Posterior and plantar calcaneal spurs are seen. There are no significant soft tissue abnormalities. XR/XR foot LT min 3V IMPRESSION: DEGENERATIVE CHANGES, GREATEST AT THE FIRST METATARSAL PHALANGEAL JOINT NO ACUTE BONY INJURY. Impression dictated by: Beatriz Restrepo M.D. 03/26/2025 11:44 AM Dictation Location: [place] [address] Electronically authenticated by: [id number] Date: 03/26/2025 11:44
== END 2025-03-26 11:01 | disposition home or self-care (01) ==
LOC: RAD 11:02
PROVIDERS: PCP Family Medicine; Visit Provider Podiatrist Foot & Ankle Surgery
DX: M79.672 Pain in left foot (principal); M19.072 Primary osteoarthritis, left ankle and foot
CPT/HCPCS: 73630